=== PATIENT | male | born 1980 | race Caucasian/White ===

== ENCOUNTER 2021-07-20 08:00 | Outpatient (CLI) | payer OTHER, SELFPAY | END 2021-07-20 08:01 | disposition home or self-care (01) | LOC: ANHAUDIO 08:07 | PROVIDERS: Visit Provider Nurse Practitioner Family | DX: H93.12 Tinnitus, left ear (principal); H90.11 Conductive hearing loss, unilateral, right ear, with unrestricted hearing on the contralateral side | CPT/HCPCS: 92557; 92567 ==

== ENCOUNTER 2021-08-13 09:52 | Emergency (ER) | payer OTHER, SELFPAY ==
--- NOTE | ~2021-08-13 | CT_ITS ---
EXAMINATION: CT soft tissue neck w con EXAM DATE: 08/13/2021 12:55 INDICATION: Right mandibular swelling, pain. TECHNIQUE: Spiral CT of the neck was performed following intravenous injection of 75 mL Omnipaque 350 . Axial, coronal and sagittal images were reviewed. The dose-length product (DLP) for this examinat ion was 615.51 mGy-cm. The exposure was tailored according to patient size (auto mA exposure control ), and iterative reconstruction (ASIR) was used as additional dose reduction technique. There is no prior study for comparison. FINDINGS: Contiguous to the right mandibular body there is focal region which appears to the containe d fluid pocket measuring 2.6 x 0.9 cm in greatest axial dimensions (axial image 60) likely odontogeni c abscess. There is apical lucency at the root of tooth #30, the right lower anteriormost molar, and suspect tiny lucency extending toward the fluid collection as seen on bone windows sequence 5 image 6 4. Soft tissue swelling over the right side of the face. The thyroid gland is unremarkable. The submandibular and parotid glands are symmetric. There is n o cervical lymphadenopathy. There are no masses identified. The superior mediastinum is unremarka ble. The airway is unremarkable. Parapharyngeal and pre-glottic fat planes are preserved. The o pacified vasculature is patent. The orbits are unremarkable. Visualized sinuses and mastoid air c ells are well aerated. Lung apices are clear. Bones are unremarkable. IMPRESSION: Right lower molar apical lucency likely infection with development of small abscess anter ior to the mandible. Reviewed, dictated and finalized at location A. IMPRESSION: Right lower molar apical lucency likely infection with development of small abscess anterior to the mandible.
[2021-08-13 10:12] VITALS: BP 130/86; PULSE 72; RESP 16; TEMP 36.8; O2SAT 99
--- NOTE | 2021-08-13 11:16 | ED.EAR ---
HPI - Ear Problem General Chief complaint: Ear Stated complaint: right facial swelling Time Seen by Provider: 08/13/21 10:13 Source: patient Mode of arrival: ambulatory Limitations: no limitations History of Present Illness HPI Narrative: This is a 41-year-old male that presents to the emergency department for right-sided facial swelling noted since last night. Reports history of current ear infections recently. He finished a round of levofloxacin orally about 3 days ago. Reports yesterday he started to note swelling and pain around his right lower jaw. Denies any dental pain or problems. Denies fever, difficulty breathing, or trouble swallowing. Related Data Allergies Allergy/AdvReac Type Severity Reaction Status Date / Time Penicillins Allergy Unknown Unknown Verified 08/13/21 11:15 Review of Systems Review of Systems: CONSTITUTIONAL: Denies fever ENT: Reports otalgia. Denies rhinorrhea, congestion, sore throat RESPIRATORY: Denies dyspnea. All systems reviewed & are unremarkable except as noted in HPI and below PMFSH Past Medical History Medical History (Updated 08/13/21 @ 14:25 by Maria Eugenia Shipman PA-C) No active medical problems Social History Social History (Updated 08/13/21 @ 11:18 by Maria Eugenia Shipman PA-C) Smoking status: Never smoker Exam Narrative: GENERAL: Well-appearing, well-nourished, and in no acute distress. HEAD: Normocephalic, atraumatic. Moderate right-sided facial swelling of the mandible EYES: EOMI. ENT: Nares clear, no rhinorrhea or epistaxis. Mucous membranes moist. Oropharynx without tonsillar hypertrophy exudate or other lesions. Bilateral TMs pearly ortiz non-bulging. Normal-appearing dentition. No trismus. Floor mouth is soft NECK: Supple. Tender right-sided submandibular adenopathy CHEST: Clear to auscultation. No respiratory distress. No wheezes rales or rhonchi HEART: Regular rate and rhythm. No murmur heard. Normal peripheral pulses. EXTREMITIES: Normal range of motion. No edema. SKIN: Warm, dry, no rash. NEURO: No focal deficits. Alert and oriented x3. PSYCH: Normal mood and affect Course Vital Signs Vital signs: Vital Signs Temperature 98.2 F 08/13/21 10:12 Pulse Rate 72 08/13/21 10:12 Respiratory Rate 16 08/13/21 10:12 Blood Pressure 130/86 08/13/21 10:12 Pulse Oximetry 99 08/13/21 10:12 Temperature 98.2 F 08/13/21 10:12 Pulse Rate 72 08/13/21 10:12 Respiratory Rate 16 08/13/21 10:12 Blood Pressure 130/86 08/13/21 10:12 Pulse Oximetry 99 08/13/21 10:12 Medical Decision Making MDM Narrative Medical decision making narrative: Patient presents to the emergency department for facial swelling noted since last night. Patient did have an area of swelling noted to the right mandible. He is afebrile and nontoxic-appearing. No trismus on exam. Floor of mouth is soft. CBC with mild leukocytosis to 10.5. Inflammatory markers are not elevated. CT scan of the soft tissue neck shows a right lower molar apical lucency likely infection with development of small abscess anterior to the mandible. Dr. Mahoney came down to the ED and saw the patient and drained the abscess. Patient will be started on oral antibiotics and Peridex. Was instructed to follow-up with his ENT doctor and dentist. Patient is stable and felt appropriate for further outpatient evaluation. He was given warnings to return to the ER Vital Signs Vital Signs: Vital Signs Temperature 98.2 F 08/13/21 10:12 Pulse Rate 72 08/13/21 10:12 Respiratory Rate 16 08/13/21 10:12 Blood Pressure 130/86 08/13/21 10:12 Pulse Oximetry 99 08/13/21 10:12 Temperature 98.2 F 08/13/21 10:12 Pulse Rate 72 08/13/21 10:12 Respiratory Rate 16 08/13/21 10:12 Blood Pressure 130/86 08/13/21 10:12 Pulse Oximetry 99 08/13/21 10:12 Lab Data Lab results reviewed: Yes I reviewed the patient's lab results. Result diagrams: 08/13/21 11:31 08/13/21
[2021-08-13] MEDS: KETOROLAC 30 MG/ML VIAL (*BKC) IV PUSH (11:35)
[2021-08-13 11:47] LABS: Basophils Percent Auto 0.3 % (0.2-1.2); Eosinophils Absolute Auto 0.1 K/mm3 (0-0.3); Eosinophils Percent Auto 1.2 % (0-4.4); Hematocrit 44.8 % (42.0-52.0); Hemoglobin 14.9 g/dL (14.0-18.0); Immature Granulocyte Absolute 0.04 K/mm3 (0.00-0.031); Immature Granulocyte Percent A 0.4 % (0-0.5); Lymphocytes Absolute Auto 2.16 K/mm3 (0.9-3.2); Lymphocytes Percent Auto 20.7 % (18.3-44.2); Mean Corpuscular HGB Conc 33.3 g/dl (32-36); Mean Corpuscular Hemoglobin 27.7 pg (26-34); Mean Corpuscular Volume 83.3 fl (80-100); Monocytes Absolute Auto 0.9 K/mm3 (0.1-0.6); Monocytes Percent Auto 8.4 % (2.6-8.5); Neutrophils Absolute Auto 7.2 K/mm3 (1.3-6.7); Platelet Count Result 197 k/mm3 (150-375); Red Blood Count 5.38 M/mm3 (4.6-6.20); Red Cell Distribution Width 12.3 % (11.5-14.5); White Blood Count 10.5 K/mm3 (4.5-10.0)
[2021-08-13 12:38] LABS: Anion Gap 9 mmol/L (8-16); Blood Urea Nitrogen 13 mg/dL (9-20); Carbon Dioxide 29 mmol/L (22-30); Chloride 102 mmol/L (98-107); Estimated CRCL calculation 117 ml/min; Estimated Glomerular Filt Rate > 60; Glucose 96 mg/dL (65-110); Potassium 4.5 mmol/L (3.4-5.0); Sodium 140 mmol/L (137-145)
[2021-08-13 12:51] LABS: CRP < 0.5 mg/dL (<1.0)
[2021-08-13 13:31] LABS: Erythrocyte Sedimentation Rate 8 mm/hr (0-20)
--- NOTE | 2021-08-13 14:33 | WPDPROCEDUR ---
Procedures Abscess I/D Site: oral Side (if applicable): right Anesthetic used: lidocaine 1% (With epi) Technique: incised with #11 blade Amount of fluid (mL): 2 Irrigation: No Packing used?: none Complications: pain Comments: procedure described in great detail, consent obtained verbally, right-sided area of fluctuance noted anesthetized with 3 cc 1% lidocaine with 1 100,000 parts epinephrine, a 11 blade used to incise the mucosa curved Domonique utilize to probe the area with turbid fluid noted. No purulence. Patient tolerated the procedure well blood loss minimal.
--- NOTE | 2021-08-13 14:34 | P.CONS_ITS ---
Assessment and Plan Assessment and plan (1) Dental abscess: Code(s): K04.7 - Periapical abscess without sinus Status: Acute Assessment and Plan: patient use Peridex q.i.d. after meals and before bed for 7 days, patient should use clindamycin for 7 days as well. Can follow up with dentist next week as planned. Patient can follow up with me for any and all otolaryngologic issues. Patient discussed the immunosuppressive medication with the prescribing provider. Patient and voiced understanding and agreed. (2) Facial cellulitis: Code(s): L03.211 - Cellulitis of face Status: Acute HPI Data of Consult Date/Time: 08/13/21 14:34 Primary Care Provider: PHYSICIAN NOT ON STAFF Consult Narrative Narrative: Mauri Smith is a 41 year old male With approximately 12 hours of facial swelling. Patient is on immunosuppressant for his psoriatic arthritis. Patient also reports recurrent ear issues. Presents to me for further evaluation treatment. CT demonstrates right-sided buccal odontogenic type cellulitis possible abscess. CT personally reviewed by myself. Patient reports having eustachian tube dysfunction. [facility] Past Medical History Medical History (Updated 08/13/21 @ 14:36 by Navid Mahoney MD) No active medical problems Social History Social History (Updated 08/13/21 @ 11:18 by Maria Eugenia Shipman PA-C) Smoking status: Never smoker Meds Home Medications and Allergies Home Medications Medication Instructions Recorded Confirmed Type chlorhexidine gluconate [Peridex] See Rx Instructions .ROUTE 08/13/21 Rx .COMPLEX #473 ml clindamycin HCl 300 mg PO Q6H 10 Days #40 cap 08/13/21 Rx Allergies Allergy/AdvReac Type Severity Reaction Status Date / Time Penicillins Allergy Unknown Unknown Verified 08/13/21 11:15 Vital Signs Vital Signs - 24 hr 08/13/21 10:12 Temperature 36.8 C Pulse Rate 72 Respiratory Rate 16 Blood Pressure 130/86 Pulse Oximetry 99 Exam HENMT: Other: Ears normally bilateral normal EAC normal TM aerated middle ear right face swollen mild erythema in the buccal space when palpated fluctuance noted near the right mandibular molar and premolar. Results Labs CBC & Chem 7: 08/13/21 11:31 08/13/21 11:31 Labs: Short CBC 08/13/21 Range/Units 11:31 WBC 10.5 H (4.5-10.0) K/mm3 Hgb 14.9 (14.0-18.0) g/dL Hct 44.8 (42.0-52.0) % Plt Count 197 (150-375) k/mm3 [facility] 08/13/21 11:31 Sodium 140 Potassium 4.5 Chloride 102 Carbon Dioxide 29 BUN 13 Creatinine 1.00 Glucose 96 Calcium 9.0
[2021-08-13] MEDS: HYDROcodone/acetaminophen (*CRX) 5-325 MG TABLET 1 TAB PO (14:51)
== END 2021-08-13 14:57 | disposition home or self-care (01) ==
PROVIDERS: Physician Assistant; Emergency Provider Emergency Medicine
DX: K04.7 Periapical abscess without sinus (principal)
CPT/HCPCS: 36415; 70491; 80048; 85025; 85652; 86140; 96365; 96375; 99284; A9270; J0131; J1885; Q9967

== ENCOUNTER → 2022-05-23 16:07 | Outpatient (CLI) | payer BC, SELFPAY ==
--- NOTE | ~2022-05-23 | US_ITS ---
EXAMINATION: US soft tissue head and neck DATE: 05/23/2022 16:32 INDICATION: Palpable mass at the lateral left neck TECHNIQUE: Multiple grayscale and Doppler ultrasound images of the region of concern at the left neck were obtained. COMPARISON: CT dated 08/13/2021 FINDINGS/IMPRESSION: Palpable abnormality of concern appears to correspond to a couple small lymph nodes with typical smal l amount of vascular flow associated with the central echogenic fatty nikolas. These measure 10 x 10 x 4 mm and 10 x 7 x 5 mm which is within normal limits. No other abnormal masses or fluid collections id entified. Reviewed, dictated and finalized at location B.
== END ==
PROVIDERS: Visit Provider Physician Assistant Medical
DX: R22.1 Localized swelling, mass and lump, neck (principal)
CPT/HCPCS: 76536

== ENCOUNTER 2024-01-12 05:24 | Day surgery (SDC) | payer BC, SELFPAY ==
[2024-01-08 14:37] VITALS: BMI 33.2
--- NOTE | 2024-01-08 14:45 | PC.NURSE ---
Report to the Outpatient Waiting Room, entrance under the green pavilion located off [facility], at time 0930 on date 01/12/24. Planned Procedure Time: 1130. Time changes happen often and if your time is changed the preop area will call you the afternoon before. - You and your visitor will be asked to self-screen and do not enter if you have any COVID symptoms. - A mask is optional within the hospital at this time. Patients may have clear liquids (water, carbonated beverages, clear teas, apple juice) until 3 hours prior to surgery with a maximum of 20 ounces. - No food from midnight until time of surgery Take the following medications with a SIP of water the morning of surgery: DULOXETINE DO NOT STOP ANY OF YOUR OTHER PRESCRIPTION MEDICATIONS PRIOR TO SURGERY ?EXCEPT THE FOLLOWING Medications to discontinue per physician: VITAMINS/SUPPLEMENTS Date to take last dose: 01/08/24 Please no make-up, nail mongolian, hairspray, perfume, deodorant, or body powder the day of surgery. No jewelry (including any body piercings) or valuables the day of surgery, leave them at home. Please take a shower or bath the night before, or the morning of, surgery with an antibacterial soap. Wear comfortable, loose fitting clothing. - Jewelry must be removed prior to entering the operating room. Rings and piercings that are not removed may be cut off. - The hospital will not accept responsibility for valuables. - Please leave all valuables, including medications, at home the day of surgery. If you are going home after surgery, a licensed certified driver examiner must drive you home. - NO public transportation without another adult if you receive anesthesia. - We recommend that an adult stay with you for 24 hours following discharge. - We also recommend that you do not drive, make important decision, drink alcoholic beverages, or take any drugs that were not prescribed by your health care provider for at least 24 hours after your discharge time. Follow any additional instructions given to you from your surgeon. If you or anyone in your household have experienced Covid symptoms in the past week, please notify your surgeon or the nurse liaison at the phone number below for possible testing. Telephone instructions given to PT - HUBERT GRIFFIN and asked if any additional questions and then verbalized understanding. Patient advised to call surgeon office or pre surgery nurse liaison [phone] if any additional questions.
--- NOTE | ~2024-01-12 | XR_ITS ---
EXAMINATION: XR surgery orthopedic DATE: 01/12/2024 11:01 INDICATION: Left second metatarsal osteotomy TECHNIQUE: 2 fluoroscopic images of the left forefoot were obtained during procedure performed by her Aragon. Radiologist was not present for the imaging or procedure. The amount of fluoroscopy time u sed during this procedure was 0.1 minutes. COMPARISON: None. FINDINGS: Images demonstrate screw fixation of a likely shortening osteotomy at the head/neck of the second met atarsal. Alignment remains essentially anatomic. No fractures identified. Subtle lucency at the secon d metatarsophalangeal joint space and soft tissues at the base of the second toe likely representing small amount of postoperative gas. Joint spaces are normal. IMPRESSION: 1. Fluoroscopy utilized during likely shortening osteotomy at the head/neck the second metatarsal. Se [place] procedure note for further detail. Reviewed, dictated and finalized at location B. ARIAN HELPER IMPRESSION: 1. Fluoroscopy utilized during likely shortening osteotomy at the head/neck the second metatarsal. See procedure note for further detail.
--- NOTE | 2024-01-12 07:12 | WPDHPUPDATE1 ---
History and Physical Update Update Date/Time: 01/12/24 07:12 History and Physical has been reviewed, including an updated exam of the patient. There are NO changes in the patient's condition. Risks, benefits, and alternatives have been discussed and questions answered. Patient agrees to proceed with procedure.
--- NOTE | 2024-01-12 09:55 | WPDANESEPPF ---
Anes - Initial Pre Proc Eval Procedure: Operation Date: 01/12/24 11:30 Proposed Procedures p Rafaela Shortening Second Metatarsal Osteotomy Left Foot - Anthony Aragon JR, MD Date/Time: 01/12/24 09:55 Surgeon: Anthony Araogn JR, MD Pre Op Diagnosis: metatarsalgia left foot Patient Data Age: 43 Gender: M Height: 1.87 m Weight: 115.7 kg Allergies Allergy/AdvReac Type Severity Reaction Status Date / Time Penicillins Allergy Unknown Unknown Verified 01/08/24 15:06 Home Medications Medication Instructions Recorded Confirmed Type cyanocobalamin (vitamin B-12) 2,000 mcg PO DAILY 10/21/22 01/08/24 History 2,000 mcg tablet ixekizumab 80 mg/mL subcutaneous 80 mg subcut ONCE 10/24/22 01/08/24 History auto-injector (Taltz Autoinjector) ondansetron 4 mg disintegrating 4 mg PO Q6H PRN nausea and 05/18/23 01/08/24 Rx tablet vomiting #12 tabs duloxetine 30 mg capsule,delayed 60 mg PO DAILY 06/27/23 01/08/24 History release (Cymbalta) amitriptyline 10 mg tablet 10 mg PO QHS #90 tabs 09/28/23 01/08/24 Rx sumatriptan succinate 50 mg tablet 50 mg PO ONCE PRN migraine 09/28/23 01/08/24 Rx (Imitrex) headache #10 tabs Patient hx anesthesia problems: none Family hx anesthesia problems: none Results Review: All pre-operative results and documents have been reviewed as part of the pre-operative evaluation. 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 Father Heart disease Renal failure Hypertension Malignant neoplasm of prostate Social History Social History Smoking status: Never smoker Alcohol intake: never Alcohol use details: rarely Substance use: never Substance use type: does not use Lack of Transportation: No Lack of Food: Never True Current Housing: I Have Housing Concerned About Future Housing: No Difficulty Paying Gas/Electric Bills: No Difficulty Paying for Meds: No Currently Unemployed: No Education: Associate Degree Difficulty w/ Childcare or Family Care: No Living arrangements: with family Occupation/Education: occupation Gender identity (if verbalized by the patient): Male Spiritual care concerns: No Anes - Eval Final PreProcedure Day of Procedure 01/12/24 09:55 Patient weight: obese Heart: regular rate and rhythm Lungs: clear to auscultation Airway: Mallampati scale class II Neurological: alert and oriented Last oral intake: >/= 8 hours ASA classification: II Emergent: no Anesthetic plan: proceed Anesthesia type and monitoring: general GIVS and standard monitoring Results Review: All pre-operative results and documents have been reviewed as part of the pre-operative evaluation. Informed Consent: The patient's anesthetic plan and its attendant risks and benefits were discussed with the patient/family/POA. Questions were solicited and answers provided to the satisfaction of the patient/family/POA.
[2024-01-12] MEDS: LACTATED RINGERS 1,000 ML 30 ML IV CONT (10:10)
[2024-01-12 10:15] VITALS: BP 121/78; PULSE 63; RESP 16; TEMP 36.6; O2SAT 96
[2024-01-12] MEDS: ceFAZolin 2 GM/D5W 50 ML 2 GM/50 ML BAG IVPB (10:31)
[2024-01-12] MEDS: LIDOCAINE HCL 2% LOCAL INJ 20 ML VIAL 10 ML INFILTRATE (10:35)
[2024-01-12] MEDS: BUPivacaine HCL 0.5% 10 ML AMP INFILTRATE (10:35)
--- NOTE | 2024-01-12 11:07 | W.PM.PROC2 ---
Procedure Note - Detailed Date of Procedure 01/12/24 Pre-op Diagnosis Metatarsalgia sub second metatarsal head left foot Post-op Diagnosis Same Procedure Performed Rafaela shortening second metatarsal osteotomy left foot Surgeon Anthony Aragon JR, DPBertha Anesthesia MAC and Local Indications Painful left forefoot Description of Procedure Under mild sedation, the patient was brought to the operating room, placed on the operating table in the supine position. A pneumatic ankle tourniquet was placed about the patient's ankle. Following general anesthesia and a local anesthetic block with 20cs of 2% Lidocaine plain an 0.5% Marcaine plain, the foot was then scrubbed, prepped, and draped in the usual aseptic manner. An Esmarch bandage was then used to examine the patient's foot and pneumatic ankle tourniquet was then inflated. Surgery began in the following manner. Attention was directed to the dorsal aspect of the 2nd metatarsal head of the affected foot where a 2 cm incision was made just medial to the extensor tendon to the 2nd digit. The incision was continued deep down through the subcutaneous tissues using sharp and blunt dissection. All bleeders were cauterized as necessary. A full-length periosteal incision was made overlying the 2nd metatarsal distally. Next, a sagittal bone saw was used to make an osteotomy starting along the dorsal aspect of the articular surface to the head of the 2nd metatarsal in a parallel fashion to the shaft of the 2nd metatarsal. After this osteotomy was completed, the head of the 2nd metatarsal was noted to float into a more corrected proximal position. Two 2.0 Arthrex Quickfix screws were used to compress the osteotomy in a cannulated fashion from dorsal to plantar across the osteotomy site with excellent compression noted. The wound site was then flushed with copious amounts of sterile saline. Next, the periosteum and capsular structures overlying the 2nd metatarsophalangeal joints were reapproximated with 4-0 Vicryl. Next, subcutaneous structures were reapproximated and coapted utilizing 4-0 Vicryl. Next, the skin was reapproximated and coapted utilizing 4-0 Monocryl in running subcuticular suture fashion technique. Upon completion of the procedure, the incision was dressed with Steri-Strips, Adaptic, 4 x 4's, Kerlix, and Coban. The pneumatic ankle tourniquet was then deflated and a prompt hyperemic response noted to all digits of the foot. Posterior splint was then applied. The patient did very well with the procedure and the anesthesia. The patient was transferred to the recovery room with vital signs stable and vascular status intact to all toes of the foot. Following a period of postoperative monitoring, the patient will be discharged home on the following written and oral postoperative instructions: 1. Keep the dressing clean, dry, and intact. Use a cast protector bag with showers. 2. The patient to be strictly nonweightbearing with a knee scooter. 3. The patient should ice and elevate the left foot when at rest. 4. The patient to contact Dr. Aragon for all postop care and if any problems arise. 5. Prescriptions were written for Percocet 5/325 dispensed 40 to be taken 1 p.o. q.4 to 6 hours as needed for severe pain. Implants Two Arthrex Quickfix 2.0 Cannulated screws Estimated Blood Loss 1 Drains No Packing No Pathology None sent Complications No immediate complications Condition Stable Disposition Same day
[2024-01-12 11:12] VITALS: BP 106/78; PULSE 56; RESP 16; O2SAT 100
[2024-01-12 11:30] VITALS: BP 120/89; PULSE 53; RESP 16; O2SAT 100
[2024-01-12] MEDS: oxyCODONE HCL (*CRX) 5 MG TAB IR PO (11:58)
[2024-01-12 12:00] VITALS: BP 116/85; PULSE 49; RESP 16
[2024-01-12 12:25] VITALS: BP 117/80; PULSE 50; RESP 16
--- NOTE | 2024-07-17 15:51 | PC.NURSE ---
Report to the Outpatient Waiting Room, entrance under the green pavilion located off [facility], at time __30__ on date __07/26/24__. Planned Procedure Time: .? Time changes happen often and if your time is changed the preop area will call you the afternoon before. - You and your visitor will be asked to self-screen and do not enter if you have any COVID symptoms. Please call surgeon if you need to reschedule. - A mask is optional within the hospital at this time. Patients may have clear liquids (water, carbonated beverages, clear teas, apple juice) until 3 hours prior to surgery with a maximum of 20 ounces. - No food from midnight until time of surgery and no smoking - Infants may have breast milk until 4 hours before surgery, infant formula 6 hours prior to surgery. - Children will be allowed to drink immediately following surgery.? If applicable, please bring a bottle or sippy cup to assist with drinking. Juice, water, soda, and popsicles are readily available.? For infants on formula, please bring formula the day of surgery.? Pacifiers are allowed. Take only the following medications with a SIP of water on the morning of surgery: ____Amitriptyline and Duloxetine____ DO NOT STOP ANY OF YOUR OTHER PRESCRIPTION MEDICATIONS PRIOR TO SURGERY EXCEPT THE FOLLOWING Medications to discontinue per physician Meloxicam Date to take last dose 07/21/24 Please no make-up, nail welsh, hairspray, perfume, deodorant, or body powder the day of surgery.? No jewelry (including any body piercings) or valuables the day of surgery, leave them at home.? Please take a shower or bath the night before, or the morning of, surgery with an antibacterial soap.? Wear comfortable, loose fitting clothing.? Children are encouraged to wear pajamas. - Jewelry must be removed prior to entering the operating room.? Rings and piercings that are not removed may be cut off. - The hospital will not accept responsibility for valuables.? - Please leave all valuables, including medications, at home the day of surgery. If you are going home after surgery, a licensed motor coach bus driver must drive you home.? - NO public transportation without another adult if you receive anesthesia. - We recommend that an adult stay with you for 24 hours following discharge. - We also recommend that you do not drive, make important decision, drink alcoholic beverages, or take any drugs that were not prescribed by your health care provider for at least 24 hours after your discharge time. For Pediatric surgeries, we recommend two adults accompany the child home. Follow any additional instructions given to you from your surgeon. Telephone instructions given to ___Mauri Smith____and asked if any additional questions and then verbalized understanding. Patient advised to call surgeon office or pre surgery nurse liaison [phone] if any additional questions.
--- NOTE | 2024-07-17 15:58 | PC.NURSE ---
PT. takes vitamin B12 when he remembers and hasn't taken it in a while.
== END 2024-01-12 12:30 | disposition home or self-care (01) ==
PROVIDERS: PCP Physician Assistant Medical; Visit Provider Podiatrist Foot & Ankle Surgery
PROC: (CPT 28750; principal; 2024-01-12 11:30)
DX: M77.42 Metatarsalgia, left foot (principal); M79.7 Fibromyalgia; L40.9 Psoriasis, unspecified; E53.8 Deficiency of other specified B group vitamins; E66.9 Obesity, unspecified; Z68.34 Body mass index [BMI] 34.0-34.9, adult; Z79.620 Long term (current) use of immunosuppressive biologic
CPT/HCPCS: 28308; 99199; A9270; J0690; J2250; J2704; J3010; J7120

== ENCOUNTER 2024-05-22 12:52 | Outpatient (CLI) | payer BC, SELFPAY ==
--- NOTE | ~2024-05-22 | MR_ITS ---
EXAMINATION: MR knee LT wo con DATE: 05/22/2024 13:36 INDICATION: Left knee pain post injury a few months prior TECHNIQUE: Magnetic resonance imaging (MRI) of the left knee was performed without intravenous contra st. Sequences included coronal PD-weighted FSE, coronal PD-weighted FS FSE, sagittal T2-weighted FSE , sagittal PD-weighted FS FSE and axial PD weighted fat saturated FSE. COMPARISON: None. FINDINGS: Medial compartment: Medial meniscus is normal. Articular cartilage is normal. Lateral compartment: Lateral meniscus is normal. Articular cartilage is normal. Patellofemoral compartment: Partial-thickness chondral fissuring involving up to 50% of the cartilage thickness at the central as pect of the medial patellar facet and at the central aspect of the patellar apical ridge and adjacent medial side of the lateral facet. Ligaments and tendons: Anterior and posterior cruciate ligaments are normal. The medial collateral ligament and fibular amirah ateral ligament complex are normal. Mild distal quadriceps tendinopathy without discrete tear. The pa tellar tendon is normal. The visualized medial and lateral hamstring tendons as well as the iliotibia l band are normal. Fluid: Physiologic amount of fluid in the joint space. No loose osteochondral bodies identified. There is a small Aquino's cyst. Osseous/other: Normal marrow signal. No fracture or pathologic marrow replacing process. IMPRESSION: 1. Moderate grade patellar chondromalacia. 2. Mild distal quadriceps tendinopathy without tear. Reviewed, dictated and finalized at location A.
== END 2024-05-22 12:53 ==
LOC: MICIMG 12:53
PROVIDERS: PCP Physician Assistant Medical; Visit Provider Physician Assistant Medical
DX: S89.92XA Unspecified injury of left lower leg, initial encounter (principal); X58.XXXA Exposure to other specified factors, initial encounter
CPT/HCPCS: 73721

== ENCOUNTER 2024-07-26 01:10 | Day surgery (SDC) | payer BC, SELFPAY ==
[2024-07-17 10:46] VITALS: BMI 33.4
--- NOTE | 2024-07-25 13:55 | WPDANESEPPF ---
Anes - Initial Pre Proc Eval Procedure: Operation Date: 07/26/24 09:30 Proposed Procedures p Rafaela Shortening Second Metatarsal Osteotomy Right Foot - Anthony Aragon Jr., DPM Date/Time: 07/25/24 13:55 Surgeon: Anthony Aragon Jr., DPM Pre Op Diagnosis: Metatarsalgia Right Foot Patient Data Age: 44 Gender: M Height: 1.88 m Weight: 118.2 kg Allergies Allergy/AdvReac Type Severity Reaction Status Date / Time Penicillins Allergy Unknown Unknown Verified 07/17/24 10:37 Home Medications Medication Instructions Recorded Confirmed Type cyanocobalamin (vitamin B-12) 2,000 mcg PO DAILY 10/21/22 07/05/24 History 2,000 mcg tablet ixekizumab 80 mg/mL subcutaneous 80 mg subcut ONCE 10/24/22 07/05/24 History auto-injector (Taltz Autoinjector) duloxetine 30 mg capsule,delayed 60 mg PO DAILY 06/27/23 07/05/24 History release (Cymbalta) meloxicam 15 mg tablet 15 mg PO DAILY #30 tabs 04/15/24 07/17/24 Rx amitriptyline 10 mg tablet 10 mg PO QHS #90 tabs 05/17/24 07/17/24 Rx sumatriptan succinate 50 mg tablet See Rx Instructions PO .COMPLEX 06/26/24 07/17/24 Rx #20 tabs ondansetron 4 mg disintegrating 4 mg PO Q6H PRN nausea and 06/27/24 07/17/24 Rx tablet vomiting #12 tabs Patient hx anesthesia problems: none Family hx anesthesia problems: none Results Review: All pre-operative results and documents have been reviewed as part of the pre-operative evaluation. 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 Father Heart disease Renal failure Hypertension Malignant neoplasm of prostate Social History Social History Smoking status: Never smoker Alcohol intake: never Alcohol use details: rarely Substance use: never Substance use type: does not use Do You Feel Safe in your Home?: Yes Lack of Transportation: No Lack of Food: Never True Current Housing: I Have Housing Concerned About Future Housing: No Difficulty Paying Gas/Electric Bills: No Difficulty Paying for Meds: No Currently Unemployed: No Education: Associate Degree Difficulty w/ Childcare or Family Care: No Living arrangements: with family Occupation/Education: occupation Gender identity (if verbalized by the patient): Male Spiritual care concerns: No Anes - Eval Final PreProcedure Day of Procedure 07/25/24 13:55 Patient weight: obese Heart: regular rate and rhythm Lungs: clear to auscultation Airway: Mallampati scale class II Neurological: alert and oriented Last oral intake: >/= 8 hours ASA classification: III Emergent: no Anesthetic plan: proceed Anesthesia type and monitoring: general GIVS and standard monitoring Results Review: All pre-operative results and documents have been reviewed as part of the pre-operative evaluation. Informed Consent: The patient's anesthetic plan and its attendant risks and benefits were discussed with the patient/family/POA. Questions were solicited and answers provided to the satisfaction of the patient/family/POA.
--- NOTE | ~2024-07-26 | XR_ITS ---
EXAMINATION: XR surgery orthopedic DATE: 07/26/2024 10:15 INDICATION: Right foot surgery TECHNIQUE: Single dorsal plantar fluoroscopic image of the right forefoot was obtained during procedu re performed by Dr. Aragon. Radiologist was not present for the imaging or procedure. The amount of fluoroscopy time used during this procedure was 0.1 minutes. COMPARISON: None. FINDINGS: Images demonstrate a likely shortening osteotomy with screw fixation at the head neck junction of the right second metatarsal. Small amount of lucent gas at the second metatarsophalangeal joint space. N o fracture. Remaining joint spaces are unremarkable. IMPRESSION: 1. Thoracic utilized during likely shortening osteotomy at the second metatarsal head neck junction. See procedure note for further detail. Reviewed, dictated and finalized at location B. IMPRESSION: 1. Thoracic utilized during likely shortening osteotomy at the second metatarsa l head neck junction. See procedure note for further detail.
--- NOTE | 2024-07-26 07:18 | WPDHPUPDATE1 ---
History and Physical Update Update Date/Time: 07/26/24 07:18 History and Physical has been reviewed, including an updated exam of the patient. There are NO changes in the patient's condition. Risks, benefits, and alternatives have been discussed and questions answered. Patient agrees to proceed with procedure.
[2024-07-26 07:46] VITALS: BMI 34.2
[2024-07-26] MEDS: LACTATED RINGERS 1,000 ML 30 ML IV CONT (08:05)
[2024-07-26 08:10] VITALS: BP 114/69; PULSE 80; RESP 12; TEMP 36.6; O2SAT 97
[2024-07-26] MEDS: ceFAZolin 3 GM/D5W 100 ML 100 ML IVPB (09:42)
[2024-07-26] MEDS: LIDOCAINE HCL 2% LOCAL INJ 20 ML VIAL 10 ML INFILTRATE (10:01)
[2024-07-26 10:28] VITALS: BP 112/81; PULSE 46; RESP 16; O2SAT 99
--- NOTE | 2024-07-26 10:43 | W.PM.PROC2 ---
Procedure Note - Detailed Date of Procedure 07/26/24 Pre-op Diagnosis Metatarsalgia Right Foot Post-op Diagnosis Same Procedure Performed Rafaela shortening second metatarsal osteotomy right foot Surgeon Anthony Aragon Jr., DPM Anesthesia MAC and Local Indications Painful right forefoot Description of Procedure Under mild sedation, the patient was brought to the operating room, placed on the operating table in the supine position. A pneumatic ankle tourniquet was placed about the patient's ankle. Following general anesthesia and a local anesthetic block with 20cs of 2% Lidocaine plain an 0.5% Marcaine plain, the foot was then scrubbed, prepped, and draped in the usual aseptic manner. An Esmarch bandage was then used to examine the patient's foot and pneumatic ankle tourniquet was then inflated. Surgery began in the following manner. Attention was directed to the dorsal aspect of the 2nd metatarsal head of the affected foot where a 2 cm incision was made just medial to the extensor tendon to the 2nd digit. The incision was continued deep down through the subcutaneous tissues using sharp and blunt dissection. All bleeders were cauterized as necessary. A full-length periosteal incision was made overlying the 2nd metatarsal distally. Next, a sagittal bone saw was used to make an osteotomy starting along the dorsal aspect of the articular surface to the head of the 2nd metatarsal in a parallel fashion to the shaft of the 2nd metatarsal. After this osteotomy was completed, the head of the 2nd metatarsal was noted to float into a more corrected proximal position. Two Arthrex screws were used to compress the osteotomy utilizing two 2.4 mm Quickfix partially-threaded cannulated screws were driven from dorsal to plantar across the osteotomy site with excellent compression noted. I resected the dorsal shelf from the distal dorsal second metatarsal with a rongeur. The wound site was then flushed with copious amounts of sterile saline. Next, the periosteum and capsular structures overlying the 2nd metatarsophalangeal joints were reapproximated with 3-0 Vicryl. Next, subcutaneous structures were reapproximated and coapted utilizing 4-0 Vicryl. Next, the skin was reapproximated and coapted utilizing 4-0 Monocryl in running subcuticular suture fashion technique. Upon completion of the procedure, the incision was dressed with Steri-Strips, Adaptic, 4 x 4's, Kerlix, and Coban. The pneumatic ankle tourniquet was then deflated and a prompt hyperemic response noted to all digits of the foot. Posterior splint was then applied. The patient did very well with the procedure and the anesthesia. The patient was transferred to the recovery room with vital signs stable and vascular status intact to all toes of the foot. Following a period of postoperative monitoring, the patient will be discharged home on the following written and oral postoperative instructions: 1. Keep the dressing clean, dry, and intact. Use a cast protector bag with showers. 2. The patient to be strictly nonweightbearing with a knee scooter. 3. The patient should ice and elevate the left foot when at rest. 4. The patient to contact Dr. Aragon for all postop care and if any problems arise. 5. Prescriptions were written for Percocet 5/325 dispensed 40 to be taken 1 p.o. q.4 to 6 hours as needed for severe pain. Implants Two Arthrex 2.4mm Quickfix cannulated screws Estimated Blood Loss 1 Drains No Packing No Pathology None sent Complications No immediate complications Condition Stable Disposition Same day
[2024-07-26] MEDS: oxyCODONE HCL (*CRX) 5 MG TAB IR PO (10:56)
[2024-07-26 11:00] VITALS: BP 109/78; PULSE 52; RESP 16
[2024-07-26 11:27] VITALS: BP 117/88; PULSE 66; RESP 16
[2024-07-26 11:40] VITALS: BP 120/77; PULSE 65; RESP 16
== END 2024-07-26 11:50 | disposition home or self-care (01) ==
PROVIDERS: PCP Physician Assistant Medical; Visit Provider Podiatrist Foot & Ankle Surgery
PROC: (CPT 28750; principal; 2024-07-26 09:30)
DX: M77.42 Metatarsalgia, left foot (principal); E53.8 Deficiency of other specified B group vitamins; L40.9 Psoriasis, unspecified; M79.7 Fibromyalgia; M25.50 Pain in unspecified joint; E66.9 Obesity, unspecified; Z68.34 Body mass index [BMI] 34.0-34.9, adult; Z79.620 Long term (current) use of immunosuppressive biologic
CPT/HCPCS: 28308; 99199; A9270; C1713; J0690; J2250; J2704; J3010; J7120

== ENCOUNTER 2024-09-10 19:04 | Emergency (ER) | payer BC, SELFPAY ==
--- NOTE | 2024-09-10 19:12 | ED.URI ---
HPI - URI/Sore Throat General Chief Complaint: Upper Respiratory Infection Stated Complaint: strep symptoms Time Seen by Provider: 09/10/24 19:30 Source: patient and RN notes reviewed Mode of arrival: ambulatory Limitations: no limitations History of Present Illness HPI Narrative: 44-year-old male presents with concern for strep throat. Reports he was exposed to strep throat at home by his child and his . Reports symptoms started yesterday with nasal congestion, he had headache, stomach ache and sore throat today. MD elicited complaint: sore throat Related Data Home Medications Medication Instructions Recorded Confirmed duloxetine 30 mg capsule,delayed 60 mg PO DAILY 06/27/23 09/10/24 release (Cymbalta) Allergies Allergy/AdvReac Type Severity Reaction Status Date / Time Penicillins Allergy Unknown Unknown Verified 09/10/24 19:35 Review of Systems Review of Systems: CONSTITUTIONAL: Denies malaise, chills, sweats, or fever. EYES: Denies visual changes, redness, or discharge. ENT: Reports rhinorrhea, congestion, and sore throat. CARDIOVASCULAR: Denies chest pain, palpitations, or edema. RESPIRATORY: Denies cough. Denies dyspnea. GASTROINTESTINAL: Denies abdominal pain, nausea, vomiting, diarrhea. Reports upset stomach SKIN: Denies rash or itching. MUSCULOSKELETAL: Reports myalgia. NEUROLOGIC: Reports headache. 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 Father Heart disease Renal failure Hypertension Malignant neoplasm of prostate Social History Social History Smoking status: Never smoker Alcohol intake: never Alcohol use details: rarely Substance use: never Substance use type: does not use Do You Feel Safe in your Home?: Yes Lack of Transportation: No Lack of Food: Never True Current Housing: I Have Housing Concerned About Future Housing: No Difficulty Paying Gas/Electric Bills: No Difficulty Paying for Meds: No Currently Unemployed: No Education: Associate Degree Difficulty w/ Childcare or Family Care: No Living arrangements: with family Occupation/Education: occupation Gender identity (if verbalized by the patient): Male Spiritual care concerns: No Comments At time of signature, agree with nursing past medical, surgical, social and family history. There is no relevant family history pertinent to the presenting complaint Exam Narrative: GENERAL: Well-appearing, well-nourished, and in no acute distress. HEAD: Normocephalic EYES: PERRLA, conjunctivae clear ENT: Nares clear. Mucous membranes moist. TM pearly ortiz with dull light reflex bilaterally; no tragal tenderness. Oropharynx erythematous without lesions. Tonsils not enlarged and without exudate, no drooling, no hoarseness, no trismus, uvula midline. NECK: Supple. No lymphadenopathy CHEST: Clear to auscultation, breath sounds equal. No wheezing, rhonchi, rales, or stridor. No respiratory distress, speaks in full sentences. HEART: Regular rate and rhythm. No murmur heard. SKIN: Warm, dry, no rash. NEURO: Alert and oriented x3. PSYCH: Normal mood and affect Course Course Emergency Course: Patient is aware of diagnosis, understands and agrees to treatment plan. Anticipatory guidance given. Patient agrees to follow-up as directed and is aware of reasons to seek care at the emergency department. Portions of this record may have been created with voice recognition software Level of Care: Express Care Visit Vital Signs Vital signs: Reviewed. MDM - URI/Sore Throat MDM Narrative Medical decision making narrative: Differential diagnosis considered: Griffin virus, strep pharyngitis, allergic rhinitis, upper respiratory tract infection, sinusitis, rhinosinusitis, nasopharyngitis. viral pharyngitis, otitis media, otitis externa, pneumonia, bronchitis, viral cough syndrome, viral syndrome, and influenza. Exam findings show no acute concerns or changes; patient is non-toxic appearing and is in no distress. Patient is appropriate for outpatient treatment and follow-up. Lab Data Attestation: I reviewed the patient's lab results. Critical Care Time Critical Care Time Critical Care Time: No Discharge Plan Discharge Clinical Impression: Acute streptococcal pharyngitis Patient Disposition: Home, Self-Care Condition: Stable Instructions: Antibiotic Form, Strep Throat (ED) Additional Instructions: -Take the medication as prescribed. Throw away the toothbrush after 24hours of antibiotic. -Eat and drink things that are easy to swallow, like tea or soup, or popsicles to suck on. -Oral rinses such as: Salt water gargles and/or may use topical anesthetic (eg. Chloraseptic spray) or lozenges to relieve dryness or throat pain). -Take Tylenol and ibuprofen as needed for pain and fever as directed. -Frequent hand washing or hand admin assistant is one of the best ways to prevent spread of infection. -Follow up with primary care provider in 2-3 days if condition is not improving; or seek ER visit if you have trouble breathing, cannot drink enough fluids, have muffled voice, difficulty opening your mouth, or severe swelling. Prescriptions: New azithromycin [Zithromax Z-Manoj] 250 mg tablet See Rx Instructions .ROUTE .COMPLEX Qty: 6 0RF Rx Instructions: take 500 mg today (day 1), then 250 mg for 4 days (days 2-5) sumatriptan succinate 25 mg tablet See Rx Instructions .ROUTE .COMPLEX Qty: 2 0RF Rx Instructions: take 1 tab at onset of headache; if no relief may repeat 1 tab after at least 2 hrs; max = 4 tabs/24 hr No Action sumatriptan succinate 50 mg tablet See Rx Instructions PO .COMPLEX Qty: 20 0RF Rx Instructions: Take one tablet onset of headache. May repeat x 1 two hours later if headache is not completely resolved. Max of 2 tabs in 24 hours. duloxetine [Cymbalta] 30 mg capsule,delayed release(DR/EC) 60 mg PO DAILY Patient Comments: started April 2023 for fibro amitriptyline 10 mg tablet 10 mg PO QHS Qty: 90 0RF ondansetron 4 mg tablet,disintegrating 4 mg PO Q6H PRN (Reason: nausea and vomiting) Qty: 12 1RF Follow-up/Referrals: UNKNOWN,DOCTOR [Primary Care Provider] - Time of Disposition: 19:36
[2024-09-10 19:18] VITALS: BP 107/77; PULSE 76; RESP 16; TEMP 36.7; O2SAT 97
[2024-09-10 19:24] LABS: EDSTREPNEGPOS1 Positive (Negative)
== END 2024-09-10 19:42 | disposition home or self-care (01) ==
PROVIDERS: Emergency Provider Nurse Practitioner
DX: J02.0 Streptococcal pharyngitis (principal); M79.7 Fibromyalgia; L40.9 Psoriasis, unspecified
CPT/HCPCS: 87880; 99213; G0463

== ENCOUNTER 2024-10-22 14:04 | Outpatient (CLI) | payer BC, SELFPAY ==
--- NOTE | ~2024-10-22 | CT_ITS ---
CT scan of the Neck Technique: 2.5 mm axial scans were obtained through the neck without IV contrast administration. Billie nal and sagittal reconstructions of the neck were obtained. Dose reduction technique was used on this scan by utilizing automated exposure control and iterative reconstruction technique. The dose-length product (DLP) was 617.41 mGy-cm. Clinical History: Enlarged lymph nodes COMPARISON: 08/13/2021 Findings: There is no evidence of any significant cervical lymphadenopathy. Several small, nonenlarged jugulo- digastric and posterior cervical lymph nodes are noted bilaterally. Parapharyngeal spaces appear norm al bilaterally. The parotid and submandibular glands appear normal. The pharyngeal mucosal spaces appear normal. No soft tissue masses are seen in the neck. The thyroid gland appears normal. Images of the lung apices reveal no abnormalities. Impression: No significant abnormalities noted. Reviewed, dictated and finalized at [facility]. T CUTTER Impression: No significant abnormalities noted.
== END 2024-10-22 14:05 | disposition home or self-care (01) ==
LOC: ANHIMG 14:06
PROVIDERS: PCP Physician Assistant Medical; Visit Provider Physician Assistant Medical
DX: R59.1 Generalized enlarged lymph nodes (principal)
CPT/HCPCS: 70490

== ENCOUNTER 2025-01-06 07:45 | Outpatient (CLI) | payer BC, SELFPAY ==
--- OUTSIDE RECORDS SUMMARY | 2025-01-06 07:51 | XMS_ITS | Clinical Summary ---
Author Organization [facility] Address [address] [place] [address] Care Team Providers Care Weatherization Technician Name Role Phone Nik Mullen DO Unavailable Jennifer Gomes PA-C Primary Care Provider [phone] Source Comments [facility],non-owned Affiliates and Associated Physician Practices is amultiple site organization consisting of ambulatory clinics and hospital sitesin [place], [place], [place] and [place]. This disclosure is being madepursuant to the Care Everywhere program and may not contain all information available regarding this patient. Last updated 18.[facility] Allergies Active Allergy Reactions Criticality Noted Date Comments Food Diarrhea,Vomiting 01/22/2024 GLUETIN Penicillins Unknown Low 05/26/2015 Patient does not recall reaction but pt was told that he is allergic to penicillin Medications * Be aware that medications may not be up to date on this document. Alwaysverify current medications with the patient. Medication Sig Dispensed Refills Start Date End Date Status ondansetron, disintegrating, (Zofran ODT) 4 MG tablet DISSOLVE 1 TABLET ON THE TONGUE EVERY 6 HOURS NEEDED FOR NAUSEA OR VOMITING 02/01/2023 Active SUMAtriptan (Imitrex) 50 MG tablet TAKE 1 TABLET BY MOUTH 1 TIME NEEDED FOR MIGRAINE HEADACHE 02/01/2023 Active ixekizumab (Taltz) 80 MG/ML prefilled syringe Inject 1 mL subcutaneously every 28 days Active tirzepatide (Mounjaro) 7.5 MG/0.5ML injection Inject 7.5 (seven and one-half) mg subcutaneously every 7 days Active DULoxetine (Cymbalta) 60 MG capsuleIndicati ons:Fibromyalgi a Syndrome Take 1 (one) capsule by mouth every morning Reasons: Fibromyalgia Syndrome 90 capsule 3 12/16/2024 Active amitriptyline (Elavil) 25 MG tabletIndicatio ns:Depression,F ibromyalgia Syndrome,Sleep Take 1 (one) tablet by mouth at bedtime Reasons: Depression, Fibromyalgia Syndrome, Sleep 90 tablet 3 12/16/2024 Active amitriptyline (Elavil) 25 MG tabletIndicatio ns:Depression,F ibromyalgia Syndrome,Sleep Take 1 (one) tablet by mouth at bedtime Replaces use of 10 mg tablets. Reasons: Depression, Fibromyalgia Syndrome, Sleep 90 tablet 1 08/08/2024 5 Discontinue d(Reorder) DULoxetine (Cymbalta) 30 MG capsuleIndicati ons:Fibromyalgi a Syndrome Take 1 (one) capsule by mouth every morning for 7 days Use to restart for 7 days then resume home supply of 60 mg capsules. Reasons: Fibromyalgia Syndrome 7 capsule 08/08/2024 5 Discontinue d(Reorder) DULoxetine (Cymbalta) 60 MG capsuleIndicati ons:Fibromyalgi a Syndrome Take 1 (one) capsule by mouth every morning Short term refill to allow patient to make overdue follow-up appointment Reasons: Fibromyalgia Syndrome 7 capsule 12/12/2024 5 Discontinue d(Reorder) Active Problems Problem Noted Date Diagnosed Date Moderate episode of recurrent major depressive d isorder 08/08/2024 Overview (08/08/2024): Depressed mood and some ?dark thoughts? but denies any current suicidal/self- harm ideation. believes he always has had a component of mild depression. Fibromyalgia syndrome 05/08/2023 Overview (05/08/2023): Symptoms seem to strongly suggest a underlying fibromyalgia type syndrome with components of prominent fatigue and may or may not be secondary reactive process. Chronic fatigue syndrome with fibromyalgia (ME/C FS) 05/08/2023 Overview (05/08/2023): Myalgic encephalomyelitis/chronic fatigue syndrome (ME/CFS), is a complicated disease characterized by unexplained, persistent, and relapsing fatigue Encounters Date Type Department Care Team Description 12/16/2024 3:20 PM AGRICULTURAL APPRAISER Office Visit [facility] - Rheumatology [address] [place] [address], [address] [place] [address] Nik Mullen DO Fibromyalgia syndrome (Primary Dx); Chronic fatigue syndrome with fibromyalgia (ME/CFS); Moderate episode of recurrent major depressive disorder (HCC) 12/12/2024 Refill [facility] - Rheumatology [address] [place] [address], [address] [place] [address] Nik Mullen DO MEDICATION REFILL from Last 3 Months Social History Tobacco Use Types Packs/Day Years Used Date Smoking Tobacco: Never Smokeless Tobacco: Never Tobacco Cessation:Counseling Given: Not Answered PHQ-2 Answer Date Recorded Patient Health Questionnaire-2 Score 0 12/16/2024 Sex and Gender Information Value Date Recorded Sex Assigned at Not on file Gender Identity Not on file Sexual Orientation Not on file Last Filed Vital Signs Vital Sign Reading Time Taken Comments Blood Pressure 100/70 12/16/2024 3:20 PM AGRICULTURAL APPRAISER Pulse 92 12/16/2024 3:20 PM AGRICULTURAL APPRAISER Temperature 36.1 C (97 F) 12/16/2024 3:20 PM AGRICULTURAL APPRAISER Respiratory Rate 16 12/16/2024 3:20 PM AGRICULTURAL APPRAISER Oxygen Saturation 93% 12/16/2024 3:20 PM AGRICULTURAL APPRAISER Inhaled Oxygen Concentration - - Weight 114.8 kg (253 lb) 12/16/2024 3:20 PM AGRICULTURAL APPRAISER Height 185.4 cm (6' 1 ) 02/19/2024 8:11 AM CDT Body Mass Index 33.38 02/19/2024 8:11 AM CDT Plan of Treatment Upcoming Encounters Date Type Department Care Team (Late st Contact Info) Description 12/15/2025 3:40 PM AGRICULTURAL APPRAISER Office Visit [facility] - Rheumatology [address] [place] [address], [address] [place] [address] Nik Mullen DO [address] [place] [address] [address] [place] [address] Health Maintenance Due Date Last Done Comments LIPID TESTING 1982 HIV SCREENING 1997 HEPATITIS C SCREENING 03/10/2000 DTAP/TDAP/TD VACCINES (1 - Tdap) 2001 HEPATITIS B VACCINE (1 of 3 - 19+ 3-dose series) 2001 SCREENING FOR DIABETES 05/08/2023 05/26/2015 COVID-19 VACCINE (3 - 2023-2 5 season) 2024 02/04/2021, 01/07/2021 INFLUENZA VACCINE (#1) 2024 08/24/2023 ZOSTER VACCINE (1 of 2) 2032 DEPRESSION SCREENING Completed 12/16/2024 HIB VACCINE Aged Out No longer eligi ble based on patient's age to complete this topic HPV VACCINE Aged Out No longer eligi ble based on patient's age to complete this topic MENINGOCOCCAL (Group B) VACCINE Aged Out No longer eligible b ased on patient's age to complete this topic MENINGOCOCCAL VACCINE Aged Out No bette bobby eligible based on patient's age to complete this topic PNEUMOCOCCAL VACCINE Aged Out No long er eligible based on patient's age to complete this topic Procedures Procedure Name Priority Date/Time Associated Diagnosis Comments BASIC METABOLIC PANEL (CALCIUM TOTAL) Routine 05/26/2015 5:22 AM CDT from Last 3 Months or Most Recently Relevant to Health Maintenance Results * (ABNORMAL) BASIC METABOLIC PANEL (CALCIUM TOTAL) (05/26/2015 5:22 AM CDT) BUN 10 7 - 26 mg/dL [facility] Creatinine 1.1 0.6 - 1.2 mg/dL [facility] Sodium 140 136 - 145 mmol/L [facility] Potassium 4.0 3.5 - 4.5 mmol/L [facility] Chloride 109(H) 98 - 107 mmol/L [facility] CO2 25 22 - 29 mmol/L [facility] Glucose 94 70 - 115 mg/dL [facility] Calcium 8.4 8.4 - 10.2 mg/dL [facility] Anion Gap 10 8 - 18 [facility] BUN/Creatinine Ratio 9 7 - 23 [facility] Osmolality Calculated 274 270 - 300 mOsm/kg [facility] eGFR >60 >60 mL/min/1.7 3 m2 [facility] Blood specimen (specimen) BLOOD SPECIMEN / Unknown 05/26/2015 5:22 AM CDT 05/26/2015 5:40 AM CDT Savannah Kim MD LAB - CHEMISTRY [place] Organization Address City/State/ZIP Co de Phone Number [facility] [address] [place], [place] [id number] [place] [address] from Last 3 Months or Most Recently Relevant to Health Maintenance Care Teams Weatherization Technician Relationship Specialty Start Date End Date Jennifer Gomes PA-C [address] [place] [address] PCP - General Physician Hood Fitter 09/26/24 Nik Mullen DO [address] [facility] [address] [place] [id number] House Moving Supervisor Rheumatology 08/23/24
--- OUTSIDE RECORDS SUMMARY | 2025-01-06 07:51 | XMS_ITS | Encounter Summary ---
Author Organization [facility] Address [address] [place] [address] Care Team Providers Care Construction Stonemason Name Role Phone Cory Leavitt MD Primary Care Provider Unavailable None, Provider Primary Care Provider Unavaila ble Encounter Details Date Type Department Care Team (Late st Contact Info) Description 09/16/2017 Abstract [facility] [address] [place], [place] [id number] Cory Leavitt MD Social History Tobacco Use Types Packs/Day Years Used Date Smoking Tobacco: Never Assessed Sex and Gender Information Value Date Recorded Sex Assigned at Not on file Legal Sex Male 12:04 AM CDT Gender Identity Not on file Sexual Orientation Not on file documented as of this encounter Plan of Treatment Upcoming Encounters Date Type Department Care Team (Late st Contact Info) Description 06/16/2025 8:[address] [facility] [address] [place] [address] Mark Gallegos MD [address] [facility]. [place] [address] [place] [address] documented as of this encounter Visit Diagnoses Not on filedocumented in this encounter Additional Health Concerns Infection Onset Date Last Indicated Resolved Time COVID-19 Rule Out 06/27/2024 06/27/2024 06/27/2024 5:40 PM CDT documented as of this encounter Care Teams Construction Stonemason Relationship Specialty Start Date End Date Cory Leavitt MD PCP - General 05/24/15 01/22/18 None, Provider, PCP - General UNKNOWN PHYSICIAN SPECIALTY 09/14/23 documented as of this encounter
--- OUTSIDE RECORDS SUMMARY | 2025-01-06 07:51 | XMS_ITS | Clinical Summary ---
Author Organization [facility] Address [address] [place] [address] Phone Care Team Providers Care Tile Trimmer Name Role Phone Corey River MD Primary Care Provider [phone] Allergies Active Allergy Reactions Criticality Noted Date Comments Other-Food Allergen (Not Fou nd In Search) Diarrhea,Vomiting 01/22/2024 GLUETIN Penicillins Unknown 01/22/2024 Medications DULoxetine (CYMBALTA) [address] Callahan tions:Fibromyal ender Syndrome Take 60 mg by mouth daily. Indications: Fibromyalgia Syndrome Active amitriptyline (ELAVIL) 10 MG TabletIndicatio ns:Migraine Take 10 mg by mouth nightly. Indications: Migraine Headache Active SUMAtriptan (IMITREX) 25 MG Tablet Take 25 mg by mouth once as needed for Migraine. Use as directed. May repeat dose in 2 hours if headache recurs. Active ondansetron (ZOFRAN-ODT) 4 MG TABLET DISPERSIBLE Take 4 mg by mouth every 8 hours as needed for Nausea - 1st line (CAUSED BY MIGRAINES). Active oxyCODONE-aceta minophen (PERCOCET) 5-325 MG Tablet Take 1 Tablet by mouth every 4 hours as needed. Active MULTIPLE VITAMIN PO Take 1 Tablet by mouth daily. Active Cyanocobalamin (VITAMIN B 12 PO) Take 1 Tablet by mouth daily. Active Cholecalciferol (Vitamin D-3 Super Strength) 50 mcg Tablet Take 2,000 Units by mouth once a week. MONDAYS Active Family History Medical History Relation Name Comments Other-comment Father complecations from Agent Adkins No Known Problems Mother Relation Name Status Comments Father Mother Alive Social History Tobacco Use Types Packs/Day Years Used Date Smoking Tobacco: Never Smokeless Tobacco: Never Tobacco Cessation:Counseling Given: Not Answered Alcohol Use Standard Drinks/Week Comments Not Currently 0 (1 standard drink = 0.6 oz pur e alcohol) maybe once a year Sex and Gender Information Value Date Recorded Sex Assigned at Not on file Legal Sex Male 12:44 PM INFORMATION SECURITY ARCHITECT Gender Identity Not on file Sexual Orientation Not on file Last Filed Vital Signs Vital Sign Reading Time Taken Comments Blood Pressure 116/79 01/30/2024 1:25 PM CDT Pulse 80 01/30/2024 1:25 PM CDT Temperature 36.2 C (97.2 F) 01/30/2024 1:25 PM CDT Respiratory Rate 16 01/30/2024 1:25 PM CDT Oxygen Saturation 97% 01/30/2024 1:25 PM CDT Inhaled Oxygen Concentration - - Weight 118.7 kg (261 lb 11.2 oz) 01/30/2024 9:29 AM CDT Height 188 cm (6' 2 ) 01/30/2024 9:29 AM CDT Body Mass Index 33.6 01/30/2024 9:29 AM CDT Plan of Treatment Health Maintenance Due Date Last Done Comments Hepatitis C Virus (HCV) Screening 1982 TdaP Immunization 1982 Hepatitis B Immunization (1 of 3 - 19+ 3-dose series) 2001 Influenza Immunization (#1) 2024 08/24/2023 SARS-COV-2 Immunization ( season) 2024 02/04/2021, 01/07/2021 Respiratory Syncytial Virus (RSV) Immunization (Adult) (1 - 1-dose 75+ series) 2057 Meningococcal Immunization (ACWY) Aged Out No longer eligible b ased on patient's age to complete this topic Pneumococcal Immunization Combined Aged Out No longer eligible b ased on patient's age to complete this topic Rotavirus Immunization Aged Out No lo nger eligible based on patient's age to complete this topic Medical Devices Implanted Type Area Sand Conditioner Machine Device Identifier Shelf Expiration Date Model / Serial / Lot Tube Ventilation Green 1.14mm 3.5mm Marcus Bevel Ear Fluoroplastic Grommet Tympanic Membrane - [id number] Implanted:Qty: 1 on 01/30/2024 by Corey River MD at [facility] IMPLANT Left: Ear [employer] 03/01/2028 [id number] / [id number] / [id number] [address] [place] [place], [place] [id number] [place] [address] Care Teams Tile Trimmer Relationship Specialty Start Date End Date Corey River MD [address] [place] [address] PCP - General Otolaryngology 01/30/24
--- OUTSIDE RECORDS SUMMARY | 2025-01-06 07:51 | XMS_ITS | Referral Summary ---
Author Organization [facility] Address [address] [place] [address] Care Team Providers Care Reel Assembler Name Role Phone Sebas Nik DO Unavailable Jennifer Gomes PA-C Primary Care Provider [phone] Source Comments [facility],non-owned Affiliates and Associated Physician Practices is amultiple site organization consisting of ambulatory clinics and hospital sitesin [place], [place], [place] and [place]. This disclosure is being madepursuant to the Care Everywhere program and may not contain all information available regarding this patient. Last updated 18.[facility] Encounters Date Type Department Care Team Description 12/16/2024 3:20 PM TOWEL SORTER Office Visit [facility] - Rheumatology [address] [place] [address], [facility] [address] [place] [phone] Nik Mullen DO Fibromyalgia syndrome (Primary Dx); Chronic fatigue syndrome with fibromyalgia (ME/CFS); Moderate episode of recurrent major depressive disorder (HCC) 12/12/2024 Refill [facility] - Rheumatology [address] [place] [address], [address] [place] [phone] Nik Mullen DO MEDICATION REFILL from Last 3 Months Allergies Active Allergy Reactions Criticality Noted Date [...] characterized by unexplained, persistent, and relapsing fatigue Social History Tobacco Use Types Packs/Day Years [...] Comments Blood Pressure 100/70 12/16/2024 3:20 PM TOWEL SORTER Pulse 92 12/16/2024 3:20 PM TOWEL SORTER Temperature 36.1 C (97 F) 12/16/2024 3:20 PM TOWEL SORTER Respiratory Rate 16 12/16/2024 3:20 PM TOWEL SORTER Oxygen Saturation 93% 12/16/2024 3:20 PM TOWEL SORTER Inhaled Oxygen Concentration - - Weight 114.8 kg (253 lb) 12/16/2024 3:20 PM TOWEL SORTER Height 185.4 cm (6' 1 ) 02/19/2024 8:11 AM CDT Body Mass Index 33.38 02/19/2024 8:11 AM CDT Plan of Treatment Upcoming Encounters Date Type Department Care Team (Late st Contact Info) Description 12/15/2025 3:40 PM TOWEL SORTER Office Visit [facility] - Rheumatology [address] [facility], [address] [place] [address] Nik Mullen DO [address] [facility] [address] [place] [address] Procedures Procedure Name Priority Date/Time Associated Diagnosis Comments BASIC METABOLIC PANEL (CALCIUM TOTAL) Routine 05/26/2015 5:22 AM CDT from Last 3 Months or Most Recently Relevant to Health Maintenance Results * (ABNORMAL) BASIC METABOLIC PANEL (CALCIUM TOTAL) (05/26/2015 5:22 AM CDT) BUN 10 7 - 26 mg/dL [facility] Creatinine 1.1 0.6 - 1.2 mg/dL [facility] Sodium 140 136 - 145 mmol/L [facility] Potassium 4.0 3.5 - 4.5 mmol/L [facility] Chloride 109(H) 98 - 107 mmol/L [facility] CO2 25 22 - 29 mmol/L [facility] Glucose 94 70 - 115 mg/dL [facility] Calcium 8.4 8.4 - 10.2 mg/dL [facility] Anion Gap 10 8 - 18 [facility] BUN/Creatinine Ratio 9 7 - 23 [facility] Osmolality Calculated 274 270 - 300 mOsm/kg [facility] eGFR >60 >60 mL/min/1.7 3 m2 [facility] Blood specimen (specimen) BLOOD SPECIMEN / Unknown 05/26/2015 5:22 AM CDT 05/26/2015 5:40 AM CDT Savannah Kim MD LAB - CHEMISTRY [facility] Organization Address City/State/ZIP Co de Phone Number [facility] [address] [phone] from Last 3 Months or Most Recently Relevant to Health Maintenance Care Teams Reel Assembler Relationship Specialty Start Date End Date Jennifer Gomes PA-C [address] [place] [address] PCP - General Physician Wash Operator 09/26/24 Nik Mullen DO [address] [address] Hand Miter Operator Rheumatology 08/23/24
--- OUTSIDE RECORDS SUMMARY | 2025-01-06 07:51 | XMS_ITS | Data Portability ---
Author Organization [place] [facility], Main Office Address [address] [place] [address] Care Team Providers Care Usability Specialist Name Role Phone [facility] Primary Care Provider Assessment No assessment recorded. Plan of Treatment Reminders Order Date Submit Date Provider Last Modified By Organization Details Last Modified Time Details Appointments None recorded. Lab None recorded. Referral None recorded. Procedures eustachian tube balloon dilation (PROC) 2023 024 [email or web address] Not available 4 17:20:00 Surgeries myringotomy , with eustachian tube inflation (SURG) 2022 021 [id number] Not available 3 17:13:55 Imaging None recorded. Medication Orders clindamycin HCl 300 mg capsule 2023 [employer] [id number], [address], [place], [id number], 4 10:15:29 Medrol (Manoj) 4 mg tablets in a dose pack 2023 024 [facility][id number], [address], [place], [phone], 4 10:15:31 Patient TargetsNo targets recorded. Patient Instructions Encounter Date Encounter Id Patient Instructions Last Modified By Organization Details Last Modified Time 02/08/2024 [id number] he will return a s needed [email or web address] Not available 02/14/2024 16:56:09 Reason for Referral None Reported. Results Created Date Observation Date Name Description Value Unit Range Abnormal Flag Note LastModifiedBy Organization Detail LastModifiedTime 01/22/20 24 01/26/2024 SRINIVAS MONSON, PLASM A potassium 3.6 mmol/ L 3.4-4. 8 normal Not Available [address], [address], 01/26/2024 11:20:40 01/22/20 24 01/26/2024 CBC (INCL UDES DIFF/ PLT) white blood cell count 6.3 thous and/u L 3.8-10 .8 normal Not Available [address], [address], 01/26/2024 11:20:40 01/22/20 24 01/26/2024 CBC (INCL UDES DIFF/ PLT) red blood cell count 5.64 estrella on/uL 4.20-5 .80 normal Not Available [address], [address], 01/26/2024 11:20:40 01/22/20 24 01/26/2024 CBC (INCL UDES DIFF/ PLT) hemoglobin 15.9 g/dL 13.2-1 7.1 normal Not Available [address], [address], 01/26/2024 11:20:40 01/22/20 24 01/26/2024 CBC (INCL UDES DIFF/ PLT) hematocrit 46.7 % 38.5-5 0.0 normal Not Available [address], [address], 01/26/2024 11:20:40 01/22/20 24 01/26/2024 CBC (INCL UDES DIFF/ PLT) MCV 82.8 fL 80.0-1 00.0 normal Not Available [facility] [address], [address], 01/26/2024 11:20:40 01/22/20 24 01/26/2024 CBC (INCL UDES DIFF/ PLT) MCH 28.2 pg 27.0-3 3.0 normal Not Available [address], [address], 01/26/2024 11:20:40 01/22/20 24 01/26/2024 CBC (INCL UDES DIFF/ PLT) MCHC 34.0 g/dL 32.0-3 6.0 normal Not Available [address], [address], 01/26/2024 11:20:40 01/22/20 24 01/26/2024 CBC (INCL UDES DIFF/ PLT) RDW 12.9 % 11.0-1 5.0 normal Not Available [address], [address], 01/26/2024 11:20:40 01/22/20 24 01/26/2024 CBC (INCL UDES DIFF/ PLT) platelet count 249 thous and/u L 140-40 0 normal Not Available [address], [address], 01/26/2024 11:20:40 01/22/20 24 01/26/2024 CBC (INCL UDES DIFF/ PLT) MPV 10.8 fL 7.5-12 .5 normal Not Available [address], [address], 01/26/2024 11:20:40 01/22/20 24 01/26/2024 CBC (INCL UDES DIFF/ PLT) absolute neutrophils 3515 cells /uL 1500-7 800 normal Not Available [address], [address], 01/26/2024 11:20:40 01/22/20 24 01/26/2024 CBC (INCL UDES DIFF/ PLT) absolute lymphocytes 2123 cells /uL 850-39 00 normal Not Available [address] [place], [address], 01/26/2024 11:20:40 01/22/20 24 01/26/2024 CBC (INCL UDES DIFF/ PLT) absolute monocytes 403 cells /uL 200-95 0 normal Not Available [facility] [address], [address], 01/26/2024 11:20:40 01/22/20 24 01/26/2024 CBC (INCL UDES DIFF/ PLT) absolute eosinophils 221 cells /uL 15-500 normal Not Available [facility] [address], [address], 01/26/2024 11:20:40 01/22/20 24 01/26/2024 CBC (INCL UDES DIFF/ PLT) absolute basophils 38 cells /uL 0-200 normal Not Available [facility] [address], [address], 01/26/2024 11:20:40 01/22/20 24 01/26/2024 CBC (INCL UDES DIFF/ PLT) neutrophils 55.8 % normal Not Available [facility] [address], [address], 01/26/2024 11:20:40 01/22/20 24 01/26/2024 CBC (INCL UDES DIFF/ PLT) lymphocytes 33.7 % normal Not Available [address], [address], 01/26/2024 11:20:40 01/22/20 24 01/26/2024 CBC (INCL UDES DIFF/ PLT) monocytes 6.4 % normal Not Available [address], [address], 01/26/2024 11:20:40 01/22/20 24 01/26/2024 CBC (INCL UDES DIFF/ PLT) eosinophils 3.5 % normal Not Available [facility] [address], [address], 01/26/2024 11:20:40 01/22/20 24 01/26/2024 CBC (INCL UDES DIFF/ PLT) basophils 0.6 % normal Not Available [facility] [address], [place], [address], 01/26/2024 11:20:40 07/20/20 21 07/20/2021 audio gram + tympa nogra m No observ ation record ed. [id number] [facility] (Audiology) [address] [place] [address] [address], [address], 01/11/2023 17:13:56 Result Notes None recorded. Problems Name Problem SNOMED Code Status Onset Date Resolution Date Notes Provider Name and Address Organization Details Recorded Time Finding of bacteria by serology 724363280 Active Not Available [facility] 3 17:13:06 Dysfunctio n of left eustachian tube 8590787820279 106 Active 2023 Corey River MD [address] [place] [address], [place], [address] , [facility] 4 17:14:52 Problem Notes None recorded. Procedures Surgical History Date Name Laterality Status Provider Name and Address Organization Details Recorded Time 08/23/20 21 MYRINGOTOMY, WITH EUSTACHIAN TUBE INFLATION (SURG) completed Not Available [facility] 01/11/2023 17:13:55 inflation of Eustachian tube using balloon completed Fanny Elizabeth RN [facility] 02/07/2024 10:16:03 myringotomy and insertion of tympanic ventilation tube completed Fanny Elizabeth RN [facility] [employer] [facility] 02/07/2024 10:15:59 Imaging Results Imaging Date Name Status LastModified by Organ [facility] Details LastModified Time 07/20/2021 audiogram + tympanogram completed [id number] [facility] (Audiology) [address] [place] [address], [address], 01/11/2023 17:13:56 Procedure Notes None recorded. Medical Equipment None Reported. Allergies Allergen ID Allergen Name Allergen Category Reaction Reaction Severity Criticality Documentation Date Start Date Code Code System Note Provider Name and Address Organization Details Recorded Time 03227 Penicilli n Not available Not available Not available Not available 01/11/2023 88384 RxNorm Not Available [facility] 17:13:54 Medications Name Sig Start Date Stop Date Status Note LastModified by Organization Details LastModified Time doxycycline hyclate 100 mg capsule Take 1 capsule twice a day by oral route for 7 days. active Not Available Not Available No t Available clindamycin HCl 300 mg capsule TAKE 1 CAPSULE BY MOUTH EVERY 6 HOURS FOR 10 DAYS 02/06 completed Not Available Not Available Not Available hydrocodone 5 mg-acetamin ophen 325 mg tablet TAKE 1 TABLET BY MOUTH EVERY 4 HOURS NEEDED FOR PAIN. 10/25 completed Not Available Not Available Not Available prednisone 20 mg tablet TAKE 2 TABLETS FOR 4 DAYS AND THEN TABLET FOR 2 DAYS active Not Available Not Available No t Available sumatriptan 50 mg tablet TAKE 1 TABLET BY MOUTH 1 TIME NEEDED FOR MIGRAINE HEADACHE active Not Available Not Available No t Available tramadol 50 mg tablet TAKE 1 TABLET BY MOUTH EVERY 4 HOURS NEEDED FOR PAIN active Not Available Not Available No t Available oxycodone-a cetaminophe n 5 mg-325 mg tablet TAKE 1 TABLET BY MOUTH EVERY 4 TO 6 HOURS NEEDED FOR PAIN active Not Available Not Available No t Available amitriptyli ne 25 mg tablet Take 1 tablet every day by oral route. 12/14 completed Not Available Not Available Not Available amitriptyli ne 10 mg tablet TAKE 1 TABLET BY MOUTH EVERY DAY AT BEDTIME active Not Available Not Available No t Available doxycycline monohydrate 100 mg capsule 12/14 completed Not Available Not Available Not Available levofloxaci n 500 mg tablet TAKE 1 TABLET BY MOUTH EVERY DAY FOR 7 DAYS 08/03 completed Not Available Not Available Not Available levofloxaci n 750 mg tablet Take 1 tablet every day by oral route for 10 days. active Not Available Not Available No t Available methylpredn isolone 4 mg tablets in a dose pack FOLLOW PACKAGE DIRECTION S 02/06 completed Not Available Not Available Not Available ondansetron 4 mg disintegrat ing tablet DISSOLVE 1 TABLET ON THE TONGUE EVERY 6 HOURS NEEDED FOR NAUSEA OR VOMITING active Not Available Not Available No t Available cefdinir 300 mg capsule TAKE 1 CAPSULE BY MOUTH TWICE DAILY 12/11 completed Not Available Not Available Not Available tobramycin 0.3 %-dexametha sone 0.1 % eye drops,suspe nsion SHAKE LIQUID AND INSTILL 4 DROPS TO AFFECTED EAR TWICE DAILY FOR 10 DAYS 08/03 completed Not Available Not Available Not Available topiramate 50 mg tablet active Not Available Not Available Not Available duloxetine 30 mg capsule,del ayed release TAKE 1 CAPSULE BY MOUTH EVERY MORNING FOR FIBROMYAL BONNIE 12/14 completed Not Available Not Available Not Available duloxetine 60 mg capsule,del ayed release Take 1 capsule every day by oral route. active Not Available Not Available No t Available chlorhexidi ne gluconate 0.12 % mouthwash USE 15 ML BY MOUTH AFTER MEALS AND AT BEDTIME 12/11 completed Not Available Not Available Not Available Xarelto 10 mg tablet TAKE 1 TABLET BY MOUTH ONCE A DAY STARTING 24 HOURS AFTER SURGERY active Not Available Not Available No t Available Taltz Syringe Inj. 1 x q mo. active Not Available Not Available No t Available Xhance 93 mcg/actuati on breath activated aerosol Dum[place] 2 sprays twice a day by intranasa l route. 10/25 completed Not Available Not Available Not Available ID NOW COVID-19 Test Kit TEST DIRECTED. 12/14 completed Not Available Not Available Not Available Vitals Date Recorded Body mass index (BMI) Body height Body temperature Body weight Provider Name and Address Organization Details Last Updated DateTime 08/05/2021 31.1 kg/m2 187.96 cm 97.7 [degF] 185113.3 5 g Not Available [facility] 01/11/2023 17:12:57 Date Recorded Body mass index (BMI) Body height Body temperature Body weight Provider Name and Address Organization Details Last Updated DateTime 08/13/2021 31.1 kg/m2 187.96 cm 97.6 [degF] 767675.3 5 g Not Available [facility] 01/11/2023 17:12:57 Date Recorded Body mass index (BMI) Body height Body temperature Body weight Provider Name and Address Organization Details Last Updated DateTime 10/26/2021 31.1 kg/m2 187.96 cm 97.5 [degF] 262740.3 5 g Not Available [facility] 01/11/2023 17:12:57 Date Recorded Body weight Body mass index (BMI) Body height Body temperature Provider Name and Address Organization Details Last Updated DateTime 12/14/2023 844711.97 g 35.3 kg/m2 186.69 cm 97.8 [degF] Fanny Elizabeth RN [facility] 12/14/2023 17:05:09 Social History Question Answer Notes LastModified by Organizat ion Details LastModified Time Tobacco Smoking Status Never Smoker Not Available [facility] 01/11/2023 17:12:28 What Is Your Level Of Alcohol Consumption? Occasional [id number] Information not available 01/11/2023 In The 14 Days Before Symptom Onset, Have You Had Close Contact With A Laboratory-confirm ed COVID-19 While That Case Was Ill? No [id number] Information not available 01/11/2023 In The 14 Days Before Symptom Onset, Have You Had Close Contact With A Person Who Is Under Investigation For COVID-19 While That Person Was Ill? No [id number] Information not available 01/11/2023 Have You Recently Traveled Abroad? No [id number] Information not available 01/11/2023 Sex: Unknown Functional Status None recorded. Mental Status None recorded. Family History Relationship Description Onset Age of this Age Resolved Age Notes LastModified by Organization Details LastModified Time Father No current problems or disability [id number] Not available 01/11/2023 17:12:29 Mother No current problems or disability [id number] Not available 01/11/2023 17:12:29 Medical History Condition Response MRSA N SLEEP APNEA N ALLERGIES/HAYFEVER N LUNG DISEASE/DISORDER N INSOMNIA N HISTORY OF DRUG ABUSE N RADIATION / CHEMOTHERAPY N COPD N HIGH CHOLESTEROL / HYPERLIPIDEMIA N HYPERTHYROIDISM N BLOOD DISEASES N EAR OR HEARING PROBLEMS N HYPOTHYROIDISM N SHINGLES N DEPRESSION (INCLUDING POST ) N HAVE YOU BEEN HOSPITALIZED OR SEEN IN [facility] ER IN THE PAST YEAR ? N STROKE/TIA N ULCERS N OBESITY N ANEURYSM N HISTORY WITH COMPLICATIONS WITH ANESTHES IA ? N NO SIGNIFICANT PAST MEDICAL HISTORY N USE OF BLOOD THINNERS N DIABETES, TYPE N PARATHYROID DISEASE N ENT N SEASONAL ALLERGIES N HEARTBURN / REFLUX N HEPATITIS / LIVER DISEASE N SLEEP DISORDER N HEADACHES/MIGRAINES N SEIZURES/EPILEPSY N CHF N PACEMAKER N DIZZINESS N HEART DISEASE/HEART PROBLEMS N AIDS/HIV N FRACTURES N HYPERTENSION N CANCER: SPECIFY N TOURETTE'S N BLOOD TRANSFUSION N ANESTHESIA COMPLICATIONS N ANEMIA/BLOOD DISORDER N CHRONIC EAR INFECTIONS N TUBERCULOSIS N Past Encounters Encounter ID Performer Location Encounter Start Date Encounter Closed Date Diagnosis/Indication Diagnosis SNOMED-CT Code Diagnosis ICD10 Code Diagnosis Note [id number] [facility] [address] [place] [address] 07/01/2021 00:00:00 07/01/2021 09:38:52 [id number] [facility] [place] [address] [place] [address] 08/05/2021 00:00:00 08/05/2021 14:48:12 [id number] _ATHENA_M IGRATION_ DEFAULT_1 _1 , 08/13/2021 00:00:00 08/13/2021 10:32:22 [id number] [facility] [place] [address] [place] [address] 10/26/2021 00:00:00 10/26/2021 11:00:57 [id number] Corey River MD [facility] [place] [address] [place] [address] 12/14/2023 16:34:44 12/18/2023 16:01:18 Dysfunction of left eustachian tube 8906218545 941211 H69.92 [id number] Corey River MD [facility] [place] [address] [place] [address] 02/09/2024 11:22:10 02/15/2024 09:37:20 Dysfunction of left eustachian tube 9807986403 669461 H69.92 Health Concerns Section Related Observation LastModified by Organization Detai ls LastModified Time None Recorded Concern Status LastModified by Organization Details LastModified Time None Recorded Advance Directives Directive None Recorded Payers Encounter Date Sequence Insurance Name Policy Number Policy Robins Covered Member ID Robins Member ID Guarantor Name 12/14/2023 1 [place] [id number] 1 Mauri Smith [id number] Mauri Smith 02/08/2024 1 [place] [id number] 1 Mauri Smith [id number] Mauri Smith Notes Date Note Type Note Provider Name and Address Organization Details Recorded Time 12/14/2023 text/html Had right ETBD 2 years ago and had a flight 2 weeks ago. Now the left closed off and he believes there is fluid. Corey River MD [address], [place], [address], [facility] [employer] [facility] [employer] [facility] 12/14/2023 17:16:01 02/08/2024 text/html he is doing very well following Eustachian tube balloon on the left. He reports that his hearing has recovered Corey River MD [address], [place], [address], [employer] [facility] [employer] 02/14/2024 16:56:26
--- OUTSIDE RECORDS SUMMARY | 2025-01-06 07:51 | XMS_ITS | Clinical Summary ---
Author Organization [facility] Address [address] [place] [id number] Care Team Providers Care Pressing Machine Operator Name Role Phone None, Provider MD Primary Care Provider Unavaila ble Allergies Active Allergy Reactions Criticality Noted Date Comments Penicillins Unknown 06/27/2024 Medications amitriptyline (ELAVIL) 25 MG tablet Take 1 tablet (25 mg total) by mouth. 4 Active Cholecalciferol (VITAMIN D-3 SUPER STRENGTH) 50 MCG (2000 UT) Tab Take 2,000 Units by mouth every 7 days. Active DULoxetine (CYMBALTA) 30 MG capsule Take 1 capsule (30 mg total) by mouth. 4 Active Ixekizumab 80 MG/ML Solution Prefilled Syringe Inject 80 mg into the skin every 28 days. Active meloxicam (MOBIC) 15 MG tablet Take 1 tablet (15 mg total) by mouth daily. 4 Active oxyCODONE-aceta minophen (PERCOCET) 5-325 MG tablet TAKE 1 TABLET BY MOUTH EVERY NIGHT AT BEDTIME NEEDED FOR PAIN Active XARELTO 10 MG Tab tablet Take 1 tablet (10 mg total) by mouth daily. Active rizatriptan (MAXALT) 5 MG tablet 4 Active SUMAtriptan (IMITREX) 100 MG tablet TAKE 1 TABLET BY MOUTH AT ONSET OF HEADACHE. MAY REPEAT 1 TIME 2 HOUR LATER IF HEADACHE IS NOT COMPLETELY RESOLVED. MAX OF 2 TABLET IN 24 HOURS 4 Active topiramate (TOPAMAX) 50 MG Tab Active Active Problems Problem Noted Date Diagnosed Date Aortic dilatation 11/01/2024 Moderate episode of recurren t major depressive disorder (CMS/HCC [facility]) 08/08/2024 Overview (10/28/2024): Depressed mood and some ?dark thoughts? but denies any current suicidal/self- harm ideation. believes he always has had a component of mild depression. Dysfunction of left eustachian tube 12/13/2023 Chronic fatigue syndrome with fibromyalgia 05/08 Overview (10/28/2024): Myalgic encephalomyelitis/chronic fatigue syndrome (ME/CFS), is a complicated disease characterized by unexplained, persistent, and relapsing fatigue Fibromyalgia syndrome 05/08/2023 Overview (10/28/2024): Symptoms seem to strongly suggest a underlying fibromyalgia type syndrome with components of prominent fatigue and may or may not be secondary reactive process. Abnormal color of sputum 10/10/2012 Acute bronchitis 10/10/2012 Resolved Problems Problem Noted Date Diagnosed Date Resolved Date Encounter for preventive health examination 10/10/2012 11/04/2024 Encounters Date Type Department Care Team Description 10/30/2024 10:00 AM [facility] Office Visit [facility] [address] [place] [address] Mark Gallegos MD Fatigue 10/28/2024 Orders Only [facility] [address] Annemarie Lzaaro MA 10/08/2024 8:20 AM [facility] - 10/08/2024 12:22 PM [facility] Emergency [facility] [place] [address] Chasidy Laughlin, HARDWARE SALES ASSISTANT Chest Pain (Chest pressure since 2am, felt fluttering and numbness and tingling in legs for 5 minutes, then fluttering stopped, chest pressure remains) Discharge Disposition: Home or Self Care (Routine Discharge) 10/08/2024 Travel from Last 3 Months Immunizations Name Administration Dates Next Due Influenza Adult (Generic) 08/24/2023 PFIZER COVID-19 (ORIGINAL FO RMULATION, PURPLE CAP) mRNA, LNP-S, PF, 30 MCG/0.3 ML DOSE 02/04/2021,01/07/2021 Social History Tobacco Use Types Packs/Day Years Used Date Smoking Tobacco: Never Smokeless Tobacco: Never Tobacco Cessation:Counseling Given: Not Answered Alcohol Use Standard Drinks/Week Comments Yes 0 (1 standard drink = 0.6 oz pur e alcohol) rarely Sex and Gender Information Value Date Recorded Sex Assigned at Not on file Legal Sex Male 12:04 AM CDT Gender Identity Not on file Sexual Orientation Not on file Last Filed Vital Signs Vital Sign Reading Time Taken Comments Blood Pressure 120/80 10/30/2024 10:08 AM [facility] Pulse 64 10/30/2024 10:08 AM [facility] Temperature 36.6 C (97.9 F) 10/08/2024 12:00 PM [facility] Respiratory Rate 13 10/08/2024 12:00 PM [facility] Oxygen Saturation 100% 10/08/2024 12:00 PM [facility] Inhaled Oxygen Concentration - - Weight 118.8 kg (262 lb) 10/30/2024 10:08 AM [facility] Height 185.4 cm (6' 1 ) 10/30/2024 10:08 AM [facility] Body Mass Index 34.57 10/30/2024 10:08 AM [facility] Plan of Treatment Upcoming Encounters Date Type Department Care Team (Late st Contact Info) Description 06/16/2025 8:30 AM CDT Appointment [facility] [address] [place], [place] [id number] Mark Gallegos MD [address] [address] Health Maintenance Due Date Last Done Comments Annual Physical 1985 Hepatitis C 2000 DTaP, Tdap and Td Vaccines ( 1 - Tdap) 2001 Hepatitis B Vaccines (1 of 3 - 19+ 3-dose series) 2001 COVID-19 Vaccine (2023-2 5 season) 2024 02/04/2021, 01/07/2021 Influenza Adult (#1) 2024 08/24/2023 HPV Vaccines Aged Out No longer eligi ble based on patient's age to complete this topic Meningococcal B Vaccine Aged Out No l onger eligible based on patient's age to complete this topic Meningococcal Vaccine Aged Out No bette bobby eligible based on patient's age to complete this topic Pneumococcal Vaccine: Pediatrics (0 to 5 Years) and At-Risk Patients (6 to 64 Years) Aged Out No longer eligible b ased on patient's age to complete this topic RSV Immunizations Under 20 Months Aged Out No longer eligible b ased on patient's age to complete this topic Procedures Procedure Name Priority Date/Time Associated Diagnosis Comments TROPONIN, QUANT STAT 10/08/2024 12:09 PM [facility] ECG 12-LEAD STAT 10/08/2024 12:08 PM [facility] TROPONIN, QUANT STAT 10/08/2024 10:12 AM [facility] ECG 12-LEAD STAT 10/08/2024 10:09 AM [facility] XR CHEST PORTABLE STAT 10/08/2024 8:4 8 AM [facility] MAGNESIUM STAT 10/08/2024 8:15 AM [facility] TSH W/REFLEX STAT 10/08/2024 8:15 AM [facility] TROPONIN, QUANT STAT 10/08/2024 8:15 AM [facility] COMPREHENSIVE METABOLIC PANEL STAT 10/08/2024 8:15 AM [facility] CBC W/DIFF AUTOMATED STAT 10/08/2024 8:15 AM [facility] ECG 12-LEAD STAT 10/08/2024 8:10 AM [facility] from Last 3 Months Results * TROPONIN, QUANT (10/08/2024 12:09 PM [facility]) Only the most recent of3 resultswithin the time period is included. TROPONIN I HIGH SENSITIVITY <3 <79 ng/L 10/08/2024 12:45 PM [facility] Comment: HIGH DOSES OF BIOTIN, TROPONIN-SPECIFIC AUTOANTIBODIES, AND ANTIBODY THERAPY CONTAINING HAMA MAY INTERFERE WITH THIS TEST RESULT. CORRELATION TO CLINICAL HISTORY AND PRESENTATION RECOMMENDED. 10/08/2024 12:0 9 PM [facility] Chasidy Laughlin HARDWARE SALES ASSISTANT LABORATORY Final Resul t [facility] [address] [place] [address], [place] [phone] * ECG 12 lead (10/08/2024 12:08 PM [facility]) Only the most recent of3 resultswithin the time period is included. 10/08/2024 12:0 8 PM [facility] Narrative [facility] - 10/08/2024 11:19 PM [facility] [address] Test Date: 2024-10-08 Pat Name: GRICEL SMITH Department: 41 Room: [facility] Gender: Male Raisin Washer: : 1980 Requested By: RONNI SUN Order Number: [id number] Reading MD: Danica Anderson Measurements Intervals [place] Rate: 54 P: 39 MD: 178 QRS: -22 QRSD: 96 T: 19 QT: 436 QTc: 417 Interpretive Statements SINUS BRADYCARDIA BORDERLINE LEFT AXIS DEVIATION [QRS AXIS < -20] Compared to ECG 10/08/2024 10:09:11 Sinus tachycardia no longer present First degree AV block no longer present Right-axis deviation no longer present ST (T wave) deviation no longer present Myocardial infarct finding no longer present [facility] Procedure Note Danica Anderson MD - 10/08/[address] Test Date: 2024-10-08 Pat Name: GRICEL SMITH Department: 41 Room: [facility] Gender: Male Raisin Washer: : 1980 Requested By: RONNI SUN Order Number: [id number] Reading MD: Danica Anderson Measurements Intervals [place] Rate: 54 P: 39 MD: 178 QRS: -22 QRSD: 96 T: 19 QT: 436 QTc: 417 Interpretive Statements SINUS BRADYCARDIA BORDERLINE LEFT AXIS DEVIATION [QRS AXIS < -20] Compared to ECG 10/08/2024 10:09:11 Sinus tachycardia no longer present First degree AV block no longer present Right-axis deviation no longer present ST (T wave) deviation no longer present Myocardial infarct finding no longer present [facility] us Chasidy Laughlin HARDWARE SALES ASSISTANT ECG ORDERABLES Final Resul t [facility] * XR CHEST PORTABLE (10/08/2024 8:48 AM [facility]) Anatomical Region Laterality Modality Chest Radiographic Emily ging 10/08/2024 8:48 AM [facility] Impressions 10/08/2024 8:49 AM [facility] =====IMPRESSION:===== 1. No radiographic evidence of active disease the chest. Ordered By: CHASIDY LAUGHLIN Interpreted By: Tashi Soria MD, 10/08/2024 8:48 AM Narrative 10/08/2024 8:49 AM [facility] [address] [address] Examination: Chest x-ray 1 view Exam date/time: 10/08/2024 8:29 AM Reason For Exam: chest pain Comparison: 06/27/2024 Technique: Upright AP view of the chest demonstrated. Findings: The cardiac silhouette, mediastinal contours, and pulmonary vessels appear normal. The lungs are clear. No pneumothorax. No consolidations or effusions are seen. Procedure Note Tashi Soria MD - 10/08/2024 [facility] [address] [place], [place] [address] Examination: Chest x-ray 1 view Exam date/time: 10/08/2024 8:29 AM Reason For Exam: chest pain Comparison: 06/27/2024 Technique: Upright AP view of the chest demonstrated. Findings: The cardiac silhouette, mediastinal contours, and pulmonaryvessels appear normal. The lungs are clear. No pneumothorax. Noconsolidations or effusions are seen. =====IMPRESSION:===== 1. No radiographic evidence of active disease the chest. Ordered By: CHASIDY LAUGHLIN Interpreted By: Tashi Soria MD, 10/08/2024 8:48 AM Chasidy Laughlin [facility] Final Resul t * TSH W/REFLEX (10/08/2024 8:15 AM [facility]) TSH 1.400 0.358 - 3.74 uIU/ML 10/08/2024 9:03 AM [facility] Comment: HIGH DOSES OF BIOTIN MAY INTERFERE WITH THIS TEST RESULT. CORRELATION TO CLINICAL HISTORY AND PRESENTATION RECOMMENDED. FREE T4 NOT INDICATED 10/08/2024 8:15 AM [facility] Chasidy Laughlin [facility] Final Resul t [facility] [address] [place] [address], [place] [phone] * (ABNORMAL) COMPREHENSIVE METABOLIC PANEL (10/08/2024 8:15 AM [facility]) [facility] GLUCOSE 99 70 - 99 MG/DL 10/08/2024 9:03 AM [facility] BUN 19(H) 7 - 18 MG/DL 10/08/2024 9:03 AM [facility] CREATININE S/P/B 1.18 0.7 - 1.3 MG/DL 10/08/2024 9:03 AM [facility] SODIUM S/P/B 137 136 - 145 MMOL/L 10/08/2024 9:03 AM [facility] POTASSIUM S/P/B 3.8 3.5 - 5.1 MMOL/L 10/08/2024 9:03 AM [facility] CHLORIDE S/P/B 106 97 - 115 MMOL/L 10/08/2024 9:03 AM [facility] CO2 30.1 21 - 32 MMOL/L 10/08/2024 9:03 AM [facility] CALCIUM S/P/B 8.2(L) 8.5 - 10.1 MG/DL 10/08/2024 9:03 AM [facility] BILIRUBIN TOTAL S/P/B 0.5 0.2 - 1.2 MG/DL 10/08/2024 9:03 AM [facility] Comment: THIS ASSAY IS NOT RECOMMENDED FOR PATIENTS UNDERGOING TREATMENT WITH ELTROMBOPAG DUE TO THE POTENTIAL FOR FALSELY ELEVATED RESULTS. TOTAL PROTEIN S/P/B 7.3 6.4 - 8.2 G/DL 10/08/2024 9:03 AM [facility] ALBUMIN S/P/B 3.7 3.4 - 5.0 G/DL 10/08/2024 9:03 AM [facility] AST 20 15 - 37 U/L 10/08/2024 9:03 AM [facility] ALT 23 16 - 60 U/L 10/08/2024 9:03 AM [facility] ALKALINE PHOSPHATASE S/P/B 65 50 - 136 U/L 10/08/2024 9:03 AM [facility] ANION GAP 0.9(L) 2 - 10 MMOL/L 10/08/2024 9:03 AM [facility] BUN CREATININE RATIO 16.1 6 - 10/08/2024 9:03 AM [facility] A/G RATIO 1.0 1.0 - 2.0 RATIO 10/08/2024 9:03 AM [facility] GFR ESTIMATE 79(L) >90 ML/MIN/1.7 3 M2 10/08/2024 9:03 AM [facility] Comment: NOTE: eGFR is not calculated for patients <18 years of age or gender unknown. This is an estimated GFR calculation using the new CKD EPI creatinine equation without race and so does not require a correction factor for race. This estimated GFR should not be used for calculating drug doses. 10/08/2024 8:15 AM [facility] Chasidy Laughlin HARDWARE SALES ASSISTANT LABORATORY Final Resul t [facility] [address] [place] [address], [place] [phone] * CBC W/DIFF AUTOMATED (10/08/2024 8:15 AM [facility]) WBC 5.69 4.5 - 11.0 x10'3/uL 10/08/2024 8:31 AM [facility] RBC 5.45 4.70 - 6.10 x10'6/uL 10/08/2024 8:31 AM [facility] HGB 15.2 14.0 - 18.0 G/DL 10/08/2024 8:31 AM [facility] HCT 45.2 43.0 - 54.0 % 10/08/2024 8:31 AM [facility] MCV 82.9 80.0 - 94.0 FL 10/08/2024 8:31 AM [facility] MCH 27.9 27.0 - 31.0 PG 10/08/2024 8:31 AM [facility] MCHC 33.6 32.0 - 36.0 G/DL 10/08/2024 8:31 AM [facility] RDW 12.9 11.5 - 14.5 % 10/08/2024 8:31 AM [facility] PLT 233 130 - 400 x10'3/uL 10/08/2024 8:31 AM [facility] MPV 9.4 9.3 - 12.2 FL 10/08/2024 8:31 AM [facility] DIFFERENTIAL TYPE AUTOMATED DIFFERENTIAL 10/08/2024 8:31 AM [facility] NEUTROPHILS % 51.1 % 10/08/2024 8:31 AM [facility] LYMPHOCYTES % 34.3 % 10/08/2024 8:31 AM [facility] MONOCYTES % 8.6 % 10/08/2024 8:31 AM [facility] EOSINOPHILS 4.9 % 10/08/2024 8:31 AM [facility] BASOPHILS 0.7 % 10/08/2024 8:31 AM [facility] IMMATURE GRANS % 0.4 % 10/08/20 8:31 AM [facility] ABS. NEUTROPHILS 2.91 1.80 - 7.70 x10'3/uL 10/08/2024 8:31 AM [facility] ABS. LYMPHOCYTES 1.95 1.00 - 4.80 x10'3/uL 10/08/2024 8:31 AM [facility] ABS. MONOCYTES 0.49 0.30 - 0.82 x10'3/uL 10/08/2024 8:31 AM [facility] ABS. EOSINOPHILS 0.28 0.04 - 0.54 x10'3/uL 10/08/2024 8:31 AM [facility] ABS. BASOPHILS 0.04 0.01 - 0.08 x10'3/uL 10/08/2024 8:31 AM [facility] ABS. IMMATURE GRANULOCYTES 0.02 0.00 - 0.49 x10'3/uL 10/08/2024 8:31 AM [facility] 10/08/2024 8:15 AM [facility] Chasidy Laughlin [facility] Final Resul t [facility] [address] [place] [address], [place] [phone] * MAGNESIUM (10/08/2024 8:15 AM [facility]) MAGNESIUM 2.3 1.8 - 2.4 MG/DL 10/08/2024 9:03 AM [facility] 10/08/2024 8:15 AM [facility] Chasidy Laughlin HARDWARE SALES ASSISTANT LABORATORY Final Resul t [facility] [address] [place] [id number], from Last 3 Months Insurance [facility] Care Teams Pressing Machine Operator Relationship Specialty Start Date End Date None, Provider, PCP - General UNKNOWN PHYSICIAN SPECIALTY 09/14/23
--- OUTSIDE RECORDS SUMMARY | 2025-01-06 07:51 | XMS_ITS | Patient Health Summary ---
Author Organization [facility] Address [address] 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 This disclosure is being madepursuant to the Care Everywhere program and may not contain all information available regarding this patient. Last updated 18.[facility] Allergies * Food(Diarrhea,Vomiting) * Penicillins(Unknown) -Low Criticality Medications * Be aware that medications may not be up to date on this document. Alwaysverify current medications with the patient. * ondansetron, disintegrating, (Zofran ODT) 4 MG tablet(Started 02/01/2023) DISSOLVE 1 TABLET ON THE TONGUE EVERY 6 HOURS NEEDED FOR NAUSEA OR VOMITING * SUMAtriptan (Imitrex) 50 MG tablet(Started 02/01/2023) TAKE 1 TABLET BY MOUTH 1 TIME NEEDED FOR MIGRAINE HEADACHE * ixekizumab (Taltz) 80 MG/ML prefilled syringe Inject 1 mL subcutaneously every 28 days * tirzepatide (Mounjaro) 7.5 MG/0.5ML injection Inject 7.5 (seven and one-half) mg subcutaneously every 7 days * DULoxetine (Cymbalta) 60 MG capsule(Started 12/16/2024) Take 1 (one) capsule by mouth every morning Reasons: Fibromyalgia Syndrome 3 refills by 12/16/2025 * amitriptyline (Elavil) 25 MG tablet(Started 12/16/2024) Take 1 (one) tablet by mouth at bedtime Reasons: Depression, Fibromyalgia Syndrome, Sleep 3 refills by 12/16/2025 Ended Medications* amitriptyline (Elavil) 25 MG tablet(Started 08/08/2024) (Discontinued) Take 1 (one) tablet by mouth at bedtime Replaces use of 10 mg tablets. Reasons: Depression, Fibromyalgia Syndrome, Sleep 1 refill by 08/08/2025 * DULoxetine (Cymbalta) 30 MG capsule(Started 08/08/2024)(Discontinued) Take 1 (one) capsule by mouth every morning for 7 days Use to restart for 7 days then resume home supply of 60 mg capsules. Reasons: Fibromyalgia Syndrome * DULoxetine (Cymbalta) 60 MG capsule(Started 12/12/2024)(Discontinued) Take 1 (one) capsule by mouth every morning Short term refill to allow patient to make overdue follow-up appointment Reasons: Fibromyalgia Syndrome Active Problems Problem Noted Date Diagnosed Date Moderate episode of recurrent major depressive d isorder 08/08/2024 Fibromyalgia syndrome 05/08/2023 Chronic fatigue syndrome with fibromyalgia (ME/C FS) 05/08/2023 Social History Tobacco Use Types Packs/Day Years [...] Comments Blood Pressure 100/70 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 Pulse 92 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 Temperature 36.1 C (97 F) 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 Respiratory Rate 16 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 Oxygen Saturation 93% 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 Inhaled Oxygen Concentration - - Weight 114.8 kg (253 lb) 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 Height 185.4 cm (6' 1 ) 02/19/2024 8:11 AM CDT Body Mass Index 33.38 02/19/2024 8:11 AM CDT Procedures * ERYTHROCYTE SEDIMENTATION RATE(Performed 05/26/2015) * TROPONIN I(Performed 05/26/2015) * CK + CKMB PANEL(Performed 05/26/2015) * MRI BRAIN WWO CONTRAST(Performed 05/26/2015) * PHOSPHORUS BLOOD(Performed 05/26/2015) * MAGNESIUM BLOOD(Performed 05/26/2015) * HEPATIC FUNCTION PANEL(Performed 05/26/2015) * BASIC METABOLIC PANEL (CALCIUM TOTAL)(Performed 05/26/2015) * C-REACTIVE PROTEIN(Performed 05/26/2015) * PTT [facility](Performed 05/26/2015) * PT-INR [facility](Performed 05/26/2015) * CBC W AUTO DIFFERENTIAL(Performed 05/26/2015) * CBC W AUTO DIFFERENTIAL(Performed 05/26/2015) * DRUG ABUSE PANEL 10-20+ETHANOL URINE NO CONFIRM(Performed 05/26/2015) * URINALYSIS W/MICROSCOPIC NO CULTURE(Performed 05/26/2015) * EKG 12-LEAD(Performed 05/26/2015) * GROSS + MICRO EXAM(Performed 03/29/2002) Results * TROPONIN I (05/26/2015 8:33 AM CDT) Troponin I <0.032 <0.032 ng/mL [facility] Blood specimen (specimen) BLOOD SPECIMEN / Unknown 05/26/2015 8:33 AM CDT 05/26/2015 8:33 AM CDT Savannah Kim MD LAB - CHEMISTRY ORDE RABISHMAEL [address] [phone] * ERYTHROCYTE SEDIMENTATION RATE (05/26/2015 8:33 AM CDT) Erythrocyte Sedimentation Rate Westergren 2 0 - 10 MM/HR [facility] Blood specimen (specimen) BLOOD SPECIMEN / Unknown 05/26/2015 8:33 AM CDT 05/26/2015 8:33 AM CDT Savannah Kim MD LAB - HEMATOLOGY ORD ERABLES [address] [place] [address], [facility] [phone] * CK + CKMB PANEL (05/26/2015 8:33 AM CDT) CK Total 73 30 - 200 Units/L [facility] CK-MB 0.5 0.0 - 6.6 ng/mL [facility] Blood specimen (specimen) BLOOD SPECIMEN / Unknown 05/26/2015 8:33 AM CDT 05/26/2015 8:33 AM CDT Savannah Kim MD LAB - CHEMISTRY [place] [address], [facility] [phone] * MRI BRAIN WWO CONTRAST (05/26/2015 7:50 AM CDT) Anatomical Region Laterality Modality Head Other Impressions 05/26/2015 11:45 AM CDT IMPRESSION: 1. No evidence of acute cerebral infarction. No findings to explain patient's symptoms. This report was approved by Rupal Mancilla M.D. on 05/26/2015 9:41 AM . I, Dr. WAYNE JOHNSON M.D. have personally reviewed and interpreted this examination/study. This report was electronically signed by WAYNE JOHNSON M.D. on 05/26/2015 11:45 AM . Narrative 05/26/2015 11:45 AM CDT EXAMINATION: Magnetic resonance imaging (MRI) of the brain without and with contrast HISTORY: 35-year-old male with word finding difficulty. TECHNIQUE: MRI of the brain was performed prior to and following the uneventful administration of 10 mL Gadavist intravenous gadolinium contrast according to a tumor protocol. FINDINGS: No prior study is available for comparison. No evidence of acute or chronic hemorrhage is identified. No evidence of acute cerebral infarction is seen. The ventricles are of normal size, shape, and morphology. No mass effect or midline shift is seen. Apparent asymmetric FLAIR hyperintensity in the left temporal lobe without a correlate on other sequences is likely artifactual. No enhancing lesions are identified. The corpus callosum is normal. The sella is partially empty. The posterior fossa, brainstem, and craniocervical junction appear normal. Other than mild right maxillary sinus mucosal thickening, the visualized portions of the orbits, paranasal sinuses, and mastoids appear normal. Normal flow voids are demonstrated in the carotid arteries and basilar artery. The calvarium and visualized cervical spine appear normal. Procedure Note Wayne Johnson MD - 02/10/2018 EXAMINATION: Magnetic resonance imaging (MRI) of the brain without andwith contrast HISTORY: 35-year-old male with word finding difficulty. TECHNIQUE: MRI of the brain was performed prior to and following theuneventful administration of 10 mL Gadavist intravenous gadoliniumcontrast according to a tumor protocol. FINDINGS: No prior study is available for comparison. No evidence of acute or chronic hemorrhage is identified. No evidence ofacute cerebral infarction is seen. The ventricles are of normal size,shape, and morphology. No mass effect or midline shift is seen. Apparentasymmetric FLAIR hyperintensity in the left temporal lobe without a correlate on other sequences is likelyartifactual. No enhancing lesions are identified. The corpus callosum isnormal. The sella is partially empty. The posterior fossa, brainstem, andcraniocervical junction appear normal. Other than mild right maxillary sinus mucosal thickening, the visualizedportions of the orbits, paranasal sinuses, and mastoids appear normal.Normal flow voids are demonstrated in the carotid arteries and basilarartery. The calvarium and visualized cervical spine appear normal. IMPRESSION IMPRESSION: 1. No evidence of acute cerebral infarction. No findings to explainpatient's symptoms. This report was approved by Rupal Mancilla M.D. on 05/26/2015 9:41 AM. IDr. WAYNE M.D. have personally reviewed and interpreted thisexamination/study. This report was electronically signed by WAYNE JOHNSON M.D. on 05/26/201511:45 AM . Savannah Kim MD MR ORDERABLES * PTT [facility] (05/26/2015 5:22 AM CDT) APTT 28.4 23.0 - 38.4 Seconds [facility] Comment:Suggested therapeuti c range for full dose I.V. heparin therapy for venous thromboembolism is 66.0-91.0 seconds. Blood specimen (specimen) BLOOD SPECIMEN / Unknown 05/26/2015 5:22 AM CDT 05/26/2015 5:40 AM CDT Narrative [facility] - 05/26/2015 5:59 AM CDT Is patient on Heparin, Argatroban or Dabigatran?->N Savannah Kim MD LAB - COAGULATION OR DERABLES Performing Organization Address [facility] Co de Phone Number [address] [phone] * PT-INR [facility] (05/26/2015 5:22 AM CDT) PT 13.7 12.1 - 14.8 Seconds [facility] INR 1.0 See Comment [facility] Comment: Suggested therapeutic range for low-intensity coumadin therapy for venous thromboembolism prophylaxis is an INR of 2.0-3.0. For high risk patients (Mitral Valve Prosthesis, Atrial Fibrillation, history of TIA/stroke), suggested prophylactic therapeutic range is an INR of 2.5-3.5. Blood specimen (specimen) BLOOD SPECIMEN / Unknown 05/26/2015 5:22 AM CDT 05/26/2015 5:40 AM CDT Narrative [facility] - 05/26/2015 5:58 AM CDT Is patient on Heparin, Argatroban or Dabigatran?->N Savannah Kim MD LAB - COAGULATION OR DERABLES Performing Organization Address [facility] Co de Phone Number [address] [phone] * C-REACTIVE PROTEIN (05/26/2015 5:22 AM CDT) C-Reactive Protein <0.5 <=0.5 mg/dL [facility] Blood specimen (specimen) BLOOD SPECIMEN / Unknown 05/26/2015 5:22 AM CDT 05/26/2015 5:40 AM CDT Savannah Kim MD LAB - CHEMISTRY ORDE ABBEY [facility] [address] [phone] * CBC W AUTO DIFFERENTIAL (05/26/2015 5:22 AM CDT) Only the most recent of2 resultswithin the time period is included. Blood specimen (specimen) BLOOD SPECIMEN / Unknown 05/26/2015 5:22 AM CDT Narrative [facility] - 05/26/2015 5:52 AM CDT The following orders were created for panel order CBC w Differential. Procedure Abnormality Status --------- ------ CBC WITH DIFFERENTIAL[[id number]] Abnormal Final result Please view results for these tests on the individual orders. Savannah Kim MD LAB - HEMATOLOGY JOSE DOYLE Performing Organization Address [facility] Co de Phone Number [facility] [address] * (ABNORMAL) BASIC METABOLIC PANEL (CALCIUM TOTAL) (05/26/2015 5:22 AM CDT) BUN 10 7 - 26 mg/dL [facility] Creatinine 1.1 0.6 - 1.2 mg/dL [facility] Sodium 140 136 - 145 mmol/L [facility] Potassium 4.0 3.5 - 4.5 mmol/L [facility] Chloride 109(H) 98 - 107 mmol/L [facility] CO2 25 22 - 29 mmol/L [facility] Glucose 94 70 - 115 mg/dL [facility] Calcium 8.4 8.4 - 10.2 mg/dL [facility] Anion Gap 10 8 - 18 [facility] BUN/Creatinine Ratio 9 7 - 23 [facility] Osmolality Calculated 274 270 - 300 mOsm/kg [facility] eGFR >60 >60 mL/min/1.7 3 m2 [facility] Blood specimen (specimen) BLOOD SPECIMEN / Unknown 05/26/2015 5:22 AM CDT 05/26/2015 5:40 AM CDT Savannah Kim MD LAB - CHEMISTRY [place] [address] [phone] * PHOSPHORUS BLOOD (05/26/2015 5:22 AM CDT) Pathologist [facility] Phosphorus 3.8 2.3 - 4.7 mg/dL [facility] Blood specimen (specimen) BLOOD SPECIMEN / Unknown 05/26/2015 5:22 AM CDT 05/26/2015 5:40 AM CDT Savannah Kim MD LAB - CHEMISTRY [place] Performing Organization Address [facility]/ZIP Co de Phone Number [address] [phone] * (ABNORMAL) HEPATIC FUNCTION PANEL (05/26/2015 5:22 AM CDT) Protein Total 5.9(L) 6.0 - 8.3 g/dL [facility] Albumin 3.2(L) 3.4 - 5.0 g/dL [facility] Bilirubin Total 0.5 0.2 - 1.2 mg/dL [facility] Bilirubin Conjugated 0.2 0.0 - 0.5 mg/dL [facility] Bilirubin Unconjugated 0.3 Unconjugated Bilirubin is a calculated value: Reference ranges have not been established. mg/dL [facility] Alkaline Phosphatase 54 40 - 150 Units/L [facility] ALT 16 0 - 55 Units/L [facility] AST 15 5 - 34 Units/L [facility] Albumin/Globulin Ratio 1.2 1.1 - 2.3 [facility] Blood specimen (specimen) BLOOD SPECIMEN / Unknown 05/26/2015 5:22 AM CDT 05/26/2015 5:40 AM CDT Savannah Kim MD LAB - CHEMISTRY [place] Performing Organization Address City/[facility]/ZIP Co de Phone Number [address] [phone] * MAGNESIUM BLOOD (05/26/2015 5:22 AM CDT) Magnesium 1.8 1.6 - 2.6 mg/dL [facility] Blood specimen (specimen) BLOOD SPECIMEN / Unknown 05/26/2015 5:22 AM CDT 05/26/2015 5:40 AM CDT Savannah Kim MD LAB - CHEMISTRY [place] [facility] Organization Address City/State/ZIP Co de Phone Number [facility] [address] [place] [address] * DRUG ABUSE PANEL 10-20+ETHANOL URINE NO CONFIRM (05/26/2015 4:41 AM CDT) Amphetamines Screen Urine Negative Negative: < 1000 ng/mL [facility] Barbiturates Screen Urine Negative Negative: < 200 ng/mL [facility] Benzodiazepine Screen Urine Negative Negative: < 200 ng/mL [facility] Opiates Urine Negative Negative: < 300 ng/mL [facility] Cocaine Metabolites Urine Negative Negative: < 300 ng/mL [facility] Phencyclidine Screen Urine Negative Negative: < 25 ng/ml [facility] Cannabinoids Screen Urine Negative Negative: <50 ng/mL [facility] Methadone Screen Urine Negative Negative: < 300 ng/mL [facility] Urine specimen (specimen) URINE / Unknown 05/26/2015 4:41 AM CDT 05/26/2015 4:41 AM CDT Narrative [facility] - 05/26/2015 5:06 AM CDT FIO2->21 The Urine Toxicology Screening Panel does not screen for Propoxyphene, Meprobamate, Carisoprodol, Trazodone, [id number]-hfc-spgaxkd medications and/or volatiles (Acetone, Isopropanol, Methanol or Ethylene Glycol). Ethanol, Salicylate, Acetaminophen, Tricyclic Antidepressants and several therapeutic drugs may be individually assayed in serum or plasma specimen. Toxicology testing by the [facility] is an aid to medical diagnosis and treatment of patients. No documented chain of custody was maintained. Results are intended to be used for clinical purposes only. Savannah Kim MD LAB - URINE CHEMISTR Y ORDERABLES Performing Organization Address [facility] Co de Phone Number [address] [phone] * URINALYSIS W/MICROSCOPIC NO CULTURE (05/26/2015 4:30 AM CDT) Color UA Yellow Straw, Yellow, Colorless, Light Yellow [facility] Clarity UA Clear Clear [facility] Specific [place] UA 1.012 1.001 - 1.030 [facility] pH UA 7.0 5.0 - 8.0 [facility] Protein UA Negative <=20 mg/dL [facility] Glucose UA Negative Negative mg/dL [facility] Ketone UA Negative Negative mg/dL [facility] Bilirubin UA Negative Negative mg/dL [facility] Blood UA Negative Negative [facility] Nitrite UA Negative Negative [facility] Leukocyte Esterase Negative Negative [facility] Urobilinogen UA <2.0 <2.0 mg/dL [facility] RBC UA 1 0 - 8 /HPF [facility] WBC UA <1 0 - 2 /HPF [facility] Urine specimen (specimen) 05/26/2015 4:30 AM CDT 05/26/2015 4:30 AM CDT Savannah Kim MD LAB - URINALYSIS ORD ERABLES Performing Organization Address [facility] Co de Phone Number [address] [phone] * EKG 12-LEAD (05/26/2015 12:00 AM CDT) EKG [facility] Comment: Exam Date/Time: May 26 2015 03:37:10 Test Reason : acute ischemic stroke Blood Pressure : / mmHG Vent. Rate : 050 BPM Atrial Rate : 050 BPM P-R Int : 168 ms QRS Dur : 092 ms QT Int : 466 ms P-R-T Axes : 049 -11 038 degrees QTc Int : 424 ms Sinus bradycardia with sinus arrhythmia Normal ECG No previous ECGs available Confirmed by MD Hope, Anahy ([id number]), television news video editor MILTON BANKS ([id number]) on 06/02/2015 2:16:57 PM Referred By: REFERRING NO Confirmed By:Anahy Arnett MD 05/26/2015 Savannah Kim MD ECG ORDERABLES [facility] * GROSS + MICRO EXAM (03/29/2002 12:24 PM CDT) Result CASE NUMBER [id number] Comment: ORDERING PHYSICIAN Rene BRICEÑO JR SPECIMEN TYPE Granuloma-umbilical Preop Dx Umbilical granuloma Postop Dx Same Clinical Findings None given GROSS DESCRIPTION In Histochoice labeled umbilical granuloma is an umbilicus with underlying soft tissue up to 6 cm greatest dimension and two separate fragments of somewhat spongy mckenna-brown tissue measuring 3 and 1 cm respectively. Cut surface of the umbilical tissue shows unremarkable skin and underlying soft tissue. (mep)lmq BLOCK A-C - Umbilical granuloma samples (smaller fragments in A ) Grossed by Breezy Campos M.D. MICROSCOPIC EXAMINATION Sections show abscess with foreign body reaction deep to umbilicated skin accompanied by fragments of unremarkable fibrofatty connective tissue and skin. (jal) lmq DIAGNOSIS Skin and soft tissue, umbilicus, excision - Abscess and foreign body reaction Read by Nick Whitney M.D. 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
--- NOTE | 2025-01-06 12:50 | ECHO_ITS ---
Patient Info Name: Mauri Smith Age: 44 years : 1980 Gender: Male Ht: 74 in Wt: 245 lbs BSA: 2.44 m2 HR: 76 bpm BP: 117 / 87 mmHg Heart Rhythm: Sinus Rhythm Technical Quality: Fair Exam Date: 01/06/2025 1:11 PM Exam Location: Echo Lab Patient Status: Outpatient Admit Date: 01/06/2025 Staff Ordering Physician: Simón Sales DO Security Business Analyst: Cheryl Giron RDCS Attending Provider: Simón Sales DO Referring Physician: Henrry EAST; Exam Type: CA echo doppler color flow Study Info Indications R42 - Dizziness and giddiness Complete two-dimensional, color flow and Doppler transthoracic echocardiogram is performed. Summary 1. Complete two-dimensional, color flow and Doppler transthoracic echocardiogram is performed. 2. Left ventricular chamber dimension is normal. 3. Left ventricular systolic function is normal, estimated at 60-65%. 4. The left ventricular diastolic function is normal. 5. E/e' 9 is minimally elevated. 6. No pulmonary hypertension, estimated pulmonary arterial systolic pressure is 21 mmHg. Left Ventricle E/e' 9 is minimally elevated. Left ventricular chamber dimension is normal. Left ventricular systolic function is normal, estimated at 60-65%. The left ventricular diastolic function is normal. Right Ventricle Right ventricular systolic function is normal and with normal TAPSE 2.3 cm. Right ventricular chamber dimension is normal. Left Atria Left atrial chamber dimension is normal. Right Atria Right atrial chamber dimension is normal. Aortic Valve The aortic valve is trileaflet. There is no aortic valve stenosis. There is no aortic valve regurgitation. Pulmonic Valve There is no pulmonic regurgitation. Mitral Valve There is no mitral valve stenosis. There is no mitral valve regurgitation. Tricuspid Valve There is no tricuspid valve regurgitation. No pulmonary hypertension, estimated pulmonary arterial systolic pressure is 21 mmHg. Pericardium/Pleural There is no pericardial effusion. Inferior Vena Cava Normal inferior vena cava with >50% collapse upon inspiration consistent with normal right atrial pressure, 5 mmHg. Aorta The aortic root size at the sinus of Valsalva is normal. Left Ventricular Outflow Tract Name Value Normal LVOT 2D LVOT Diameter 2.0 cm LVOT Doppler LVOT Peak Gradient 4 mmHg LVOT Mean Gradient 2 mmHg LVOT VTI 19 cm LVOT VTI/AV VTI Ratio 0.8 LVOT Stroke Volume 60 ml LVOT CO 3.5 l/min LVOT CI 1.5 l/min/m2 Pulmonic Valve Name Value Normal RVOT Doppler RVOT Peak Gradient 2 mmHg PV Doppler PV Peak Gradient 4 mmHg Mitral Valve Name Value Normal MV Doppler MV Decel [place] 763 cm/s2 MV PHT 38 ms MV Area (PHT) 5.8 cm2 4.0-5.0 MV Diastolic Function MV E Peak Velocity 100 cm/s MV A Peak Velocity 63 cm/s MV E/A 1.6 MV Decel Time 131 ms MV Annular TDI MV E/e' (Septal) 10.9 <=8.0 MV E/e' (Lateral) 8.2 <=8.0 MV E/e' (Average) 9.5 Tricuspid Valve Name Value Normal TV Regurgitation Doppler TR Peak Velocity 202 cm/s TR Peak Gradient 16 mmHg Estimated PAP/RSVP RA Pressure 5 mmHg <=5 PA Systolic Pressure 21 mmHg <36 RV Systolic Pressure 21 mmHg <36 Aorta Name Value Normal Ascending Aorta Ao Root Diameter (MM) 3.7 cm Ao Root Diam Index (MM) 1.5 cm/m2 Aortic Valve Name Value Normal AV Doppler AV Peak Velocity 121 cm/s AV Peak Gradient 6 mmHg AV Mean Gradient 3 mmHg AV VTI 25 cm AV Area (Cont Eq VTI) 2.4 cm2 >=3.0 AV Area (Cont Eq Agustín) 2.4 cm2 AV Regurgitation 2D LVOT Area 3.1 cm2 Ventricles Name Value Normal LV Dimensions 2D/MM IVS Diastolic Thickness (2D) 1.1 cm 0.6-1.0 LVID Diastole (2D) 5.3 cm 4.2-5.8 LVIW Diastolic Thickness (2D) 0.8 cm 0.6-1.0 LVID Systole (2D) 3.5 cm 2.5-4.0 LVOT Diameter 2.0 cm LV Mass (2D Cubed) 184.27 g 88.00-224.00 LV Mass Index (2D Cubed) 76 g/m2 49-115 Relative Wall Thickness (2D) 0.29 LV Fractional Shortening/Ejection Fraction 2D/MM LV Fractional Shortening (2D) 34 % 25-43 LV EF (2D Teicholz) 62 % 52-72 LV Diastolic Volume (4C MOD) 69 ml LV EF (4C MOD) 65 % LV Diastolic Volume (2C MOD) 101 ml LV EF (2C MOD) 67 % LV Diastolic Volume (BP MOD) 84 ml 62-150 LV Diastolic Volume Index (BP MOD) 34 ml/m2 34-74 LV Systolic Volume (BP MOD) 29 ml 21-61 LV Systolic Volume Index (BP MOD) 12 ml/m2 11-31 LV EF (BP MOD) 66 % 52-72 LV Diastolic Length (4C) 8.7 cm LV Systolic Length (4C) 7.7 cm LV Stroke Volume (4C MOD) 45 ml Atria Name Value Normal LA Dimensions LA Dimension (MM) 4.7 cm 3.0-4.1 LA Volume (4C A-L) 41 ml LA Volume (BP A-L) 46 ml RA Dimensions RA Area (4C) 14.8 cm2 <=18.0 Report Signatures
== END 2025-01-06 07:46 | disposition home or self-care (01) ==
PROVIDERS: PCP Physician Assistant Medical; Visit Provider Internal Medicine Cardiovascular Disease
DX: R42 Dizziness and giddiness (principal)
CPT/HCPCS: 93306

== ENCOUNTER 2025-01-21 07:45 | Outpatient (CLI) | payer BC, SELFPAY ==
--- OUTSIDE RECORDS SUMMARY | 2025-01-21 07:49 | XMS_ITS | Referral Summary ---
Author Organization [facility] Address [address] [place] [address] Care Team Providers Care Basketball Assembler Name Role Phone Sebas Nik DO Unavailable Jennifer Gomes PA-C Primary Care Provider [phone] Source Comments [facility],non-owned Affiliates and Associated Physician Practices is amultiple site organization consisting of ambulatory clinics and hospital sitesin [place], [place], [place] and [place]. This disclosure is being madepursuant to the Care Everywhere program and may not contain all information available regarding this patient. Last updated 18.[facility] Encounters Date Type Department Care Team Description 12/16/2024 3:20 PM ADJUNCT PSYCHOLOGY FACULTY MEMBER Office Visit [facility] - Rheumatology [address] [place] [address], [facility] [address] [place] [phone] Nik Mullen DO Fibromyalgia syndrome (Primary Dx); Chronic fatigue syndrome with fibromyalgia (ME/CFS); Moderate episode of recurrent major depressive disorder (HCC) 12/12/2024 Refill [facility] - Rheumatology [address] [place] [address], [address] [place] [address] Nik Mullen DO MEDICATION REFILL from Last [...] 7 days Active DULoxetine (Cymbalta) 60 MG capsuleIndication s:Fibromyalgia Syndrome Take 1 (one) capsule by mouth every morning Reasons: Fibromyalgia Syndrome 90 capsule 3 12/16/2024 Active amitriptyline (Elavil) 25 MG tabletIndications :Depression,Fibro myalgia Syndrome,Sleep Take 1 (one) tablet by mouth at bedtime Reasons: Depression, Fibromyalgia Syndrome, Sleep 90 tablet 3 12/16/2024 Active Active Problems Problem Noted Date Diagnosed [...] Comments Blood Pressure 100/70 12/16/2024 3:20 PM ADJUNCT PSYCHOLOGY FACULTY MEMBER Pulse 92 12/16/2024 3:20 PM ADJUNCT PSYCHOLOGY FACULTY MEMBER Temperature 36.1 C (97 F) 12/16/2024 3:20 PM ADJUNCT PSYCHOLOGY FACULTY MEMBER Respiratory Rate 16 12/16/2024 3:20 PM ADJUNCT PSYCHOLOGY FACULTY MEMBER Oxygen Saturation 93% 12/16/2024 3:20 PM ADJUNCT PSYCHOLOGY FACULTY MEMBER Inhaled Oxygen Concentration - - Weight 114.8 kg (253 lb) 12/16/2024 3:20 PM ADJUNCT PSYCHOLOGY FACULTY MEMBER Height 185.4 cm (6' 1 ) 02/19/2024 8:11 AM CDT Body Mass Index 33.38 02/19/2024 8:11 AM CDT Plan of Treatment Upcoming Encounters Date Type Department Care Team (Late st Contact Info) Description 12/15/2025 3:40 PM ADJUNCT PSYCHOLOGY FACULTY MEMBER Office Visit [facility] - Rheumatology [address], [address] [place] [address] Nik Mullen DO [address] [place] [address] Procedures Procedure Name Priority Date/Time Associated Diagnosis Comments BASIC METABOLIC PANEL (CALCIUM TOTAL) Routine 05/26/2015 5:22 AM CDT from Last 3 Months or Most Recently Relevant to Health Maintenance Results * (ABNORMAL) BASIC METABOLIC PANEL (CALCIUM TOTAL) (05/26/2015 5:22 AM CDT) BUN 10 7 - 26 mg/dL [facility] Creatinine 1.1 0.6 - 1.2 mg/dL [facility] Sodium 140 136 - 145 mmol/L [facility] Potassium 4.0 3.5 - 4.5 mmol/L [facility] Chloride 109(H) 98 - 107 mmol/L [facility] CO2 25 22 - 29 mmol/L [facility] Glucose 94 70 - 115 mg/dL [facility] Calcium 8.4 8.4 - 10.2 mg/dL [facility] Anion Gap 10 8 - 18 [facility] BUN/Creatinine Ratio 9 7 - 23 [facility] Osmolality Calculated 274 270 - 300 mOsm/kg [facility] eGFR >60 >60 mL/min/1.7 3 m2 [facility] Blood specimen (specimen) BLOOD SPECIMEN / Unknown 05/26/2015 5:22 AM CDT 05/26/2015 5:40 AM CDT Savannah Kim MD LAB - CHEMISTRY [place] [facility] Organization Address City/State/ZIP Co de Phone Number [facility] [address] [place], [place] [address] [phone] from Last 3 Months or Most Recently Relevant to Health Maintenance Care Teams Basketball Assembler Relationship Specialty Start Date End Date Jennifer Gomes PA-C [address] [address] PCP - General Physician Well Servicing Rig Operator 09/26/24 Nik Mullen DO [address] [place] [address] Educational Interpreter Rheumatology 08/23/24
--- OUTSIDE RECORDS SUMMARY | 2025-01-21 07:49 | XMS_ITS | Data Portability ---
Author Organization [place] - [facility], Main Office Address [address] [place] [address] Care Team Providers Care Application Spec Name Role Phone [facility] Primary Care Provider Assessment No assessment recorded. Plan of Treatment Reminders Order Date Submit Date Provider Last Modified By Organization Details Last Modified Time Details Appointments None recorded. Lab None recorded. Referral None recorded. Procedures eustachian tube balloon dilation (PROC) 2023 024 [email or web address] Not available 4 17:20:00 Surgeries myringotomy , with eustachian tube inflation (SURG) 2022 021 [email or web address] [id number] Not available 3 17:13:55 Imaging None recorded. Medication Orders clindamycin HCl 300 mg capsule 2023 [email or web address] [id number], [address] [place], [place], [id number], 4 10:15:29 Medrol (Manoj) 4 mg tablets in a dose pack 2023 024 [id number], [address] [place], [place], [phone], 4 10:15:31 Patient TargetsNo targets recorded. Patient Instructions Encounter Date Encounter Id Patient Instructions Last Modified By Organization Details Last Modified Time 02/08/2024 [id number] he will return a s needed [email or web address] Not available 02/14/2024 16:56:09 Reason for Referral None Reported. Results Created Date Observation Date Name Description Value Unit Range Abnormal Flag Note LastModifiedBy Organization Detail LastModifiedTime 01/22/20 24 01/26/2024 SRINIVAS MONSON, PLASM A potassium 3.6 mmol/ L 3.4-4. 8 normal Not Available [address], [address], 01/26/2024 11:20:40 01/22/20 24 01/26/2024 CBC (INCL UDES DIFF/ PLT) white blood cell count 6.3 thous and/u L 3.8-10 .8 normal Not Available [address], [address], 01/26/2024 11:20:40 01/22/20 24 01/26/2024 CBC (INCL UDES DIFF/ PLT) red blood cell count 5.64 estrella on/uL 4.20-5 .80 normal Not Available [address], [address], 01/26/2024 11:20:40 01/22/20 24 01/26/2024 CBC (INCL UDES DIFF/ PLT) hemoglobin 15.9 g/dL 13.2-1 7.1 normal Not Available [address], [address], 01/26/2024 11:20:40 01/22/20 24 01/26/2024 CBC (INCL UDES DIFF/ PLT) hematocrit 46.7 % 38.5-5 0.0 normal Not Available [address], [address], 01/26/2024 11:20:40 01/22/20 24 01/26/2024 CBC (INCL UDES DIFF/ PLT) MCV 82.8 fL 80.0-1 00.0 normal Not Available [employer] [address], [address], 01/26/2024 11:20:40 01/22/20 24 01/26/2024 CBC (INCL UDES DIFF/ PLT) MCH 28.2 pg 27.0-3 3.0 normal Not Available [address], [address], 01/26/2024 11:20:40 01/22/20 24 01/26/2024 CBC (INCL UDES DIFF/ PLT) MCHC 34.0 g/dL 32.0-3 6.0 normal Not Available [address], [address], 01/26/2024 11:20:40 01/22/20 24 01/26/2024 CBC (INCL UDES DIFF/ PLT) RDW 12.9 % 11.0-1 5.0 normal Not Available [address], [address], 01/26/2024 11:20:40 01/22/20 24 01/26/2024 CBC (INCL UDES DIFF/ PLT) platelet count 249 thous and/u L 140-40 0 normal Not Available [address], [address], 01/26/2024 11:20:40 01/22/20 24 01/26/2024 CBC (INCL UDES DIFF/ PLT) MPV 10.8 fL 7.5-12 .5 normal Not Available [address], [address], 01/26/2024 11:20:40 01/22/20 24 01/26/2024 CBC (INCL UDES DIFF/ PLT) absolute neutrophils 3515 cells /uL 1500-7 800 normal Not Available [address], [address], 01/26/2024 11:20:40 01/22/20 24 01/26/2024 CBC (INCL UDES DIFF/ PLT) absolute lymphocytes 2123 cells /uL 850-39 00 normal Not Available [address] [place], [address], 01/26/2024 11:20:40 01/22/20 24 01/26/2024 CBC (INCL UDES DIFF/ PLT) absolute monocytes 403 cells /uL 200-95 0 normal Not Available [facility] [address], [address], 01/26/2024 11:20:40 01/22/20 24 01/26/2024 CBC (INCL UDES DIFF/ PLT) absolute eosinophils 221 cells /uL 15-500 normal Not Available [facility] [address], [address], 01/26/2024 11:20:40 01/22/20 24 01/26/2024 CBC (INCL UDES DIFF/ PLT) absolute basophils 38 cells /uL 0-200 normal Not Available [facility] [address], [address], 01/26/2024 11:20:40 01/22/20 24 01/26/2024 CBC (INCL UDES DIFF/ PLT) neutrophils 55.8 % normal Not Available [facility] [address], [address], 01/26/2024 11:20:40 01/22/20 24 01/26/2024 CBC (INCL UDES DIFF/ PLT) lymphocytes 33.7 % normal Not Available [address], [address], 01/26/2024 11:20:40 01/22/20 24 01/26/2024 CBC (INCL UDES DIFF/ PLT) monocytes 6.4 % normal Not Available [address], [address], 01/26/2024 11:20:40 01/22/20 24 01/26/2024 CBC (INCL UDES DIFF/ PLT) eosinophils 3.5 % normal Not Available [facility] [address], [address], 01/26/2024 11:20:40 01/22/20 24 01/26/2024 CBC (INCL UDES DIFF/ PLT) basophils 0.6 % normal Not Available [facility] [address], [place], [address], 01/26/2024 11:20:40 07/20/20 21 07/20/2021 audio gram + tympa nogra m No observ ation record ed. [id number] [facility] (Audiology) [address] [place] [address] [address], [place], [address], 01/11/2023 17:13:56 Result Notes None recorded. Problems Name Problem SNOMED Code Status Onset Date Resolution Date Notes Provider Name and Address Organization Details Recorded Time Finding of bacteria by serology 485610660 Active Not Available [facility] 3 17:13:06 Dysfunctio n of left eustachian tube 8540632868692 106 Active 2023 Corey River MD [address] [place] [address], [place], [address] , [facility] 4 17:14:52 Problem Notes None recorded. Procedures Surgical History Date Name Laterality Status Provider Name and Address Organization Details Recorded Time 08/23/20 21 MYRINGOTOMY, WITH EUSTACHIAN TUBE INFLATION (SURG) completed Not Available [facility] 01/11/2023 17:13:55 inflation of Eustachian tube using balloon completed Fanny Elizabeth RN [facility] 02/07/2024 10:16:03 myringotomy and insertion of tympanic ventilation tube completed Fanny Elizabeth RN [facility] [employer] [facility] 02/07/2024 10:15:59 Imaging Results Imaging Date Name Status LastModified by Organ [facility] Details LastModified Time 07/20/2021 audiogram + tympanogram completed [id number] [facility] (Audiology) [address] [place] [address], [address], 01/11/2023 17:13:56 Procedure Notes None recorded. Medical Equipment None Reported. Allergies Allergen ID Allergen Name Allergen Category Reaction Reaction Severity Criticality Documentation Date Start Date Code Code System Note Provider Name and Address Organization Details Recorded Time 04999 Penicilli n Not available Not available Not available Not available 01/11/2023 01370 RxNorm Not Available [facility] 17:13:54 Medications Name Sig Start Date Stop [...] Xhance 93 mcg/actuati on breath activated aerosol [place] 2 sprays twice a day by intranasa l route. 10/25 completed Not Available Not Available Not Available ID NOW COVID-19 Test Kit TEST DIRECTED. 12/14 completed Not Available Not Available Not Available Vitals Date Recorded Body mass index (BMI) Body height Body temperature Body weight Provider Name and Address Organization Details Last Updated DateTime 08/05/2021 31.1 kg/m2 187.96 cm 97.7 [degF] 054030.3 5 g Not Available [facility] 01/11/2023 17:12:57 Date Recorded Body mass index (BMI) Body height Body temperature Body weight Provider Name and Address Organization Details Last Updated DateTime 08/13/2021 31.1 kg/m2 187.96 cm 97.6 [degF] 564912.3 5 g Not Available [facility] 01/11/2023 17:12:57 Date Recorded Body mass index (BMI) Body height Body temperature Body weight Provider Name and Address Organization Details Last Updated DateTime 10/26/2021 31.1 kg/m2 187.96 cm 97.5 [degF] 454512.3 5 g Not Available [facility] 01/11/2023 17:12:57 Date Recorded Body weight Body mass index (BMI) Body height Body temperature Provider Name and Address Organization Details Last Updated DateTime 12/14/2023 673294.97 g 35.3 kg/m2 186.69 cm 97.8 [degF] Fanny Elizabeth RN [place] [facility] 12/14/2023 17:05:09 Social History Question Answer Notes LastModified by Organizat ion Details LastModified Time Tobacco Smoking Status Never Smoker Not Available [facility] 01/11/2023 17:12:28 What Is Your Level Of Alcohol Consumption? Occasional [id number] Information not available 01/11/2023 In The 14 Days Before Symptom Onset, Have You Had Close Contact With A Laboratory-confirm ed COVID-19 While That Case Was Ill? No [id number] Information not available 01/11/2023 In The 14 Days Before Symptom Onset, Have You Had Close Contact With A Person Who Is Under Investigation For COVID-19 While That Person Was Ill? No [id number] Information not available 01/11/2023 Have You Recently Traveled Abroad? No [id number] Information not available 01/11/2023 Sex: Unknown Functional Status None recorded. Mental Status None recorded. Family History Relationship Description Onset Age of this Age Resolved Age Notes LastModified by Organization Details LastModified Time Father No current problems or disability [id number] Not available 01/11/2023 17:12:29 Mother No current problems or disability [id number] Not available 01/11/2023 17:12:29 Medical History Condition Response SLEEP APNEA N MRSA N ALLERGIES/HAYFEVER N LUNG DISEASE/DISORDER N HISTORY OF DRUG ABUSE N INSOMNIA N COPD N RADIATION / CHEMOTHERAPY N HIGH CHOLESTEROL / HYPERLIPIDEMIA N HYPERTHYROIDISM N BLOOD DISEASES N EAR OR HEARING PROBLEMS N HYPOTHYROIDISM N SHINGLES N DEPRESSION (INCLUDING POST ) N HAVE YOU BEEN HOSPITALIZED OR SEEN IN [facility] ER IN THE PAST YEAR ? N STROKE/TIA N ULCERS N OBESITY N ANEURYSM N HISTORY WITH COMPLICATIONS WITH ANESTHES IA ? N USE OF BLOOD THINNERS N NO SIGNIFICANT PAST MEDICAL HISTORY N DIABETES, TYPE N PARATHYROID DISEASE N ENT N SEASONAL ALLERGIES N HEARTBURN / REFLUX N HEPATITIS / LIVER DISEASE N SLEEP DISORDER N SEIZURES/EPILEPSY N HEADACHES/MIGRAINES N CHF N PACEMAKER N DIZZINESS N HEART DISEASE/HEART PROBLEMS N AIDS/HIV N FRACTURES N HYPERTENSION N CANCER: SPECIFY N TOURETTE'S N BLOOD TRANSFUSION N ANESTHESIA COMPLICATIONS N ANEMIA/BLOOD DISORDER N CHRONIC EAR INFECTIONS N TUBERCULOSIS N Past Encounters Encounter ID Performer Location Encounter Start Date Encounter Closed Date Diagnosis/Indication Diagnosis SNOMED-CT Code Diagnosis ICD10 Code Diagnosis Note [id number] [facility] [address] [place] [address] 07/01/2021 00:00:00 07/01/2021 09:38:52 [id number] [facility] [place] [address] [place] [address] 08/05/2021 00:00:00 08/05/2021 14:48:12 [id number] _ATHENA_M IGRATION_ DEFAULT_1 _1 , 08/13/2021 00:00:00 08/13/2021 10:32:22 [id number] [facility] [address] [place] [address] 10/26/2021 00:00:00 10/26/2021 11:00:57 [id number] oCrey River MD [facility] [address] [place] [address] 12/14/2023 16:34:44 12/18/2023 16:01:18 Dysfunction of left eustachian tube 3897267408 468494 H69.92 [id number] Corey River MD [facility] [place] [address] [place] [address] 02/09/2024 11:22:10 02/15/2024 09:37:20 Dysfunction of left eustachian tube 1661017721 391417 H69.92 Health Concerns Section Related Observation LastModified by Organization Detai ls LastModified Time None Recorded Concern Status LastModified by Organization Details LastModified Time None Recorded Advance Directives Directive None Recorded Payers Encounter Date Sequence Insurance Name Policy Number Policy Robins Covered Member ID Robins Member ID Guarantor Name 12/14/2023 1 [place] [id number] 1 Mauri Smith [id number] Mauri Smith 02/08/2024 1 [facility]: (PPO) [id number] 1 Mauri Smith [id number] Mauri Smith Notes Date Note Type Note Provider Name and Address Organization Details Recorded Time 12/14/2023 text/html Had right ETBD 2 years ago and had a flight 2 weeks ago. Now the left closed off and he believes there is fluid. Corey River MD [address], [place], [address], [facility] [employer] [facility] 12/14/2023 17:16:01 02/08/2024 text/html he is doing very well following Eustachian tube balloon on the left. He reports that his hearing has recovered Corey River MD [address], [place], [address], [facility] [employer] [facility] 02/14/2024 16:56:26
--- OUTSIDE RECORDS SUMMARY | 2025-01-21 07:49 | XMS_ITS | Clinical Summary ---
Author Organization [facility] Address [address] [place] [address] Care Team Providers Care Associate Research Scientist Name Role Phone None, Provider MD Primary [...] Date Aortic dilatation 11/01/2024 Moderate episode of recurrent major depressive d isorder 08/08/2024 Overview (10/28/2024): Depressed mood and some [...] Department Care Team Description 10/30/2024 10:00 AM MERCHANDISE MARKER [facility] [address] [place] [address] Mark Gallegos MD Fatigue 10/28/2024 Orders Only [facility], [address] [address] Annemarie Lazaro MA from Last 3 Months Immunizations Name Administration [...] Comments Blood Pressure 120/80 10/30/2024 10:08 AM MERCHANDISE MARKER Pulse 64 10/30/2024 10:08 AM MERCHANDISE MARKER Temperature 36.6 C (97.9 F) 10/08/2024 12:00 PM MERCHANDISE MARKER Respiratory Rate 13 10/08/2024 12:00 PM MERCHANDISE MARKER Oxygen Saturation 100% 10/08/2024 12:00 PM MERCHANDISE MARKER Inhaled Oxygen Concentration - - Weight 118.8 kg (262 lb) 10/30/2024 10:08 AM MERCHANDISE MARKER Height 185.4 cm (6' 1 ) 10/30/2024 10:08 AM MERCHANDISE MARKER Body Mass Index 34.57 10/30/2024 10:08 AM MERCHANDISE MARKER Plan of Treatment Upcoming Encounters Date Type Department Care Team (Late st Contact Info) Description 06/16/2025 8:30 [place] [address] [place] [address] Mark Gallegos MD [address] [address] Health Maintenance Due Date Last Done Comments Annual Physical 1985 Hepatitis C 2000 DTaP, Tdap and Td Vaccines ( 1 - Tdap) 2001 Hepatitis B Vaccines (1 of 3 - 19+ 3-dose series) 2001 COVID-19 Vaccine ( - 2023-2 5 season) 2024 02/04/2021, 01/07/2021 Influenza Adult [...] on patient's age to complete this topic [place] [address] [place] [address] Care Teams Associate Research Scientist Relationship Specialty Start Date End Date None, Provider, PCP - General UNKNOWN PHYSICIAN SPECIALTY 09/14/23
--- OUTSIDE RECORDS SUMMARY | 2025-01-21 07:50 | XMS_ITS | Clinical Summary ---
Author Organization [facility] Address [address] [facility] [place] [address] Care Team Providers Care Supervisor Of Guidance And Testing Name Role Phone Nik Mullen DO Unavailable Jennifer Gomes PA-C Primary Care Provider [phone] Source Comments [facility],non-owned Affiliates and Associated Physician Practices is amultiple site organization consisting of ambulatory clinics and hospital sitesin [place], [place], [place]. This disclosure is being madepursuant to the Care Everywhere program and may not contain all information available regarding this patient. Last updated 18.[facility] Allergies Active Allergy Reactions Criticality Noted Date [...] Department Care Team Description 12/16/2024 3:20 PM CAR FERRY MASTER Office Visit [facility] - Rheumatology [address] [place] [address], [facility] [address] [place] [address] Nik Mullen DO Fibromyalgia syndrome (Primary Dx); Chronic fatigue syndrome with fibromyalgia (ME/CFS); Moderate episode of recurrent major depressive disorder (HCC) 12/12/2024 Refill [facility] - Rheumatology [address] [place] [address], [address] [place] [address] Nik Mullen DO MEDICATION REFILL from Last [...] Comments Blood Pressure 100/70 12/16/2024 3:20 PM CAR FERRY MASTER Pulse 92 12/16/2024 3:20 PM CAR FERRY MASTER Temperature 36.1 C (97 F) 12/16/2024 3:20 PM CAR FERRY MASTER Respiratory Rate 16 12/16/2024 3:20 PM CAR FERRY MASTER Oxygen Saturation 93% 12/16/2024 3:20 PM CAR FERRY MASTER Inhaled Oxygen Concentration - - Weight 114.8 kg (253 lb) 12/16/2024 3:20 PM CAR FERRY MASTER Height 185.4 cm (6' 1 ) 02/19/2024 8:11 AM CDT Body Mass Index 33.38 02/19/2024 8:11 AM CDT Plan of Treatment Upcoming Encounters Date Type Department Care Team (Late st Contact Info) Description 12/15/2025 3:40 PM CAR FERRY MASTER Office Visit [facility] - Rheumatology [address], [address] [place] [address] Nik Mullen DO [address] [place] [address] Health Maintenance Due Date Last [...] CDT) BUN 10 7 - 26 mg/dL [facility] Creatinine 1.1 0.6 - 1.2 mg/dL [facility] Sodium 140 136 - 145 mmol/L [facility] Potassium 4.0 3.5 - 4.5 mmol/L [facility] Chloride 109(H) 98 - 107 mmol/L [facility] CO2 25 22 - 29 mmol/L [facility] Glucose 94 70 - 115 mg/dL [facility] Calcium 8.4 8.4 - 10.2 mg/dL [facility] Anion Gap 10 8 - 18 [facility] BUN/Creatinine Ratio 9 7 - 23 [facility] Osmolality Calculated 274 270 - 300 mOsm/kg [facility] eGFR >60 >60 mL/min/1.7 3 m2 [facility] Blood specimen (specimen) BLOOD SPECIMEN / Unknown 05/26/2015 5:22 AM CDT 05/26/2015 5:40 AM CDT Savannah Kim MD LAB - CHEMISTRY [place] [facility] Organization Address City/State/ZIP Co de Phone Number [facility] [address] [phone] from Last 3 Months or Most Recently Relevant to Health Maintenance Care Teams Supervisor Of Guidance And Testing Relationship Specialty Start Date End Date Jennifer Gomes PA-C [address] [place] [address] PCP - General Physician Rolled Oats Mill Operator 09/26/24 Nik Mullen DO [address] [address] Refrigerator Repairman Rheumatology 08/23/24
--- OUTSIDE RECORDS SUMMARY | 2025-01-21 07:50 | XMS_ITS | Encounter Summary ---
Author Organization [facility] Address [address] [place] [address] Care Team Providers Care Solution Designer Name Role Phone Cory Leavitt MD Primary Care Provider Unavailable None, Provider Primary Care Provider Unavaila ble Encounter Details Date Type Department Care Team (Late st Contact Info) Description 09/16/2017 Abstract [facility] [place], [place] [id number] Cory Leavitt MD Social History Tobacco Use [...] Info) Description 06/16/2025 8:30 AM CDT Appointment [facility] [address] [place] [address] Mark Gallegos MD [address] [facility]. [address] [place] [address] documented as of this encounter Visit Diagnoses Not on filedocumented in this encounter Additional Health Concerns Infection Onset Date Last Indicated Resolved Time COVID-19 Rule Out 06/27/2024 06/27/2024 06/27/2024 5:40 PM CDT documented as of this encounter Care Teams Solution Designer Relationship Specialty Start Date End Date Cory Leavitt MD PCP - General 05/24/15 01/22/18 None, Provider, PCP - General UNKNOWN PHYSICIAN SPECIALTY 09/14/23 documented as of this encounter
--- OUTSIDE RECORDS SUMMARY | 2025-01-21 07:50 | XMS_ITS | Clinical Summary ---
Author Organization [facility] Address [address] [place] [address] Phone Care Team Providers Care Talent Acquisition Manager Name Role Phone Corey River MD Primary Care Provider [phone] Allergies Active Allergy Reactions Criticality Noted Date [...] Name Comments Other-comment Father complecations from Agent [place] No Known Problems Mother Relation Name Status [...] on file Legal Sex Male 12:44 PM TRAINING REPRESENTATIVE Gender Identity Not on file Sexual Orientation [...] this topic Medical Devices Implanted Type Area Assembler Show Motor Device Identifier Shelf Expiration Date Model / Serial / Lot Tube Ventilation Green 1.14mm 3.5mm Marcus Bevel Ear Fluoroplastic Grommet Tympanic Membrane - [id number] Implanted:Qty: 1 on 01/30/2024 by Corey River MD at [facility] IMPLANT Left: Ear [employer] 03/01/2028 [id number] / [id number] / [id number] [address] [place] [place] [id number] [place] [address] Care Teams Talent Acquisition Manager Relationship Specialty Start Date End Date Corey River MD [address] [place] [address] PCP - General Otolaryngology 01/30/24
--- OUTSIDE RECORDS SUMMARY | 2025-01-21 07:50 | XMS_ITS | Patient Health Summary ---
Author Organization [facility] Address [address] [place] [address] Care Team Providers Care Solar Sales Consultant Name Role Phone Nik Mullen DO Unavailable Jennifer Gomes PA-C Primary Care Provider [phone] Note from [facility],non-owned Affiliates and Associated Physician Practices is amultiple site organization consisting of ambulatory clinics and hospital sitesin [place], [place], [place] and [place]. This disclosure is being madepursuant to the Care Everywhere program and may not contain all information available regarding this patient. Last updated 18.[facility] Allergies * Food(Diarrhea,Vomiting) * Penicillins(Unknown) -Low Criticality [...] Fibromyalgia Syndrome, Sleep 3 refills by 12/16/2025 Active Problems Problem Noted Date Diagnosed Date [...] Comments Blood Pressure 100/70 12/16/2024 3:20 PM [employer] Pulse 92 12/16/2024 3:20 PM [employer] Temperature 36.1 C (97 F) 12/16/2024 3:20 PM [employer] Respiratory Rate 16 12/16/2024 3:20 PM [employer] Oxygen Saturation 93% 12/16/2024 3:20 PM [employer] Inhaled Oxygen Concentration - - Weight 114.8 kg (253 lb) 12/16/2024 3:20 PM [employer] Height 185.4 cm (6' 1 ) 02/19/2024 [...] * TROPONIN I (05/26/2015 8:33 AM CDT) Pathologist [facility] [place] Troponin I <0.032 <0.032 ng/mL [facility] Blood specimen (specimen) BLOOD SPECIMEN / Unknown 05/26/2015 8:33 AM CDT 05/26/2015 8:33 AM CDT Savannah Kim MD LAB - CHEMISTRY [place] Performing Organization Address [facility]/ZIP Co de Phone Number [address] [phone] * ERYTHROCYTE SEDIMENTATION RATE (05/26/2015 8:33 AM CDT) Pathologist [facility] [place] Erythrocyte Sedimentation Rate Westergren 2 0 - 10 MM/HR [facility] Blood specimen (specimen) BLOOD SPECIMEN / Unknown 05/26/2015 8:33 AM CDT 05/26/2015 8:33 AM CDT Savannah Kim MD LAB - HEMATOLOGY ORD YANIRA Performing Organization Address [facility]/ZIP Co de Phone Number [address] [phone] * CK + CKMB PANEL (05/26/2015 8:33 AM CDT) Pathologist [facility] [place] CK Total 73 30 - 200 Units/L [facility] CK-MB 0.5 0.0 - 6.6 ng/mL [facility] Blood specimen (specimen) BLOOD SPECIMEN / Unknown 05/26/2015 8:33 AM CDT 05/26/2015 8:33 AM CDT Savannah Kim MD LAB - CHEMISTRY [place] Performing Organization Address City/[facility]/ZIP Co de Phone Number [address] [phone] * MRI BRAIN WWO CONTRAST (05/26/2015 7:50 [...] Rupal Mancilla M.D. on 05/26/2015 9:41 AM. I, Dr. WAYNE JOHNSON M.D. have personally reviewed and interpreted thisexamination/study. This report was electronically signed by WAYNE JOHNSON M.D. on 05/26/201511:45 AM . Savannah Kim MD MR ORDERABLES * PTT U (05/26/2015 5:22 AM CDT) APTT 28.4 23.0 - 38.4 Seconds [facility] Comment:Suggested therapeuti c range for full dose I.V. heparin therapy for venous thromboembolism is 66.0-91.0 seconds. Blood specimen (specimen) BLOOD SPECIMEN / Unknown 05/26/2015 5:22 AM CDT 05/26/2015 5:40 AM CDT Narrative [facility] - 05/26/2015 5:59 AM CDT Is patient on Heparin, Argatroban or Dabigatran?->N Savannah Kim MD LAB - COAGULATION OR DERABLES [address] [phone] * PT-INR U (05/26/2015 5:22 AM CDT) PT 13.7 12.1 - 14.8 Seconds [facility] INR 1.0 See Comment [facility] Comment: Suggested therapeutic range for low-intensity coumadin therapy for venous thromboembolism prophylaxis is an INR of 2.0-3.0. For high risk patients (Mitral Valve Prosthesis, Atrial Fibrillation, history of TIA/stroke), suggested prophylactic therapeutic range is an INR of 2.5-3.5. Blood specimen (specimen) BLOOD SPECIMEN / Unknown 05/26/2015 5:22 AM CDT 05/26/2015 5:40 AM CDT Narrative [facility] - 05/26/2015 5:58 AM CDT Is patient on Heparin, Argatroban or Dabigatran?->N Savannah Kim MD LAB - COAGULATION OR DERABLES [address] [phone] * C-REACTIVE PROTEIN (05/26/2015 5:22 AM CDT) C-Reactive Protein <0.5 <=0.5 mg/dL [facility] Blood specimen (specimen) BLOOD SPECIMEN / Unknown 05/26/2015 5:22 AM CDT 05/26/2015 5:40 AM CDT Savannah Kim MD LAB - CHEMISTRY ORDE RABLES Performing Organization Address City/[facility]/ZIP Co de Phone Number [address] [phone] * CBC W AUTO DIFFERENTIAL (05/26/2015 5:22 AM CDT) Only the most recent of2 resultswithin the time period is included. Blood specimen (specimen) BLOOD SPECIMEN / Unknown 05/26/2015 5:[address] [facility] - 05/26/2015 5:52 AM CDT The following orders were created for panel order CBC w Differential. Procedure Abnormality Status --------- ------ CBC WITH DIFFERENTIAL[[id number]] Abnormal Final result Please view results for these tests on the individual orders. Savannah Kim MD LAB - HEMATOLOGY [facility]SE [facility] [address] * (ABNORMAL) BASIC METABOLIC PANEL (CALCIUM TOTAL) (05/26/2015 5:22 AM CDT) BUN 10 7 - 26 mg/dL [facility] Creatinine 1.1 0.6 - 1.2 mg/dL [facility] Sodium 140 136 - 145 mmol/L [facility] Potassium 4.0 3.5 - 4.5 mmol/L [facility] Chloride 109(H) 98 - 107 mmol/L [facility] CO2 25 22 - 29 mmol/L [facility] Glucose 94 70 - 115 mg/dL [facility] Calcium 8.4 8.4 - 10.2 mg/dL [facility] Anion Gap 10 8 - 18 [facility] BUN/Creatinine Ratio 9 7 - 23 [facility] Osmolality Calculated 274 270 - 300 mOsm/kg [facility] eGFR >60 >60 mL/min/1.7 3 m2 [facility] Blood specimen (specimen) BLOOD SPECIMEN / Unknown 05/26/2015 5:22 AM CDT 05/26/2015 5:40 AM CDT Savannah Kim MD LAB - CHEMISTRY [place] Performing Organization Address [facility]/ZIP Co de Phone Number [address] [phone] * PHOSPHORUS BLOOD (05/26/2015 5:22 AM CDT) Phosphorus 3.8 2.3 - 4.7 mg/dL [facility] Blood specimen (specimen) BLOOD SPECIMEN / Unknown 05/26/2015 5:22 AM CDT 05/26/2015 5:40 AM CDT Savannah Kim MD LAB - CHEMISTRY [place] [address] [phone] * (ABNORMAL) HEPATIC FUNCTION PANEL (05/26/2015 5:22 AM CDT) [facility] Protein Total 5.9(L) 6.0 - 8.3 g/dL [facility] Albumin 3.2(L) 3.4 - 5.0 g/dL [facility] Bilirubin Total 0.5 0.2 - 1.2 mg/dL [facility] Bilirubin Conjugated 0.2 0.0 - 0.5 mg/dL [facility] Bilirubin Unconjugated 0.3 Unconjugated Bilirubin is a calculated value: Reference ranges have not been established. mg/dL [facility] Alkaline Phosphatase 54 40 - 150 Units/L [facility] ALT 16 0 - 55 Units/L [facility] AST 15 5 - 34 Units/L [facility] Albumin/Globulin Ratio 1.2 1.1 - 2.3 [facility] Blood specimen (specimen) BLOOD SPECIMEN / Unknown 05/26/2015 5:22 AM CDT 05/26/2015 5:40 AM CDT Savannah Kim MD LAB - CHEMISTRY [place] Performing Organization Address City/[facility]/ZIP Co de Phone Number [address] [phone] * MAGNESIUM BLOOD (05/26/2015 5:22 AM CDT) [facility] Magnesium 1.8 1.6 - 2.6 mg/dL [facility] Blood specimen (specimen) BLOOD SPECIMEN / Unknown 05/26/2015 5:22 AM CDT 05/26/2015 5:40 AM CDT Savannah Kim MD LAB - CHEMISTRY [place] Performing Organization Address City/[facility]/ZIP Co de Phone Number [address] [phone] * DRUG ABUSE PANEL 10-20+ETHANOL URINE NO CONFIRM (05/26/2015 4:41 AM CDT) Amphetamines Screen Urine Negative Negative: < 1000 ng/mL [facility] Barbiturates Screen Urine Negative Negative: < 200 ng/mL [facility] Benzodiazepine Screen Urine Negative Negative: < 200 ng/mL [facility] Opiates Urine Negative Negative: < 300 ng/mL [facility] Cocaine Metabolites Urine Negative Negative: < 300 ng/mL [facility] Phencyclidine Screen Urine Negative Negative: < 25 ng/ml [facility] Cannabinoids Screen Urine Negative Negative: <50 ng/mL [facility] Methadone Screen Urine Negative Negative: < 300 ng/mL [facility] Urine specimen (specimen) URINE / Unknown 05/26/2015 4:41 AM CDT 05/26/2015 4:41 AM CDT Narrative [facility] - 05/26/2015 5:06 AM CDT FIO2->21 The Urine Toxicology Screening Panel does not screen for Propoxyphene, Meprobamate, Carisoprodol, Trazodone, [id number]-aitvgww medications and/or volatiles (Acetone, Isopropanol, Methanol or Ethylene Glycol). Ethanol, Salicylate, Acetaminophen, Tricyclic Antidepressants and several therapeutic drugs may be individually assayed in serum or plasma specimen. Toxicology testing by the [facility] is an aid to medical diagnosis and treatment of patients. No documented chain of custody was maintained. Results are intended to be used for clinical purposes only. Savannah Kim MD LAB - URINE CHEMISTR Y ORDERABLES [facility] [address] [place] [address] * URINALYSIS W/MICROSCOPIC NO CULTURE (05/26/2015 4:30 AM CDT) Color UA Yellow Straw, Yellow, Colorless, Light Yellow [facility] Clarity UA Clear Clear [facility] Specific Scotts UA 1.012 1.001 - 1.030 [facility] pH UA 7.0 5.0 - 8.0 [facility] Protein UA Negative <=20 mg/dL [facility] Glucose UA Negative Negative mg/dL [facility] Ketone UA Negative Negative mg/dL [facility] Bilirubin UA Negative Negative mg/dL [facility] Blood UA Negative Negative [facility] Nitrite UA Negative Negative [facility] Leukocyte Esterase Negative Negative [facility] Urobilinogen UA <2.0 <2.0 mg/dL [facility] RBC UA 1 0 - 8 /HPF [facility] WBC UA <1 0 - 2 /HPF [facility] Urine specimen (specimen) 05/26/2015 4:30 AM CDT 05/26/2015 4:30 AM CDT Savannah Kim MD LAB - URINALYSIS ORD ERABLES [address] [phone] * EKG 12-LEAD (05/26/2015 12:00 AM CDT) EKG [facility] Comment: Exam Date/Time: May 26 2015 [...] available Confirmed by MD Hope, Anahy ([id number]), industrial editor [place] ([id number]) on 06/02/2015 2:16:57 PM Referred By: REFERRING NO Confirmed By:Anahy Arnett MD 05/26/2015 Savannah Kim MD ECG ORDERABLES [facility] * GROSS + MICRO EXAM (03/29/2002 12:24 PM CDT) Result CASE NUMBER [id number] Comment: ORDERING PHYSICIAN Rene BRICEÑO JR SPECIMEN [...] CDT 03/29/2002 12:25 PM CDT Historical Provider MD LAB - PATHOLOGY/C YTOLOGY ORDERABLES Care Teams Solar Sales Consultant Relationship Specialty Start Date End Date Jennifer Gomes PA-C [address] [place] [id number] PCP - General Physician Machine Featheredger And Reducer 09/26/24 Nik Mullen DO [address] [place] [phone] Drive In Theater Attendant Rheumatology 08/23/24
== END 2025-01-22 12:12 | disposition home or self-care (01) ==
LOC: ANHCSM 07:46
PROVIDERS: PCP Physician Assistant Medical; Visit Provider Internal Medicine Cardiovascular Disease
DX: G47.10 Hypersomnia, unspecified (principal)
CPT/HCPCS: 95800

== ENCOUNTER 2025-03-02 10:28 | Emergency (ER) | payer BC, SELFPAY ==
[2025-03-02] VITALS (8 sets, daily range): BP systolic 111–118; BP diastolic 78–82; PULSE 74–82; RESP 14–20; TEMP 36.6; O2SAT 98–100
--- NOTE | ~2025-03-02 | CT_ITS ---
EXAMINATION: CT BRAIN W/O DATE: 03/02/2025 10:49 INDICATION: Left-sided weakness. TECHNIQUE: Computed tomography (CT) of the head was performed without intravenous contrast. The dose- length product was 681.00 mGy-cm. Automated exposure control and iterative reconstruction technique w ere employed. COMPARISON: No prior studies for comparison. FINDINGS: Normal brain parenchymal volume for age. Normal ortiz-white differentiation. No acute intrac ranial hemorrhage, infarction, mass or mass effect. No ventriculomegaly or midline shift. Midline sagittal images demonstrate a normal corpus callosum, c raniovertebral junction and sella turcica. Basilar cisterns are patent. Paranasal sinuses and mastoids are pneumatized. No depressed skull fractures. IMPRESSION: 1. No acute intracranial abnormality. Reviewed, dictated and finalized at location A.
--- NOTE | ~2025-03-02 | CT_ITS ---
EXAMINATION: CTA brain carotid DATE: 03/02/2025 10:58 CDT INDICATION: Left-sided weakness TECHNIQUE: Computed tomographic angiography (CTA) of the head was performed without and with 100 mL O mnipaque-350 intravenous contrast. CTA of the neck was performed with intravenous contrast. The dose- length product was 1177.69 mGy-cm. Maximum intensity projection and volume rendered 3D-reconstruction s were created by the technologist on a separate workstation. Automated exposure control and iterativ e reconstruction technique were employed. COMPARISON: CT brain dated 03/02/2025. FINDINGS: HEAD CTA: There is normal contrast opacification of the intracranial arteries without significant rolando nosis, occlusion or aneurysm. There is a dominant right vertebral artery. NECK CTA: Dominant right vertebral artery. The common carotid, internal carotid and vertebral arterie s are within normal limits. No significant stenosis. Lung apices are unremarkable. Ptosis. Thyroid gl and is unremarkable. No lymphadenopathy. There is 0% stenosis of the proximal right internal carotid artery relative to normal distal artery l umen diameter (NASCET criteria). There is 0% stenosis of the proximal left internal carotid artery re lative to normal distal artery lumen diameter. IMPRESSION: 1: No significant vascular abnormality of the head or neck. Reviewed, dictated and finalized at location A.
--- NOTE | ~2025-03-02 | XR_ITS ---
XR chest 1V portable 03/02/2025 10:55 Indication: CVA Procedure: AP portable chest Comparison: No prior studies for comparison. Findings: Shallow inspiration with crowding of the pulmonary vessels. No focal air space disease, pul monary edema, pleural effusion or suspected pneumothorax. Impression: 1: No acute cardiopulmonary disease. Reviewed, dictated and finalized at location A. Impression: 1: No acute cardiopulmonary disease.
--- NOTE | 2025-03-02 10:32 | ED.GENADULT ---
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 states she was with the patient when he had onset of left-sided weakness at 10:00 a.m.. States the patient fell onto the couch and was resting. She states the patient does often have issues with dizziness but when she went to check on the patient again he was still having persistent symptoms so she brought him to the emergency department. Patient arrived to the ED at approximately 10:30 a.m. and was still having left-sided weakness the upper lower extremities. Related Data Home Medications ?Medication ?Instructions ?Recorded ?Confirmed ?Last Taken ?Type duloxetine 30 mg capsule,delayed 60 mg PO DAILY 06/27/23 02/04/25 07/17/24 History release (Cymbalta) tirzepatide 5 mg/0.5 mL 5 mg subcut WEEKLY 12/11/24 02/04/25 Unknown History subcutaneous pen injector (Mounjaro) Allergies Allergy/AdvReac Type Severity Reaction Status Date / Time Penicillins Allergy Unknown Unknown Verified 03/02/25 11:00 Review of Systems Review of Systems: All systems reviewed & are unremarkable except as noted in HPI and below PMFSH Past Medical History Medical History Eustachian tube dysfunction S/p Eustachian tube dilatation by Dr. 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 Father Heart disease Renal failure Hypertension Malignant neoplasm of prostate Social History Social History Smoking status: Never smoker Alcohol intake: never Alcohol use details: rarely Substance use: never Substance use type: does not use Do You Feel Safe in your Home?: Yes Lack of Transportation: No Lack of Food: Never True Current Housing: I Have Housing Concerned About Future Housing: No Difficulty Paying Gas/Electric Bills: No Difficulty Paying for Meds: No Currently Unemployed: No Education: Associate Degree Difficulty w/ Childcare or Family Care: No Living arrangements: with family Occupation/Education: occupation Gender identity (if verbalized by the patient): Male Spiritual care concerns: No Exam Narrative: APPEARANCE: Well appearing, no pain, no distress, well-nourished. HEAD: normocephalic, atraumatic. EYES: PERRLA/EOMI, conjunctivae clear. NOSE: Normal no drainage EARS:TMS clear with good light reflex. THROAT: Pharynx clear, no exudate. NECK: Supple. No adenopathy, no masses. RESPIRATORY: Airway patent, respirations nonlabored. Clear to auscultation bilaterally, no rales, rhonchi, wheezing. CARDIOVASCULAR: Regular rate and rhythm without murmurs rubs or gallops. ABDOMINAL: Soft, nontender, nondistended, normal bowel sounds MUSCULOSKELETAL: Moves all extremities. Strength/ROM intact, No edema, No calf tenderness. NEURO: NIH score of 10, some left-sided facial droop, no visual field changes, left arm and left leg weakness SKIN: Warm, dry. Normal Color Course Vital Signs Vital signs: Vital Signs Temperature 97.9 F 03/02/25 10:49 Pulse Rate 82 03/02/25 10:49 Respiratory Rate 17 03/02/25 10:49 Blood Pressure 115/78 03/02/25 10:49 Pulse Oximetry 99 03/02/25 10:49 Oxygen Delivery Room Air 03/02/25 10:49 Temperature 97.9 F 03/02/25 10:49 Pulse Rate 74 03/02/25 11:31 Respiratory Rate 14 03/02/25 11:31 Blood Pressure 112/82 03/02/25 11:31 Pulse Oximetry 98 03/02/25 11:31 Oxygen Delivery Room Air 03/02/25 11:09 Medical Decision Making [facility] Narrative Medical decision making narrative: 44-year-old male present to the emergency department for evaluation for acute onset of left-sided weakness that started at 10:00 a.m.. Upon arrival patient had weakness of the left upper and left lower extremity with a NIH stroke scale of 10. Head CT without contrast was negative. Case was discussed with Dr. Tanika wong at [facility] and patient was accepted for transfer and they were comfortable the plan for starting the patient on TNK. Benefit in TNK were discussed with the and patient. Does have a history of aortic aneurysm of 3.5 cm but patient has had no pain associated with this. Patient was also discussed with the ED physician and patient was accepted for transfer. Attempted to fly the patient but due to the weather patient could not be flown so we are transferring him by ground with lights and sirens. Patient and family prefer to go by ground transport regardless of weather. CTA showed no acute abnormalities of head or neck. Differential Diagnosis Differential Diagnosis: TA, CVA, ischemic versus hemorrhagic stroke Vital Signs Vital Signs: Vital Signs Temperature 97.9 F 03/02/25 10:49 Pulse Rate 82 03/02/25 10:49 Respiratory Rate 17 03/02/25 10:49 Blood Pressure 115/78 03/02/25 10:49 Pulse Oximetry 99 03/02/25 10:49 Oxygen Delivery Room Air 03/02/25 10:49 Temperature 97.9 F 03/02/25 10:49 Pulse Rate 74 03/02/25 11:31 Respiratory Rate 14 03/02/25 11:31 Blood Pressure 112/82 03/02/25 11:31 Pulse Oximetry 98 03/02/25 11:31 Oxygen Delivery Room Air 03/02/25 11:09 Lab Data Lab results reviewed: Yes I reviewed the patient's lab results. 03/02/25 10:37 03/02/25 10:44 Labs: Lab Results 03/02/25 03/02/25 03/02/25 Range/Units 10:31 10:37 10:44 WBC 8.2 (4.5-10.0) K/mm3 RBC 5.23 (4.6-6.20) M/mm3 Hgb 14.7 (14.0-18.0) g/dL Hct 44.5 (42.0-52.0) % MCV 85.1 (80-100) fl MCH 28.1 (26-34) pg MCHC 33.0 (32-36) g/dl RDW 13.0 (11.5-14.5) % Plt Count 208 (150-375) k/mm3 MPV 9.5 (7.4-10.4) fl Immature Gran % (Auto) 0.4 (0-0.5) % Neut % (Auto) 48.2 (45.5-73.1) % Lymph % (Auto) 37.1 (18.3-44.2) % Hardeman % (Auto) 7.8 (2.6-8.5) % Eos % (Auto) 6.0 H (0-4.4) % Baso % (Auto) 0.5 (0.2-1.2) % Lymph # (Auto) 3.03 (0.9-3.2) K/mm3 Hardeman # (Auto) 0.6 (0.1-0.6) K/mm3 Eos # (Auto) 0.5 H (0-0.3) K/mm3 Baso # (Auto) 0.0 (0.0-0.1) K/mm3 Abs Immat Gran (auto) 0.03 (0.00-0.031) K/mm3 Absolute Neuts (auto) 3.9 (1.3-6.7) K/mm3 Absolute Nucleated RBC 0.000 (0.0-0.012) K/mm3 Nucleated RBC % 0.0 (0.0-0.2) % PT 12.5 (11.1-14.7) Seconds INR 0.9 APTT 25.7 (22.3-36.8) Seconds Sodium 139 (137-145) mmol/L Potassium 4.2 (3.4-5.0) mmol/L Chloride 103 (98-107) mmol/L Carbon Dioxide 27 (22-30) mmol/L Anion Gap 9 (4-12) mmol/L BUN 17 (9-20) mg/dL Creatinine 1.06 1.20 (0.7-1.3) mg/dL Estim Creat Clear Calc Not Reportable Not Reportable Estimated GFR > 60 > 60 (59 - ) Glucose 101 (65-110) mg/dL POC Capillary Glucose 95 (65-105) mg/dl Calcium 8.6 (8.4-10.2) mg/dL Total Bilirubin 0.3 (0.2-1.3) mg/dL AST 25 (17-59) U/L ALT 21 (6-50) U/L Alkaline Phosphatase 65 (38-126) U/L Troponin I < 0.012 (0.000-0.034) ng/mL Total Protein 7.0 (6.3-8.2) g/dL Albumin 4.1 (3.5-5.1) g/dL Imaging Data Radiologist's impression: Impressions Head CT 03/02/25 10:54 IMPRESSION: 1. No acute intracranial abnormality. Head/Neck CTA 03/02/25 10:57 IMPRESSION: 1: No significant vascular abnormality of the head or neck. Chest X-Ray 03/02/25 11:00 Impression: 1: No acute cardiopulmonary disease. Critical Care Time Critical Care Time Critical Care Time: Yes Total Critical Care Time: 50 Discharge Plan Discharge Clinical Impression: Acute left-sided weakness, Acute CVA (cerebrovascular accident) Patient Disposition: Home Condition: Critical Instructions: Antibiotic Form Patient Language: Senegalese Prescriptions: No Action Mounjaro 5 mg/0.5 mL pen injector 5 mg subcut WEEKLY metoprolol succinate 25 mg tablet extended release 24 hr 12.5 mg PO DAILY Qty: 45 2RF Taltz Autoinjector 80 mg/mL auto-injector 80 mg subcut ONCE Qty: 1 0RF sumatriptan succinate 100 mg tablet See Rx Instructions PO .COMPLEX Qty: 9 5RF Rx Instructions: Take one tablet onset of headache. May repeat x 1 two hours later if headache is not completely resolved. Max of 2 tabs in 24 hours. amitriptyline 25 mg tablet 25 mg PO QHS Qty: 1 0RF Rx Instructions: prescribed by rheum duloxetine [Cymbalta] 30 mg capsule,delayed release(DR/EC) 60 mg PO DAILY Patient Comments: started April 2023 for fibro ondansetron 4 mg tablet,disintegrating 4 mg PO Q6H PRN (Reason: nausea and vomiting) Qty: 12 1RF mecobalamin (vitamin B12) 1,000 mcg tablet,chewable 1,000 mcg PO DAILY Qty: 90 0RF Rx Instructions: OTC Follow-up/Referrals: Jennifer Gomes PA-C [Primary Care Provider] - Quality Stroke Scale Stroke Scale 1: Stroke scale time:: 10:36 1a Level of consciousness: alert-0 1b Level of consciousness questions: answers both correctly-0 1c Level of consciousness commands: obeys both correctly-0 2 Best gaze: partial gaze palsy-1 3 Visual: no visual loss-0 4 Facial palsy: minor paralysis-1 5a Motor: left arm: drift-1 5b Motor: right arm: some effort/gravity-2 6a Motor: left leg: no effort/gravity-3 6b Motor: right leg: no drift-0 7 Limb ataxia: present in two limbs-2 8 Sensory: normal-0 9 Best language: no aphasia-0 10 Dysarthria: normal-0 11 Extinction and inattention: no abnormality-0 Level:: 10
--- OUTSIDE RECORDS SUMMARY | 2025-03-02 10:32 | XMS_ITS | Clinical Summary ---
Author Organization [facility] Address [address] [place] [address] Care Team Providers Care Computed Tomography Scanner Operator Name Role Phone Nik Mullen DO Unavailable Jennifer Gomes PA-C Primary Care Provider [phone] Source Comments [facility],non-owned Affiliates and Associated Physician Practices is amultiple site organization consisting of ambulatory clinics and hospital sitesin [place], [place], [place] and [place]. This disclosure is being madepursuant to the Care Everywhere program and may not contain all information available regarding this patient. Last updated 18.[facility] Allergies Active Allergy Reactions Criticality Noted Date Comments Food Diarrhea,Vomiting 01/22/2024 GLUETIN Penicillins Unknown Low 05/26/2015 Patient does not recall reaction but pt was told that he is allergic to penicillin Medications * Be aware that medications may not be up to date on this document. Alwaysverify current medications with the patient. ondansetron, disintegrating , (Zofran ODT) 4 MG tablet DISSOLVE 1 TABLET ON THE TONGUE EVERY 6 HOURS NEEDED FOR NAUSEA OR VOMITING 3 Active SUMAtriptan (Imitrex) 50 MG tablet TAKE 1 TABLET BY MOUTH 1 TIME NEEDED FOR MIGRAINE HEADACHE 3 Active ixekizumab (Taltz) 80 MG/ML prefilled syringe Inject 1 mL subcutaneously every 28 days Active tirzepatide (Mounjaro) 7.5 MG/0.5ML injection Inject 7.5 (seven and one-half) mg subcutaneously every 7 days Active DULoxetine (Cymbalta) 60 MG capsuleIndicat ions:Fibromyal ender Syndrome Take 1 (one) capsule by mouth every morning Reasons: Fibromyalgia Syndrome 90 capsule 3 5 Active amitriptyline (Elavil) 25 MG tabletIndicati ons:Depression ,Fibromyalgia Syndrome,Sleep Take 1 (one) tablet by mouth at bedtime Reasons: Depression, Fibromyalgia Syndrome, Sleep 90 tablet 3 5 Active metoprolol succinate XL 24hr (Toprol XL) 25 MG tablet Take 0.5 (one-half) tablet by mouth once daily 5 Active Active Problems Problem Noted Date Diagnosed [...] Encounters Date Type Department Care Team Description 02/17/2025 9:00 AM CDT Office Visit [facility] - Rheumatology [address] [place] [address], [address] [place] [phone] Nik Mullen DO Fibromyalgia syndrome (Primary Dx); Intermittent palpitations; Chronic fatigue syndrome with fibromyalgia (ME/CFS); Moderate episode of recurrent major depressive disorder (HCC) 12/16/2024 3:20 PM SENIOR DIRECTOR OF GLOBAL COMMERCIAL TECHNOLOGY SOLUTIONS Office Visit [facility] Rheumatology [address] [place] [address], [address] [place] [phone] Nik Mullen DO Fibromyalgia syndrome (Primary Dx); Chronic fatigue syndrome with fibromyalgia (ME/CFS); Moderate episode of recurrent major depressive disorder 12/12/2024 Refill [facility] - Rheumatology [address] [place] [address], [address] [place] [address] Nik Mullen DO MEDICATION REFILL from Last 3 Months Social History Tobacco Use Types Packs/Day Years Used Date Smoking Tobacco: Never Smokeless Tobacco: Never Tobacco Cessation:Counseling Given: Not Answered PHQ-2 Answer Date Recorded Patient Health Questionnaire-2 Score 0 02/17/2025 Sex and Gender Information Value Date Recorded Sex Assigned at Not on file Legal Sex Male 9:04 AM CDT Gender Identity Not on file Sexual Orientation Not on file Last Filed Vital Signs Vital Sign Reading Time Taken Comments Blood Pressure 104/78 02/17/2025 8:50 AM CDT Pulse 68 02/17/2025 8:50 AM CDT Temperature 36.1 C (97 F) 02/17/2025 8:50 AM CDT Respiratory Rate 16 02/17/2025 8:50 AM CDT Oxygen Saturation 100% 02/17/2025 8:50 AM CDT Inhaled Oxygen Concentration - - Weight 112.9 kg (249 lb) 02/17/2025 8:50 AM CDT Height 185.4 cm (6' 1 ) 02/19/2024 8:11 AM CDT Body Mass Index 32.85 02/19/2024 8:11 AM CDT Plan of Treatment Upcoming Encounters Date Type Department Care Team (Late st Contact Info) Description 12/15/2025 3:40 PM SENIOR DIRECTOR OF GLOBAL COMMERCIAL TECHNOLOGY SOLUTIONS Office Visit [facility] - Rheumatology [address] [place] [address], [address] [place] [phone] Nik Mullen DO [address] [place] [address] [address] [place] [phone] Health Maintenance Due Date Last Done Comments LIPID TESTING 1982 HIV SCREENING 1997 HEPATITIS C SCREENING 03/10/2000 DTAP/TDAP/TD VACCINES (1 - Tdap) 2001 HEPATITIS B VACCINE (1 of 3 - 19+ 3-dose series) 2001 SCREENING FOR DIABETES 05/08/2023 05/26/2015 COVID-19 VACCINE ( - 2023-2 5 season) 2024 02/04/2021, 01/07/2021 INFLUENZA VACCINE (Season Ended) 2025 08/24/2023 ZOSTER VACCINE (1 of 2) 2032 DEPRESSION SCREENING Completed 12/16/2024 HIB VACCINE Aged Out No longer eligi ble based on patient's age to complete this topic HPV VACCINE Aged Out No longer eligi ble based on patient's age to complete this topic MENINGOCOCCAL (Group B) VACCINE SHARED DECISION-MAKING Aged Out No longer eligible based on patient's age to complete this topic MENINGOCOCCAL GROUPS A/C/Y/W VACCINE Aged Out No longer eligible b [...] HOSPITAL Anion Gap 10 8 - 18 [facility] BUN/Creatinine Ratio 9 7 - 23 [facility] Osmolality Calculated 274 270 - 300 mOsm/kg [facility] eGFR >60 >60 mL/min/1.7 3 m2 [facility] Blood specimen (specimen) BLOOD SPECIMEN / Unknown 05/26/2015 5:22 AM CDT 05/26/2015 5:40 AM CDT Savannah Kim MD LAB - CHEMISTRY ORDERABLES Final Result [facility] [address] [place] [address], [facility] [phone] from Last 3 Months or Most Recently Relevant to Health Maintenance Insurance [employer] Care Teams Computed Tomography Scanner Operator Relationship Specialty Start Date End Date Jennifer Gomes PA-C [address] [place] [id number] PCP - General Physician Cargo Vessel Stewardess 09/26/24 Nik Mullen DO [address] [place] [phone] Teacher Of The Emotionally Disturbed Rheumatology 08/23/24
--- OUTSIDE RECORDS SUMMARY | 2025-03-02 10:32 | XMS_ITS | Continuity of Care Document ---
Author Organization [facility] Address [address] [place] [address] Phone Care Team Providers Care Yardage Control Clerk Name Role Phone Tato Tran PT Unavailable Unavailable Procedures Procedure Date Therapeutic Activities Neuromuscular Re-Ed Therapeutic Activities Neuromuscular Re-Ed Therapeutic Activities Neuromuscular Re-Ed Therapeutic Activities Neuromuscular Re-Ed Progress Note Therapeutic Activities Neuromuscular Re-Ed Therapeutic Activities Neuromuscular Re-Ed Therapeutic Exercise Therapeutic Activities Neuromuscular Re-Ed Therapeutic Exercise PT Evaluation Moderate Complexity Therapeutic Activities Neuromuscular Re-Ed Free Assessment Advance Directives Directive Yes / No Effective Date File Name No Information Encounters Encounter Description Practice Location Reason(s) For Visit Diagnoses Date Provider Providers Copied on Encounter [facility], [address], [place], [place], [id number], [place] tel:[phone] Jose Cruz [place] No Information Marc Mancilla . Referring Provider: [facility]. [facility], [place], [place], [id number], tel:[phone] Jose Cruz [place] No Information Marc Mancilla . Referring Provider: [facility]. [address], [id number], tel:[phone] Jose Cruz [place] No Information Marc Mancilla . Referring Provider: [facility]. [address], [id number], tel:[phone] Jose Cruz [place] No Information Marc Mancilla . Referring Provider: [facility]. [address], [id number], tel:[phone] Jose Cruz [place] No Information Marc Mancilla . Referring Provider: [facility]. [address], [id number], tel:[phone] Jose Cruz [place] No Information Marc Mancilla . Referring Provider: [facility] [employer]. [address], [id number], tel:[phone] Jose Cruz [place] No Information Marc Mancilla . Referring Provider: [facility] [employer]. [address], [id number], tel:[phone] Jose Cruz [place] No Information Marc Mancilla . Referring Provider: [facility] [employer]. [address], [id number], tel:[phone] Jose Cruz [place] No Information Marc Mancilla . Referring Provider: Physician Screen. Family History Family Member Type Diagnosis Age At Onset No Information Payers Payer name Insurance type Covered alliance party ID Authorlatiaa shireen(s) [facility] [id number] Social History Type Description Quantity Date Captured Comments Sex Male Smoking Status No Information Chief Complaint And Reason For Visit No Information Reason For Referral Reason For Referral No Information History Of Present Illness Encounter Date Complaint History Of Prese nt Illness No Information Functional Status Date Functional Assessmen t No Information Instructions Date Instruction Additional Infor mation No Information Assessments Type Assessment Date No Information Patient Care Teams Name Effective Dates (start - stop) Status Members No Information
--- OUTSIDE RECORDS SUMMARY | 2025-03-02 10:32 | XMS_ITS | Data Portability ---
Author Organization [place] - [facility] ONE Change, Main Office Address [address] [place] [address] Care Team Providers Care Planning Division Superintendent Name Role Phone [facility] Primary Care Provider Assessment No assessment recorded. Plan of Treatment Reminders Order Date Submit Date Provider Last Modified By Organization Details Last Modified Time Details Appointments None recorded. Lab None recorded. Referral None recorded. Procedures eustachian tube balloon dilation (PROC) 2023 024 [email or web address] Not available 4 17:20:00 Surgeries myringotomy , with eustachian tube inflation (SURG) 2022 021 [email or web address] [id number] Not available 3 17:13:55 Imaging None recorded. Medication Orders clindamycin HCl 300 mg capsule 2023 Zectero[facility]84227, [address], [place], [id number], 4 10:15:29 Medrol (Manoj) 4 mg tablets in a dose pack 2023 024 [facility] #70205, [address], [place], [id number], 4 10:15:31 Patient TargetsNo targets recorded. Patient Instructions Encounter Date Encounter Id Patient Instructions Last Modified By Organization Details Last Modified Time 02/08/2024 [id number] he will return a s needed [email or web address] Not available 02/14/2024 16:56:09 Reason for Referral None Reported. Results Created Date Observation Date Name Description Value Unit Range Abnormal Flag Note LastModifiedBy Organization Detail LastModifiedTime 01/22/20 24 01/26/2024 SRINIVAS MONSON, PLASM A potassium 3.6 mmol/ L 3.4-4. 8 normal Not Available [address], [address], 01/26/2024 11:20:40 01/22/20 24 01/26/2024 CBC (INCL UDES DIFF/ PLT) white blood cell count 6.3 thous and/u L 3.8-10 .8 normal Not Available [address], [address], 01/26/2024 11:20:40 01/22/20 24 01/26/2024 CBC (INCL UDES DIFF/ PLT) red blood cell count 5.64 estrella on/uL 4.20-5 .80 normal Not Available [address], [address], 01/26/2024 11:20:40 01/22/20 24 01/26/2024 CBC (INCL UDES DIFF/ PLT) hemoglobin 15.9 g/dL 13.2-1 7.1 normal Not Available [address], [address], 01/26/2024 11:20:40 01/22/20 24 01/26/2024 CBC (INCL UDES DIFF/ PLT) hematocrit 46.7 % 38.5-5 0.0 normal Not Available [address], [address], 01/26/2024 11:20:40 01/22/20 24 01/26/2024 CBC (INCL UDES DIFF/ PLT) MCV 82.8 fL 80.0-1 00.0 normal Not Available [facility] [address], [address], 01/26/2024 11:20:40 01/22/20 24 01/26/2024 CBC (INCL UDES DIFF/ PLT) MCH 28.2 pg 27.0-3 3.0 normal Not Available [address], [address], 01/26/2024 11:20:40 01/22/20 24 01/26/2024 CBC (INCL UDES DIFF/ PLT) MCHC 34.0 g/dL 32.0-3 6.0 normal Not Available [address], [address], 01/26/2024 11:20:40 01/22/20 24 01/26/2024 CBC (INCL UDES DIFF/ PLT) RDW 12.9 % 11.0-1 5.0 normal Not Available [address], [address], 01/26/2024 11:20:40 01/22/20 24 01/26/2024 CBC (INCL UDES DIFF/ PLT) platelet count 249 thous and/u L 140-40 0 normal Not Available [address], [address], 01/26/2024 11:20:40 01/22/20 24 01/26/2024 CBC (INCL UDES DIFF/ PLT) MPV 10.8 fL 7.5-12 .5 normal Not Available [address], [address], 01/26/2024 11:20:40 01/22/20 24 01/26/2024 CBC (INCL UDES DIFF/ PLT) absolute neutrophils 3515 cells /uL 1500-7 800 normal Not Available [address], [address], 01/26/2024 11:20:40 01/22/20 24 01/26/2024 CBC (INCL UDES DIFF/ PLT) absolute lymphocytes 2123 cells /uL 850-39 00 normal Not Available [address] [place], [address], 01/26/2024 11:20:40 01/22/20 24 01/26/2024 CBC (INCL UDES DIFF/ PLT) absolute monocytes 403 cells /uL 200-95 0 normal Not Available [facility] [address], [address], 01/26/2024 11:20:40 01/22/20 24 01/26/2024 CBC (INCL UDES DIFF/ PLT) absolute eosinophils 221 cells /uL 15-500 normal Not Available [facility] [address], [address], 01/26/2024 11:20:40 01/22/20 24 01/26/2024 CBC (INCL UDES DIFF/ PLT) absolute basophils 38 cells /uL 0-200 normal Not Available [facility] [address], [address], 01/26/2024 11:20:40 01/22/20 24 01/26/2024 CBC (INCL UDES DIFF/ PLT) neutrophils 55.8 % normal Not Available [facility] [address], [address], 01/26/2024 11:20:40 01/22/20 24 01/26/2024 CBC (INCL UDES DIFF/ PLT) lymphocytes 33.7 % normal Not Available [address], [address], 01/26/2024 11:20:40 01/22/20 24 01/26/2024 CBC (INCL UDES DIFF/ PLT) monocytes 6.4 % normal Not Available [address], [address], 01/26/2024 11:20:40 01/22/20 24 01/26/2024 CBC (INCL UDES DIFF/ PLT) eosinophils 3.5 % normal Not Available [facility] [address], [address], 01/26/2024 11:20:40 01/22/20 24 01/26/2024 CBC (INCL UDES DIFF/ PLT) basophils 0.6 % normal Not Available [facility] [address] [address], [place], [address], 01/26/2024 11:20:40 07/20/20 21 07/20/2021 audio gram + tympa nogra m No observ ation record ed. [id number] [facility] (Audiology) [address] [place] [address] [address], [address], 01/11/2023 17:13:56 Result Notes None recorded. Problems Name Problem SNOMED Code Status Onset Date Resolution Date Notes Provider Name and Address Organization Details Recorded Time Finding of bacteria by serology 545460921 Active Not Available [facility] 3 17:13:06 Dysfunctio n of left eustachian tube 3405418494693 106 Active 2023 Corey River MD [address] [place] [address], [place], [address] , [facility] ONE Change 4 17:14:52 Problem Notes None recorded. Procedures Surgical History Date Name Laterality Status Provider Name and Address Organization Details Recorded Time 08/23/20 21 MYRINGOTOMY, WITH EUSTACHIAN TUBE INFLATION (SURG) completed Not Available [facility] 01/11/2023 17:13:55 inflation of Eustachian tube using balloon completed Fanny Elizabeth RN [facility] ONE Change 02/07/2024 10:16:03 myringotomy and insertion of tympanic ventilation tube completed Fanny Elizabeth RN [facility] 02/07/2024 10:15:59 Imaging Results Imaging Date Name Status LastModified by [facility] Details LastModified Time 07/20/2021 audiogram + tympanogram completed [id number] [facility] (Audiology) [address] [place] [address], [address], 01/11/2023 17:13:56 Procedure Notes None recorded. Medical Equipment None Reported. Allergies Allergen ID Allergen Name Allergen Category Reaction Reaction Severity Criticality Documentation Date Start Date Code Code System Note Provider Name and Address Organization Details Recorded Time 05825 Penicilli n Not available Not available Not available Not available 01/11/2023 87202 RxNorm Not Available [facility] 17:13:54 Medications Name Sig Start Date Stop [...] Xhance 93 mcg/actuati on breath activated aerosol [place] 2 sprays twice a day by intranasa l route. 10/25 completed Not Available Not Available Not Available ID NOW COVID-19 Test Kit TEST DIRECTED. 12/14 completed Not Available Not Available Not Available Vitals Date Recorded Body mass index (BMI) Body height Body temperature Body weight Provider Name and Address Organization Details Last Updated DateTime 08/05/2021 31.1 kg/m2 187.96 cm 97.7 [degF] 320649.3 5 g Not Available [facility] 01/11/2023 17:12:57 Date Recorded Body mass index (BMI) Body height Body temperature Body weight Provider Name and Address Organization Details Last Updated DateTime 08/13/2021 31.1 kg/m2 187.96 cm 97.6 [degF] 672623.3 5 g Not Available [facility] 01/11/2023 17:12:57 Date Recorded Body mass index (BMI) Body height Body temperature Body weight Provider Name and Address Organization Details Last Updated DateTime 10/26/2021 31.1 kg/m2 187.96 cm 97.5 [degF] 452625.3 5 g Not Available [facility] 01/11/2023 17:12:57 Date Recorded Body weight Body mass index (BMI) Body height Body temperature Provider Name and Address Organization Details Last Updated DateTime 12/14/2023 905267.97 g 35.3 kg/m2 186.69 cm 97.8 [degF] Fanny Elizabeth RN [place] [facility] [place] [email or web address] 12/14/2023 17:05:09 Social History Question Answer Notes LastModified by Organizat ion Details LastModified Time Tobacco Smoking Status Never Smoker Not Available [facility] 01/11/2023 17:12:28 What Is Your Level Of Alcohol Consumption? Occasional [id number] Information not available 01/11/2023 In The 14 Days Before Symptom Onset, Have You Had Close Contact With A Laboratory-confirm ed COVID-19 While That Case Was Ill? No [id number].[id number] Information not available 01/11/2023 In The 14 Days Before Symptom Onset, Have You Had Close Contact With A Person Who Is Under Investigation For COVID-19 While That Person Was Ill? No [id number] Information not available 01/11/2023 Have You Recently Traveled Abroad? No [id number] Information not available 01/11/2023 Sex: Unknown Functional Status None recorded. Mental Status None recorded. Family History Relationship Description Onset Age of this Age Resolved Age Notes LastModified by Organization Details LastModified Time Father No current problems or disability [id number] Not available 01/11/2023 17:12:29 Mother No current problems or disability [id number] Not available 01/11/2023 17:12:29 Medical History Condition Response MRSA N SLEEP APNEA N ALLERGIES/HAYFEVER N LUNG DISEASE/DISORDER N HISTORY OF DRUG ABUSE N INSOMNIA N COPD N RADIATION / CHEMOTHERAPY N HIGH CHOLESTEROL / HYPERLIPIDEMIA N HYPERTHYROIDISM N BLOOD DISEASES N EAR OR HEARING PROBLEMS N HYPOTHYROIDISM N SHINGLES N DEPRESSION (INCLUDING POST ) N HAVE YOU BEEN HOSPITALIZED OR SEEN IN [facility] ER IN THE PAST YEAR ? [...] SPECIFY N TOURETTE'S N BLOOD TRANSFUSION N ANEMIA/BLOOD DISORDER N ANESTHESIA COMPLICATIONS N CHRONIC EAR INFECTIONS N TUBERCULOSIS N Past Encounters Encounter ID Performer Location Encounter Start Date Encounter Closed Date Diagnosis/Indication Diagnosis SNOMED-CT Code Diagnosis ICD10 Code Diagnosis Note [id number] [facility] [address] [place] [address] 07/01/2021 00:00:00 07/01/2021 09:38:52 [id number] [facility] [address] [place] [address] 08/05/2021 00:00:00 08/05/2021 14:48:12 [id number] _ATHENA_M IGRATION_ DEFAULT_1 _1 , 08/13/2021 00:00:00 08/13/2021 10:32:22 [id number] [facility] [address] [place] [address] 10/26/2021 00:00:00 10/26/2021 11:00:57 [id number] Corey River MD [facility] [address] [place] [address] 12/14/2023 16:34:44 12/18/2023 16:01:18 Dysfunction of left eustachian tube 6655602317 692140 H69.92 [id number] Corey River MD [facility] [address] [place] [address] 02/09/2024 11:22:10 02/15/2024 09:37:20 Dysfunction of left eustachian tube 1923933633 576971 H69.92 Health Concerns Section Related Observation LastModified by Organization Detai ls LastModified Time None Recorded Concern Status LastModified by Organization Details LastModified Time None Recorded Advance Directives Directive None Recorded Payers Encounter Date Sequence Insurance Name Policy Number Policy Robins Covered Member ID Robins Member ID Guarantor Name 12/14/2023 1 [place] [id number] 1 Mauri Smith [id number] Mauri Smith 02/08/2024 1 [facility]: (PPO) [id number] 1 Mauri Smith [id number] Mauri Smith Notes Date Note Type Note Provider Name and Address Organization Details Recorded Time 12/14/2023 text/html Had right ETBD 2 years ago and had a flight 2 weeks ago. Now the left closed off and he believes there is fluid. Corey River MD [address], [place], [address], [facility] [employer] [facility] 12/14/2023 17:16:01 02/08/2024 text/html he is doing very well following Eustachian tube balloon on the left. He reports that his hearing has recovered Corey River MD [address], [place], [address], [facility] [employer] [facility] 02/14/2024 16:56:26
--- OUTSIDE RECORDS SUMMARY | 2025-03-02 10:32 | XMS_ITS | Encounter Summary ---
Author Organization [facility] Address [address] [place] [address] Care Team Providers Care Algebra Tutor Name Role Phone Cory Leavitt MD Primary Care Provider Unavailable None, Provider Primary Care Provider Unavaila ble Encounter Details Date Type Department Care Team (Late st Contact Info) Description 09/16/2017 Abstract [facility] [address] [place], [place] [id number] Cory Leavitt MD Social History Tobacco Use [...] Info) Description 06/16/2025 8:30 AM CDT Appointment [facility] [address] [place] [address] Mark Gallegos MD Three [facility]. [address] [place] [address] documented as of this encounter Visit Diagnoses Not on filedocumented in this encounter Additional Health Concerns Infection Onset Date Last Indicated Resolved Time COVID-19 Rule Out 06/27/2024 06/27/2024 06/27/2024 5:40 PM CDT documented as of this encounter Care Teams Algebra Tutor Relationship Specialty Start Date End Date Cory Leavitt MD PCP - General 05/24/15 01/22/18 None, Provider, PCP - General UNKNOWN PHYSICIAN SPECIALTY 09/14/23 documented as of this encounter
--- OUTSIDE RECORDS SUMMARY | 2025-03-02 10:32 | XMS_ITS | Clinical Summary ---
Author Organization [facility] Address [address] [place] [address] Phone Care Team Providers Care Home Improvement Advisor Name Role Phone Corey River MD Primary Care Provider [phone] Allergies Active Allergy Reactions Criticality Noted Date [...] Name Comments Other-comment Father complecations from Agent Jessamine No Known Problems Mother Relation Name Status [...] on file Legal Sex Male 12:44 PM [employer] Gender Identity Not on file Sexual Orientation [...] this topic Medical Devices Implanted Type Area Brim Setter Device Identifier Shelf Expiration Date Model / Serial / Lot Tube Ventilation Green 1.14mm 3.5mm Marcus Bevel Ear Fluoroplastic Grommet Tympanic Membrane - [id number] Implanted:Qty: 1 on 01/30/2024 by Corey River MD at [facility] IMPLANT Left: Ear [employer] 03/01/2028 [id number] / [id number] / [id number] [address] [place] [id number] [place] [address] Care Teams Home Improvement Advisor Relationship Specialty Start Date End Date Corey River MD [address] [place] [address] PCP - General Otolaryngology 01/30/24
--- OUTSIDE RECORDS SUMMARY | 2025-03-02 10:32 | XMS_ITS | Clinical Summary ---
Author Organization [facility] Address [address] [place] [address] Care Team Providers Care Fishing Boat Mate Name Role Phone None, Provider MD Primary [...] Encounter for preventive health examination 10/10/2012 11/04/2024 Immunizations Immunization Administration Dates Next Due Influenza Adult (Generic) [...] Comments Blood Pressure 120/80 10/30/2024 10:08 AM [employer] Pulse 64 10/30/2024 10:08 AM [employer] Temperature 36.6 C (97.9 F) 10/08/2024 12:00 PM [employer] Respiratory Rate 13 10/08/2024 12:00 PM [employer] Oxygen Saturation 100% 10/08/2024 12:00 PM [employer] Inhaled Oxygen Concentration - - Weight 118.8 kg (262 lb) 10/30/2024 10:08 AM [employer] Height 185.4 cm (6' 1 ) 10/30/2024 10:08 AM [employer] Body Mass Index 34.57 10/30/2024 10:08 AM [employer] Plan of Treatment Upcoming Encounters Date Type Department Care Team (Late st Contact Info) Description 06/16/2025 8:[address] [place] [address] [place] [address] Mark Gallegos MD Three [facility]. [address] [place] [address] Health Maintenance Due Date Last Done Comments Annual Physical 1985 Hepatitis C 2000 DTaP, Tdap and Td Vaccines ( 1 - Tdap) 2001 Hepatitis B Vaccines (1 of 3 - 19+ 3-dose series) 2001 COVID-19 Vaccine (2023-2 5 season) 2024 02/04/2021, 01/07/2021 HPV Vaccines Aged Out No longer eligi ble based on patient's age to complete this topic Meningococcal B Vaccine Aged Out No l onger eligible based on patient's age to complete this topic Meningococcal Vaccine Aged Out No bette bobby eligible based on patient's age to complete this topic Pneumococcal Vaccine: Pediatrics (0 to 5 Years) and At-Risk Patients (6 to 49 Years) Aged Out No longer eligible b ased on patient's age to complete this topic RSV Immunizations Under 20 Months Aged Out No longer eligible b ased on patient's age to complete this topic Insurance [employer] Care Teams Fishing Boat Mate Relationship Specialty Start Date End Date None, Provider, PCP - General UNKNOWN PHYSICIAN SPECIALTY 09/14/23
[2025-03-02 10:34] LABS: Glucose Point of Care 95 mg/dl (65-105)
--- NOTE | 2025-03-02 10:34 | ECG_ITS ---
Test Date: 2025-03-02 11:12:03 Measurements Intervals [place] Rate: 77 P: 22 MN: 169 QRS: -30 QRSD: 105 T: 20 QT: 375 QTc: 427 Interpretive Statements SINUS RHYTHM INCOMPLETE RIGHT BUNDLE BRANCH BLOCK MINIMAL Q WAVES- HIGH LATERAL LEADS BORDERLINE ECG No previous ECG available for comparison Electronically Signed On 03-02-2025 11:52:52 CDT by Simón Sales D.O.
[2025-03-02 10:43] LABS: Basophils Percent Auto 0.5 % (0.2-1.2); Eosinophils Absolute Auto 0.5 K/mm3 (0-0.3); Hematocrit 44.5 % (42.0-52.0); Hemoglobin 14.7 g/dL (14.0-18.0); Immature Granulocyte Absolute 0.03 K/mm3 (0.00-0.031); Immature Granulocyte Percent A 0.4 % (0-0.5); Lymphocytes Absolute Auto 3.03 K/mm3 (0.9-3.2); Lymphocytes Percent Auto 37.1 % (18.3-44.2); Mean Corpuscular Hemoglobin 28.1 pg (26-34); Mean Corpuscular Volume 85.1 fl (80-100); Mean Platelet Volume 9.5 fl (7.4-10.4); Monocytes Absolute Auto 0.6 K/mm3 (0.1-0.6); Monocytes Percent Auto 7.8 % (2.6-8.5); Neutrophils Absolute Auto 3.9 K/mm3 (1.3-6.7); Neutrophils Percent Auto 48.2 % (45.5-73.1); Platelet Count Result 208 k/mm3 (150-375); Red Blood Count 5.23 M/mm3 (4.6-6.20); White Blood Count 8.2 K/mm3 (4.5-10.0)
--- OUTSIDE RECORDS SUMMARY | 2025-03-02 10:45 | XMS_ITS | Continuity of Care Document ---
Author Organization [facility] Address [address] [place] [address] Phone Care Team Providers Care Research Electrician Name Role Phone Tato Tran PT Unavailable [...] Diagnoses Date Provider Providers Copied on Encounter [facility], [address], [place], [place], [id number], [place] tel:[phone] Jose Cruz [place] No Information Marc Mancilla . Referring Provider: [facility]. [facility], [place], [place], [id number], tel:[phone] Jose Cruz [place] No Information Marc Mancilla . Referring Provider: [facility]. [address], [id number], tel:[phone] Jose Cruz [place] No Information Marc Mancilla . Referring Provider: [facility]. [address], [id number], tel:[phone] Jose Cruz [place] No Information Marc Mancilla . Referring Provider: [facility]. [address], [id number], tel:[phone] Jose Cruz [place] No Information Marc Mancilla . Referring Provider: [facility]. [address], [id number], tel:[phone] Jose Cruz [place] No Information Marc Mancilla . Referring Provider: [facility]. [address], [id number], tel:[phone] Jose Cruz [place] No Information Marc Mancilla . Referring Provider: [facility]. [address], [id number], tel:[phone] Jose Cruz [place] No Information Marc Mancilla . Referring Provider: [facility]. [address], [id number], tel:[phone] Jose Cruz [place] No Information Marc Mancilla . Referring Provider: Physician Screen. Family History Family Member Type Diagnosis Age At Onset No Information Payers Payer name Insurance type Covered constitution party ID Authorlatiaa shireen(s) [facility] [id number] Social History Type Description Quantity Date Captured [...]
[2025-03-02 10:52] LABS: Estimated Glomerular Filt Rate > 60
[2025-03-02 10:53] LABS: Alanine Aminotransferase 21 U/L (6-50); Albumin Level 4.1 g/dL (3.5-5.1); Alkaline Phosphatase 65 U/L (38-126); Anion Gap 9 mmol/L (4-12); Aspartate Amino Transferase 25 U/L (17-59); Bilirubin,Total 0.3 mg/dL (0.2-1.3); Blood Urea Nitrogen 17 mg/dL (9-20); Calcium 8.6 mg/dL (8.4-10.2); Carbon Dioxide 27 mmol/L (22-30); Chloride 103 mmol/L (98-107); Estimated Glomerular Filt Rate > 60; Glucose 101 mg/dL (65-110); Potassium 4.2 mmol/L (3.4-5.0); Sodium 139 mmol/L (137-145)
[2025-03-02 10:56] LABS: INR 0.9; Partial Thromboplastin Time 25.7 Seconds (22.3-36.8); Prothrombin Time 12.5 Seconds (11.1-14.7)
[2025-03-02 11:05] LABS: Troponin I < 0.012 ng/mL (0.000-0.034)
[2025-03-02] MEDS: TENECTEPLASE 50 MG/10 ML VIAL 25 MG IV PUSH (11:06)
== END 2025-03-02 11:43 | disposition short-term general hospital (02) ==
PROVIDERS: Emergency Provider Emergency Medicine; PCP Physician Assistant Medical
DX: I63.9 Cerebral infarction, unspecified (principal); G81.94 Hemiplegia, unspecified affecting left nondominant side; R29.710 NIHSS score 10; M79.7 Fibromyalgia; E53.8 Deficiency of other specified B group vitamins; E55.9 Vitamin D deficiency, unspecified; L40.9 Psoriasis, unspecified; Z79.85 Long-term (current) use of injectable non-insulin antidiabetic drugs; Z79.899 Other long term (current) drug therapy
CPT/HCPCS: 36415; 37195; 70450; 70496; 70498; 71045; 80053; 82948; 84484; 85025; 85610; 85730; 93005; 99285; J3101; Q9967

== ENCOUNTER 2025-04-03 09:35 | Outpatient (CLI) | payer BC, SELFPAY ==
--- OUTSIDE RECORDS SUMMARY | 2025-04-03 09:40 | XMS_ITS | Clinical Summary ---
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 Gender Identity Not on file Sexual Orientation [...] this topic Medical Devices Implanted Type Area Technician Support Engineer Device Identifier Shelf Expiration Date Model / Serial / Lot Tube Ventilation Green 1.14mm 3.5mm Marcus Bevel Ear Fluoroplastic Grommet Tympanic Membrane - [id number] Implanted:Qty: 1 on 01/30/2024 by Corey River MD at [facility] IMPLANT Left: Ear [employer] 03/01/2028 [id number] / [id number] / [id number] Insurance [address] [place], [place] [id number] [place] [address] Care Teams Pole Frame Construction Worker Relationship Specialty Start Date End Date Corey River MD [address] [place] [address] PCP - General Otolaryngology 01/30/24
--- OUTSIDE RECORDS SUMMARY | 2025-04-03 09:40 | XMS_ITS | Data Portability ---
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 Plan of Treatment Reminders Order Date Submit Date Provider Last Modified By Organization Details Last Modified Time Details Appointments None recorded. Lab None recorded. Referral None recorded. Procedures eustachian tube balloon dilation (PROC) 2023 024 [email or web address] Not available 4 17:20:00 Surgeries myringotomy , with eustachian tube inflation (SURG) 2022 021 [id number] Not available 3 17:13:55 Imaging None recorded. Medication Orders clindamycin HCl 300 mg capsule 2023 [employer] [id number], [address], [place], [phone], 4 10:15:29 Medrol (Manoj) 4 mg tablets in a dose pack 2023 024 [id number], [address], [place], [phone], 4 10:15:31 Patient TargetsNo targets recorded. Patient Instructions Encounter Date Encounter Id Patient Instructions Last Modified By Organization Details Last Modified Time 02/08/2024 [id number] he will return a s needed [email or web address] Not available 02/14/2024 16:56:09 Reason for Referral None Reported. Results Created Date Observation Date Name Description Value Unit Range Abnormal Flag Note LastModifiedBy Organization Detail LastModifiedTime 01/22/20 24 01/26/2024 SRINIVAS MONSON, PLASM A potassium 3.6 mmol/ L 3.4-4. 8 normal Not Available [address], [address], 01/26/2024 11:20:40 01/22/20 24 01/26/2024 CBC (INCL UDES DIFF/ PLT) white blood cell count 6.3 thous and/u L 3.8-10 .8 normal Not Available [address], [address], 01/26/2024 11:20:40 01/22/20 24 01/26/2024 CBC (INCL UDES DIFF/ PLT) red blood cell count 5.64 estrella on/uL 4.20-5 .80 normal Not Available [address], [address], 01/26/2024 11:20:40 01/22/20 24 01/26/2024 CBC (INCL UDES DIFF/ PLT) hemoglobin 15.9 g/dL 13.2-1 7.1 normal Not Available [address], [address], 01/26/2024 11:20:40 01/22/20 24 01/26/2024 CBC (INCL UDES DIFF/ PLT) hematocrit 46.7 % 38.5-5 0.0 normal Not Available [address], [address], 01/26/2024 11:20:40 01/22/20 24 01/26/2024 CBC (INCL UDES DIFF/ PLT) MCV 82.8 fL 80.0-1 00.0 normal Not Available [facility] [address], [address], 01/26/2024 11:20:40 01/22/20 24 01/26/2024 CBC (INCL UDES DIFF/ PLT) MCH 28.2 pg 27.0-3 3.0 normal Not Available [address], [address], 01/26/2024 11:20:40 01/22/20 24 01/26/2024 CBC (INCL UDES DIFF/ PLT) MCHC 34.0 g/dL 32.0-3 6.0 normal Not Available [address], [address], 01/26/2024 11:20:40 01/22/20 24 01/26/2024 CBC (INCL UDES DIFF/ PLT) RDW 12.9 % 11.0-1 5.0 normal Not Available [address], [address], 01/26/2024 11:20:40 01/22/20 24 01/26/2024 CBC (INCL UDES DIFF/ PLT) platelet count 249 thous and/u L 140-40 0 normal Not Available [address], [address], 01/26/2024 11:20:40 01/22/20 24 01/26/2024 CBC (INCL UDES DIFF/ PLT) MPV 10.8 fL 7.5-12 .5 normal Not Available [address], [address], 01/26/2024 11:20:40 01/22/20 24 01/26/2024 CBC (INCL UDES DIFF/ PLT) absolute neutrophils 3515 cells /uL 1500-7 800 normal Not Available [address], [address], 01/26/2024 11:20:40 01/22/20 24 01/26/2024 CBC (INCL UDES DIFF/ PLT) absolute lymphocytes 2123 cells /uL 850-39 00 normal Not Available [address] [place], [address], 01/26/2024 11:20:40 01/22/20 24 01/26/2024 CBC (INCL UDES DIFF/ PLT) absolute monocytes 403 cells /uL 200-95 0 normal Not Available [facility] [address], [address], 01/26/2024 11:20:40 01/22/20 24 01/26/2024 CBC (INCL UDES DIFF/ PLT) absolute eosinophils 221 cells /uL 15-500 normal Not Available [facility] [address], [address], 01/26/2024 11:20:40 01/22/20 24 01/26/2024 CBC (INCL UDES DIFF/ PLT) absolute basophils 38 cells /uL 0-200 normal Not Available [facility] [address], [address], 01/26/2024 11:20:40 01/22/20 24 01/26/2024 CBC (INCL UDES DIFF/ PLT) neutrophils 55.8 % normal Not Available [facility] [address], [address], 01/26/2024 11:20:40 01/22/20 24 01/26/2024 CBC (INCL UDES DIFF/ PLT) lymphocytes 33.7 % normal Not Available [address], [address], 01/26/2024 11:20:40 01/22/20 24 01/26/2024 CBC (INCL UDES DIFF/ PLT) monocytes 6.4 % normal Not Available [address], [address], 01/26/2024 11:20:40 01/22/20 24 01/26/2024 CBC (INCL UDES DIFF/ PLT) eosinophils 3.5 % normal Not Available [facility] [address], [address], 01/26/2024 11:20:40 01/22/20 24 01/26/2024 CBC (INCL UDES DIFF/ PLT) basophils 0.6 % normal Not Available [facility] [address], [place], [address], 01/26/2024 11:20:40 07/20/20 21 07/20/2021 audio gram + tympa nogra m No observ ation record ed. [id number] [facility] (Audiology) [address] [place] [address] [address], [address], 01/11/2023 17:13:56 Result Notes None recorded. Problems Name Problem SNOMED Code Status Onset Date Resolution Date Notes Provider Name and Address Organization Details Recorded Time Finding of bacteria by serology 363272941 Active Not Available [facility] 3 17:13:06 Dysfunctio n of left eustachian tube 5204332243522 106 Active 2023 Corey River MD [address] [place] [address], [place], [address] , [facility] 4 17:14:52 Problem Notes None recorded. Procedures Surgical History Date Name Laterality Status Provider Name and Address Organization Details Recorded Time 08/23/20 21 MYRINGOTOMY, WITH EUSTACHIAN TUBE INFLATION (SURG) completed Not Available [facility] 01/11/2023 17:13:55 inflation of Eustachian tube using balloon completed Fanny Elizabeth RN [facility] 02/07/2024 10:16:03 myringotomy and insertion of tympanic ventilation tube completed Fanny Elizabeth RN [facility] [employer] [facility] 02/07/2024 10:15:59 Imaging Results Imaging Date Name Status [facility]Modified by [facility] Details LastModified Time 07/20/2021 audiogram + tympanogram completed [id number] [facility] (Audiology) [address] [place] [address], [address], 01/11/2023 17:13:56 Procedure Notes None recorded. Medical Equipment None Reported. Allergies Allergen ID Allergen Name Allergen Category Reaction Reaction Severity Criticality Documentation Date Start Date Code Code System Note Provider Name and Address Organization Details Recorded Time 85592 Penicilli n Not available Not available Not available Not available 01/11/2023 22621 RxNorm Not Available Count includes the [facility] 17:13:54 Medications Name Sig Start Date Stop [...] Xhance 93 mcg/actuati on breath activated aerosol Garita 2 sprays twice a day by intranasa l route. 10/25 completed Not Available Not Available Not Available ID NOW COVID-19 Test Kit TEST DIRECTED. 12/14 completed Not Available Not Available Not Available Vitals Date Recorded Body mass index (BMI) Body height Body temperature Body weight Provider Name and Address Organization Details Last Updated DateTime 08/05/2021 31.1 kg/m2 187.96 cm 97.7 [degF] 682281.3 5 g Not Available Count includes the [facility] 01/11/2023 17:12:57 Date Recorded Body mass index (BMI) Body height Body temperature Body weight Provider Name and Address Organization Details Last Updated DateTime 08/13/2021 31.1 kg/m2 187.96 cm 97.6 [degF] 722394.3 5 g Not Available Count includes the [facility] 01/11/2023 17:12:57 Date Recorded Body mass index (BMI) Body height Body temperature Body weight Provider Name and Address Organization Details Last Updated DateTime 10/26/2021 31.1 kg/m2 187.96 cm 97.5 [degF] 547279.3 5 g Not Available Count includes the [facility] 01/11/2023 17:12:57 Date Recorded Body weight Body mass index (BMI) Body height Body temperature Provider Name and Address Organization Details Last Updated DateTime 12/14/2023 984170.97 g 35.3 kg/m2 186.69 cm 97.8 [degF] Fanny Elizabeth RN [place] [facility] 12/14/2023 17:05:09 Social History Question Answer Notes LastModified by Lecere Details LastModified Time Tobacco Smoking Status Never Smoker Not Available Count includes the [facility] 01/11/2023 17:12:28 In The 14 Days Before Symptom Onset, Have You Had Close Contact With A Laboratory-confirm ed COVID-19 While That Case Was Ill? No [id number] Information not available 01/11/2023 In The 14 Days Before Symptom Onset, Have You Had Close Contact With A Person Who Is Under Investigation For COVID-19 While That Person Was Ill? No [id number] Information not available 01/11/2023 Have You Recently Traveled Abroad? No [id number] Information not available 01/11/2023 Sex: Unknown Functional Status Question Answer Note LastModified by [employer] Details LastModified Time What is your level of alcohol consumption? Occasional [id number] Information not available 01/11/2023 Mental Status None recorded. Family History Relationship Description Onset Age of this Age Resolved Age Notes LastModified by Organization Details LastModified Time Father No current problems or disability [id number] Not available 01/11/2023 17:12:29 Mother No current problems or disability [id number] Not available 01/11/2023 17:12:29 Medical History Condition Response SLEEP APNEA N MRSA N ALLERGIES/HAYFEVER N LUNG DISEASE/DISORDER N INSOMNIA N HISTORY OF DRUG ABUSE N RADIATION / CHEMOTHERAPY N COPD N HIGH CHOLESTEROL / HYPERLIPIDEMIA N HYPERTHYROIDISM N BLOOD DISEASES N EAR OR HEARING PROBLEMS N HYPOTHYROIDISM N SHINGLES N DEPRESSION (INCLUDING POST ) N HAVE YOU BEEN HOSPITALIZED OR SEEN IN [facility] ER IN THE PAST YEAR ? N STROKE/TIA N ULCERS N OBESITY N HISTORY WITH COMPLICATIONS WITH ANESTHES IA ? N ANEURYSM N USE OF BLOOD THINNERS N NO [...] SNOMED-CT Code Diagnosis ICD10 Code Diagnosis Note [id number] [facility] [place] [address] [place] [address] 07/01/2021 00:00:00 07/01/2021 09:38:52 [id number] Corey River MD S[facility] [place] [address] [place] [address] 08/05/2021 00:00:00 08/05/2021 14:48:12 [id number] [facility] _ATHENA_M IGRATION_ DEFAULT_1 _1 , 08/13/2021 00:00:00 08/13/2021 10:32:22 [id number] Corey River MD [facility] [place] [address] [place] [address] 10/26/2021 00:00:00 10/26/2021 11:00:57 [id number] Corey River MD [facility] [place] [address] [place] [address] 12/14/2023 16:34:44 12/18/2023 16:01:18 Dysfunction of left eustachian tube 9032967080 163497 H69.92 [id number] Corey River MD [facility] [place] [address] [place] [address] 02/09/2024 11:22:10 02/15/2024 09:37:20 Dysfunction of left eustachian tube 5080574743 254373 H69.92 Health Concerns Section Related Observation LastModified by Organization Detai ls LastModified Time None Recorded Concern Status LastModified by Organization Details LastModified Time None Recorded Advance Directives Directive None Recorded Payers Encounter Date Sequence Insurance Name Policy Number Policy Robins Covered Member ID Robins Member ID Guarantor Name 12/14/2023 1 [place] [id number] 1 Mauri Smith [id number] Mauri Smith 02/08/2024 1 [place] [id number] 1 Mauri Smith [id number] Mauri Smith Notes Date Note Type Note Provider Name and Address Organization Details Recorded Time 12/14/2023 text/html Had right ETBD 2 years ago and had a flight 2 weeks ago. Now the left closed off and he believes there is fluid. Corey River MD [address], [place], [address], [facility] [employer] [facility] 12/14/2023 17:16:01 02/08/2024 text/html he is doing very well following Eustachian tube balloon on the left. He reports that his hearing has recovered Corey River MD [address], [place], [address], [email or web address] 02/14/2024 16:56:26
--- OUTSIDE RECORDS SUMMARY | 2025-04-03 09:41 | XMS_ITS | Clinical Summary ---
Author Organization [facility] Address [address] [place] [address] Care Team Providers Care Food Service Ambassador Name Role Phone Nik Mullen DO Unavailable Jennifer Gomes PA-C Primary Care Provider [phone] Source Comments [facility],non-owned Affiliates and Associated Physician Practices is amultiple site organization consisting of ambulatory clinics and hospital sitesin [place] and [place]. This disclosure is being madepursuant to the Care Everywhere program and may not contain all information available regarding this patient. Last updated 18.[facility] Allergies Active Allergy Reactions Criticality Noted Date Comments Food Diarrhea,Vomiting 01/22/2024 GLUETIN Penicillins Unknown Low 05/26/2015 Patient does not recall reaction but pt was told that he is allergic to penicillin Medications * Be aware that medications may not be up to date on this document. Alwaysverify current medications with the patient. ondansetron, disintegrating , (Zofran ODT) 4 MG tablet 3 Active ixekizumab (Taltz) 80 MG/ML prefilled [...] tablet by mouth once daily 5 Active Cholecalcifero l 50 MCG (2000 UT) Take 1 (one) tablet by mouth every 7 days (once a week) Active SUMAtriptan (Imitrex) 100 MG tablet Take 1 (one) tablet by mouth once as needed for Migraine Active Active Problems Problem Noted Date Diagnosed Date Paresthesia 03/02/2025 Weakness 03/02/2025 History of migraine 03/02/2025 Paroxysmal tachycardia 03/02/2025 Psoriasis 03/02/2025 Aortic dilatation 11/01/2024 Moderate episode of recurrent major depressive d isorder 08/08/2024 Overview (08/08/2024): Depressed mood and some ?dark thoughts? but denies any current suicidal/self- harm ideation. believes he always has had a component of mild depression. Dysfunction of left eustachian tube 12/13/2023 Fibromyalgia syndrome 05/08/2023 Overview (05/08/2023): Symptoms seem to strongly suggest a underlying fibromyalgia type syndrome with components of prominent fatigue and may or may not be secondary reactive process. Chronic fatigue syndrome with fibromyalgia (ME/C FS) 05/08/2023 Overview (05/08/2023): Myalgic encephalomyelitis/chronic fatigue syndrome (ME/CFS), is a complicated disease characterized by unexplained, persistent, and relapsing fatigue Aphagia 05/26/2015 Abnormal color of sputum 10/10/2012 Acute bronchitis 10/10/2012 Encounters Date Type Department Care Team Description 03/13/2025 Travel 03/02/2025 12:18 PM CDT - 03/03/2025 2:40 PM CDT Hospital Encounter [facility] [address] ICU [address] [place] [address] Sameer Neal MD Neurology Discharge Disposition: Home or Self Care 03/02/2025 Travel 02/17/2025 9:00 AM CDT Office Visit [facility] - Rheumatology [address], [address] [place] [address] Nik Mullen, DO Fibromyalgia syndrome (Primary Dx); Intermittent palpitations; Chronic fatigue syndrome with fibromyalgia (ME/CFS); Moderate episode of recurrent major depressive disorder (HCC) from Last 3 Months Social History Tobacco Use Types Packs/Day Years Used Date Smoking Tobacco: Never Smokeless Tobacco: Never Tobacco Cessation:Counseling Given: Not Answered AUDIT-C Answer Date Recorded Q1: How often do you have a drink containing alc ohol? Monthly or less 03/02/2025 Q2: How many drinks containi ng alcohol do you have on a typical day when you are drinking? 1 or 2 03/02/2025 Q3: How often do you have si x or more drinks on one occasion? Less than monthly 03/02/2025 Overall Financial Resource Strain (CARDIA) Answe r Date Recorded How hard is it for you to pa y for the very basics like food, housing, medical care, and heating? Not hard at all 03/02/2025 PHQ-2 Answer Date Recorded Patient Health Questionnaire-2 Score 0 02/17/2025 [facility] Occupat ional Health - Occupational Stress Questionnaire Answer Date Recorded Do you feel stress - tense, restless, nervous, or anxious, or unable to sleep at night because your mind is troubled all the time - these days? Not at all 03/02/2025 Hunger Vital Sign Answer Date Recorded Within the past 12 months, y ou worried that your food would run out before you got the money to buy more. Never true 03/02/20 Within the past 12 months, t he food you bought just didn't last and you didn't have money to get more. Never true 03/02/2025 PRAPARE - Transportation Answer Date Re corded In the past 12 months, has l ack of transportation kept you from medical appointments or from getting medications? No 02/12 In the past 12 months, has l ack of transportation kept you from meetings, work, or from getting things needed for daily living? No 03/02/2025 Housing Stability Vital Sign Answer Guy e Recorded In the last 12 months, was t here a time when you were not able to pay the mortgage or rent on time? No 03/02/2025 In the past 12 months, how m any times have you moved where you were living? 1 03/02/2025 At any time in the past 12 m [facility], were you homeless or living in a chcf (including now)? No 03/02/2025 Sex and Gender Information Value Date Recorded Sex Assigned at Not on file Legal Sex Male 9:04 AM CDT Gender Identity Not on file Sexual Orientation Not on file Last Filed Vital Signs Vital Sign Reading Time Taken Comments Blood Pressure 123/89 03/03/2025 2:02 PM CDT Pulse 90 03/03/2025 2:02 PM CDT Temperature 36.8 C (98.2 F) 03/03/2025 12:00 PM CDT Respiratory Rate 30 03/03/2025 2:02 PM CDT Oxygen Saturation 92% 03/03/2025 1:00 PM CDT Inhaled Oxygen Concentration - - Weight 112 kg (247 lb) 03/03/2025 9:00 AM CDT Height 185.4 cm (6' 1 ) 03/03/2025 9:00 AM CDT Body Mass Index 32.59 03/03/2025 9:00 AM CDT Plan of Treatment Upcoming Encounters Date Type Department Care Team (Late st Contact Info) Description 05/14/2025 8:30 AM CDT Appointment [address] [id number] Jennifer Gomes I, PA-C [facility] [address] [address] 12/15/2025 3:40 PM 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 Office Visit [facility] - Rheumatology [address], [address] [place] [address] Nik Mullen DO [address] [place] [address] Health Maintenance Due Date Last Done Comments HIV SCREENING 1997 HEPATITIS C SCREENING 03/10/2000 DTAP/TDAP/TD VACCINES (1 - Tdap) 2001 HEPATITIS B VACCINE (1 of 3 - 19+ 3-dose series) 2001 COVID-19 VACCINE (3 - season) 2024 02/04/2021, 01/07/2021 SCREENING FOR DIABETES 03/03/2028 , 03/03/2025, 03/03/2025, Additional history exists LIPID TESTING 03/03/2030 03/03/2025 ZOSTER VACCINE (1 of 2) 2032 DEPRESSION SCREENING Completed 12/16/2024 INFLUENZA VACCINE Completed 01/02/2025, 08/24/2023 HIB VACCINE Aged Out No longer eligi ble based on patient's age to complete this topic HPV VACCINE Aged Out No longer eligi ble based on patient's age to complete this topic MENINGOCOCCAL (Group B) VACCINE SHARED DECISION-MAKING Aged Out No longer eligible based on patient's age to complete this topic MENINGOCOCCAL GROUPS A/C/Y/W VACCINE Aged Out No longer eligible based on patient's age to complete this topic PNEUMOCOCCAL VACCINE Aged Out No long er eligible based on patient's age to complete this topic Procedures Procedure Name Priority Date/Time Associated Diagnosis Comments CARDIAC EKG ORDER 03/03/2025 12: 04 PM CDT ECHO COMPLETE W CONTRAST W BUBBLE STUDY Routine 03/03/2025 10:42 AM CDT Paresthesia GLUCOSE - POINT OF CARE Routine 03/03/2025 7:38 AM CDT LIPID PROFILE Routine 03/03/2025 3:27 AM CDT CBC W/O DIFFERENTIAL Routine 03/03/2025 3:27 AM CDT BASIC METABOLIC PANEL (CALCIUM TOTAL) Routine 03/03/2025 3:27 AM CDT MAGNESIUM BLOOD STAT 03/03/2025 3:27 AM CDT HEMOGLOBIN A1C Add on 03/03/2025 3:27 AM CDT PHOSPHORUS BLOOD STAT 03/03/2025 12:1 9 AM CDT MRI BRAIN WO CONTRAST STAT 03/03/2025 12:01 AM CDT Paresthesia PT EVAL AND TREAT Routine 03/02/2025 1:2 5 PM CDT EKG 12-LEAD STAT 03/02/2025 1:13 PM CDT Weakness TYPE + SCREEN PANEL STAT 03/02/2025 1 2:43 PM CDT PT-INR [facility] STAT 03/02/2025 12:43 PM CDT COMPREHENSIVE METABOLIC PANEL STAT 03/02/2025 12:43 PM CDT CBC W AUTO DIFFERENTIAL STAT 03/02/2025 12:43 PM CDT from Last 3 Months Results * CARDIAC EKG ORDER (03/03/2025 12:04 PM CDT) Narrative 03/03/2025 12:04 PM CDT Ordered by an unspecified provider. us Scanned Document CARDIAC SERVICES ORDERABLES Fin al Result * ECHO COMPLETE W CONTRAST W BUBBLE STUDY (03/03/2025 10:42 AM CDT) AV area index 1.591 cm /m SSM CV FUJI PACS LA vol index 0.017 l/m SSM CV FUJI PACS Dimensionless Index 0.872 unitless SSM CV FUJI PACS Myocardial strain charge 2 unitless SSM CV FUJI PACS IVSd 2D 0.847 cm SSM CV FUJ I PACS LVIDd 4.945 cm SSM CV FUJ I PACS LVIDs 3.425 cm SSM CV FUJ I PACS LVOT diam 2.379 cm SSM CV FUJ I PACS LVPWd 0.807 cm SSM CV FUJ I PACS LV biplane EF 50.473 % SSM CV FUJI PACS LV A2C EF 47.045 % SSM CV FUJ I PACS LV A4C EF 54.123 % SSM CV FUJ I PACS LV EDV A2C 94.959 ml SSM CV FU JI PACS LV EDV A4C 130.433 ml SSM CV FU JI PACS LV ESV A2C 50.285 ml SSM CV FU JI PACS LV ESV A4C 59.839 ml SSM CV FU JI PACS LVOT pk grad 3.305 mmHg SSM CV FUJI PACS LVOT pk agustín 90.899 cm/s SSM CV F UJI PACS LVOT VTI 18.109 cm SSM CV FUJ I PACS RVIDd 3.044 cm SSM CV FUJ I PACS RVOT pk agustín 60.526 cm/s SSM CV F UJI PACS RVOT VTI 12.539 cm SSM CV FUJ I PACS LA size 3.725 cm SSM CV FUJ I PACS LA vol BP 42.583 ml SSM CV [facility] I PACS RA area 16.849 cm SSM CV FUJI PACS AV area pk agustín 3.659 cm SSM CV FUJI PACS AV area cont VTI 3.873 cm SSM CV FUJI PACS AV pk grad 4.871 mmHg SSM CV FU JI PACS AV mn grad 2.503 mmHg SSM CV FU JI PACS AV pk agustín 110.348 cm/s SSM CV FUJ I PACS AV VTI 20.772 cm SSM CV FUJ I PACS MV A pk agustín 47.782 cm/s SSM CV F UJI PACS MV E pk agustín 73.48 cm/s SSM CV F UJI PACS MV E' lateral agustín 9.588 cm/s SS M CV FUJI PACS MV mn grad 1.3 mmHg SSM CV FU JI PACS MV VTI 24.614 cm SSM CV [facility] I PACS PV pk agustín 98.496 cm/s SSM CV FUJ I PACS PV VTI 20.473 cm SSM CV FUJ I PACS TAPSE 2.09 cm SSM CV FUJ I PACS Ascending aorta 2.95 cm SSM CV FUJI PACS Anatomical Region Laterality Modality Ultrasound 03/03/2025 9:17 AM CDT Narrative 03/03/2025 12:30 PM CDT Summary * The left ventricle is normal in size, with normal systolic function and an estimated ejection fraction of 54 % by biplane method of disks. Left ventricular wall motion is grossly normal, however endocardial definition is limited. * The left ventricular diastolic function is consistent with grade I diastolic dysfunction. * Right ventricle is normal in size with normal systolic function. * Agitated saline contrast study at rest and with Valsalva is negative for a shunt. * No hemodynamically significant valve disease. Patient Info Name: Mauri Smith Age: 44 years : 1980 Gender: Male Ht: 73 in Wt: 247 lb BSA: 2.43 m2 HR: 67 bpm BP: 105 / 73 mmHg Exam Date: 03/03/2025 9:17 AM Patient Status: I/P Study Site: [facility] Primary Location: [facility] Info Technical Quality: Adequate Exam Type: ECHO COMPLETE W CONTRAST W BUBBLE STUDY Indications R20.2 - Paresthesia Procedure(s) * A complete 2D, color Doppler, spectral Doppler, and M-Mode transthoracic echocardiogram was performed. * An Ultrasound Enhancing Agent (UEA) was utilized to enhance endocardial definition, opacify the left ventricle and further assess left ventricular function and wall motion. Contrast/Agitated Saline Contrast / Saline: Agitated Saline Amount: 20.00 ml Administered By: Arnel Ball Reaction to Contrast: no Contrast / Saline: Definity Amount: 0.50 ml Administered By: Arnel Ball Reaction to Contrast: no Staff Referring Physician: Sameer Neal Ordering Provider: Sameer Neal Attending Physician: Sameer Neal Cardiac Catheterization Technologist: Arnel Ball Left Ventricle The left ventricle is normal in size. Left ventricular systolic function is normal with an estimated ejection fraction of 54 % by biplane method of disks. The left ventricular mass is normal. Left ventricular segmental wall motion is grossly normal, however endocardial definition is limited. The left ventricular diastolic function is consistent with grade I diastolic dysfunction. Right Ventricle The right ventricle is normal in size. Right ventricular systolic function is normal. Left Atrium The left atrium is normal in size with a left atrial volume index of 17 ml/m2 by BP MOD. Right Atrium The right atrium is normal in size. Atrial Septum Intact interatrial septum visualized by 2D and color Doppler imaging. Agitated saline contrast study at rest and with Valsalva is negative for a shunt. Aortic Valve The aortic valve is trileaflet. There is no aortic valve stenosis. There is no aortic valve regurgitation. Pulmonic Valve The pulmonic valve is grossly normal. There is no pulmonic valve stenosis. There is no significant pulmonic regurgitation. Mitral Valve The mitral valve is grossly normal. There is no mitral valve stenosis. There is no significant mitral valve regurgitation. Tricuspid Valve The tricuspid valve is grossly normal. There is no significant tricuspid valve regurgitation. Unable to assess pulmonary pressures due to a lack of tricuspid and pulmonic regurgitation. Inferior Vena Cava The inferior vena cava is not well visualized and therefore the right atrial pressure is assumed to be 8 mmHg. Pericardium/Pleural There is no pericardial effusion. Aorta The aortic root at the sinus of Valsalva is normal in size. The ascending aorta is normal in size. Measurements Left Ventricular Outflow Tract Name Value Normal LVOT 2D LVOT Diameter 2.4 cm LVOT Area 4.4 cm2 LVOT Doppler LVOT Peak Velocity 0.9 m/s LVOT Peak Gradient 3 mmHg LVOT Mean Velocity 59.29 cm/s LVOT Mean Gradient 2 mmHg LVOT VTI 18.1 cm LVOT VTI/AV VTI Ratio 0.9 LVOT Stroke Volume 80 ml LVOT Stroke Volume Index 33 ml/m2 35-58 LVOT CO 5.4 l/min LVOT CI 2.2 l/min/m2 Pulmonic Valve Name Value Normal RVOT Doppler RVOT Peak Velocity 0.6 m/s RVOT Peak Gradient 1 mmHg RVOT Mean Gradient 1 mmHg PV Doppler PV Peak Velocity 1.0 m/s PV Peak Gradient 4 mmHg PV Mean Gradient 2 mmHg Mitral Valve Name Value Normal MV Doppler MV Peak Gradient 3 mmHg MV Mean Gradient 1 mmHg MV DI (VTI) 1.36 MV PHT 80 ms MV Area (PHT) 2.74 cm2 4.00-5.00 MV Area (Cont Eq VTI) 3.27 cm2 MV Diastolic Function MV E Peak Velocity 0.7 m/sec MV A Peak Velocity 0.5 m/sec MV E/A 1.5 MV Decel Time (PW) 207 ms MV Annular TDI MV Septal e' Velocity 7 cm/s >=8 MV E/e' (Septal) 10 <=8 MV Lateral e' Velocity 10 cm/s >=10 MV E/e' (Lateral) 8 <=8 MV e' Average 8 cm/s MV E/e' (Average) 9 Tricuspid Valve Name Value Normal Estimated PAP/RSVP RA Pressure 8 mmHg <=5 TV Annular TDI TV Lateral Pricila s' Velocity 9 cm/s 10-19 Aorta Name Value Normal Ascending Aorta Asc Ao Diameter 3.0 cm 2.2-3.8 Asc Ao Diameter Index 1.2 cm/m2 1.1-1.9 Aortic Valve Name Value Normal AV 2D/MM AV Cusp Sep (MM) 2.3 cm AV Doppler AV Peak Velocity 1.10 m/s AV Peak Gradient 5 mmHg AV Mean Gradient 3 mmHg AV VTI 21 cm AV Area (Cont Eq VTI) 3.87 cm2 >=2.00 AV Area (Cont Eq Agustín) 3.66 cm2 AV DI (VTI) 0.87 AV DI (Agustín) 0.82 AV Regurgitation 2D LVOT Area 4.44 cm2 Ventricles Name Value Normal LV Dimensions 2D/MM IVS Diastolic Thickness (2D) 0.8 cm 0.6-1.0 LVID Diastole (2D) 4.9 cm 4.2-5.8 LVPW Diastolic Thickness (2D) 0.8 cm 0.6-1.0 IVS Systolic Thickness (2D) 1.0 cm LVID Systole (2D) 3.4 cm 2.5-4.0 LVPW Systolic Thickness (2D) 1.0 cm LV Mass (2D Cubed) 110 g 88-224 LV Mass Index (2D Cubed) 45 g/m2 49-115 Relative Wall Thickness (2D) 0.33 <=0.42 LV Fractional Shortening/Ejection Fraction 2D/MM LV Fractional Shortening (2D) 31 % 25-43 LV EF (2D Teicholz) 58 % 52-72 LV Diastolic Volume (4C MOD) 130 ml LV EF (4C MOD) 54 % LV Diastolic Volume (2C MOD) 95 ml LV EF (2C MOD) 47 % LV Diastolic Volume (BP MOD) 112 ml 62-150 LV Diastolic Volume Index (BP MOD) 46 ml/m2 34-74 LV Systolic Volume (BP MOD) 55 ml 21-61 LV Systolic Volume Index (BP MOD) 23 ml/m2 11-31 LV EF (BP MOD) 50 % 52-72 LV Diastolic Length (4C) 9.0 cm LV Systolic Length (4C) 7.8 cm LV Stroke Volume (4C MOD) 71 ml RV Dimensions 2D/MM RVID Diastole (2D) 3.0 cm 2.5-3.5 RVID Systole (2D) 2.6 cm TAPSE 2.1 cm >=1.7 Atria Name Value Normal LA Dimensions LA Dimension (2D) 3.7 cm 3.0-4.1 LA Dimen Index (2D) 1.5 cm/m2 LA Volume (BP MOD) 43 ml LA Volume Index (BP MOD) 17 ml/m2 16-34 RA Dimensions RA Area (4C) 17 cm2 <=18 RA Area (4C) Index 7 cm2/m2 Report Signatures Finalized by Jaison Alvarenga on 03/03/2025 12:30 PM Procedure Note Jaison Alvarenga MD - 03/03/2025 Summary * The left ventricle is normal in size, with normal systolic functionand an estimated ejection fraction of 54 % by biplane method of disks. Left ventricular wall motion is grossly normal, however endocardial definitionis limited. * The left ventricular diastolic function is consistent with grade I diastolic dysfunction. * Right ventricle is normal in size with normal systolic function. * Agitated saline contrast study at rest and with Valsalva is negativefor a shunt. * No hemodynamically significant valve disease. Patient Info Name: Mauri Smith Age: 44 years : 1980 Gender: Male Ht: 73 in Wt: 247 lb BSA: 2.43 m2 HR: 67 bpm BP: 105 / 73 mmHg Exam Date: 03/03/2025 9:17 AM Patient Status: I/P Study Site: [facility] Primary Location: [facility] EStudy Info Technical Quality: Adequate Exam Type: ECHO COMPLETE W CONTRAST W BUBBLE STUDY Indications R20.2 - Paresthesia Procedure(s) * A complete 2D, color Doppler, spectral Doppler, and M-Modetransthoracic echocardiogram was performed. * An Ultrasound Enhancing Agent (UEA) was utilized to enhanceendocardial definition, opacify the left ventricle and further assess leftventricular function and wall motion. Contrast/Agitated Saline Contrast / Saline: Agitated Saline Amount: 20.00 ml Administered By: Arnel Ball Reaction to Contrast: no Contrast / Saline: Definity Amount: 0.50 ml Administered By: Arnel Ball Reaction to Contrast: no Staff Referring Physician: Sameer Neal Ordering Provider: Sameer Neal Attending Physician: Sameer Neal Cardiac Catheterization Technologist: Arnel Ball Left Ventricle The left ventricle is normal in size. Left ventricular systolic functionis normal with an estimated ejection fraction of 54 % by biplane method ofdisks. The left ventricular mass is normal. Left ventricular segmental wallmotion is grossly normal, however endocardial definition is limited. The left ventricular diastolic function is consistent with grade I diastolic dysfunction. Right Ventricle The right ventricle is normal in size. Right ventricular systolicfunction is normal. Left Atrium The left atrium is normal in size with a left atrial volume index of17 ml/m2 by BP MOD. Right Atrium The right atrium is normal in size. Atrial Septum Intact interatrial septum visualized by 2D and color Doppler imaging. Agitated saline contrast study at rest and with Valsalva is negative fora shunt. Aortic Valve The aortic valve is trileaflet. There is no aortic valve stenosis. Thereis no aortic valve regurgitation. Pulmonic Valve The pulmonic valve is grossly normal. There is no pulmonic valvestenosis. There is no significant pulmonic regurgitation. Mitral Valve The mitral valve is grossly normal. There is no mitral valve stenosis.There is no significant mitral valve regurgitation. Tricuspid Valve The tricuspid valve is grossly normal. There is no significanttricuspid valve regurgitation. Unable to assess pulmonary pressures due to a lackof tricuspid and pulmonic regurgitation. Inferior Vena Cava The inferior vena cava is not well visualized and therefore the rightatrial pressure is assumed to be 8 mmHg. Pericardium/Pleural There is no pericardial effusion. Aorta The aortic root at the sinus of Valsalva is normal in size. Theascending aorta is normal in size. Measurements Left Ventricular Outflow Tract Name Value Normal LVOT 2D LVOT Diameter 2.4 cm LVOT Area 4.4 cm2 LVOT Doppler LVOT Peak Velocity 0.9 m/s LVOT Peak Gradient 3 mmHg LVOT Mean Velocity 59.29 cm/s LVOT Mean Gradient 2 mmHg LVOT VTI 18.1 cm LVOT VTI/AV VTI Ratio 0.9 LVOT Stroke Volume 80 ml LVOT Stroke Volume Index 33 ml/m2 35-58 LVOT CO 5.4 l/min LVOT CI 2.2 l/min/m2 Pulmonic Valve Name Value Normal RVOT Doppler RVOT Peak Velocity 0.6 m/s RVOT Peak Gradient 1 mmHg RVOT Mean Gradient 1 mmHg PV Doppler PV Peak Velocity 1.0 m/s PV Peak Gradient 4 mmHg PV Mean Gradient 2 mmHg Mitral Valve Name Value Normal MV Doppler MV Peak Gradient 3 mmHg MV Mean Gradient 1 mmHg MV DI (VTI) 1.36 MV PHT 80 ms MV Area (PHT) 2.74 cm2 4.00-5.00 MV Area (Cont Eq VTI) 3.27 cm2 MV Diastolic Function MV E Peak Velocity 0.7 m/sec MV A Peak Velocity 0.5 m/sec MV E/A 1.5 MV Decel Time (PW) 207 ms MV Annular TDI MV Septal e' Velocity 7 cm/s >=8 MV E/e' (Septal) 10 <=8 MV Lateral e' Velocity 10 cm/s >=10 MV E/e' (Lateral) 8 <=8 MV e' Average 8 cm/s MV E/e' (Average) 9 Tricuspid Valve Name Value Normal Estimated PAP/RSVP RA Pressure 8 mmHg <=5 TV Annular TDI TV Lateral Pricila s' Velocity 9 cm/s 10-19 Aorta Name Value Normal Ascending Aorta Asc Ao Diameter 3.0 cm 2.2-3.8 Asc Ao Diameter Index 1.2 cm/m2 1.1-1.9 Aortic Valve Name Value Normal AV 2D/MM AV Cusp Sep (MM) 2.3 cm AV Doppler AV Peak Velocity 1.10 m/s AV Peak Gradient 5 mmHg AV Mean Gradient 3 mmHg AV VTI 21 cm AV Area (Cont Eq VTI) 3.87 cm2 >=2.00 AV Area (Cont Eq Agustín) 3.66 cm2 AV DI (VTI) 0.87 AV DI (Agustín) 0.82 AV Regurgitation 2D LVOT Area 4.44 cm2 Ventricles Name Value Normal LV Dimensions 2D/MM IVS Diastolic Thickness (2D) 0.8 cm 0.6-1.0 LVID Diastole (2D) 4.9 cm 4.2-5.8 LVPW Diastolic Thickness (2D) 0.8 cm 0.6-1.0 IVS Systolic Thickness (2D) 1.0 cm LVID Systole (2D) 3.4 cm 2.5-4.0 LVPW Systolic Thickness (2D) 1.0 cm LV Mass (2D Cubed) 110 g 88-224 LV Mass Index (2D Cubed) 45 g/m2 49-115 Relative Wall Thickness (2D) 0.33 <=0.42 LV Fractional Shortening/Ejection Fraction 2D/MM LV Fractional Shortening (2D) 31 % 25-43 LV EF (2D Teicholz) 58 % 52-72 LV Diastolic Volume (4C MOD) 130 ml LV EF (4C MOD) 54 % LV Diastolic Volume (2C MOD) 95 ml LV EF (2C MOD) 47 % LV Diastolic Volume (BP MOD) 112 ml 62-150 LV Diastolic Volume Index (BP MOD) 46 ml/m2 34-74 LV Systolic Volume (BP MOD) 55 ml 21-61 LV Systolic Volume Index (BP MOD) 23 ml/m2 11-31 LV EF (BP MOD) 50 % 52-72 LV Diastolic Length (4C) 9.0 cm LV Systolic Length (4C) 7.8 cm LV Stroke Volume (4C MOD) 71 ml RV Dimensions 2D/MM RVID Diastole (2D) 3.0 cm 2.5-3.5 RVID Systole (2D) 2.6 cm TAPSE 2.1 cm >=1.7 Atria Name Value Normal LA Dimensions LA Dimension (2D) 3.7 cm 3.0-4.1 LA Dimen Index (2D) 1.5 cm/m2 LA Volume (BP MOD) 43 ml LA Volume Index (BP MOD) 17 ml/m2 16-34 RA Dimensions RA Area (4C) 17 cm2 <=18 RA Area (4C) Index 7 cm2/m2 Report Signatures Finalized by Jaison Alvarenga on 03/03/2025 12:30 PM Sameer Neal MD ECHO CUPID Final Resul t * GLUCOSE - POINT OF CARE (03/03/2025 7:38 AM CDT) Glucose WB/POC 83 70 - 99 mg/dL 03/06/2025 10:[address] [facility] Specimen Type Cap Fingerstick 2024 10:[address] [facility] Blood BLOOD SPECIMEN / Unknown 03/03/2025 7:38 AM CDT 03/06/2025 10:19 PM CDT Sameer Neal MD LAB - POINT OF CARE ORDERAB LES Final Result [facility] [address] [place] [address], [facility] [phone] * HEMOGLOBIN A1C (03/03/2025 3:27 AM CDT) Hemoglobin A1c 5.0 <=5.6 % 03/03/2025 1:07 PM CDT [facility] Estimated Average Glucose 97 mg/dL 03/03/2025 1:07 PM [facility] Comment: HbA1c Interpretation: Normal : < 5.7% Pre-diabetes: 5.7-6.4% Diabetes: Equal to or greater than 6.5% Test results diagnostic of diabetes should be repeated for confirmation. Treatment target values recommended by ADA and other clinical organizations should be used to evaluate metabolic control in patients. Reference: [place] [employer], Standards of Care in Diabetes -2020 In patients 70 years and older consider HbA1c target range of 7.0-7.5% (Reference: Frederic Mosley et al. JAMDA. 2012) The Sebia assay for the measurement of HbA1c is a National Glycohemoglobin Standardization Program (NGSP) certified method. Blood BLOOD SPECIMEN / Unknown Venipuncture / Unknown 03/03/2025 3:27 AM CDT 03/03/2025 3:55 AM CDT Sameer Neal MD LAB - CHEMISTRY ORDERABLES Final Result [facility] [address] [place] [address], [facility] [phone] * CBC W/O DIFFERENTIAL (03/03/2025 3:27 AM CDT) WBC 7.1 4.0 - 10.7 x10E9/L 03/03/2025 3:40 AM [facility] RBC Count 5.09 4.30 - 5.80 x10E12/L 03/03/2025 3:40 AM [facility] Hemoglobin 14.4 13.3 - 17.5 g/dL 03/03/2025 3:40 AM [facility] Hematocrit 42.5 38.7 - 51.1 % 03/03/2025 3:40 AM [facility] MCV 83.5 80.0 - 98.0 fL 03/03/2025 3:40 AM [facility] MCH 28.3 26.7 - 33.6 pg 03/03/2025 3:40 AM [facility] MCHC 33.9 31.7 - 36.3 g/dL 03/03/2025 3:40 AM [facility] RDW-CV 13.1 11.3 - 14.8 % 03/03/2025 3:40 AM [facility] Platelet Count 196 150 - 420 x10E9/L 03/03/2025 3:40 AM [facility] MPV 9.8 7.8 - 11.4 fL 03/03/2025 3:40 AM [facility] Blood BLOOD SPECIMEN / Unknown Venipuncture / Unknown 03/03/2025 3:27 AM CDT 03/03/2025 3:33 AM T us Sameer Neal MD LAB - HEMATOLOGY ORDERABLES Final Result [facility] [address] [place] [address], [facility] [phone] * (ABNORMAL) BASIC METABOLIC PANEL (CALCIUM TOTAL) (03/03/2025 3:27 AM CDT) BUN 17 7 - 26 mg/dL 03/03/2025 4:03 AM [facility] Creatinine 0.94 0.71 - 1.16 mg/dL 03/03/2025 4:03 AM [facility] Sodium 142 136 - 145 mmol/L 03/03/2025 4:03 AM [facility] Potassium 4.0 3.5 - 4.5 mmol/L 03/03/2025 4:03 AM [facility] Chloride 109(H) 98 - 107 mmol/L 03/03/2025 4:03 AM [facility] CO2 22 22 - 29 mmol/L 03/03/2025 4:03 AM [facility] Glucose 92 70 - 99 mg/dL 03/03/2025 4:03 AM [facility] Calcium 8.0(L) 8.4 - 10.2 mg/dL 03/03/2025 4:03 AM [facility] Anion Gap 11 6 - 16 03/03/2025 4:03 AM [facility] BUN/Creatinine Ratio 18 7 - 23 03/03/2025 4:[address] [facility] Osmolality Calculated 295 275 - 295 mOsm/kg 03/03/2025 4:[address] [facility] eGFR by CKD-EPI >90 >=90 mL/min/1.7 3 m2 03/03/2025 4:03 AM [facility] Blood BLOOD SPECIMEN / Unknown Venipuncture / Unknown 03/03/2025 3:27 AM CDT 03/03/2025 3:34 AM CDT Sameer Neal MD LAB - CHEMISTRY ORDERABLES Final Result [address] [address], [facility] [phone] * MAGNESIUM BLOOD (03/03/2025 3:27 AM CDT) Magnesium 1.9 1.6 - 2.6 mg/dL 03/03/2025 4:[address] [facility] Blood BLOOD SPECIMEN / Unknown Venipuncture / Unknown 03/03/2025 3:27 AM CDT 03/03/2025 3:34 AM CDT Sameer Neal MD LAB - CHEMISTRY ORDERABLES Final Result [address] [address], [place] [phone] * LIPID PROFILE (03/03/2025 3:27 AM CDT) Cholesterol Total 136 <200 mg/dL 03/03/2025 4:03 AM [facility] HDL 41 >40 mg/dL 03/03/2025 4:03 AM [facility] Comment: ATP III Classification of HDL Cholesterol: <40 mg/dL: Considered a major risk factor. >60 mg/dL: Considered a negative risk factor. LDL Calculated 73 <100 mg/dL 03/03/2025 4:[address] [facility] Comment: ATP III Classification of LDL Cholesterol: <100 mg/dL: Optimal 100 - 129 mg/dL: Near Optimal/Above Optimal 130 - 159 mg/dL: Borderline High 160 - 189 mg/dL: High >190 mg/dL: Very High Triglycerides 111 <150 mg/dL 03/03/2025 4:[address] [facility] Comment: ATP III Classification of Triglycerides: <150 mg/dL: Normal 150 - 199 mg/dL: Borderline High 200 - 400 mg/dL: High >500 mg/dL: Very High Blood BLOOD SPECIMEN / Unknown Venipuncture / Unknown 03/03/2025 3:27 AM CDT 03/03/2025 3:34 AM CDT us Sameer Neal MD LAB - CHEMISTRY ORDERABLES Final Result [address] [address], [place] [phone] * PHOSPHORUS BLOOD (03/03/2025 12:19 AM CDT) Phosphorus 4.0 2.8 - 5.1 mg/dL 03/03/2025 1:[address] [facility] Blood BLOOD SPECIMEN / Unknown Venipuncture / Unknown 03/03/2025 12:19 AM CDT 03/03/2025 12:42 AM CDT us Sameer Neal MD LAB - CHEMISTRY ORDERABLES Final Result [address] [address], [place] [phone] * MRI BRAIN NON CONTRAST (03/03/2025 12:01 AM CDT) Anatomical Region Laterality Modality Head Magnetic Resonan ce 03/03/2025 9:3 2 AM CDT Impressions 03/03/2025 9:49 AM CDT IMPRESSION: Unremarkable brain MRI performed without contrast. > Interpreting Provider: Loree Cordoba MD on 03/03/2025 9:49 AM Narrative 03/03/2025 9:49 AM CDT PROCEDURE: MRI BRAIN WO CONTRAST, DATE/TIME OF EXAM: 03/03/2025 12:01 AM, LOCATION [facility] INDICATION: R20.2: Paresthesia ADDITIONAL CLINICAL INFORMATION: Ordering Provider Reason For Exam: stroke, sx L arm numbness and heaviness, no face or leg involvement Technologist Note: Additional: COMPARISON: CT brain 03/02/2025, outside study TECHNIQUE: MRI of the brain was performed without contrast, according to standard protocol FINDINGS: No evidence of acute or chronic hemorrhage is identified. No evidence of acute cerebral infarction is seen. The ventricles are of normal size, shape, and morphology. No mass effect or midline shift is seen. No significant FLAIR signal abnormalities noted The corpus callosum and sella appear normal. The posterior fossa, brainstem, and craniocervical junction appear normal. Other than mild paranasal sinus disease, the visualized portions of the orbits, paranasal sinuses, and mastoids appear normal. Normal flow voids are demonstrated in the carotid arteries and basilar artery. The calvarium appears normal. No significant degenerative changes in the partially visualized cervical spine. Procedure Note Loree Cordoba MD - 03/03/2025 PROCEDURE: MRI BRAIN WO CONTRAST, DATE/TIME OF EXAM: 03/03/2025 12:01AM, LOCATION [facility] INDICATION: R20.2: Paresthesia ADDITIONAL CLINICAL INFORMATION: Ordering Provider Reason For Exam: stroke, sx L arm numbness and heaviness, no face or leg involvement Technologist Note: Additional: COMPARISON: CT brain 03/02/2025, outside study TECHNIQUE: MRI of the brain was performed without contrast, according to standard protocol FINDINGS: No evidence of acute or chronic hemorrhage is identified. No evidence of acute cerebral infarction is seen. The ventricles are of normal size, shape, and morphology. No mass effect or midline shift is seen. No significant FLAIR signal abnormalities noted The corpus callosum andsella appear normal. The posterior fossa, brainstem, and craniocervicaljunction appear normal. Other than mild paranasal sinus disease, the visualized portions of the orbits, paranasal sinuses, and mastoids appear normal. Normal flow voids are demonstrated in the carotid arteries and basilar artery. Thecalvarium appears normal. No significant degenerative changes in the partially visualized cervical spine. IMPRESSION: Unremarkable brain MRI performed without contrast. > Interpreting Provider: Loree Cordoba MD on 03/03/2025 9:49 AM us Sameer Neal MD MR ORDERABLES Final Resul t * EKG 12-LEAD (03/02/2025 1:13 PM CDT) Ventricular Rate 71 BPM [facility] MUSE Atrial Rate 71 BPM [facility] MUSE P-R Interval 170 ms [facility] MUSE QRS Duration ms 88 ms [facility] Q-T Interval ms 380 ms [facility] MUSE QTC Calculation (Bezet) 412 ms [facility] MUSE Calculated P [place] 22 degrees [facility] MUSE Calculated R [place] -32 degrees [facility] MUSE Calculated T [place] 12 degrees [facility] MUSE Interpretation EKG NORMAL SINUS RHYTHM LEFT AXIS DEVIATION CANNOT RULE OUT ANTERIOR INFARCT (CITED ON OR BEFORE 02-MAR-2025) ABNORMAL ECG WHEN COMPARED WITH ECG OF 26-MAY-2015 03:37, NO SIGNIFICANT CHANGE WAS FOUND Confirmed by MAICOL STRICKLAND, ZULEMA ([id number]) on 03/07/2025 2:58:45 PM [facility] MUSE 03/02/2025 1:13 PM CDT 03/07/2025 2:58 PM CDT us Afshin Gold MD ECG ORDERABLES Edited Result - Final [facility] MUSE * PT-INR [facility] (03/02/2025 12:43 PM CDT) Pathologist [facility] PT 12.7 12.1 - 14.8 Seconds 03/02/2025 1:18 PM CDT [facility] INR 1.0 See Comment 03/02/2025 1:18 PM CDT [facility] Comment:The suggested therap eutic range for standard coumadin (warfarin) therapy is an INR of 2.0-3.0. For high-risk patients (Mechanical Mitral Valve Prosthesis, etc.), the suggested prophylactic therapeutic range is an INR of 2.5-3.5. Blood BLOOD SPECIMEN / Unknown Venipuncture / Unknown 03/02/2025 12:43 PM CDT 03/02/2025 12:56 PM CDT us Afshin Gold MD LAB - COAGULATION ORDERABLES Final Result [facility] [address] [place] [address], [facility] [phone] * TYPE + SCREEN PANEL (03/02/2025 12:43 PM CDT) Pathologist [facility] Antibody Screen NEG 2:00 PM CDT [facility] ABO Rh A POS 03/02/2025 2:00 PM CDT [facility] Blood Bank BLOOD SPECIMEN / Unknown Venipuncture / Unknown 03/02/2025 12:43 PM CDT 03/02/2025 12:53 PM CDT Afshin Gold MD LAB - BLOOD BANK ORDERABLES F inal Result [facility] [address] [place] [address], [facility] [phone] * (ABNORMAL) CBC W AUTO DIFFERENTIAL (03/02/2025 12:43 PM CDT) [facility] WBC 8.7 4.0 - 10.7 x10E9/L 03/02/2025 1:01 PM [facility] RBC Count 5.05 4.30 - 5.80 x10E12/L 03/02/2025 1:01 PM [facility] Hemoglobin 14.4 13.3 - 17.5 g/dL 03/02/2025 1:01 PM [facility] Hematocrit 42.0 38.7 - 51.1 % 03/02/2025 1:01 PM [facility] MCV 83.2 80.0 - 98.0 fL 03/02/2025 1:01 PM [facility] MCH 28.5 26.7 - 33.6 pg 03/02/2025 1:01 PM [facility] MCHC 34.3 31.7 - 36.3 g/dL 03/02/2025 1:01 PM [facility] RDW-CV 12.9 11.3 - 14.8 % 03/02/2025 1:01 PM [facility] Platelet Count 192 150 - 420 x10E9/L 03/02/2025 1:01 PM [facility] MPV 9.6 7.8 - 11.4 fL 03/02/2025 1:01 PM [facility] Neutrophil % 75.0(H) 41.0 - 74.0 % 03/02/2025 1:01 PM [facility] Lymphocyte % 16.5(L) 17.0 - 47.0 % 03/02/2025 1:01 PM [facility] Monocyte % 5.4 3.0 - 11.0 % 03/02/2025 1:01 PM [facility] Eosinophil % 2.2 0.0 - 7.0 % 03/02/2025 1:01 PM [facility] Basophil % 0.6 0.0 - 1.6 % 03/02/2025 1:01 PM [facility] Immature Granulocytes % 0.3 0.0 - 1.0 % 03/02/2025 1:01 PM [facility] Neutrophil Absolute 6.50 1.60 - 7.50 x10E9/L 03/02/2025 1:01 PM [facility] Lymphocyte Absolute 1.43 1.00 - 4.40 x10E9/L 03/02/2025 1:01 PM [facility] Monocyte Absolute 0.47 0.15 - 1.00 x10E9/L 03/02/2025 1:01 PM [facility] Eosinophil Absolute 0.19 0.00 - 0.60 x10E9/L 03/02/2025 1:01 PM [facility] Basophil Absolute 0.05 0.00 - 0.13 x10E9/L 03/02/2025 1:01 PM [facility] Blood BLOOD SPECIMEN / Unknown Venipuncture / Unknown 03/02/2025 12:43 PM CDT 03/02/2025 12:56 PM CDT us Afshin Gold MD LAB - HEMATOLOGY ORDERABLES F inal Result [facility] [address] [place] [address], [facility] [phone] * COMPREHENSIVE METABOLIC PANEL (03/02/2025 12:43 PM [facility]) BUN 15 7 - 26 mg/dL 03/02/2025 1:24 PM [facility] Creatinine 1.02 0.71 - 1.16 mg/dL 03/02/2025 1:24 PM [facility] Sodium 138 136 - 145 mmol/L 03/02/2025 1:24 PM [facility] Potassium 4.2 3.5 - 4.5 mmol/L 03/02/2025 1:24 PM [facility] Chloride 105 98 - 107 mmol/L 03/02/2025 1:24 PM [facility] CO2 22 22 - 29 mmol/L 03/02/2025 1:24 PM [facility] Glucose 89 70 - 99 mg/dL 03/02/2025 1:24 PM [facility] Calcium 8.4 8.4 - 10.2 mg/dL 03/02/2025 1:24 PM [facility] Protein Total 6.5 6.0 - 8.3 g/dL 03/02/2025 1:24 PM [facility] Albumin 3.6 3.4 - 5.0 g/dL 03/02/2025 1:24 PM [facility] Bilirubin Total 0.3 0.2 - 1.2 mg/dL 03/02/2025 1:24 PM [facility] Alkaline Phosphatase 61 40 - 150 U/L 03/02/2025 1:24 PM [facility] ALT 13 5 - 55 U/L 03/02/2025 1:24 PM [facility] AST 17 5 - 34 U/L 03/02/2025 1:24 PM [facility] Anion Gap 11 6 - 16 03/02/2025 1:24 PM [facility] BUN/Creatinine Ratio 15 7 - 23 03/02/2025 1:24 PM [facility] Osmolality Calculated 286 275 - 295 mOsm/kg 03/02/2025 1:[address] [facility] Albumin/Globulin Ratio 1.2 1.1 - 2.3 03/02/2025 1:[address] [facility] eGFR by CKD-EPI >90 >=90 mL/min/1.7 3 m2 03/02/2025 1:[address] [facility] Blood BLOOD SPECIMEN / Unknown Venipuncture / Unknown 03/02/2025 12:43 PM CDT 03/02/2025 12:56 PM CDT us Afshin Gold MD LAB - CHEMISTRY ORDERABLES Fi nal Result 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
--- NOTE | 2025-04-03 09:44 | EST_ITS ---
Patient Info Name: Mauri Smith Age: 45 years : 1980 Gender: Male Ht: 73 in Wt: 250 lbs BSA: 2.45 m2 Exam Date: 04/03/2025 9:44 AM Patient Status: O Admit Date: 04/03/2025 Exam Type: CA stress test treadmill A treadmill exercise stress test was performed. Staff Attending Provider: Simón Sales DO Exercise Technologist: Rachel Ballard Exercise Physician: Simón Sales DO Summary 1. 1. Negative Farhan exercise stress test for ischemic ST changes by ECG criteria. 2. 2. Good functional capacity, achieving 12 METs of workload. 3. 3. Hypertensive response to exercise. 4. 4. Appropriate HR response to exercise. 5. 5. Appropriate HR recovery at 1 minute post exercise. 6. 5. No imaging with stress testing. 7. 6. Patient informed of the above results. Protocol: Farhan Stress ECG Details Stage: REST Duration (min): 1 min : 43 sec Speed (mph): 0.0 Grade (%): 0 HR (bpm): 73 SBP (mmHg): 106 DBP (mmHg): 80 METS: --- Stage: REST Duration (min): 12 min : 31 sec Speed (mph): 0.0 Grade (%): 0 HR (bpm): 75 SBP (mmHg): 106 DBP (mmHg): 80 METS: --- Stage: STAGE 1 Duration (min): 1 min : 0 sec Speed (mph): 1.7 Grade (%): 10 HR (bpm): 101 SBP (mmHg): 106 DBP (mmHg): 80 METS: --- Stage: STAGE 1 Duration (min): 2 min : 0 sec Speed (mph): 1.7 Grade (%): 10 HR (bpm): 113 SBP (mmHg): 106 DBP (mmHg): 80 METS: --- Stage: STAGE 1 Duration (min): 3 min : 0 sec Speed (mph): 1.7 Grade (%): 10 HR (bpm): 108 SBP (mmHg): 104 DBP (mmHg): 59 METS: --- Stage: STAGE 2 Duration (min): 1 min : 0 sec Speed (mph): 2.5 Grade (%): 12 HR (bpm): 116 SBP (mmHg): 104 DBP (mmHg): 59 METS: --- Stage: STAGE 2 Duration (min): 2 min : 0 sec Speed (mph): 2.5 Grade (%): 12 HR (bpm): 118 SBP (mmHg): 104 DBP (mmHg): 59 METS: --- Stage: STAGE 2 Duration (min): 3 min : 0 sec Speed (mph): 2.5 Grade (%): 12 HR (bpm): 125 SBP (mmHg): 205 DBP (mmHg): 57 METS: --- Stage: STAGE 3 Duration (min): 1 min : 0 sec Speed (mph): 3.4 Grade (%): 14 HR (bpm): 134 SBP (mmHg): 211 DBP (mmHg): 64 METS: --- Stage: STAGE 3 Duration (min): 2 min : 0 sec Speed (mph): 3.4 Grade (%): 14 HR (bpm): 139 SBP (mmHg): 211 DBP (mmHg): 64 METS: --- Stage: STAGE 3 Duration (min): 3 min : 0 sec Speed (mph): 3.4 Grade (%): 14 HR (bpm): 143 SBP (mmHg): 211 DBP (mmHg): 64 METS: --- Stage: STAGE 4 Duration (min): 1 min : 0 sec Speed (mph): 4.2 Grade (%): 16 HR (bpm): 159 SBP (mmHg): 211 DBP (mmHg): 64 METS: --- Stage: STAGE 4 Duration (min): 1 min : 0 sec Speed (mph): 4.2 Grade (%): 16 HR (bpm): 159 SBP (mmHg): 211 DBP (mmHg): 64 METS: --- Stage: RECOVERY Duration (min): 0 min : 59 sec Speed (mph): 0.0 Grade (%): 0 HR (bpm): 136 SBP (mmHg): 122 DBP (mmHg): 79 METS: --- Stage: RECOVERY Duration (min): 1 min : 59 sec Speed (mph): 0.0 Grade (%): 0 HR (bpm): 114 SBP (mmHg): 157 DBP (mmHg): 78 METS: --- Stage: RECOVERY Duration (min): 2 min : 59 sec Speed (mph): 0.0 Grade (%): 0 HR (bpm): 107 SBP (mmHg): 140 DBP (mmHg): 78 METS: --- Stage: RECOVERY Duration (min): 3 min : 59 sec Speed (mph): 0.0 Grade (%): 0 HR (bpm): 99 SBP (mmHg): 140 DBP (mmHg): 78 METS: --- Stage: RECOVERY Duration (min): 4 min : 59 sec Speed (mph): 0.0 Grade (%): 0 HR (bpm): 101 SBP (mmHg): 130 DBP (mmHg): 79 METS: --- Stage: RECOVERY Duration (min): 5 min : 59 sec Speed (mph): 0.0 Grade (%): 0 HR (bpm): 91 SBP (mmHg): 130 DBP (mmHg): 79 METS: --- Stage: RECOVERY Duration (min): 6 min : 45 sec Speed (mph): 0.0 Grade (%): 0 HR (bpm): 97 SBP (mmHg): 122 DBP (mmHg): 81 METS: --- Rest HR: 75 bpm Peak HR: 160 bpm Rest Sys BP: 106 mmHg Peak Sys BP: 211 mmHg Max Pred HR: 177 bpm % Max Pred HR: 90 % Target HR: 150 bpm Max RPP: 33,760 bpm*mmHg Raza Score: 5 BP Response: Patient exhibited a hypertensive response with stress Termination Reason: Reached target heart rate or workload Cardiac Symptoms: Chest pain up to 4/[address] Seg Deviation: 1.10 mm Total Time: 10 min : 0 sec Rest Zamora BP: 80 mmHg Peak Zamora BP: 64 mmHg Angina Score: None Total METS: 12.1 Resting ECG Sinus rhythm. Stress ECG No ST changes. Arrhythmias None. Report Signatures
== END 2025-04-03 09:36 | disposition home or self-care (01) ==
PROVIDERS: PCP Physician Assistant Medical; Visit Provider Internal Medicine Cardiovascular Disease
DX: R07.9 Chest pain, unspecified (principal)
CPT/HCPCS: 93017

== ENCOUNTER 2025-04-14 07:38 | Outpatient (CLI) | payer BC, SELFPAY ==
--- NOTE | ~2025-04-14 | MR_ITS ---
MRI of the brain Clinical History: TIA Technique: Axial and sagittal T1-weighted images were acquired. These were followed by axial T2-weigh gary, diffusion weighted, gradient, and FLAIR images. Coronal and axial thin cut T1-weighted and T2-we ighted images were acquired through the internal auditory canals. Following intravenous administratio n of 20 cc ProHance gadolinium, T1-weighted fat-sat imaging was performed through the brain in the ax ial and coronal planes. Thin cut T1-weighted postcontrast imaging was also performed through the inte rnal auditory canals and the axial and coronal planes. Findings: No abnormal signal seen in the brain parenchyma. No acute infarct, intracranial hemorrhage, or mass lesion. Ventricles and subarachnoid spaces are unremarkable. Orbits are unremarkable. There is minimal ethmoi d sinus mucosal thickening. There are minimal bilateral mastoid effusions. Remaining paranasal sinuse s are clear. Major intracranial flow voids are intact. Sagittal midline structures are intact. No abnormal mass lesion identified in cerebellopontine angle regions or internal auditory canals. No abnormal postcontrast enhancement identified. IMPRESSION: Minimal bilateral mastoid effusions, otherwise unremarkable exam. Reviewed, dictated and finalized at location .
--- OUTSIDE RECORDS SUMMARY | 2025-04-14 07:41 | XMS_ITS | Data Portability ---
Author Organization [place] - [facility], Main Office Address [address] [place] [address] Care Team Providers Care Weed Thinner Name Role Phone [facility] Primary Care Provider Assessment No assessment recorded. Plan of Treatment Reminders Order Date Submit Date Provider Last Modified By Organization Details Last Modified Time Details Appointments None recorded. Lab None recorded. Referral None recorded. Procedures eustachian tube balloon dilation (PROC) 2023 024 [email or web address] Not available 4 17:20:00 Surgeries myringotomy , with eustachian tube inflation (SURG) 2022 021 [id number] Not available 3 17:13:55 Imaging None recorded. Medication Orders clindamycin HCl 300 mg capsule 2023 Site[facility], [address], [place], [id number], 4 10:15:29 Medrol (Manoj) 4 mg tablets in a dose pack 2023 024 [facility][id number], [address], [place], [id number], 4 10:15:31 Patient TargetsNo targets recorded. Patient Instructions Encounter Date Encounter Id Patient Instructions Last Modified By Organization Details Last Modified Time 02/08/2024 [id number] he will return a s needed [email or web address] Not available 02/14/2024 16:56:09 Reason for Referral None Reported. Results Created Date Observation Date Name Description Value Unit Range Abnormal Flag Note LastModifiedBy Organization Detail LastModifiedTime 01/22/20 24 01/26/2024 SRINIVAS MONSON, PLASM A potassium 3.6 mmol/ L 3.4-4. 8 normal Not Available [address], [address], 01/26/2024 11:20:40 01/22/20 24 01/26/2024 CBC (INCL UDES DIFF/ PLT) white blood cell count 6.3 thous and/u L 3.8-10 .8 normal Not Available [address], [address], 01/26/2024 11:20:40 01/22/20 24 01/26/2024 CBC (INCL UDES DIFF/ PLT) red blood cell count 5.64 estrella on/uL 4.20-5 .80 normal Not Available [address], [address], 01/26/2024 11:20:40 01/22/20 24 01/26/2024 CBC (INCL UDES DIFF/ PLT) hemoglobin 15.9 g/dL 13.2-1 7.1 normal Not Available [address], [address], 01/26/2024 11:20:40 01/22/20 24 01/26/2024 CBC (INCL UDES DIFF/ PLT) hematocrit 46.7 % 38.5-5 0.0 normal Not Available [address], [address], 01/26/2024 11:20:40 01/22/20 24 01/26/2024 CBC (INCL UDES DIFF/ PLT) MCV 82.8 fL 80.0-1 00.0 normal Not Available [facility] [address], [address], 01/26/2024 11:20:40 01/22/20 24 01/26/2024 CBC (INCL UDES DIFF/ PLT) MCH 28.2 pg 27.0-3 3.0 normal Not Available [address], [address], 01/26/2024 11:20:40 01/22/20 24 01/26/2024 CBC (INCL UDES DIFF/ PLT) MCHC 34.0 g/dL 32.0-3 6.0 normal Not Available [address], [address], 01/26/2024 11:20:40 01/22/20 24 01/26/2024 CBC (INCL UDES DIFF/ PLT) RDW 12.9 % 11.0-1 5.0 normal Not Available [address], [address], 01/26/2024 11:20:40 01/22/20 24 01/26/2024 CBC (INCL UDES DIFF/ PLT) platelet count 249 thous and/u L 140-40 0 normal Not Available [address], [address], 01/26/2024 11:20:40 01/22/20 24 01/26/2024 CBC (INCL UDES DIFF/ PLT) MPV 10.8 fL 7.5-12 .5 normal Not Available [address], [address], 01/26/2024 11:20:40 01/22/20 24 01/26/2024 CBC (INCL UDES DIFF/ PLT) absolute neutrophils 3515 cells /uL 1500-7 800 normal Not Available [address], [address], 01/26/2024 11:20:40 01/22/20 24 01/26/2024 CBC (INCL UDES DIFF/ PLT) absolute lymphocytes 2123 cells /uL 850-39 00 normal Not Available [address] [place], [address], 01/26/2024 11:20:40 01/22/20 24 01/26/2024 CBC (INCL UDES DIFF/ PLT) absolute monocytes 403 cells /uL 200-95 0 normal Not Available [facility] [address], [address], 01/26/2024 11:20:40 01/22/20 24 01/26/2024 CBC (INCL UDES DIFF/ PLT) absolute eosinophils 221 cells /uL 15-500 normal Not Available [facility] [address], [address], 01/26/2024 11:20:40 01/22/20 24 01/26/2024 CBC (INCL UDES DIFF/ PLT) absolute basophils 38 cells /uL 0-200 normal Not Available [facility] [address], [address], 01/26/2024 11:20:40 01/22/20 24 01/26/2024 CBC (INCL UDES DIFF/ PLT) neutrophils 55.8 % normal Not Available [facility] [address], [address], 01/26/2024 11:20:40 01/22/20 24 01/26/2024 CBC (INCL UDES DIFF/ PLT) lymphocytes 33.7 % normal Not Available [address], [address], 01/26/2024 11:20:40 01/22/20 24 01/26/2024 CBC (INCL UDES DIFF/ PLT) monocytes 6.4 % normal Not Available [address], [address], 01/26/2024 11:20:40 01/22/20 24 01/26/2024 CBC (INCL UDES DIFF/ PLT) eosinophils 3.5 % normal Not Available [facility] [address], [address], 01/26/2024 11:20:40 01/22/20 24 01/26/2024 CBC (INCL UDES DIFF/ PLT) basophils 0.6 % normal Not Available [facility] [address], [place], [address], 01/26/2024 11:20:40 07/20/20 21 07/20/2021 audio gram + tympa nogra m No observ ation record ed. [id number] [facility] (Audiology) [address], [place], [address], 01/11/2023 17:13:56 Result Notes None recorded. Problems Name Problem SNOMED Code Status Onset Date Resolution Date Notes Provider Name and Address Organization Details Recorded Time Finding of bacteria by serology 105306356 Active Not Available [facility] 3 17:13:06 Dysfunctio n of left eustachian tube 8392060467400 106 Active 2023 Corey River MD [address] [place] [address] [address], [place], [address] , [facility] 4 17:14:52 Problem Notes None recorded. Procedures Surgical History Date Name Laterality Status Provider Name and Address Organization Details Recorded Time 08/23/20 21 MYRINGOTOMY, WITH EUSTACHIAN TUBE INFLATION (SURG) completed Not Available [facility] 01/11/2023 17:13:55 inflation of Eustachian tube using balloon completed Fanny Elizabeth RN [facility] [employer] [facility] 02/07/2024 10:16:03 myringotomy and insertion of tympanic ventilation tube completed Fanny Elizabeth RN [facility] [employer] [facility] 02/07/2024 10:15:59 Imaging Results None recorded. Procedure Notes None recorded. Medical Equipment None Reported. Allergies Allergen ID Allergen Name Allergen Category Reaction Reaction Severity Criticality Documentation Date Start Date Code Code System Note Provider Name and Address Organization Details Recorded Time 61251 Penicilli n Not available Not available Not available Not available 01/11/2023 48574 RxNorm Not Available [facility] 3 17:13:54 Medications Name Sig Start Date Stop [...] Xhance 93 mcg/actuati on breath activated aerosol [place] 2 sprays twice a day by intranasa l route. 10/25 completed Not Available Not Available Not Available ID NOW COVID-19 Test Kit TEST DIRECTED. 12/14 completed Not Available Not Available Not Available Vitals Date Recorded Body weight Body mass index (BMI) Body height Body temperature Provider Name and Address Organization Details Last Updated DateTime 12/14/2023 385677.97 g 35.3 kg/m2 186.69 cm 97.8 [degF] Fanny Elizabeth RN [place] [employer] [facility] 12/14/2023 17:05:09 Date Recorded Body mass index (BMI) Body height Body temperature Body weight Provider Name and Address Organization Details Last Updated DateTime 08/05/2021 31.1 kg/m2 187.96 cm 97.7 [degF] 471750.3 5 g Not Available [facility] 01/11/2023 17:12:57 Date Recorded Body mass index (BMI) Body height Body temperature Body weight Provider Name and Address Organization Details Last Updated DateTime 08/13/2021 31.1 kg/m2 187.96 cm 97.6 [degF] 945658.3 5 g Not Available [facility] 01/11/2023 17:12:57 Date Recorded Body mass index (BMI) Body height Body temperature Body weight Provider Name and Address Organization Details Last Updated DateTime 10/26/2021 31.1 kg/m2 187.96 cm 97.5 [degF] 440367.3 5 g Not Available [facility] 01/11/2023 17:12:57 Social History Question Answer Notes LastModified by [employer] Details LastModified Time Tobacco Smoking Status Never Smoker Not Available [facility] 01/11/2023 17:12:28 In The 14 Days Before Symptom Onset, Have You Had Close Contact With A Laboratory-confirm ed COVID-19 While That Case Was Ill? No [id number] Information not available 01/11/2023 In The 14 Days Before Symptom Onset, Have You Had Close Contact With A Person Who Is Under Investigation For COVID-19 While That Person Was Ill? No [id number] Information not available 01/11/2023 Have You Recently Traveled Abroad? No [id number] Information not available 01/11/2023 Sex: Unknown Functional Status Question Answer Note LastModified by [employer] Details LastModified Time What is your level of alcohol consumption? Occasional MIGRATION.[id number] Information not available 01/11/2023 Mental Status None recorded. Family History Relationship Description Onset Age of this Age Resolved Age Notes LastModified by Organization Details LastModified Time Father No current problems or disability [id number] Not available 01/11/2023 17:12:29 Mother No current problems or disability [id number] Not available 01/11/2023 17:12:29 Medical History Condition Response MRSA N SLEEP APNEA N ALLERGIES/HAYFEVER N LUNG DISEASE/DISORDER N INSOMNIA N HISTORY OF DRUG ABUSE N RADIATION / CHEMOTHERAPY N COPD N HIGH CHOLESTEROL / HYPERLIPIDEMIA N HYPERTHYROIDISM N BLOOD DISEASES N EAR OR HEARING PROBLEMS N HYPOTHYROIDISM N SHINGLES N DEPRESSION (INCLUDING POST ) N HAVE YOU BEEN HOSPITALIZED OR SEEN IN [facility] ER IN THE PAST YEAR ? [...] SNOMED-CT Code Diagnosis ICD10 Code Diagnosis Note [id number] [facility] [place] [address] [place] [address] 07/01/2021 00:00:00 07/01/2021 09:38:52 [id number] MD FRANNY [facility] [place] [address] [place] [address] 08/05/2021 00:00:00 08/05/2021 14:48:12 [id number] [facility] _ATHENA_M IGRATION_ DEFAULT_1 _1 , 08/13/2021 00:00:00 08/13/2021 10:32:22 [id number] MD FRANNY [facility] [place] [address] [place] [address] 10/26/2021 00:00:00 10/26/2021 11:00:57 [id number] MD FRANNY [facility] [place] [address] [place] [address] 12/14/2023 16:34:44 12/18/2023 16:01:18 Dysfunction of left eustachian tube 2622948228 601135 H69.92 [id number] Corey River MD [facility] [address] [place] [address] 02/09/2024 11:22:10 02/15/2024 09:37:20 Dysfunction of left eustachian tube 9249998881 480228 H69.92 Health Concerns Section Related Observation LastModified by Organization Detai ls LastModified Time None Recorded Concern Status LastModified by Organization Details LastModified Time None Recorded Advance Directives Directive None Recorded Payers Encounter Date Sequence Insurance Name Policy Number Policy Robins Covered Member ID Robins Member ID Guarantor Name 12/14/2023 1 [place] [id number] 1 Mauri Smith [id number] Mauri Smith 02/08/2024 1 [place] [id number] 1 Mauri Smith [id number] Mauri Lujan Luis Notes Date Note Type Note Provider Name and Address Organization Details Recorded Time 12/14/2023 text/html Had right ETBD 2 years ago and had a flight 2 weeks ago. Now the left closed off and he believes there is fluid. Corey River MD [address], [place], [address], [employer] [facility] 12/14/2023 17:16:01 02/08/2024 text/html he is doing very well following Eustachian tube balloon on the left. He reports that his hearing has recovered Corey River MD [address], [place], [address], [employer] 02/14/2024 16:56:26
--- OUTSIDE RECORDS SUMMARY | 2025-04-14 07:41 | XMS_ITS | Encounter Summary ---
Author Organization [facility] Address [address] [address] Care Team Providers Care Rug Drying Machine Operator Name Role Phone Nik Mullen DO Unavailable Jennifer Gomes PA-C Primary Care Provider [phone] Encounter Details Date Type Department Care Team (Late st Contact Info) Description 04/04/2025 Telephone [facility] - Neurology [address] [facility], [place] [id number] Macario Espinosa MD [address] [place] [address] Social History Tobacco Use Types Packs/Day Years Used Date Smoking Tobacco: Never Smokeless Tobacco: Never AUDIT-C Answer Date Recorded Q1: How often [...] Patient Health Questionnaire-2 Score 0 02/17/2025 [facility] Occupat ional [facility] - Occupational Stress [...] money to buy more. Never true 03/02/20 25 Within the past 12 months, t he [...] any time in the past 12 m [facility], were you homeless or living in a senior living (including now)? No 03/02/2025 Sex and Gender Information Value Date Recorded Sex Assigned at Not on file Legal Sex Male 9:04 AM CDT Gender Identity Not on file Sexual Orientation Not on file documented as of this encounter Functional Status * Is person deaf or have serious hearing difficulty? Answer Date of Assessment Author No 03/02/2025 9:57 PM KATHYT Joana Howard RN * Is person blind or have serious difficulty seeing? Answer Date of Assessment Author No 03/02/2025 9:57 PM KATHYT Joana Howard RN * Does person have serious difficulty walking/climbing stairs? Answer Date of Assessment Author No 03/02/2025 9:57 PM Joana Hansen, RN * Does person have difficulty dressing/bathing? Answer Date of Assessment Author No 03/02/2025 9:57 PM KATHYT Joana Howard, RN * Does person have difficulty doing errands alone? Answer Date of Assessment Author No 03/02/2025 9:57 PM CDT Howard, Joana K, RN documented as of this encounter Mental Status * Does person have difficulty concentrating/remembering/making decisions? Answer Entry Date Author No 03/02/2025 9:57 PM CDT Joana Howard RN documented in this encounter Miscellaneous Notes * Telephone Encounter - Eder Jessica - 04/04/2025 9:09 AM CDT Current Provider: Francisca Reason for Call: Pt calling to reschedule apt from 05/19/25 with Francisca, can you please call him back. Patient Call Back Number: [phone] documented in this encounter Plan of Treatment Upcoming Encounters Date Type Department Care Team (Late st Contact Info) Description 05/14/2025 8:30 AM CDT Appointment [facility] [address] [place] [address] Jennifer Gomes PA-C [facility]2 DO STOP [address] [place] [address] 05/26/2025 3:00 PM CDT Office Visit [facility] - Neurology [address] [facility], [place] [address] Macario Espinosa MD [address] [place] [address] 12/15/2025 3:40 PM TITLE 1 TUTOR Office Visit [facility] - Rheumatology [address], [address] [place] [address] Nik Mullen DO [address] [place] [address] documented as of this encounter Visit Diagnoses Not on filedocumented in this encounter Care Teams Rug Drying Machine Operator Relationship Specialty Start Date End Date Jennifer Gomes PA-C [facility] [address] [address] PCP - General Physician Plate Sensitizer 09/26/24 Nik Mullen DO [address] [id number] [employer] Faculty Member Rheumatology 08/23/24 documented as of this encounter
--- OUTSIDE RECORDS SUMMARY | 2025-04-14 07:41 | XMS_ITS | Clinical Summary ---
Author Organization [facility] Address [address] [place] [address] Phone Care Team Providers Care Savings Counselor Name Role Phone Corey River MD Primary Care Provider [phone] Allergies Active Allergy Reactions Criticality Noted Date [...] Name Comments Other-comment Father complecations from Agent [place] No Known Problems Mother Relation Name Status [...] on file Legal Sex Male 12:44 PM [employer] Gender Identity Not on file Sexual Orientation [...] 9:29 AM CDT Height 188 cm (6' 2) 01/30/2024 9:29 AM CDT Body Mass Index [...] this topic Medical Devices Implanted Type Area Engine Installer Device Identifier Shelf Expiration Date Model / Serial / Lot Tube Ventilation Green 1.14mm 3.5mm Marcus Bevel Ear Fluoroplastic Grommet Tympanic Membrane - [id number] Implanted:Qty: 1 on 01/30/2024 by Corey River MD at [facility] IMPLANT Left: Ear [employer] 03/01/2028 [id number] / [id number] / [id number] [address] [place], [place] [address] [place] [address] Care Teams Savings Counselor Relationship Specialty Start Date End Date Corey River MD [address] [place] [address] PCP - General Otolaryngology 01/30/24
--- OUTSIDE RECORDS SUMMARY | 2025-04-14 07:42 | XMS_ITS | Clinical Summary ---
Author Organization [facility] [employer] Address [address] [place] [address] Care Team Providers Care [employer] Name Role Phone Nik Mullen DO Unavailable Jennifer Gomes PA-C Primary Care Provider [phone] Source Comments [facility],non-owned Affiliates and Associated Physician Practices is amultiple site organization consisting of ambulatory clinics and hospital sitesin [place], [place], [place] and [place]. This disclosure is being madepursuant to the Care Everywhere program and may not contain all information available regarding this patient. Last updated 18.[facility] [employer] Allergies Active Allergy Reactions Criticality Noted Date [...] Encounters Date Type Department Care Team Description 04/04/2025 Telephone [facility] - Neurology [address], [facility] [place] [address] Macario Espinosa MD 03/13/2025 Travel 03/02/2025 12:18 PM CDT - 03/03/2025 2:40 PM CDT Hospital Encounter [facility] 3N ICU [address] [place] [phone] Sameer Neal MD Neurology Discharge Disposition: Home or Self Care 03/02/2025 Travel 02/17/2025 9:00 AM CDT Office Visit [facility] - Rheumatology [address], [address] [place] [phone] Nik Mullen, Fibromyalgia syndrome (Primary Dx); Intermittent palpitations; Chronic [...] Recorded Patient Health Questionnaire-2 Score 0 02/17/2025 [facility] of Occupat ional Health - Occupational Stress [...] any time in the past 12 m [facility], were you homeless or living in a fpc (including now)? No 03/02/2025 Sex and Gender [...] 9:00 AM CDT Height 185.4 cm (6' 1) 03/03/2025 9:00 AM CDT Body Mass Index 32.59 03/03/2025 9:00 AM CDT Plan of Treatment Upcoming Encounters Date Type Department Care Team (Late st Contact Info) Description 05/14/2025 8:30 AM CDT Appointment [facility] MRI [address] [place] [phone] Jennifer Gomes PA-C [address] [address] 05/26/2025 3:00 PM CDT Office Visit [facility] - Neurology [address] [place] [address] Macario Espinosa MD [address] [place] [address] 12/15/2025 3:40 PM VP RESPIRATORY Office Visit [facility] - Rheumatology [address], [address] [place] [address] Nik Mullen, [address] [place] [address] Health Maintenance Due Date Last [...] PACS Dimensionless Index 0.872 unitless [facility]ACS Myocardial strain charge 2 unitless [facility] IVSd 2D 0.847 cm [facility] P[facility] LVIDd 4.945 cm [facility] PACS LVIDs 3.425 cm [facility] PACS LVOT diam 2.379 cm [facility] PACS LVPWd 0.807 cm [facility] PACS LV biplane EF 50.473 % [facility] LV A2C EF 47.045 % [facility] I PACS LV A4C EF 54.123 % [facility] PACS LV EDV A2C 94.959 ml [facility] CV FU JI PACS LV EDV A4C 130.433 ml [facility] CV [facility] PACS LV ESV A2C 50.285 ml [facility] CV [facility]I PACS LV ESV A4C 59.839 ml [facility] CV [facility]I PACS LVOT pk grad 3.305 mmHg [facility] LVOT pk agustín 90.899 cm/s [facility] CV F U PACS LVOT VTI 18.109 cm [facility] PACS RVIDd 3.044 cm [facility] I PACS RVOT pk agustín 60.526 cm/s [facility] CV F U PACS RVOT VTI 12.539 cm [facility] I PACS LA size 3.725 cm [facility] I PACS LA vol BP 42.583 ml [facility] I PACS RA area 16.849 cm [facility] AV area pk agustín 3.659 cm [facility] area cont VTI 3.873 cm [facility] AV pk grad 4.871 mmHg [facility] CV FU JI PACS AV mn grad 2.503 mmHg [facility] CV [facility]U JI PACS AV pk agustín 110.348 cm/s [facility] PACS AV VTI 20.772 cm [facility] I PACS MV A pk agustín 47.782 cm/s S[facility] CV F U PACS MV E pk agustín 73.48 cm/s SSM CV F U PACS MV E' lateral agustín 9.588 cm/s SS M CV FUJI PACS MV mn grad 1.3 mmHg SSM CV FU JI PACS MV VTI 24.614 cm SSM CV FUJ I PACS PV pk agustín 98.496 cm/s [...] 9:17 AM Patient Status: I/P Study Site: [facility] Primary Location: [facility] EStudy Info Technical Quality: Adequate Exam [...] Provider: Sameer Neal Attending Physician: Sameer Neal Dispensary Attendant: Arnel Ball Left Ventricle The left ventricle [...] 9:17 AM Patient Status: I/P Study Site: [facility] Primary Location: [facility] EStudy Info Technical Quality: Adequate Exam [...] Provider: Sameer Neal Attending Physician: Sameer Neal Dispensary Attendant: Arnel Ball Left Ventricle The left ventricle [...] by Jaison Alvarenga on 03/03/2025 12:30 PM us Sameer Neal MD ECHO CUPID Final Resul t * GLUCOSE - POINT OF CARE (03/03/2025 7:38 AM CDT) Glucose WB/POC 83 70 - 99 mg/dL 03/06/2025 10:19 PM CDT [facility] Specimen Type Cap Fingerstick 2024 10:19 PM CDT [facility] Blood BLOOD SPECIMEN / Unknown 03/03/2025 7:38 AM CDT 03/06/2025 10:19 PM CDT Sameer Neal MD LAB - POINT OF CARE ORDERAB LES Final Result Performing Organization Address [facility] Co de Phone Number [address] [address], [facility] [phone] * HEMOGLOBIN A1C (03/03/2025 3:27 AM CDT) Hemoglobin A1c 5.0 <=5.6 % 03/03/2025 1:07 PM CDT [facility] Estimated Average Glucose 97 mg/dL 03/03/2025 1:07 PM T [facility] Comment: HbA1c Interpretation: Normal : < 5.7% Pre-diabetes: 5.7-6.4% Diabetes: Equal to or greater than 6.5% Test results diagnostic of diabetes should be repeated for confirmation. Treatment target values recommended by ADA and other clinical organizations should be used to evaluate metabolic control in patients. Reference: [place] [employer], Standards of Care in Diabetes [...] MD LAB - CHEMISTRY ORDERABLES Final Result Performing Organization Address City/[facility]/ZIP Co de Phone Number [address] [address], [facility] [phone] * CBC W/O DIFFERENTIAL (03/03/2025 3:27 AM CDT) WBC 7.1 4.0 - 10.7 x10E9/L 03/03/2025 3:40 AM CDT [facility] RBC Count 5.09 4.30 - 5.80 x10E12/L 03/03/2025 3:40 [facility] Hemoglobin 14.4 13.3 - 17.5 g/dL 03/03/2025 3:40 AM [facility] Hematocrit 42.5 38.7 - 51.1 % 03/03/2025 3:40 AM [facility] MCV 83.5 80.0 - 98.0 fL 03/03/2025 3:40 AM [facility] MCH 28.3 26.7 - 33.6 pg 03/03/2025 3:40 AM [facility] MCHC 33.9 31.7 - 36.3 g/dL 03/03/2025 3:40 AM [facility] RDW-CV 13.1 11.3 - 14.8 % 03/03/2025 3:40 AM [facility] Platelet Count 196 150 - 420 x10E9/L 03/03/2025 3:40 AM [facility] MPV 9.8 7.8 - 11.4 fL 03/03/2025 3:40 AM [facility] Blood BLOOD SPECIMEN / Unknown Venipuncture / Unknown 03/03/2025 3:27 AM CDT 03/03/2025 3:33 AM CDT Sameer Neal MD LAB - HEMATOLOGY ORDERABLES Final Result [facility] [address] [place] [address], [facility] [phone] * (ABNORMAL) BASIC METABOLIC PANEL (CALCIUM TOTAL) (03/03/2025 3:27 AM CDT) BUN 17 7 - 26 mg/dL 03/03/2025 4:03 AM [facility] Creatinine 0.94 0.71 - 1.16 mg/dL 03/03/2025 4:03 AM [facility] Sodium 142 136 - 145 mmol/L 03/03/2025 4:03 AM [facility] Potassium 4.0 3.5 - 4.5 mmol/L 03/03/2025 4:03 AM [facility] Chloride 109(H) 98 - 107 mmol/L 03/03/2025 4:03 AM [facility] CO2 22 22 - 29 mmol/L 03/03/2025 4:03 AM [facility] Glucose 92 70 - 99 mg/dL 03/03/2025 4:03 AM [facility] Calcium 8.0(L) 8.4 - 10.2 mg/dL 03/03/2025 4:03 AM [facility] Anion Gap 11 6 - 16 03/03/2025 4:03 AM [facility] BUN/Creatinine Ratio 18 7 - 23 03/03/2025 4:03 AM [facility] Osmolality Calculated 295 275 - 295 mOsm/kg 03/03/2025 4:03 AM [facility] eGFR by CKD-EPI >90 >=90 mL/min/1.7 3 m2 03/03/2025 4:03 AM [facility] Blood BLOOD SPECIMEN / Unknown Venipuncture / Unknown 03/03/2025 3:27 AM CDT 03/03/2025 3:34 AM CDT Sameer Neal MD LAB - CHEMISTRY ORDERABLES Final Result [address] [address], [facility] [phone] * MAGNESIUM BLOOD (03/03/2025 3:27 AM CDT) Magnesium 1.9 1.6 - 2.6 mg/dL 03/03/2025 4:03 AM [facility] Blood BLOOD SPECIMEN / Unknown Venipuncture / Unknown 03/03/2025 3:27 AM CDT 03/03/2025 3:34 AM CDT us Sameer Neal MD LAB - CHEMISTRY ORDERABLES Final Result [address] [address], [place] [phone] * LIPID PROFILE (03/03/2025 3:27 AM CDT) Cholesterol Total 136 <200 mg/dL 03/03/2025 4:03 AM [facility] HDL 41 >40 mg/dL 03/03/2025 4:03 AM [facility] Comment: ATP III Classification of HDL Cholesterol: <40 mg/dL: Considered a major risk factor. >60 mg/dL: Considered a negative risk factor. LDL Calculated 73 <100 mg/dL 03/03/2025 4:03 AM [facility] Comment: ATP III Classification of LDL Cholesterol: <100 mg/dL: Optimal 100 - 129 mg/dL: Near Optimal/Above Optimal 130 - 159 mg/dL: Borderline High 160 - 189 mg/dL: High >190 mg/dL: Very High Triglycerides 111 <150 mg/dL 03/03/2025 4:03 AM [facility] Comment: ATP III Classification of Triglycerides: <150 mg/dL: Normal 150 - 199 mg/dL: Borderline High 200 - 400 mg/dL: High >500 mg/dL: Very High Blood BLOOD SPECIMEN / Unknown Venipuncture / Unknown 03/03/2025 3:27 AM CDT 03/03/2025 3:34 AM CDT us Sameer Neal MD LAB - CHEMISTRY ORDERABLES Final Result [address] [address], [place] [phone] * PHOSPHORUS BLOOD (03/03/2025 12:19 AM CDT) Phosphorus 4.0 2.8 - 5.1 mg/dL 03/03/2025 1:00 AM [facility] Blood BLOOD SPECIMEN / Unknown Venipuncture / Unknown 03/03/2025 12:19 AM CDT 03/03/2025 12:42 AM CDT us Sameer Neal MD LAB - CHEMISTRY ORDERABLES Final Result [address] [address], [place] [phone] * MRI BRAIN NON CONTRAST (03/03/2025 12:01 AM CDT) Anatomical Region Laterality Modality Head Magnetic Resonan ce 03/03/2025 9:32 AM CDT Impressions 03/03/2025 9:49 AM CDT IMPRESSION: Unremarkable brain MRI performed without contrast. > Interpreting Provider: Loree Cordoba MD on 03/03/2025 9:49 AM Narrative 03/03/2025 9:49 AM CDT PROCEDURE: MRI BRAIN WO CONTRAST, DATE/TIME OF EXAM: 03/03/2025 12:01 AM, LOCATION [facility] INDICATION: R20.2: Paresthesia ADDITIONAL CLINICAL INFORMATION: Ordering [...] CONTRAST, DATE/TIME OF EXAM: 03/03/2025 12:01AM, LOCATION [facility] INDICATION: R20.2: Paresthesia ADDITIONAL CLINICAL INFORMATION: Ordering [...] 1:13 PM CDT) Ventricular Rate 71 BPM [facility] MUSE Atrial Rate 71 BPM [facility] MUSE P-R Interval 170 ms [facility] MUSE QRS Duration ms 88 ms [facility] MUSE Q-T Interval ms 380 ms [facility] MUSE QTC Calculation (Bezet) 412 ms [facility] MUSE Calculated P Wheeling 22 degrees SL MUSE Calculated R Wheeling -32 degrees SL MUSE Calculated T Wheeling 12 degrees [facility] MUSE Interpretation EKG NORMAL SINUS RHYTHM LEFT AXIS DEVIATION CANNOT RULE OUT ANTERIOR INFARCT (CITED ON OR BEFORE 02-MAR-2025) ABNORMAL ECG WHEN COMPARED WITH ECG OF 26-MAY-2015 03:37, NO SIGNIFICANT CHANGE WAS FOUND Confirmed by MAICOL STRICKLAND, ZULEMA ([id number]) on 03/07/2025 2:58:45 PM [facility] MUSE 03/02/2025 1:13 PM CDT 03/07/2025 2:58 PM CDT us Afshin Gold MD ECG ORDERABLES Edited Result - Final [facility] MUSE * PT-INR [facility] (03/02/2025 12:43 PM CDT) PT 12.7 12.1 - 14.8 Seconds 03/02/2025 1:18 PM CDT [facility] HOSPITAL INR 1.0 See Comment 03/02/2025 1:18 PM CDT [facility] Comment:The suggested therap eutic range for standard coumadin (warfarin) therapy is an INR of 2.0-3.0. For high-risk patients (Mechanical Mitral Valve Prosthesis, etc.), the suggested prophylactic therapeutic range is an INR of 2.5-3.5. Blood BLOOD SPECIMEN / Unknown Venipuncture / Unknown 03/02/2025 12:43 PM CDT 03/02/2025 12:56 PM CDT Afshin Gold MD LAB - COAGULATION ORDERABLES Final Result [facility] [address] [place] [address], [place] [phone] * TYPE + SCREEN PANEL (03/02/2025 12:43 PM CDT) Antibody Screen NEG 2:00 PM CDT [facility] BLOOD BANK LAB ABO Rh A POS 03/02/2025 2:00 PM CDT [facility] BLOOD BANK LAB Blood Bank BLOOD SPECIMEN / Unknown Venipuncture / Unknown 03/02/2025 12:43 PM CDT 03/02/2025 12:53 PM CDT Afshin Gold MD LAB - BLOOD BANK ORDERABLES F inal Result [facility] BLOOD BANK LAB [address] [place] [address], [place] [phone] * (ABNORMAL) CBC W AUTO DIFFERENTIAL (03/02/2025 12:43 PM CDT) WBC 8.7 4.0 - 10.7 x10E9/L 03/02/2025 1:01 PM CDT [facility] RBC Count 5.05 4.30 - 5.80 x10E12/L 03/02/2025 1:01 PM CDT [facility] Hemoglobin 14.4 13.3 - 17.5 g/dL 03/02/2025 1:01 PM [facility] Hematocrit 42.0 38.7 - 51.1 % 03/02/2025 1:01 PM [facility] MCV 83.2 80.0 - 98.0 fL 03/02/2025 1:01 PM [facility] MCH 28.5 26.7 - 33.6 pg 03/02/2025 1:01 PM [facility] MCHC 34.3 31.7 - 36.3 g/dL 03/02/2025 1:01 PM [facility] RDW-CV 12.9 11.3 - 14.8 % 03/02/2025 1:01 PM [facility] Platelet Count 192 150 - 420 x10E9/L 03/02/2025 1:01 PM [facility] MPV 9.6 7.8 - 11.4 fL 03/02/2025 1:01 PM [facility] Neutrophil % 75.0(H) 41.0 - 74.0 % 03/02/2025 1:01 PM [facility] Lymphocyte % 16.5(L) 17.0 - 47.0 % 03/02/2025 1:01 PM [facility] Monocyte % 5.4 3.0 - 11.0 % 03/02/2025 1:01 PM [facility] Eosinophil % 2.2 0.0 - 7.0 % 03/02/2025 1:01 PM [facility] Basophil % 0.6 0.0 - 1.6 % 03/02/2025 1:01 PM [facility] Immature Granulocytes % 0.3 0.0 - 1.0 % 03/02/2025 1:01 PM [facility] Neutrophil Absolute 6.50 1.60 - 7.50 x10E9/L 03/02/2025 1:01 PM [facility] Lymphocyte Absolute 1.43 1.00 - 4.40 x10E9/L 03/02/2025 1:01 PM [facility] Monocyte Absolute 0.47 0.15 - 1.00 x10E9/L 03/02/2025 1:01 PM [facility] Eosinophil Absolute 0.19 0.00 - 0.60 x10E9/L 03/02/2025 1:01 PM [facility] Basophil Absolute 0.05 0.00 - 0.13 x10E9/L 03/02/2025 1:01 PM [facility] Blood BLOOD SPECIMEN / Unknown Venipuncture / Unknown 03/02/2025 12:43 PM CDT 03/02/2025 12:56 PM CDT us Afshin Gold MD LAB - HEMATOLOGY ORDERABLES F inal Result [facility] [address] [place] [address], [facility] [phone] * COMPREHENSIVE METABOLIC PANEL (03/02/2025 12:43 PM CDT) BUN 15 7 - 26 mg/dL 03/02/2025 1:24 PM [facility] Creatinine 1.02 0.71 - 1.16 mg/dL 03/02/2025 1:24 PM [facility] Sodium 138 136 - 145 mmol/L 03/02/2025 1:24 PM [facility] Potassium 4.2 3.5 - 4.5 mmol/L 03/02/2025 1:24 PM [facility] Chloride 105 98 - 107 mmol/L 03/02/2025 1:24 PM [facility] CO2 22 22 - 29 mmol/L 03/02/2025 1:24 PM [facility] Glucose 89 70 - 99 mg/dL 03/02/2025 1:24 PM [facility] Calcium 8.4 8.4 - 10.2 mg/dL 03/02/2025 1:24 PM [facility] Protein Total 6.5 6.0 - 8.3 g/dL 03/02/2025 1:24 PM [facility] Albumin 3.6 3.4 - 5.0 g/dL 03/02/2025 1:24 PM [facility] Bilirubin Total 0.3 0.2 - 1.2 mg/dL 03/02/2025 1:24 PM [facility] Alkaline Phosphatase 61 40 - 150 U/L 03/02/2025 1:24 PM [facility] ALT 13 5 - 55 U/L 03/02/2025 1:24 PM [facility] AST 17 5 - 34 U/L 03/02/2025 1:24 PM [facility] Anion Gap 11 6 - 16 03/02/2025 1:24 PM [facility] BUN/Creatinine Ratio 15 7 - 23 03/02/2025 1:24 PM [facility] Osmolality Calculated 286 275 - 295 mOsm/kg 03/02/2025 1:24 PM [facility] Albumin/Globulin Ratio 1.2 1.1 - 2.3 03/02/2025 1:24 PM [facility] eGFR by CKD-EPI >90 >=90 mL/min/1.7 3 m2 03/02/2025 1:24 PM [facility] Blood BLOOD SPECIMEN / Unknown Venipuncture / Unknown 03/02/2025 12:43 PM CDT 03/02/2025 12:56 PM T us Afshin Gold MD LAB - CHEMISTRY ORDERABLES nal Result [facility] [address] [place] [address], [facility] [phone] from Last 3 Months Insurance ANTHROSIE ANTHROSIE Advance Directives * Full Code (Latest Code Status on File) Date Activated Date Inactivated Comments 03/02/2025 1:25 PM 03/03/2025 3:55 PM Care Teams [employer] Relationship Specialty Start Date End Date Jennifer Gomes PA-C [address] [place] [address] PCP - General Physician Tractor Sweeper Operator 09/26/24 Nik Mullen DO [address] [place] [id number] [facility] 08/23/24
== END 2025-04-14 07:39 | disposition home or self-care (01) ==
PROVIDERS: PCP Physician Assistant Medical; Visit Provider Physician Assistant Medical
DX: G45.9 Transient cerebral ischemic attack, unspecified (principal)
CPT/HCPCS: 70553; A9577

== ENCOUNTER 2025-04-26 07:29 | Outpatient (CLI) | payer BC, SELFPAY ==
--- NOTE | ~2025-04-26 | MR_ITS ---
MRI of the lumbar spine Clinical History: Radiculopathy Technique: Axial T2-weighted images, and sagittal T1-weighted, T2-weighted, and T2 fat-sat images wer e acquired. Findings: There is no fracture or subluxation of the lumbar spine. Vertebral bodies maintain normal h eight and alignment. No bone marrow signal abnormality seen. At L1-L2, L2-L3, L3-L4, L4-L5, there is no significant disc bulge or herniation. No spinal canal sten osis or neural foraminal narrowing at these levels. There are mild facet joint degenerative changes a t these levels. At L5-S1, there is mild to moderate degenerative disc narrowing. There is minimal disc bulge and mild facet arthropathy. No central canal stenosis. There is moderate to advanced right neural foraminal n arrowing. Left neural foramen preserved. Paravertebral soft tissues are unremarkable. Impression: Moderate to advanced right neural foraminal narrowing at L5-S1. Please see details above. Reviewed, dictated and finalized at [facility]. Impression: Moderate to advanced right neural foraminal narrowing at L5-S1. Please see barbi tavares above.
== END 2025-04-26 07:30 | disposition home or self-care (01) ==
LOC: MICIMG 07:48
PROVIDERS: PCP Physician Assistant Medical; Visit Provider Nurse Practitioner Family
DX: M47.817 Spondylosis without myelopathy or radiculopathy, lumbosacral region (principal)
CPT/HCPCS: 72148

== ENCOUNTER 2025-05-11 20:21 | Emergency (ER) | payer BC, SELFPAY ==
[2025-05-11] VITALS (17 sets, daily range): BP systolic 116–130; BP diastolic 83–89; PULSE 79–86; RESP 16–18; TEMP 36.5; O2SAT 95–99
--- NOTE | ~2025-05-11 | CT_ITS ---
EXAMINATION: CT lumbar spine wo con DATE: 05/11/2025 21:56 INDICATION: acute on chronic Low back pain . TECHNIQUE: Computed tomography (CT) of the lumbar spine was performed without intravenous contrast. A utomated exposure control and iterative reconstruction technique were employed. The dose-length produ ct was 1374.57 mGy-cm. COMPARISON: X-ray L-spine 03/25/2025; MR lumbar spine 04/26/2025. FINDINGS: 5 nonrib-bearing lumbar-type vertebral bodies. Pedicles intact. Normal vertebral body align ment. Vertebral body heights preserved. Moderate disc space narrowing and mild diffuse disc bulge at L5-S1. Mild disc disc bulge at L4-5. Multilevel mild facet arthropathy. No severe central canal narro wing. Moderate right neural foraminal narrowing at L5-S1 secondary to degenerative changes. Incidenta l note of mild degenerative change at T11-12 and T12-L1. IMPRESSION: No acute fracture or traumatic malalignment in the lumbar spine. Reviewed, dictated and finalized at location K.
--- NOTE | 2025-05-11 21:06 | ED_ITS ---
HPI - Back Pain/Injury General Chief Complaint: Back Pain/Injury Stated Complaint: BACK PAIN X3D Time Seen by Provider: 05/11/25 20:26 Source: patient and family Mode of arrival: ambulatory Limitations: no limitations History of Present Illness HPI Narrative: Patient presents with acute on chronic low back pain. He recently had an MRI for his chronic back pain but states that this feels worse and has become to r adiate towards his buttocks and upwards throughout his back. He describes it as alternating between a burning sensation in his back as well as a stabbing sensation. It otherwise does not radiate into his legs. Denies any incontinence of bowel or bladder. Denies any paresthesias including no saddle anesthesia. No IV drug use, fevers, chills, hematuria, dysuria, urgency, frequency. He is not having any abdominal pain. No syncope. He denies any history of cancer. Not on chronic steroids. Has a primary care provider (Mireya) but would not be able to get in to see them for 2 weeks after they already tried to call. No trauma. Not on anticoagulation. He is established with pain management and is due to receive epidural injections for his chronic issues at the end of May. At home he took Aleve. He also had some leftover Flexeril tablets and has taken those but ran out. He also had a few leftover hydrocodone tablets but took his last 1 at 3:00 a.m.. In addition he had a left over tramadol and took that at 5 yesterday. No trauma. Patient is currently having an event/Holter monitor for other issues. Related Data Home Medications ?Medication ?Instructions ?Recorded ?Confirmed ?Last Taken ?Type duloxetine 30 mg capsule,delayed 60 mg PO DAILY 06/27/23 05/01/25 07/17/24 History release (Cymbalta) sumatriptan succinate 100 mg tablet 100 mg PO DAILY PRN migraine 04/25/25 05/01/25 Unknown History headache Allergies Allergy/AdvReac Type Severity Reaction Status Date / Time Penicillins Allergy Unknown Unknown Verified 05/11/25 20:29 [facility] Past Medical History Medical History Left hemiplegia (~02/2025) Left-sided weakness TIA (transient ischemic attack) Eustachian tube dysfunction S/p Eustachian tube dilatation by Dr. 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 Father Heart disease Renal failure Hypertension Malignant neoplasm of prostate Social History Social History Smoking status: Never smoker Alcohol intake: never Alcohol use details: rarely Substance use: never Substance use type: does not use Other substance usage details: Denies IVDU Do You Feel Safe in your Home?: Yes Lack of Transportation: No Lack of Food: Never True Current Housing: I Have Housing Concerned About Future Housing: No Difficulty Paying Gas/Electric Bills: No Difficulty Paying for Meds: No Currently Unemployed: No Education: Associate Degree Difficulty w/ Childcare or Family Care: No Living arrangements: with family Occupation/Education: occupation Gender identity (if verbalized by the patient): Male Spiritual care concerns: No Exam Narrative: GENERAL: Well-appearing, well-nourished, in mild to moderate acute distress. HEAD: Normocephalic, atraumatic. EYES: Non injected, non icteric ENT: Nares clear, no rhinorrhea or epistaxis. Gross auditory acuity intact. NECK: Supple. No meningismus. CHEST: Speaking in full sentences. No respiratory distress. HEART: Regular rate and rhythm. . ABDOMEN: Soft, nondistended. EXTREMITIES: Normal range of motion. No lower extremity edema. BACK: No tenderness to palpation of thoracic or lumbar spine; no bony step-offs or obvious deformities. Able to demonstrate some flexion and extension. No paraspinal tenderness to palpation. Patient does have some muscle spasm appreciated at the right flank. SKIN: Warm, dry, no rash overlying back/buttocks including no erythema, vesicles, etc. NEURO: No focal deficits. Alert and oriented. Answering questions. Following commands. Normal speech without aphasia or dysarthria. 5/5 strength with bilateral ankle dorsiflexion/plantar flexion, bilateral knee flexion/extension, bilateral hip flexion, abduction, adduction. Symmetric appropriate patellar reflexes bilaterally. Sensation intact to touch in bilateral lower extremities throughout. PSYCH: Congruent mood and affect. Course Vital Signs Vital signs: Vital Signs Temperature 97.7 F 05/11/25 20:24 Pulse Rate 86 05/11/25 20:24 Respiratory Rate 16 05/11/25 20:24 Blood Pressure 125/88 05/11/25 20:24 Pulse Oximetry 98 05/11/25 20:24 Oxygen Delivery Room Air 05/11/25 20:24 Temperature 97.7 F 05/11/25 20:24 Pulse Rate 79 05/11/25 22:49 Respiratory Rate 18 05/11/25 22:49 Blood Pressure 116/83 05/11/25 22:49 Pulse Oximetry 97 05/11/25 22:49 Oxygen Delivery Room Air 05/11/25 20:24 MDM - Back Pain/Injury MDM Narrative Medical decision making narrative: Patient presents with acute on chronic low back pain. He recently had an MRI and sees pain management. However, he states that this pain over the past 3 days has been acutely worse with radiation superiorly and inferiorly. In the emergency department they are afebrile with vital signs within normal limits. Back has no deformities, external skin changes, or signs of trauma. Curvature is within normal limits. No tenderness is noted on palpation of the spinous processes which are midline. Patient demonstrates flexion, extension. Sensation to the lower extremities is normal bilaterally. Dorsi/plantar flexion is normal bilaterally. Appropriate patellar reflexes. They do not have any other red flags for fracture, malignancy, infection (e.g. spinal epidural abscess): Age, no trauma, not on chronic steroids, no history of cancer, no fever, IV drug use, abdominal pain, syncope, or urinary symptoms. However, has a history of this with acute worsening. Given this, will obtain CT of L spine. Rubyaudid ordered. Patient reassessed at 9:52 p.m. and states he is feeling better after analgesia. Short course of Valium p.o. prescribed in addition to lidocaine patches and pyis-sud-qgkstzs analgesics medications. Prescription monitoring database of controlled substances is reviewed which shows that patient had Oxy filled on 08/29/2024, tramadol filled on 09/03/2024 and cyclobenzaprine 20 days filled on 03/30/2025 but otherwise with no interval fill of controlled substances. Advised follow-up with primary care physician and Pain Clinic. Patient discharged in stable condition with return precautions. Differential Diagnosis Differential diagnosis: Likely lumbar radiculopathy, sciatica, strain of lumbar region, AAA (hx aneurysm but no abdominal complaints/syncope/VS abnormalities), discitis and other (considered zoster) Medical Records Attestation: I reviewed the patient's medical records. Medical records narrative: MRI 04/26/25 Impression: Moderate to advanced right neural foraminal narrowing at L5-S1. Please see details above. Imaging Data Radiologist's impression: Impressions Lumbar Spine CT 05/11/25 22:07 IMPRESSION: No acute fracture or traumatic malalignment in the lumbar spine. Discharge Plan Discharge Clinical Impression: Acute on chronic low back pain Patient Disposition: Home Condition: Stable Instructions: Antibiotic Form, Acute Low Back Pain (ED), Chronic Back Pain (DC), Lower Back Exercises (ED) Additional Instructions: The goal of aggressive multimodal pain management is to balance some rest with improving the pain to a degree to allow for stretching/strengthening exercises and staying active. Acetaminophen/Tylenol (maximum 4000 mg per day) is safe to take with NSAIDs (ibuprofen/Motrin) for pain relief. Lidocaine patches are topical approach. Valium works as a strong muscle relaxer which may help especially when taken at night. Keep your upcoming follow-up appointments with your primary care physician as well as pain management. Return to the ER if you have increased pain in your back, you develop lower extremity weakness/numbness/paralysis, you have numbness or tingling in your private parts, or you are unable to control your ability to urinate/stool. Patient Language: Kinyarwanda Prescriptions: New lidocaine 4 % adhesive patch,medicated 1 patch topical DAILY PRN (Reason: pain) Qty: 10 0RF ibuprofen 600 mg tablet 600 mg PO TID PRN (Reason: pain) Qty: 30 0RF acetaminophen 500 mg capsule 1,000 mg PO Q6H PRN (Reason: pain) Qty: 30 0RF diazepam [Valium] 5 mg tablet 5 mg PO HS PRN (Reason: muscle spasm) Qty: 7 0RF No Action sumatriptan succinate 100 mg tablet 100 mg PO DAILY PRN (Reason: migraine headache) Taltz Autoinjector 80 mg/mL auto-injector 80 mg subcut ONCE Qty: 1 0RF Patient Comments: Monthly amitriptyline 25 mg tablet 25 mg PO QHS Qty: 1 0RF Rx Instructions: prescribed by rheum Ubrelvy 50 mg tablet 50 mg PO ONCE Qty: 14 0RF Rx Instructions: as a single dose; may repeat once in >=2 hours after first dose if needed duloxetine [Cymbalta] 30 mg capsule,delayed release(DR/EC) 60 mg PO DAILY Patient Comments: started April 2023 for fibro ondansetron 4 mg tablet,disintegrating 4 mg PO Q6H PRN (Reason: nausea and vomiting) Qty: 12 1RF mecobalamin (vitamin B12) 1,000 mcg tablet,chewable 1,000 mcg PO DAILY Qty: 90 0RF Rx Instructions: OTC Follow-up/Referrals: Jennifer Gomes PA-C [Primary Care Provider] - Stand Alone Forms: Work/School Release IP Time of Disposition: 22:27
[2025-05-11] MEDS: HYDROmorphone HCL INJ (*CRX) 2 MG/ML VIAL 1 MG IM (21:26)
[2025-05-11] MEDS: diazePAM (*CRX) 5 MG TABLET 2.5 MG PO (22:37)
== END 2025-05-11 22:51 | disposition home or self-care (01) ==
PROVIDERS: Emergency Provider Student in an Organized Health Care Education/Training Program; PCP Physician Assistant Medical
DX: M54.50 Low back pain, unspecified (principal); G89.29 Other chronic pain; G81.94 Hemiplegia, unspecified affecting left nondominant side; M79.7 Fibromyalgia
CPT/HCPCS: 72131; 96372; 99283; A9270; J1171

== ENCOUNTER 2025-06-04 15:54 | Outpatient (CLI) | payer BC, SELFPAY ==
--- NOTE | ~2025-06-04 | XR_ITS ---
EXAM/ PROCEDURE: [id number] - 06/04/2025 15:59 CDT HISTORY: 45 years old Male with CERVICAL RADICULOPATHY COMPARISON: None available TECHNIQUE: Three view(s) FINDINGS/ IMPRESSION: There are no fractures or dislocations.Intervertebral disc spaces are within normal limits. Visualize d portion of lungs are clear. Reviewed, dictated and finalized at location A.
== END 2025-06-04 15:55 | disposition home or self-care (01) ==
LOC: MICIMG 15:55
PROVIDERS: PCP Nurse Practitioner Family; Visit Provider Nurse Practitioner Family
DX: M54.12 Radiculopathy, cervical region (principal)
CPT/HCPCS: 72040

== ENCOUNTER 2025-06-30 01:41 | Day surgery (SDC) | payer BC, SELFPAY ==
[2025-05-01 09:22] VITALS: BMI 33.0
--- NOTE | 2025-05-01 09:24 | PC.NURSE ---
Report to the Outpatient Waiting Room, entrance under the green pavilion located off [facility], at time _1145_ on date _[phone]_. Planned Procedure Time: _145pm_.? Time changes happen often and if your time is changed the preop area will call you the afternoon before. - You and your visitor will be asked to self-screen and do not enter if you have any COVID symptoms. Please call surgeon if you need to reschedule. - A mask is optional within the hospital at this time. Patients may have clear liquids (water, carbonated beverages, clear teas, apple juice) until 3 hours prior to surgery with a maximum of 20 ounces. - No food from midnight until time of surgery and no smoking, or chewing tobacco (or any form of nicotine). No chewing gum, candy or mints. Take only the following medications with a SIP of water on the morning of surgery: ___Duloxetine. DO NOT STOP ANY OF YOUR OTHER PRESCRIPTION MEDICATIONS PRIOR TO SURGERY EXCEPT THE FOLLOWING Hold all vitamins and supplements for 3 days per anesthesiologist. Medications to discontinue per physician Date to take last dose Please no make-up, nail south korean, hairspray, perfume, deodorant, or body powder the day of surgery.? No jewelry (including any body piercings) or valuables the day of surgery, leave them at home.? Please take a shower or bath the night before, or the morning of, surgery with an antibacterial soap.? Wear comfortable, loose fitting clothing.? - Jewelry must be removed prior to entering the operating room.? Rings and piercings that are not removed may be cut off. - The hospital will not accept responsibility for valuables.? - Please leave all valuables, including medications, at home the day of surgery. If you are going home after surgery, a licensed otr owner operator truck driver must drive you home.? - NO public transportation without another adult if you receive anesthesia. - We recommend that an adult stay with you for 24 hours following discharge. - We also recommend that you do not drive, make important decision, drink alcoholic beverages, or take any drugs that were not prescribed by your health care provider for at least 24 hours after your discharge time. Follow any additional instructions given to you from your surgeon. Telephone instructions given to __Tony___and asked if any additional questions and then verbalized understanding. Patient advised to call surgeon office or pre surgery nurse liaison [phone] if any additional questions.
--- NOTE | 2025-06-25 09:20 | PC.NURSE ---
Report to the Outpatient Waiting Room, entrance under the green pavilion located off [facility], at time _1130_ on date _[id number]_. Planned Procedure Time: _130pm_.? Time changes happen often and if your time is changed the preop area will call you the afternoon before. - You and your visitor will be asked to self-screen and do not enter if you have any COVID symptoms. Please call surgeon if you need to reschedule. - A mask is optional within the hospital at this time. Patients may have clear liquids (water, carbonated beverages, clear teas, apple juice) until 3 hours prior to surgery with a maximum of 20 ounces. - No food from midnight until time of surgery and no smoking, or chewing tobacco (or any form of nicotine). No chewing gum, candy or mints. Take only the following medications with a SIP of water on the morning of surgery: __Celebrex DO NOT STOP ANY OF YOUR OTHER PRESCRIPTION MEDICATIONS PRIOR TO SURGERY EXCEPT THE FOLLOWING Hold all vitamins and supplements for 3 days per anesthesiologist. Medications to discontinue per physician Date to take last dose Please no make-up, nail azerbaijani, hairspray, perfume, deodorant, or body powder the day of surgery.? No jewelry (including any body piercings) or valuables the day of surgery, leave them at home.? Please take a shower or bath the night before, or the morning of, surgery with an antibacterial soap.? Wear comfortable, loose fitting clothing.? - Jewelry must be removed prior to entering the operating room.? Rings and piercings that are not removed may be cut off. - The hospital will not accept responsibility for valuables.? - Please leave all valuables, including medications, at home the day of surgery. If you are going home after surgery, a licensed corrugated fastener driver must drive you home.? - NO public transportation without another adult if you receive anesthesia. - We recommend that an adult stay with you for 24 hours following discharge. - We also recommend that you do not drive, make important decision, drink alcoholic beverages, or take any drugs that were not prescribed by your health care provider for at least 24 hours after your discharge time. Follow any additional instructions given to you from your surgeon. Telephone instructions given to __Kingstony__and asked if any additional questions and then verbalized understanding. Patient advised to call surgeon office or pre surgery nurse liaison [phone] if any additional questions.
[2025-06-25 09:26] VITALS: BMI 33.0
--- NOTE | 2025-06-25 15:51 | PC.NURSE ---
Report to the Outpatient Waiting Room, entrance under the green pavilion located off [facility], at time _1130_ on date _[phone]_. Planned Procedure Time: _130pm_.? Time changes happen often and if your time is changed the preop area will call you the afternoon before. - You and your visitor will be asked to self-screen and do not enter if you have any COVID symptoms. Please call surgeon if you need to reschedule. - A mask is optional within the hospital at this time. Patients may have clear liquids (water, carbonated beverages, clear teas, apple juice) until 3 hours prior to surgery with a maximum of 20 ounces. - No food from midnight until time of surgery and no smoking, or chewing tobacco (or any form of nicotine). No chewing gum, candy or mints. Take only the following medications with a SIP of water on the morning of surgery: ___Duloxetine____ DO NOT STOP ANY OF YOUR OTHER PRESCRIPTION MEDICATIONS PRIOR TO SURGERY EXCEPT THE FOLLOWING Hold all vitamins and supplements for 3 days per anesthesiologist. Medications to discontinue per physician Date to take last pyqi__[id number] Please no make-up, nail tamazight, hairspray, perfume, deodorant, or body powder the day of surgery.? No jewelry (including any body piercings) or valuables the day of surgery, leave them at home.? Please take a shower or bath the night before, or the morning of, surgery with an antibacterial soap.? Wear comfortable, loose fitting clothing.? - Jewelry must be removed prior to entering the operating room.? Rings and piercings that are not removed may be cut off. - The hospital will not accept responsibility for valuables.? - Please leave all valuables, including medications, at home the day of surgery. If you are going home after surgery, a licensed pile driver operator must drive you home.? - NO public transportation without another adult if you receive anesthesia. - We recommend that an adult stay with you for 24 hours following discharge. - We also recommend that you do not drive, make important decision, drink alcoholic beverages, or take any drugs that were not prescribed by your health care provider for at least 24 hours after your discharge time. Follow any additional instructions given to you from your surgeon. Telephone instructions given to __Tony__and asked if any additional questions and then verbalized understanding. Patient advised to call surgeon office or pre surgery nurse liaison [phone] if any additional questions.
--- NOTE | 2025-06-29 12:54 | P.HP_ITS ---
H&P: HPI History of Present Illness Date/Time: 06/29/25 12:54 Chief Complaint: Bilateral eustachian tube dysfunction Narrative: Planned surgical procedure Review of Systems Review of Systems: All systems reviewed & are unremarkable except as noted in HPI and below [facility] Past Medical History Medical History Left hemiplegia (~02/2025) Left-sided weakness TIA (transient ischemic attack) Eustachian tube dysfunction S/p Eustachian tube dilatation by Dr. 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 Father Heart disease Renal failure Hypertension Malignant neoplasm of prostate Social History Social History Smoking status: Never smoker Alcohol intake: never Alcohol use details: rarely Substance use: never Substance use type: does not use Other substance usage details: Denies IVDU Do You Feel Safe in your Home?: Yes Lack of Transportation: No Lack of Food: Never True Current Housing: I Have Housing Concerned About Future Housing: No Difficulty Paying Gas/Electric Bills: No Difficulty Paying for Meds: No Currently Unemployed: No Education: Associate Degree Difficulty w/ Childcare or Family Care: No Living arrangements: with family Occupation/Education: occupation Gender identity (if verbalized by the patient): Male Spiritual care concerns: No Meds Home Medications and Allergies Home Medications ?Medication ?Instructions ?Recorded ?Confirmed ?Type ondansetron 4 mg disintegrating 4 mg PO Q6H PRN nausea and 06/27/24 06/06/25 Rx tablet vomiting #12 tabs amitriptyline 25 mg tablet 25 mg PO QHS #1 tablet 09/24/24 06/06/25 Rx ixekizumab 80 mg/mL subcutaneous 80 mg subcut ONCE #1 mL 09/24/24 06/06/25 Rx auto-injector (Taltz Autoinjector) mecobalamin (vitamin B12) 1,000 1,000 mcg PO DAILY #90 tabs 01/27/25 06/06/25 Rx mcg chewable tablet acetaminophen 500 mg capsule 1,000 mg (2 x 500 mg) PO Q6H PRN 05/11/25 06/25/25 Rx pain #30 caps ibuprofen 600 mg tablet 600 mg PO TID PRN pain #30 tabs 05/11/25 06/25/25 Rx lidocaine 4 % topical patch 1 patch topical DAILY PRN pain #10 05/11/25 06/25/25 Rx ea duloxetine 60 mg capsule,delayed 60 mg PO DAILY 05/13/25 06/25/25 History release ubrogepant 100 mg tablet 100 mg PO ONCE #14 tabs 06/04/25 06/25/25 Rx Allergies Allergy/AdvReac Type Severity Reaction Status Date / Time Penicillins Allergy Unknown Unknown Verified 06/25/25 09:24 Exam Narrative: See previous documentation for physical exam Assessment and Plan Assessment and plan (1) Eustachian tube dysfunction: Code(s): H69.90 - Unspecified Eustachian tube disorder, unspecified ear Status: Acute Assessment and Plan: Plan OR bilateral nasal endoscopy with bilateral eustachian tube balloon dilation. Risks were discussed bleeding infection stroke damage to any structures failure to resolve symptoms damage to any structure in the nose damage to structure above the clavicles by myself damage to any structure induction remains of anesthesia including vocal cord paralysis. Patient voiced understanding of the risks and agreed.
[2025-06-30] VITALS (7 sets, daily range): BP systolic 104–126; BP diastolic 68–86; PULSE 58–79; RESP 15–18; TEMP 36.4–36.8; O2SAT 94–99; BMI 33.6
--- OUTSIDE RECORDS SUMMARY | 2025-06-30 01:45 | XMS_ITS | Clinical Summary ---
Author Organization [facility] Address [address] [place] [address] Care Team Providers Care Superintendent Sales Name Role Phone Jennifer Gomes Primary Care Provider [phone] Allergies No known active allergies Medications DULoxetine DR (CYMBALTA) 60 mg capsule Take 1 capsule (60 mg total) by mouth daily Active amitriptyline (ELAVIL) 25 mg tablet Take 1 tablet (25 mg total) by mouth nightly Active ixekizumab (Taltz Autoinjector, 2 Pack,) auto-injector Inject 1 mL (80 mg total) under the skin every 28 (twenty-eight ) days Active SUMAtriptan (IMITREX) 100 mg tabletIndicatio ns:Migraine Take 1 tablet (100 mg total) by mouth once as needed for migraine Active ondansetron (ZOFRAN) 2 mg/mL solution 2 mL (4 mg total) as needed Active Encounters Date Type Department Care Team Description 05/21/2025 Results Follow-Up [facility] Cardiology [address] [place] [address] 3 [address] [place] [address] Mark Whyte MD ECG 12 lead 05/08/2025 10:15 AM CDT Ancillary Procedure [facility] [address] [place] [address] 3 [address] [place] [id number] Syncope and collapse 05/08/2025 9:45 AM CDT Office Visit [facility] Cardiology [address] Medical Office Building [address] [place] [id number] Mark Whyte MD Syncope and collapse (Primary Dx) from Last 3 Months Social History Tobacco Use Types Packs/Day Years Used Date Smoking Tobacco: Never Smokeless Tobacco: Never Tobacco Cessation:Counseling Given: Not Answered Sex and Gender Information Value Date Recorded Sex Assigned at Not on file Legal Sex Male 5:54 PM 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 Gender Identity Not on file Sexual Orientation Not on file Obstetrics History Last Filed Vital Signs Vital Sign Reading Time Taken Comments Blood Pressure 110/70 05/08/2025 9:11 AM CDT Pulse 75 05/08/2025 9:11 AM CDT Temperature - - Respiratory Rate - - Oxygen Saturation 97% 05/08/2025 9:11 AM CDT Inhaled Oxygen Concentration - - Weight - - Height - - Body Mass Index - - Plan of Treatment Health Maintenance Due Date Last Done Comments Depression Screening 1980 Hepatitis C Screening 1982 Varicella Vaccines (1 of 2 - 13+ 2-dose series) 1995 Hepatitis B Screening 2000 Regular Well Visit/Exam 18-64 2000 HPV Vaccines (1 - 3-dose SCDM series) 2009 Covid-19 Vaccine ( season) 2024 02/04/2021, 01/07/2021 Influenza Vaccine (#1) 2025 01/02/2025, 2022 DTaP/Tdap/Td Vaccine (6 - Td or Tdap) 09/24/2034 09/24/2024, 07/30/1987, 1982, Additional history exists Pneumococcal vaccine <65 Aged Out No longer eligible based on patient's age to complete this topic Procedures Procedure Name Priority Date/Time Associated Diagnosis Comments MCT - MOBILE CARDIAC TELEMETRY EVENT MONITOR Routine 05/08/2025 10:23 AM CDT Syncope and collapse ECG 12-LEAD Routine 05/08/2025 9:18 AM CDT Syncope and collapse from Last 3 Months Results * MCT Mobile Cardiac Telemetry Event Monitor (05/08/2025 10:23 AM CDT) Anatomical Region Laterality Modality Electrocardiogra phy 06/06/2025 11:5 9 PM CDT Narrative 06/09/2025 5:08 PM CDT [facility] Cardiac Diagnostic Lab [address] , [address] [place] [address] CARDIAC EVENT MONITOR REPORT Patient Name: GRICEL GRIFFIN W : 1980 (45y 2m) Gender: M Study Date: 06/06/2025 11:59:00 PM Ht(Inch): Wt(Lb): BSA: Tech: Location: [facility] Order Provider: MARK WHYTE BMI: Ref Provider: MARK WHYTE PROCEDURES: Event Report: [facility] MOBILE CARDIAC TELEMETRY EVENT MONITOR [[id number]]. Enrollment Period: 2025-05-08 00:00:00 through 2025-06-06 00:00:00. Location: [facility]. INDICATIONS: R55 Syncope and collapse. FINDINGS: Event Data: Min Rate: 49 BPM Min Rate Timestamp: 2025-05-10 12:03:00 Max Rate: 158 BPM Max Rate Timestamp: 2025-05-31 15:23:00 Mean Rate: 77 BPM SIGNIFICANT PAUSES: 0 >3 sec SUMMARY: The patient's monitoring period was 05/08/2025 - 06/06/2025. Baseline sample showed Sinus Rhythm with a heart rate of 76.5 bpm. There were 0 critical, 0 serious, and 12 stable events that occurred. CONCLUSIONS: 1. The PDF can be found in the [facility] Patient chart. Please go to the Cardiology tab, click on the holter or event exam. Scroll to bottom where the ORDER-LEVEL Documents reside and click the blue link to the pdf. 2. The predominant rhythm was Sinus Rhythm. *The Maximum Heart Rate recorded was 158 BPM, 03:23 PM 05/31, the Minimum Heart Rate recorded was 49 BPM, 12:03 PM 05/10 and the Average Heart Rate was 77 BPM. *There were 292 VE beats with a burden of <1 %. *There were 1,134 SVE beats with a burden of <1 %. *There were 11 manually detected events. Manually Detected Events: 1 Stable: Sinus Rhythm None Reported 1 Stable: Sinus Tachycardia None Reported 1 Stable: Sinus Rhythm w/Inverted T Wave/Artifact Chest Pain or Pressure 1 Stable: Sinus Rhythm w/Artifact Light-Headedness; Dizziness 1 Stable: Sinus Rhythm Light-Headedness; Dizziness 1 Stable: Sinus Rhythm Rapid or Fast Heartbeat; Tired or Fatigued; Dizziness; Shortness of Breath; Li 1 Stable: Sinus Tachycardia, Sinus Rhythm w/Artifact None Reported 1 Stable: Sinus Rhythm w/Artifact Shortness of Breath; Light-Headedness; Dizziness; Tired or Fatigued 1 Stable: Sinus Tachycardia, Sinus Rhythm w/Artifact Light-Headedness; Rapid or Fast Heartbeat; Dizziness 1 Stable: Sinus Tachycardia, Sinus Rhythm None Reported 1 Stable: Sinus Rhythm, Sinus Tachycardia None Reported. Electronically Signed By: Rosalee Pearson M.D. 06/09/2025 4:46:18 PM CDT Electronically Signed By: Rosalee Pearson M.D. 06/09/2025 4:46:18 PM CDT Procedure Note Rosalee Pearson MD - 06/09/2025 [facility] Cardiac Diagnostic Lab [address] , [address] [place] [id number] CARDIAC EVENT MONITOR REPORT Patient Name: GRICEL GRIFFIN W : 1980 (45y 2m) Gender: M Study Date: 06/06/2025 11:59:00 PM Ht(Inch): Wt(Lb): BSA: Tech: Location: [facility] Order Provider: MARK WHYTE BMI: Ref Provider: MARK WHYTE PROCEDURES: Event Report: [facility] MOBILE CARDIAC TELEMETRY EVENT MONITOR [[id number]]. Enrollment Period: 2025-05-08 00:00:00 through 2025-06-06 00:00:00. Location: [facility]. INDICATIONS: R55 Syncope and collapse. FINDINGS: Event Data: Min Rate: 49 BPM Min Rate Timestamp: 2025-05-10 12:03:00 Max Rate: 158 BPM Max Rate Timestamp: 2025-05-31 15:23:00 Mean Rate: 77 BPM SIGNIFICANT PAUSES: 0 >3 sec SUMMARY: The patient's monitoring period was 05/08/2025 - 06/06/2025.Baseline sample showed Sinus Rhythm with a heart rate of 76.5 bpm. There were 0 critical,0 serious, and 12 stable events that occurred. CONCLUSIONS: 1. The PDF can be found in the [facility] Patient chart. Please go to theCardiology tab, click on the holter or event exam. Scroll to bottom where the ORDER-LEVELDocuments reside and click the blue link to the pdf. 2. The predominant rhythm was Sinus Rhythm. *The Maximum Heart Rate recorded was 158 BPM, 03:23 PM 05/31, the MinimumHeart Rate recorded was 49 BPM, 12:03 PM 05/10 and the Average Heart Rate was 77BPM. *There were 292 VE beats with a burden of <1 %. *There were 1,134 SVE beats with a burden of <1 %. *There were 11 manually detected events. Manually Detected Events: 1 Stable: Sinus Rhythm None Reported 1 Stable: Sinus Tachycardia None Reported 1 Stable: Sinus Rhythm w/Inverted T Wave/Artifact Chest Pain or Pressure 1 Stable: Sinus Rhythm w/Artifact Light-Headedness; Dizziness 1 Stable: Sinus Rhythm Light-Headedness; Dizziness 1 Stable: Sinus Rhythm Rapid or Fast Heartbeat; Tired or Fatigued; Dizziness; Shortness of Breath; Li 1 Stable: Sinus Tachycardia, Sinus Rhythm w/Artifact None Reported 1 Stable: Sinus Rhythm w/Artifact Shortness of Breath; Light-Headedness; Dizziness; Tired or Fatigued 1 Stable: Sinus Tachycardia, Sinus Rhythm w/Artifact Light-Headedness; Rapid or Fast Heartbeat; Dizziness 1 Stable: Sinus Tachycardia, Sinus Rhythm None Reported 1 Stable: Sinus Rhythm, Sinus Tachycardia None Reported. Electronically Signed By: Rosalee Pearson M.D. 06/09/2025 4:46:18 PM CDT Electronically Signed By: Rosalee Pearson M.D. 06/09/2025 4:46:18 PM CDT Mark Whyte MD CV CARDIAC SERVICES PRO CEDURES Final Result * ECG 12 lead (05/08/2025 9:18 AM CDT) Mark Whyte MD ECG ORDERABLES Final R esult from Last 3 Months Insurance [employer] ACCESS [employer] ACCESS Care Teams Superintendent Sales Relationship Specialty Start Date End Date Jennifer Gomes PA [address] [place] [id number] PCP - General Physician Digital Engineer 03/26/25
--- OUTSIDE RECORDS SUMMARY | 2025-06-30 01:45 | XMS_ITS | Encounter Summary ---
Author Organization [facility] Address [address] [place] [address] Care Team Providers Care Head Of Digital Advertising & Integration Name Role Phone Cory Leavitt MD Primary Care Provider Unavailable None, Provider Primary Care Provider Unavaila ble Encounter Details Date Type Department Care Team (Late st Contact Info) Description 09/16/2017 [place] [address] Cory Leavitt MD Social History Tobacco Use Types Packs/Day Years Used Date Smoking Tobacco: Never Assessed Sex and Gender Information Value Date Recorded Sex Assigned at Not on file Legal Sex Male 12:04 AM CDT Gender Identity Not on file Sexual Orientation Not on file documented as of this encounter Plan of Treatment Not on file documented as of this encounter Visit Diagnoses Not on filedocumented in this encounter Additional Health Concerns Infection Onset Date Last Indicated Resolved Time COVID-19 Rule Out 06/27/2024 06/27/2024 06/27/2024 5:40 PM CDT documented as of this encounter Care Teams Head Of Digital Advertising & Integration Relationship Specialty Start Date End Date Cory Leavitt MD PCP - General 05/24/15 01/22/18 None, ProviderMD PCP - General UNKNOWN PHYSICIAN SPECIALTY 09/14/23 documented as of this encounter
--- OUTSIDE RECORDS SUMMARY | 2025-06-30 01:45 | XMS_ITS | Encounter Summary ---
Author Organization [facility] Address [address] [facility] [place] [address] Care Team Providers Care Welder Helper Name Role Phone Nik Mullen DO Unavailable Jennifer Gomes PA-C Primary Care Provider [phone] Encounter Details Date Type Department Care Team (Late st Contact Info) Description 04/04/2025 Telephone [facility] - Neurology [address] [facility], [place] [id number] Macario Espinosa MD [address] [place] [address] Social History Tobacco Use Types Packs/Day Years [...] Recorded Patient Health Questionnaire-2 Score 0 02/17/2025 [facility] of Occupat ional Health - Occupational Stress [...] any time in the past 12 m [facility], were you homeless or living in a usp (including now)? No 03/02/2025 Sex and Gender [...] encounter Miscellaneous Notes * Telephone Encounter - DianaMaria TeresaDavid Jessica - 04/04/2025 9:09 AM CDT Current Provider: Francisca Reason for Call: Pt calling to reschedule apt from 05/19/25 with Francisca, can you please call him back. Patient Call Back Number: [phone] documented in this encounter Plan of Treatment Upcoming Encounters Date Type Department Care Team (Late st Contact Info) Description 12/15/2025 3:40 PM COOK HELPER PASTRY Office Visit [facility] - Rheumatology [address], [address] [place] [address] Nik Mullen DO [address] [place] [address] documented as of this encounter Visit Diagnoses Not on filedocumented in this encounter Care Teams Welder Helper Relationship Specialty Start Date End Date Jennifer Gomes PA-C [address] [place] [address] PCP - General Physician Cylinder Handler 09/26/24 Nik Mullen DO [address] [place] [address] Case Liner Rheumatology 08/23/24 documented as of this encounter
--- OUTSIDE RECORDS SUMMARY | 2025-06-30 01:45 | XMS_ITS | Continuity of Care Document ---
Author Organization [facility] Address [address] [facility] [address] [place] [address] Phone Care Team Providers Care Enterprise Integration Architect Name Role Phone Carolina Pool OT Unavailable Unavailable Procedures Procedure Date Therapeutic Activities Neuromuscular Re-Ed Therapeutic Exercise Manual Therapy Hot or Cold Pack Therapeutic Activities Neuromuscular Re-Ed Therapeutic Exercise Manual Therapy Hot or Cold Pack Therapeutic Activities Neuromuscular Re-Ed Therapeutic Exercise Hot or Cold Pack Manual Therapy Therapeutic Activities Neuromuscular Re-Ed Therapeutic Exercise Manual Therapy Hot or Cold Pack Waive Cancel or No Show - No Charge Therapeutic Activities Neuromuscular Re-Ed Therapeutic Exercise Manual Therapy Hot or Cold Pack Therapeutic Activities Neuromuscular Re-Ed Manual Therapy Hot or Cold Pack Therapeutic Activities Neuromuscular Re-Ed Manual Therapy Hot or Cold Pack Therapeutic Activities Neuromuscular Re-Ed Therapeutic Exercise Manual Therapy Hot or Cold Pack Therapeutic Activities Neuromuscular Re-Ed Therapeutic Exercise Manual Therapy Hot or Cold Pack Therapeutic Activities Neuromuscular Re-Ed Therapeutic Exercise Manual Therapy Hot or Cold Pack Therapeutic Activities Neuromuscular Re-Ed Therapeutic Exercise Manual Therapy Hot or Cold Pack Progress Note Therapeutic Activities Neuromuscular Re-Ed Therapeutic Exercise Hot or Cold Pack Therapeutic Activities Neuromuscular Re-Ed Therapeutic Activities Neuromuscular Re-Ed Therapeutic Activities Neuromuscular Re-Ed Therapeutic Activities Neuromuscular Re-Ed Therapeutic Activities Neuromuscular Re-Ed PT Evaluation Moderate Complexity Therapeutic Activities Neuromuscular Re-Ed Therapeutic Activities Neuromuscular [...] Diagnoses Date Provider Providers Copied on Encounter [facility] [address], [place], [place], [id number], tel:[phone] [place] No Information Pool Carolina. . Referring Provider: Jennifer Gomes [address] [place] [address] [address], [place], [address]. tel:[phone] [facility] [address], [place], [place], [id number], [place] tel:[phone] [place] No Information 5 Pool Carolina. . Referring Provider: Jennifer Gomes [address] [place] [address] [address], [place], [address]. tel:[phone] [facility] [address], [place], [place], [address], [place] tel:[phone] [place] No Information 5 Pool Carolina. . Referring Provider: Jennifer Gomes [address] [place] [address] [address], [place], [address]. tel:[phone] [facility] [address], [place], [place], [id number], tel:[phone] [place] No Information 5 Pool Carolina. . Referring Provider: Jennifer Gomes [address] [place] [address] [address], [place], [address]. tel:[phone] [facility], [place], [place], [address], [place] tel:[phone] [place] No Information 5 Pool Carolina. . Referring Provider: Physician Partida. [facility], [place], [place], [address], [place] tel:[phone] [place] No Information 0-202 5 Pool Carolina. . Referring Provider: Jennifer Gomes [address], [place], [address]. tel:[phone] [facility], [facility] [address], [place], [place], [address], [place] tel:[phone] [place] No Information May-0 8-202 5 Marlo Argueta. . Referring Provider: Jennifer Gomes [address], [place], [address]. tel:[phone], [place], [place], [address], [place] tel:[phone] [place] No Information May-0 3-202 5 Marlo Argueta. . Referring Provider: Jennifer Gomes [address] [place] [address] [address], [place], [address]. tel:[phone], [place], [place], [address], [place] tel:[phone] [place] No Information Eric-2 6-202 5 Pool Carolina. . Referring Provider: Jennifer Gomes [address] [place] [address] [address], [place], [address]. tel:[phone], [place], [place], [address], [place] tel:[phone] [place] No Information Eric-2 4-202 5 Pool Carolina. . Referring Provider: Jennifer Gomes [address], [place], [address]. tel:[phone], [place], [place], [address], [place] tel:[phone] [place] No Information Eric-2 0-202 5 Velazco Caryn. . Referring Provider: Jennifer Gomes [address] [place] [address] [address], [place], [address]. tel:[phone] [place] [address], [place], [place], [address], [place] tel:[phone] [place] No Information 5 Pool Carolina. . Referring Provider: Jennifer Gomes [address] [place] [address] [address], [place], [address]. tel:[phone] [facility] [address], [place], [place], [address], [place] tel:[phone] [place] No Information 0 5 Pool Carolina. . Referring Provider: Jennifer Gomes [address] [place] [address] [address], [place], [address]. tel:[phone] [facility] [address], [place], [place], [address], [place] tel:[phone] [facility] No Information 5 Marc Tato. . Referring Provider: Jennifer Gomes [address] [place] [address] [address], [place], [address]. tel:[phone] [facility] [address], [place], [place], [address], [place] tel:[phone] Jose Cruz [place] No Information 5 Marc Tato. . Referring Provider: Jennifer Gomes [address] [place] [address] [address], [place], [address]. tel:[phone] [facility] [address], [place], [place], [address], [place] tel:[phone] Jose Cruz [place] No Information 5 Marc Tato. . Referring Provider: Jennifer Gomes [address] [place] [address] [address], [place], [address]. tel:[phone] [facility] [address], [place], [place], [address], [place] tel:[phone] Jose Cruz [place] No Information 5 Marc Tato. . Referring Provider: Andrzej Calder[address], [place], [address]. tel:[phone] [facility] [address], [place], [place], [address], [place] tel:[phone] Jose Cruz [place] No Information 0 8- 5 Marc Tato. . Referring Provider: Jennifer Gomes, [address], [place], [address]. tel:[phone] [facility], [place], [place], [address], [place] tel:[phone] Jose Cruz [place] No Information 0 1- 5 Marc Tato. . Referring Provider: Jennifer Gomes, [address], [place], [address]. tel:[phone] [facility] [address], [place], [place], [address], [place] tel:[phone] Jose Cruz [place] No Information 0 3- 4 Marc Tato. . Referring Provider: [facility]. [facility], [place], [place], [address], [place] tel:[phone] Jose Cruz [place] No Information 0 - 4 Marc Tato. . Referring Provider: [facility], [place], [place], [id number], [place] tel:[phone] Jose Cruz [place] No Information 2 - 4 Marc Tato. . Referring Provider: [facility], [place], [place], [address], [place] tel:[phone] Jose Cruz [place] No Information 2 4- 4 Marc Tato. . Referring Provider: [facility], [place], [place], [address], [place] tel:[phone] Jose Cruz [place] No Information 2 0- 4 Marc Tato. . Referring Provider: [facility], [address], [place], [place], [address], [place] tel:[phone] Jose Cruz [place] No Information 4 Marc Mancilla . Referring Provider: [facility], [address] [facility], [place], [place], [address], [place] tel:[phone] Jose Cruz [place] No Information 4 Marc Mancilla . Referring Provider: [facility], [address], [place], [place], [address], [place] tel:[phone] Jose Cruz [place] No Information 4 Marc Mancilla . Referring Provider: [facility], [address] [facility], [place], [place], [address], [place] tel:[phone] Jose Cruz [place] No Information 4 Marc Mancilla . Referring Provider: Physician Screen. Family History Family Member Type Diagnosis Age At Onset No Information Payers Payer name Insurance type Covered green party ID Authorjennifer iyer(s) [facility] [id number] Social History Type Description Quantity Date Captured Comments Sex Male Smoking Status No Information Chief Complaint And Reason For Visit No Information Reason For Referral Reason For Referral No Information Plan Of Treatment Date Type Action Status Appointment Bud Smith - Coming From MD Appointment BOOKED Appointment Bud Smith BOOKED Appointment Bud Smith BOOKED Appointment Bud Smith - Last Visit ? B OOKED History Of Present Illness Encounter Date Complaint History Of Prese nt Illness No Information Functional Status Date Functional Assessmen t No Information Instructions Date Instruction Additional Infor mation No Information Assessments Type Assessment Date No Information Patient Care Teams Name Effective Dates (start - stop) Status Members No Information
--- OUTSIDE RECORDS SUMMARY | 2025-06-30 01:45 | XMS_ITS | Clinical Summary ---
Author Organization [facility] Address [address] [place] [address] Care Team Providers Care Generation Engineer Name Role Phone None, Provider MD Primary [...] Comments Blood Pressure 120/80 10/30/2024 10:08 AM ECOLOGY TEACHER Pulse 64 10/30/2024 10:08 AM ECOLOGY TEACHER Temperature 36.6 C (97.9 F) 10/08/2024 12:00 PM ECOLOGY TEACHER Respiratory Rate 13 10/08/2024 12:00 PM ECOLOGY TEACHER Oxygen Saturation 100% 10/08/2024 12:00 PM ECOLOGY TEACHER Inhaled Oxygen Concentration - - Weight 118.8 kg (262 lb) 10/30/2024 10:08 AM ECOLOGY TEACHER Height 185.4 cm (6' 1) 10/30/2024 10:08 AM ECOLOGY TEACHER Body Mass Index 34.57 10/30/2024 10:08 AM ECOLOGY TEACHER Plan of Treatment Health Maintenance Due Date Last Done Comments Annual Physical 1985 Hepatitis C 2000 DTaP, Tdap and Td Vaccines ( 1 - Tdap) 2001 Hepatitis B Vaccines (1 of 3 - 19+ 3-dose series) 2001 HPV Vaccines (1 - 3-dose SCD M series) 2009 COVID-19 Vaccine (3 - 2023-2 5 season) 2024 02/04/2021, 01/07/2021 Meningococcal B Vaccine Aged Out No l [...] patient's age to complete this topic Insurance dr [address] Care Teams Generation Engineer Relationship Specialty Start Date End Date None, Provider, PCP - General UNKNOWN PHYSICIAN SPECIALTY 09/14/23
--- OUTSIDE RECORDS SUMMARY | 2025-06-30 01:45 | XMS_ITS | Clinical Summary ---
Author Organization [facility] [employer] Address [address] [address] Care Team Providers Care Netsuite Developer Name Role Phone Nik Muleln DO Unavailable Jennifer oGmes PA-C Primary Care Provider [phone] Source Comments [facility],non-owned Affiliates and Associated Physician Practices is amultiple site organization consisting of ambulatory clinics and hospital sitesin [place], [place], [place] and [place]. This disclosure is being madepursuant to the Care Everywhere program and may not contain all information available regarding this patient. Last updated 18.[facility] [employer] Allergies Active Allergy Reactions Criticality Noted Date [...] Depression, Fibromyalgia Syndrome, Sleep 90 tablet 3 Active Cholecalcifero l 50 MCG (1999 UT) Take 1 (one) tablet by mouth every 7 days (once a week) Active ubrogepant (Ubrelvy) 100 MG tablet Take 1 (one) tablet by mouth daily as needed - may repeat one time for Migraine No more than 2 doses in 24 hours. Active Active Problems Problem Noted Date Diagnosed [...] Encounters Date Type Department Care Team Description 05/26/2025 3:00 PM CDT Office Visit [facility] - Neurology [address] [place] [phone] Macario Espinosa MD Functional neurological symptom disorder with weakness or paralysis (Primary Dx) 05/26/2025 Travel 04/04/2025 Telephone [facility] - Neurology [address] [place] [phone] Macario Espinosa MD from Last 3 Months Social History Tobacco [...] Recorded Patient Health Questionnaire-2 Score 0 02/17/2025 [facility] - Occupational Stress [...] were you homeless or living in a nursing home (including now)? No 03/02/2025 Sex and Gender Information Value Date Recorded Sex Assigned at Not on file Legal Sex Male 9:04 AM CDT Gender Identity Not on file Sexual Orientation Not on file Last Filed Vital Signs Vital Sign Reading Time Taken Comments Blood Pressure 110/78 05/26/2025 3:03 PM CDT Pulse 77 05/26/2025 3:03 PM CDT Temperature 36.8 C (98.2 F) 03/03/2025 12:00 PM CDT Respiratory Rate 16 05/26/2025 3:03 PM CDT Oxygen Saturation 92% 03/03/2025 1:00 PM CDT Inhaled Oxygen Concentration - - Weight 117.9 kg (260 lb) 05/26/2025 3:03 PM CDT Height 185.4 cm (6' 1) 05/26/2025 3:03 PM CDT Body Mass Index 34.3 05/26/2025 3:03 PM CDT Plan of Treatment Upcoming Encounters Date Type Department Care Team (Late st Contact Info) Description 12/15/2025 3:40 PM MANAGEMENT RECRUITER Office Visit [facility] - Rheumatology [address], [address] [place] [address] Nik Mullen DO [address] [place] [address] Health Maintenance Due Date Last Done Comments HIV SCREENING 1997 HEPATITIS C SCREENING 03/10/2000 DTAP/TDAP/TD VACCINES (1 - Tdap) 2001 HEPATITIS B VACCINE (1 of 3 - 19+ 3-dose series) 2001 HPV VACCINE (1 - 3-dose SCDM series) 2009 COVID-19 VACCINE (3 - season) 2024 02/04/2021, 01/07/2021 INFLUENZA VACCINE (#1) 2025 01/02/2025, 2022 SCREENING FOR DIABETES 03/03/2028 , 03/03/2025, 03/03/2025, [...] Comments BASIC METABOLIC PANEL (CALCIUM TOTAL) Routine 03/03/2025 3:27 AM CDT LIPID PROFILE Routine 03/03/2025 3:27 AM CDT from Last 3 Months or Most Recently Relevant to Health Maintenance Results * (ABNORMAL) BASIC METABOLIC PANEL (CALCIUM TOTAL) (03/03/2025 3:27 AM CDT) BUN 17 7 - 26 mg/dL 03/03/2025 4:03 AM [facility] Creatinine 0.94 0.71 - 1.16 mg/dL 03/03/2025 4:03 AM [facility] Sodium 142 136 - 145 mmol/L 03/03/2025 4:03 AM [facility] Potassium 4.0 3.5 - 4.5 mmol/L 03/03/2025 4:03 AM [facility] Chloride 109(H) 98 - 107 mmol/L 03/03/2025 4:03 AM [facility] CO2 22 22 - 29 mmol/L 03/03/2025 4:03 AM [facility] Glucose 92 70 - 99 mg/dL 03/03/2025 4:03 AM [facility] Calcium 8.0(L) 8.4 - 10.2 mg/dL 03/03/2025 4:03 AM [facility] Anion Gap 11 6 - 16 03/03/2025 4:03 AM [facility] BUN/Creatinine Ratio 18 7 - 23 03/03/2025 4:03 AM CDT [facility] Osmolality Calculated 295 275 - 295 mOsm/kg 03/03/2025 4:03 AM [facility] eGFR by CKD-EPI >90 >=90 mL/min/1.7 3 m2 03/03/2025 4:03 AM [facility] Blood BLOOD SPECIMEN / Unknown Venipuncture / Unknown 03/03/2025 3:27 AM CDT 03/03/2025 3:34 AM CDT Sameer Neal MD LAB - CHEMISTRY ORDERABLES Final Result [facility] [address] [place] [address], [facility] [phone] * LIPID PROFILE (03/03/2025 3:27 AM CDT) [facility] Cholesterol Total 136 <200 mg/dL 03/03/2025 4:03 AM [facility] HDL 41 >40 mg/dL 03/03/2025 4:03 AM [facility] Comment: ATP III Classification of HDL Cholesterol: <40 mg/dL: Considered a major risk factor. >60 mg/dL: Considered a negative risk factor. LDL Calculated 73 <100 mg/dL 03/03/2025 4:03 AM [facility] Comment: ATP III Classification of LDL Cholesterol: <100 mg/dL: Optimal 100 - 129 mg/dL: Near Optimal/Above Optimal 130 - 159 mg/dL: Borderline High 160 - 189 mg/dL: High >190 mg/dL: Very High Triglycerides 111 <150 mg/dL 03/03/2025 4:03 AM [facility] Comment: ATP III Classification of Triglycerides: <150 mg/dL: Normal 150 - 199 mg/dL: Borderline High 200 - 400 mg/dL: High >500 mg/dL: Very High Blood BLOOD SPECIMEN / Unknown Venipuncture / Unknown 03/03/2025 3:27 AM CDT 03/03/2025 3:34 AM CDT us Sameer Neal MD LAB - CHEMISTRY ORDERABLES Final Result [facility] [address] [place] [address], [facility] [phone] from Last 3 Months or Most Recently Relevant to Health Maintenance Insurance ANTHEM ANTHEM Advance Directives * Full Code (Latest Code Status on File) Date Activated Date Inactivated Comments 03/02/2025 1:25 PM 03/03/2025 3:55 PM Care Teams Netsuite Developer Relationship Specialty Start Date End Date Jennifer Gomes PA-C [address] [place] [id number] PCP - General Physician Gun Stock Maker 09/26/24 Nik Mullen DO [address] [place] [address] Telescope Operator Rheumatology 08/23/24
--- OUTSIDE RECORDS SUMMARY | 2025-06-30 01:45 | XMS_ITS | Clinical Summary ---
Author Organization [facility] Address [address] [place] [address] Phone Care Team Providers Care Chief Deputy Name Role Phone Corey River MD Primary Care Provider [phone] Allergies Active Allergy Reactions Criticality Noted Date [...] Name Comments Other-comment Father complecations from Agent Posey No Known Problems Mother Relation Name Status [...] on file Legal Sex Male 12:44 PM MARINATOR Gender Identity Not on file Sexual Orientation [...] of 3 - 19+ 3-dose series) 2001 Human Papillomavirus (HPV) Immunization (1 - 3-dose SCDM series) 2009 SARS-COV-2 Immunization ( season) 2024 02/04/2021, 01/07/2021 Influenza Immunization (#1) 2025 08/24/2023 Respiratory Syncytial Virus (RSV) Immunization (Adult) (1 [...] this topic Medical Devices Implanted Type Area Restaurant Team Member Device Identifier Shelf Expiration Date Model / Serial / Lot Tube Ventilation Green 1.14mm 3.5mm Marcus Bevel Ear Fluoroplastic Grommet Tympanic Membrane - [id number] Implanted:Qty: 1 on 01/30/2024 by Corey River MD at [facility] IMPLANT Left: Ear [employer] 03/01/2028 [id number] / [id number] / [id number] [place] [address] [facility] Care Teams Chief Deputy Relationship Specialty Start Date End Date Corey River MD [address] [place] [address] PCP - General Otolaryngology 01/30/24
--- OUTSIDE RECORDS SUMMARY | 2025-06-30 01:45 | XMS_ITS | Encounter Summary ---
Author Organization [facility] Address [address] [place] [address] Phone Care Team Providers Care Cement And Concrete Plant Worker Name Role Phone Jennifer Gomes Primary Care Provider [phone] Encounter Details Date Type Department Care Team (Late st Contact Info) Description 05/21/2025 Results Follow-[facility] Cardiology [address] [facility] [address] [place] [phone] Mark Aguilar MD [address] [place], [place] [id number] ECG 12 lead Social History Tobacco Use Types Packs/Day Years Used Date Smoking Tobacco: Never Smokeless Tobacco: Never Sex and Gender Information Value Date Recorded Sex Assigned at Not on file Legal Sex Male 5:54 PM [employer] 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
--- NOTE | 2025-06-30 07:20 | WPDHPUPDATE1 ---
History and Physical Update Update Date/Time: 06/30/25 07:20 History and Physical has been reviewed, including an updated exam of the patient. There are NO changes in the patient's condition. Risks, benefits, and alternatives have been discussed and questions answered. Patient agrees to proceed with procedure.
[2025-06-30] MEDS: LACTATED RINGERS 1,000 ML 30 ML IV CONT (12:00)
--- NOTE | 2025-06-30 13:17 | P.PNAN_ITS ---
Anes - Initial Pre Proc Eval Procedure: Operation Date: 06/30/25 13:30 Proposed Procedures p Eustachian Tube Balloon Dilation Bilateral with Nasal Endoscope - Navid Mahoney MD Date/Time: 06/30/25 13:17 Surgeon: Navid Mahoney MD Pre Op Diagnosis: Otitis Media Eustachian Disorder Patient Data Age: 45 Gender: M Height: 1.85 m Weight: 115.7 kg Last Vital Signs Temp 36.8 C 06/30/25 11:30 Pulse 79 06/30/25 11:30 Resp 16 06/30/25 11:30 BP 104/80 06/30/25 11:30 Pulse Ox 99 06/30/25 11:30 Allergies Allergy/AdvReac Type Severity Reaction Status Date / Time Penicillins Allergy Unknown Unknown Verified 06/30/25 12:03 Home Medications ?Medication ?Instructions ?Recorded ?Confirmed ?Type ondansetron 4 mg disintegrating 4 mg PO Q6H PRN nausea and 06/27/24 06/06/25 Rx tablet vomiting #12 tabs amitriptyline 25 mg tablet 25 mg PO QHS #1 tablet 09/24/24 06/06/25 Rx ixekizumab 80 mg/mL subcutaneous 80 mg subcut ONCE #1 mL 09/24/24 06/06/25 Rx auto-injector (Taltz Autoinjector) mecobalamin (vitamin B12) 1,000 1,000 mcg PO DAILY #90 tabs 01/27/25 06/06/25 Rx mcg chewable tablet acetaminophen 500 mg capsule 1,000 mg (2 x 500 mg) PO Q6H PRN 05/11/25 06/25/25 Rx pain #30 caps ibuprofen 600 mg tablet 600 mg PO TID PRN pain #30 tabs 05/11/25 06/25/25 Rx lidocaine 4 % topical patch 1 patch topical DAILY PRN pain #10 05/11/25 06/25/25 Rx ea duloxetine 60 mg capsule,delayed 60 mg PO DAILY 05/13/25 06/25/25 History release ubrogepant 100 mg tablet 100 mg PO ONCE #14 tabs 06/04/25 06/25/25 Rx Patient hx anesthesia problems: none Family hx anesthesia problems: none Results Review: All pre-operative results and documents have been reviewed as part of the pre- operative evaluation. PMFSH Past Medical History Medical History Left hemiplegia (~02/2025) Left-sided weakness TIA (transient ischemic attack) Eustachian tube dysfunction S/p Eustachian tube dilatation by Dr. 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 Kodi Barcenas Migraine Surgical History Surgical History History of ear surgery History of hernia surgery History of ankle surgery Family History Family History Mother No problems noted. Father Heart disease Renal failure Hypertension Malignant neoplasm of prostate Social History Social History Smoking status: Never smoker Alcohol intake: never Alcohol use details: rarely Substance use: never Substance use type: does not use Other substance usage details: Denies IVDU Do You Feel Safe in your Home?: Yes Lack of Transportation: No Lack of Food: Never True Current Housing: I Have Housing Concerned About Future Housing: No Difficulty Paying Gas/Electric Bills: No Difficulty Paying for Meds: No Currently Unemployed: No Education: Associate Degree Difficulty w/ Childcare or Family Care: No Living arrangements: with family Occupation/Education: occupation Gender identity (if verbalized by the patient): Male Spiritual care concerns: No Anes - Eval Final PreProcedure Day of Procedure 06/30/25 13:17 Patient weight: obese Heart: regular rate and rhythm Lungs: clear to auscultation Airway: Mallampati scale class II Neurological: alert and oriented Last oral intake: >/= 8 hours ASA classification: III Emergent: no Anesthetic plan: proceed Anesthesia type and monitoring: general LMA and standard monitoring Results Review: All pre-operative results and documents have been reviewed as part of the pre- operative evaluation. Informed Consent: The patient's anesthetic plan and its attendant risks and benefits were discussed with the patient/family/POA. Questions were solicited and answers provided to the satisfaction of the patient/family/POA.
--- NOTE | 2025-06-30 13:34 | P.HPUP_ITS ---
History and Physical Update Update Date/Time: 06/30/25 13:34 History and Physical has been reviewed, including an updated exam of the patient. There are NO changes in the patient's condition. Risks, benefits, and alternatives have been discussed and questions answered. Patient agrees to proceed with procedure. Other than the procedure will be nasal endoscopy, bilateral eustachian tube balloon dilation, and right-sided myringotomy with tube insertion as the right- sided perforation has healed which was unfortunate because he needs tubes. Hopefully eustachian tube balloon dilation care the issue.
[2025-06-30] MEDS: CIPROFLOXACIN HCL 0.3% OP SOLN 2.5 ML BTL 4 DROP RIGHT EAR (14:02)
[2025-06-30] MEDS: fentaNYL CITRATE INJ (*CRX) 100 MCG/2 ML VIAL 25 MCG IV PUSH (14:38)
[2025-06-30] MEDS: oxyCODONE HCL (*CRX) 5 MG TAB IR PO (15:10)
--- NOTE | 2025-06-30 17:04 | W.PM.PROC2 ---
Procedure Note - Detailed Date of Procedure 06/30/25 Pre-op Diagnosis bilateral eustachian tube dysfunction Post-op Diagnosis Same Procedure Performed 1. Right-sided myringotomy with tube insertion 2. Nasal endoscopy 3. Bilateral eustachian tube balloon dilation Surgeon Navid Mahoney MD Anesthesia General Indications see above Findings the right perforation healed unfortunately for this patient in the eardrum was retracted. Left-sided ear had a T-tube in place look good. A good cannulation of the bilateral william. Good dilation. Description of Procedure Patient identified consent verified in the preoperative holding area. Patient brought to the operating room. Time-out performed. General anesthesia was induced LMA secured. Patient prepped draped position 2nd time-out performed. Right-sided viewed with the otoscope. Retracted eardrum myringotomy made extending the previous perforation which had a monomeric membrane 1 mm. Collar button tube placed. Drops placed. Patient tolerated the procedure very well. Attention then turned the nasal passages Afrin-soaked pledgets placed for 5 minutes then removed. Septal deviation present but I was able to cannulate both william. The balloon was inflated for 2 minutes and then removed. No complication. This was bilateral eustachian tube balloon dilation. Patient tolerated the procedure very well there were no complications. Patient taken to PACU after care the patient given Anesthesiology. I performed all dictated portions of the procedure. Estimated Blood Loss 0 Drains No Packing No Pathology None sent Complications No immediate complications Condition Stable Disposition PACU [facility] Billing Surgery - Charge Forward: Surgery Billing
== END 2025-06-30 15:41 | disposition home or self-care (01) ==
PROVIDERS: PCP Physician Assistant Medical; Visit Provider Otolaryngology
PROC: (CPT 69436; principal; 2025-06-30 13:30)
DX: H69.93 Unspecified Eustachian tube disorder, bilateral (principal); E55.9 Vitamin D deficiency, unspecified; E53.8 Deficiency of other specified B group vitamins; M79.7 Fibromyalgia; G81.94 Hemiplegia, unspecified affecting left nondominant side; L40.9 Psoriasis, unspecified; E66.9 Obesity, unspecified; Z68.33 Body mass index [BMI] 33.0-33.9, adult; Z79.1 Long term (current) use of non-steroidal anti-inflammatories (NSAID); Z98.890 Other specified postprocedural states; Z86.79 Personal history of other diseases of the circulatory system; Z86.73 Personal history of transient ischemic attack (TIA), and cerebral infarction without residual deficits; Z80.42 Family history of malignant neoplasm of prostate; Z82.49 Family history of ischemic heart disease and other diseases of the circulatory system
CPT/HCPCS: 69436; 69706; A9270; C1726; J1100; J2003; J2004; J2250; J2405; J2704; J3010; J7120

== ENCOUNTER 2025-07-15 15:29 | Outpatient (CLI) | payer BC, SELFPAY ==
--- NOTE | ~2025-07-15 | MR_ITS ---
EXAMINATION: MR cervical spine wo con DATE: 07/15/2025 16:00 INDICATION: Cervical radiculopathy TECHNIQUE: Magnetic resonance imaging (MRI) of the cervical spine was performed without intravenous contrast. Sequences included sagittal T2-weighted FSE, sagittal T2-weighted FS FSE, sagittal T1-weighted FSE, axial MERGE and axial T2- weighted FSE. COMPARISON: None FINDINGS: Bone alignment is normal. Vertebral body heights are normal. Bone marrow signal intensity is normal. Intervertebral disc heights are normal. Cord signal intensity is normal. Visual cervical soft tissues are unremarkable. The following disc levels are specifically discussed: C2-C3: The disc does not extend beyond the endplate margin. There is no uncovertebral joint osteoarthritis. There is mild bilateral facet joint osteoarthritis. There is no neural foraminal stenosis. There is no central canal stenosis. C3-C4: Disc is minimally bulging. There is mild right and mild to moderate left uncovertebral joint osteoarthritis. There is mild bilateral facet joint osteoarthritis. There is mild left neural foraminal stenosis. There is no central canal stenosis. C4-C5: Disc is minimally bulging. There is mild right and moderate left uncovertebral joint osteoarthritis. There is mild bilateral facet joint osteoarthritis. There is mild left neural foraminal stenosis. There is no central canal stenosis. C5-C6: The disc does not extend beyond the endplate margin. There is mild left uncovertebral joint osteoarthritis. There is mild bilateral facet joint osteoarthritis. There is no neural foraminal stenosis. There is no central canal stenosis. C6-C7: The disc does not extend beyond the endplate margin. There is mild left uncovertebral joint osteoarthritis. There is mild bilateral facet joint osteoarthritis. There is no neural foraminal stenosis. There is no central canal stenosis. C7-T1: The disc does not extend beyond the endplate margin. There is mild left uncovertebral joint osteoarthritis. There is mild right and moderate left facet joint osteoarthritis. There is no neural foraminal stenosis. There is no central canal stenosis. IMPRESSION: 1. Minimal to mild cervical spondylosis. Reviewed, dictated and finalized at location A.
== END 2025-07-15 15:30 | disposition home or self-care (01) ==
LOC: MICIMG 15:30
PROVIDERS: PCP Physician Assistant Medical; Visit Provider Nurse Practitioner Family
DX: M47.812 Spondylosis without myelopathy or radiculopathy, cervical region (principal)
CPT/HCPCS: 72141

== ENCOUNTER 2025-08-13 17:22 | Emergency (ER) | payer BC, SELFPAY ==
--- OUTSIDE RECORDS SUMMARY | 2025-07-18 03:00 | XMS_ITS | Continuity of Care Document ---
Author Organization [facility] Address [address] [facility] [address] [place] [address] Phone Care Team Providers Care Programmer Name Role Phone [place] Pool OT Unavailable Unavailable Procedures Procedure Date Identified as not an unhealthy alcohol u ser Not identified as unhealthy alcohol via screening OT Re-Evaluation Therapeutic Activities Neuromuscular Re-Ed Therapeutic Exercise Manual Therapy Hot or Cold Pack Therapeutic Activities Neuromuscular Re-Ed Therapeutic Exercise Manual Therapy Hot or Cold Pack Cancel or No Show Charge Therapeutic Activities Neuromuscular Re-Ed Therapeutic Exercise [...] Diagnoses Date Provider Providers Copied on Encounter [facility] [facility], [id number], tel:[phone] [place] No Information Sep-0 5- 5 Pool [place]. . Referring Provider: Jennifer Gomes [address] [place] [address], [address]. tel:[phone] [facility] [address] [facility] [address], [place], [id number], tel:[phone] [place] No Information Sep-0 - 5 Pool [place]. . Referring Provider: [facility] [address] [place] [address], [address]. tel:[phone] [facility] [facility] [place] [facility] [address], [place], [id number], tel:[phone] [place] No Information Sep-0 2-202 5 Pool [place]. . Referring Provider: Physician Helga. [facility], [address], [place], [place], [id number], [place] tel:[phone] [place] No Information 5 Pool [place]. . Referring Provider: Jennifer Gomes [address] [place] [address] [address], [place], [address]. tel:[phone] [facility] [address], [place], [place], [id number], [place] tel:[phone] [place] No Information 5 Pool [place]. . Referring Provider: Jennifer Gomes [address] [place] [address] [address], [place], [address]. tel:[phone] [facility] [address], [place], [place], [id number], [place] tel:[phone] [place] No Information 5 Pool [place]. . Referring Provider: Jennifer Gomes [address] [place] [address] [address], [place], [address]. tel:[phone] [facility] [address], [place], [place], [id number], [place] tel:[phone] [place] No Information 5 Pool [place]. . Referring Provider: Jennifer Gomes [address] [place] [address] [address], [place], [address]. tel:[phone] [facility] [address], [place], [place], [id number], [place] tel:[phone] [place] No Information 5 Pool [place]. . Referring Provider: Jennifer Gomes [address] [place] [address] [address], [place], [address]. tel:[phone] [facility] [address], [place], [id number], [place] tel:[phone] [place] No Information 5 Pool [place]. . Referring Provider: Jennifer Gomes [address] [place] [address] [address], [place], [address]. tel:[phone] [facility], [place], [place], [id number], [place] tel:[phone] [place] No Information 2 2- 5 Pool [place]. . Referring Provider: Physician Helga. [facility], [address], [place], [place], [address], [place] tel:[phone] [place] No Information 0- 5 Pool [place]. . Referring Provider: Jennifer Gomes [address] [place] [address] [address], [place], [address]. tel:[phone] [facility] [address], [place], [place], [address], [place] tel:[phone] [place] No Information 0 8- 5 Marlo Argueta. . Referring Provider: Jennifer Gomes [address] [place] [address] [address], [place], [address]. tel:[phone] [facility] [address], [place], [id number], [place] tel:[phone] [place] No Information 0 3- 5 Marlo Argueta. . Referring Provider: Jennifer Gomes Andrzej Edna [address], [place], [address]. tel:[phone] [facility] [address], [place], [address], [place] tel:[phone] [place] No Information 5 Pool [place]. . Referring Provider: Jennifer Gomes [address] [place] [address] [address], [place], [address]. tel:[phone] [facility] [address], [place], [address], [place] tel:[phone] [place] No Information 5 Pool [place]. . Referring Provider: Jennifer Gomes Andrzej Edna [address], [place], [address]. tel:[phone] [facility], [address], [place], [place], [address], [place] tel:[phone] [place] No Information 5 Velazco Caryn. . Referring Provider: Jennifer Gomes Andrzej Ulises [address], [place], [address]. tel:[phone] [place] [address], [place], [address], [place] tel:[phone] [place] No Information 5 Pool [place]. . Referring Provider: Jennifer Gomes Andrzej Edna [address], [place], [address]. tel:[phone] [facility] [address], [place], [address], [place] tel:[phone] [place] No Information 5 Pool [place]. . Referring Provider: Jennifer Gomes Andrzej Edna [address], [place], [address]. tel:[phone] [facility] [address], [place], [place], [address], [place] tel:[phone] [facility] No Information 5 Mrac Tato. . Referring Provider: Jennifer Gomes Andrzej Edna [address], [place], [address]. tel:[phone] [facility] [address], [place], [id number], [place] tel:[phone] [facility] No Information 5 Marc Tato. . Referring Provider: Jennifer Gomes Andrzej Edna [address], [place], [address]. tel:[phone] [facility], [place], [place], [address], [place] tel:[phone] [place] No Information March- 9- 5 Marc Tato. . Referring Provider: Jennifer Gomes, [facility], [place], [address]. tel:[phone] [facility] [address], [place], [place], [id number], [place] tel:[phone] [place] No Information March-1 2-202 5 Marc Tato. . Referring Provider: Jennifer Gomes, [address] [place] [address] [address], [place], [address]. tel:[phone] [facility], [place], [place], [address], tel:[phone] [place] No Information May-0 8- 5 Marc Tato. . Referring Provider: Jennifer Gomes, [facility], [place], [address]. tel:[phone] [facility] [address], [place], [place], [id number], [place] tel:[phone] [place] No Information March-0 1- 5 Marc Tato. . Referring Provider: Jennifer Gomes, [facility]2 [address], [place], [address]. tel:[phone] [facility], [place], [place], [address], [place] tel:[phone] [place] No Information 0 3-202 4 Marc Tato. . Referring Provider: [facility] [employer]. [facility], [place], [place], [id number], [place] tel:[phone] [place] No Information 0 1-202 4 Marc Tato. . Referring Provider: [employer]. [facility], [place], [place], [id number], [place] tel:[phone] [place] No Information 4 Marc Tato. . Referring Provider: [facility]. [facility] [address], [id number], tel:[phone] [place] No Information 4 Marc Tato. . Referring Provider: [facility]. [facility] [address], [id number], tel:[phone] [place] No Information 4 Marc Tato. . Referring Provider: [facility]. [facility] [address], [id number], tel:[phone] [place] No Information 4 Marc Tato. . Referring Provider: [facility]. [facility] [address], [id number], tel:[phone] [place] No Information 4 Marc Tato. . Referring Provider: [facility]. [facility] [address], [id number], tel:[phone] [place] No Information 4 Marc Tato. . Referring Provider: [facility]. [facility] [address], [id number], tel:[phone] [place] No Information 4 Marc Tato. . Referring Provider: Physician Screen. Family History Family Member Type Diagnosis Age At Onset No Information Payers Payer name Insurance type Covered republican ID Eugene iyer(s) [facility] [id number] Social History Type Description Quantity Date Captured Comments Alcohol Use Details Unknown Caffeine Use Details Unknown Tobacco Use Status Current non-smoker Smoking Status Never smoker Non-Smoking Tobacco Use Details : No Details Available : No Details Available Sex Male Chief Complaint And Reason For Visit No [...]
--- NOTE | ~2025-08-13 | XR_ITS ---
EXAMINATION: XR chest 2V DATE: 08/13/2025 18:22 INDICATION: Crackles, cough and congestion TECHNIQUE: PA and lateral views of the chest were obtained. COMPARISON: Chest radiograph dated 03/02/2025 FINDINGS: The lungs are clear with no focal airspace opacities, pulmonary edema, pleural effusion or pneumothorax. The cardiomediastinal silhouette is normal. Mild thoracic spondylosis. Chronic mild anterior wedging of a couple vertebral bodies at the thoracolumbar junction. IMPRESSION: 1. No acute cardiopulmonary disease. Reviewed, dictated and finalized at location A.
--- OUTSIDE RECORDS SUMMARY | 2025-08-13 17:26 | XMS_ITS | Clinical Summary ---
Author Organization [facility] Address [address] [place] [address] Care Team Providers Care Survey Engineer Name Role Phone Jennifer Gomes Primary Care Provider [phone] Allergies No known active allergies Medications DULoxetine [...] mL (4 mg total) as needed Active dilTIAZem (CARDIZEM) 30 mg tablet Take 1 tablet (30 mg total) by mouth 3 (three) times a day as needed (As needed for elevated heart rates) 90 tablet 2 07/31/2025 10/29/20 25 Active Active Problems Problem Noted Date Diagnosed Date Syncope and collapse 07/17/2025 Palpitations 07/17/2025 Ectopic beats 07/17/2025 Encounters Date Type Department Care Team Description 07/23/2025 Telephone [facility] Medicine Cardiology [address] [facility] 8th [place] [address] [place] [address] Mark Aguilar MD 05/21/2025 Results Follow-Up 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 Gender Identity Not on file Sexual Orientation [...] 3-dose SCDM series) 2009 Covid-19 Vaccine ( - season) 2025 02/04/2021, 01/07/2021 Influenza Vaccine (#1) 2025 01/02/2025, 2022 DTaP/Tdap/Td Vaccine (6 - Td or Tdap) 09/24/2034 09/24/2024, 07/30/1987, 1982, Additional history exists Pneumococcal vaccine <65 Aged Out No longer eligible based on patient's age to complete this topic Insurance JOSE [employer] ACCESS [employer] ACCESS Care Teams Survey Engineer Relationship Specialty Start Date End Date Jennifer Gomes PA [address] [place] [address] PCP - General Physician Household Refrigerator Mechanic 03/26/25
--- OUTSIDE RECORDS SUMMARY | 2025-08-13 17:26 | XMS_ITS | Clinical Summary ---
Author Organization [facility] Address [address] [place] [address] Care Team Providers Care Verification Lead Name Role Phone None, Provider MD Primary [...] Encounters Date Type Department Care Team Description 08/01/2025 8:55 AM CDT - 08/01/2025 11:59 PM CDT Hospital Encounter [facility] [address] [place] [address] Mark Marshall MD Discharge Disposition: Home or Self Care (Routine Discharge) 08/01/2025 Travel from Last 3 Months Immunizations Immunization Administration Dates Next Due Influenza [...] Comments Blood Pressure 120/80 10/30/2024 10:08 AM WEB DATABASE DEVELOPER Pulse 64 10/30/2024 10:08 AM WEB DATABASE DEVELOPER Temperature 36.6 C (97.9 F) 10/08/2024 12:00 PM WEB DATABASE DEVELOPER Respiratory Rate 13 10/08/2024 12:00 PM WEB DATABASE DEVELOPER Oxygen Saturation 100% 10/08/2024 12:00 PM WEB DATABASE DEVELOPER Inhaled Oxygen Concentration - - Weight 118.8 kg (262 lb) 10/30/2024 10:08 AM WEB DATABASE DEVELOPER Height 185.4 cm (6' 1) 10/30/2024 10:08 AM WEB DATABASE DEVELOPER Body Mass Index 34.57 10/30/2024 10:08 AM WEB DATABASE DEVELOPER Plan of Treatment Upcoming Encounters Date Type Department Care Team (Late st Contact Info) Description 09/03/2025 1:45 PM CDT Office Visit [facility], [facility] [address] [place], [place] [id number] Mark Marshall MD [facility]. [facility] [address] [place], [place] [id number] Health Maintenance Due Date Last Done Comments Annual Physical 1985 Hepatitis C 2000 Hepatitis B Vaccines (1 of 3 - 19+ 3-dose series) 2001 HPV Vaccines (1 - 3-dose SCD M series) 2009 COVID-19 Vaccine (2024-2 6 season) 2025 02/04/2021, 01/07/2021 Influenza Adult (#1) 2025 08/24/2023 DTaP, Tdap and Td Vaccines ( 2 - Td or Tdap) 09/24/2034 09/24/2024 Meningococcal B Vaccine Aged Out No l [...] Procedure Name Priority Date/Time Associated Diagnosis Comments CT CHEST WWO CON Routine 08/01/2025 9:13 AM CDT Dilation of descending aorta Symptoms involving cardiovascular system from Last 3 Months Results * CT CHEST WWO CON (08/01/2025 9:13 AM CDT) Anatomical Region Laterality Modality Chest Computed Tomogra phy 08/12/2025 7:52 AM CDT Impressions 08/12/2025 8:04 AM CDT IMPRESSION: 1. Mild short segment dilatation of the distal aortic arch/proximal descending thoracic aorta appears unchanged. 2. Remaining thoracic aorta appears normal in caliber. 3. No acute inflammatory abnormality in the chest. Referred By: MARK MARSHALL Interpreted By: Alexa Curiel MD, 08/12/2025 7:52 AM Narrative 08/12/2025 8:04 AM CDT [place] [id number] EXAMINATION: CT Chest with and without contrast 08/01/2025 8:56 AM CLINICAL HISTORY: Dilatation of the distal aortic arch seen on prior exam, follow-up. COMPARISON: CTA chest 06/27/2024, calcium scoring CT 09/14/2023 TECHNIQUE: Computed tomography of the chest was obtained before and after administration of intravenous contrast, 100 mL of Isovue-370, without immediate complication according to routine protocol. A dose lowering technique was used for this procedure, which may include, but is not limited to, dose reduction technique, automated exposure control, the use of iterative reconstruction, and ALARA (As Low As Reasonably Achievable) / Image Gently techniques. FINDINGS: VASCULAR FINDINGS: Thoracic aorta: No evidence of dissection, rupture, or intramural hematoma. No significant atherosclerotic calcification. Measurements: Aortic root at Sinuses of Valsalva: 34 mm Sinotubular junction: 26 mm Mid ascending thoracic aorta: 30 mm Transverse Aortic arch: Measures up to 24 mm at the level of the left subclavian artery origin. Distal aortic arch/proximal descending thoracic aorta: 35 mm slightly beyond the left subclavian artery takeoff, unchanged Mid descending thoracic aorta: 25 mm Distal descending thoracic aorta: 23 mm NONVASCULAR FINDINGS: No focal pulmonary consolidation, effusion, or pneumothorax. No suspicious pulmonary mass. Mild dependent atelectasis. No axillary, hilar, or mediastinal lymphadenopathy. Tiny amount of hypodensity in the anterior mediastinum just anterior to the main pulmonary artery appears unchanged from 2022 favoring a benign etiology. Heart size is normal. Main pulmonary artery is normal in caliber. No acute fracture or destructive osseous lesion. Procedure Note Alexa Curiel MD - 08/12/2025 [facility] [address] [place] [address] EXAMINATION: CT Chest with and without contrast 08/01/2025 8:56 AM CLINICAL HISTORY: Dilatation of the distal aortic arch seen on prior exam,follow-up. COMPARISON: CTA chest 06/27/2024, calcium scoring CT 09/14/2023 TECHNIQUE: Computed tomography of the chest was obtained before and afteradministration of intravenous contrast, 100 mL of Isovue-370, withoutimmediate complication according to routine protocol. A dose loweringtechnique was used for this procedure, which may include, but is notlimited to, dose reduction technique, automated exposure control, the useof iterative reconstruction, and ALARA (As Low As Reasonably Achievable) /Image Gently techniques. FINDINGS: VASCULAR FINDINGS: Thoracic aorta: No evidence of dissection, rupture, or intramuralhematoma. No significant atherosclerotic calcification. Measurements: Aortic root at Sinuses of Valsalva: 34 mm Sinotubular junction: 26 mm Mid ascending thoracic aorta: 30 mm Transverse Aortic arch: Measures up to 24 mm at the level of the leftsubclavian artery origin. Distal aortic arch/proximal descending thoracic aorta: 35 mm slightlybeyond the left subclavian artery takeoff, unchanged Mid descending thoracic aorta: 25 mm Distal descending thoracic aorta: 23 mm NONVASCULAR FINDINGS: No focal pulmonary consolidation, effusion, or pneumothorax. Nosuspicious pulmonary mass. Mild dependent atelectasis. No axillary,hilar, or mediastinal lymphadenopathy. Tiny amount of hypodensity in theanterior mediastinum just anterior to the main pulmonary artery appearsunchanged from 2022 favoring a benign etiology. Heart size is normal.Main pulmonary artery is normal in caliber. No acute fracture ordestructive osseous lesion. IMPRESSION: 1. Mild short segment dilatation of the distal aortic arch/proximaldescending thoracic aorta appears unchanged. 2. Remaining thoracic aorta appears normal in caliber. 3. No acute inflammatory abnormality in the chest. Referred By: MARK MARSHALL Interpreted By: Alexa Curiel MD, 08/12/2025 7:52 AM us Mark Marshall MD CT Final Result from Last [address] Care Teams Verification Lead Relationship Specialty Start Date End Date None, Provider, PCP - General UNKNOWN PHYSICIAN SPECIALTY 09/14/23
--- OUTSIDE RECORDS SUMMARY | 2025-08-13 17:27 | XMS_ITS | Encounter Summary ---
Author Organization [facility] Address [address] [place] [address] Care Team Providers Care Health Education Coordinator Name Role Phone Nik Mullen DO Unavailable Jennifer Gomes PA-C Primary Care Provider [phone] Encounter Details Date Type Department Care Team (Late st Contact Info) Description 04/04/2025 Telephone [facility] - Neurology [address] [facility], [place] [id number] Macario Espinosa MD [address] [place] [address] Social History Tobacco Use Types Packs/Day Years [...] Recorded Patient Health Questionnaire-2 Score 0 02/17/2025 [facility] of Occupat ional Health - Occupational Stress [...] any time in the past 12 m [facility], were you homeless or living in a assisted (including now)? No 03/02/2025 Sex and Gender [...] call him back. Patient Call Back Number: [phone] documented in this encounter Plan of Treatment Upcoming Encounters Date Type Department Care Team (Late st Contact Info) Description 12/15/2025 3:40 PM RETAIL CUSTODIAL ASSOCIATE Office [facility] - Rheumatology [address], [address] [place] [address] Nik Mullen DO [address] [place] [address] documented as of this encounter Visit Diagnoses Not on filedocumented in this encounter Care Teams Health Education Coordinator Relationship Specialty Start Date End Date Jennifer Gomes PA-C [address] [place] [address] PCP - General Physician Mobile Manager 09/26/24 Nik Mullen DO [address] [place] [address] Parking Lot Manager Rheumatology 08/23/24 documented as of this encounter
--- OUTSIDE RECORDS SUMMARY | 2025-08-13 17:27 | XMS_ITS | Encounter Summary ---
Author Organization [facility] Address [address] [place] [address] Care Team Providers Care Shuttle Veneering Supervisor Name Role Phone Cory Leavitt MD Primary Care Provider Unavailable None, Provider Primary Care Provider Unavaila ble Encounter Details Date Type Department Care Team (Late st Contact Info) Description 09/16/2017 [place] [address] Cory Leavitt MD Social History Tobacco Use [...] Description 09/03/2025 1:45 PM CDT Office Visit [facility] [address] [place], [place] [id number] Mark Gallegos MD [facility]. [facility] [address] [place] [address] documented as of this encounter Visit Diagnoses Not on filedocumented in this encounter Additional Health Concerns Infection Onset Date Last Indicated Resolved Time COVID-19 Rule Out 06/27/2024 06/27/2024 06/27/2024 5:40 PM CDT documented as of this encounter Care Teams Shuttle Veneering Supervisor Relationship Specialty Start Date End Date Cory Laevitt MD PCP - General 05/24/15 01/22/18 None, ProviderMD PCP - General UNKNOWN PHYSICIAN SPECIALTY 09/14/23 documented as of this encounter
--- OUTSIDE RECORDS SUMMARY | 2025-08-13 17:27 | XMS_ITS | Clinical Summary ---
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 Gender Identity Not on file Sexual Orientation [...] Immunization (1 - 3-dose SCDM series) 2009 Influenza Immunization (#1) 2025 08/24/2023 SARS-COV-2 Immunization (2024- season) 2025 02/04/2021, 01/07/2021 Respiratory Syncytial Virus (RSV) Immunization [...] this topic Medical Devices Implanted Type Area Bobbin Washer Device Identifier Shelf Expiration Date Model / Serial / Lot Tube Ventilation Green 1.14mm 3.5mm Marcus Bevel Ear Fluoroplastic Grommet Tympanic Membrane - [id number] Implanted:Qty: 1 on 01/30/2024 by Corey River MD at [facility] IMPLANT Left: Ear [employer] 03/01/2028 [id number] / [id number] / [id number] [place] [address] [facility] Care Teams Biostatistician Relationship Specialty Start Date End Date Corey River MD [address] [place] [address] PCP - General Otolaryngology 01/30/24
--- OUTSIDE RECORDS SUMMARY | 2025-08-13 17:27 | XMS_ITS | Data Portability ---
Author Organization [facility], Main Office Address [address] [place] [address] Care Team Providers Care Integrative Medicine Physician Name Role Phone [facility] Primary Care Provider Assessment No assessment recorded. Plan of Treatment Reminders Order Date Submit Date Provider Last Modified By Organization Details Last Modified Time Details Appointments None recorded. Lab None recorded. Referral None recorded. Procedures eustachian tube balloon dilation (PROC) 2023 024 [email or web address] Not available 4 17:20:00 Surgeries myringotomy , with eustachian tube inflation (SURG) 2022 021 [email or web address] [id number] Not available 3 17:13:55 Imaging None recorded. Medication Orders clindamycin HCl 300 mg capsule 2023 [id number], [address], [place], [id number], 4 10:15:29 Medrol (Manoj) 4 mg tablets in a dose pack 2023 024 [facility]illo[facility] #[id number], [address], [place], [id number], 4 10:15:31 Patient TargetsNo targets recorded. Patient Instructions Encounter Date Encounter Id Patient Instructions Last Modified By Organization Details Last Modified Time 02/08/2024 [id number] he will return a s needed [email or web address] Not available 02/14/2024 16:56:09 Reason for Referral None Reported. Results Created Date Observation Date Name Description Value Unit Range Abnormal Flag Note LastModifiedBy Organization Detail LastModifiedTime 01/22/20 24 01/26/2024 LIZY ENRIQUE A potassium 3.6 mmol/ L 3.4-4. 8 normal Not Available [address], [address], 01/26/2024 11:20:40 01/22/20 24 01/26/2024 CBC (INCL UDES DIFF/ PLT) white blood cell count 6.3 thous and/u L 3.8-10 .8 normal Not Available [address], [address], 01/26/2024 11:20:40 01/22/20 24 01/26/2024 CBC (INCL UDES DIFF/ PLT) red blood cell count 5.64 estrella on/uL 4.20-5 .80 normal Not Available [address], [address], 01/26/2024 11:20:40 01/22/20 24 01/26/2024 CBC (INCL UDES DIFF/ PLT) hemoglobin 15.9 g/dL 13.2-1 7.1 normal Not Available [address], [address], 01/26/2024 11:20:40 01/22/20 24 01/26/2024 CBC (INCL UDES DIFF/ PLT) hematocrit 46.7 % 38.5-5 0.0 normal Not Available [address], [address], 01/26/2024 11:20:40 01/22/20 24 01/26/2024 CBC (INCL UDES DIFF/ PLT) MCV 82.8 fL 80.0-1 00.0 normal Not Available [address], [address], 01/26/2024 11:20:40 01/22/2003 0201/26/2024 CBC (INCL UDES DIFF/ PLT) MCH 28.2 pg 27.0-3 3.0 normal Not Available [address], [address], 01/26/2024 11:20:40 01/22/20 24 01/26/2024 CBC (INCL UDES DIFF/ PLT) MCHC 34.0 g/dL 32.0-3 6.0 normal Not Available [address], [address], 01/26/2024 11:20:40 01/22/20 24 01/26/2024 CBC (INCL UDES DIFF/ PLT) RDW 12.9 % 11.0-1 5.0 normal Not Available [address], [address], 01/26/2024 11:20:40 01/22/20 24 01/26/2024 CBC (INCL UDES DIFF/ PLT) platelet count 249 thous and/u L 140-40 0 normal Not Available [address], [address], 01/26/2024 11:20:40 01/22/20 24 01/26/2024 CBC (INCL UDES DIFF/ PLT) MPV 10.8 fL 7.5-12 .5 normal Not Available [address], [address], 01/26/2024 11:20:40 01/22/20 24 01/26/2024 CBC (INCL UDES DIFF/ PLT) absolute neutrophils 3515 cells /uL 1500-7 800 normal Not Available [address], [address], 01/26/2024 11:20:40 01/22/20 24 01/26/2024 CBC (INCL UDES DIFF/ PLT) absolute lymphocytes 2123 cells /uL 850-39 00 normal Not Available [facility] [address], [address], 01/26/2024 11:20:40 01/22/20 24 01/26/2024 CBC (INCL UDES DIFF/ PLT) absolute monocytes 403 cells /uL 200-95 0 normal Not Available [facility] [address], [address], 01/26/2024 11:20:40 01/22/20 24 01/26/2024 CBC (INCL UDES DIFF/ PLT) absolute eosinophils 221 cells /uL 15-500 normal Not Available [facility] [address], [address], 01/26/2024 11:20:40 01/22/20 24 01/26/2024 CBC (INCL UDES DIFF/ PLT) absolute basophils 38 cells /uL 0-200 normal Not Available [facility] [address], [address], 01/26/2024 11:20:40 01/22/20 24 01/26/2024 CBC (INCL UDES DIFF/ PLT) neutrophils 55.8 % normal Not Available [facility] [address], [address], 01/26/2024 11:20:40 01/22/20 24 01/26/2024 CBC (INCL UDES DIFF/ PLT) lymphocytes 33.7 % normal Not Available [facility] [address], [address], 01/26/2024 11:20:40 01/22/20 24 01/26/2024 CBC (INCL UDES DIFF/ PLT) monocytes 6.4 % normal Not Available [facility] [address], [address], 01/26/2024 11:20:40 01/22/20 24 01/26/2024 CBC (INCL UDES DIFF/ PLT) eosinophils 3.5 % normal Not Available [facility] [address] [place], [address], 01/26/2024 11:20:40 01/22/20 24 01/26/2024 CBC (INCL UDES DIFF/ PLT) basophils 0.6 % normal Not Available [facility] [address], [place], [address], 01/26/2024 11:20:40 07/20/20 21 07/20/2021 audio gram + tympa nogra m No observ ation record ed. [id number] [facility] (Audiology) [address], [place], [address], 01/11/2023 17:13:56 Result Notes None recorded. Problems Name Problem SNOMED Code Status Onset Date Resolution Date Notes Provider Name and Address Organization Details Recorded Time Finding of bacteria by serology 938001730 Active Not Available [facility] 3 17:13:06 Dysfunctio n of left eustachian tube 1212409904424 106 Active 2023 Corey River MD [address] [address], [place], [address] , [employer] 4 17:14:52 Problem Notes None recorded. Procedures Surgical History Date Name Laterality Status Provider Name and Address Organization Details Recorded Time 08/23/20 21 MYRINGOTOMY, WITH EUSTACHIAN TUBE INFLATION (SURG) completed Not Available [facility] 01/11/2023 17:13:55 inflation of Eustachian tube using balloon completed Fanny Elizabeth RN [facility] 02/07/2024 10:16:03 myringotomy and insertion of tympanic ventilation tube completed Fanny Elizabeth RN [facility] 02/07/2024 10:15:59 Imaging Results None recorded. Procedure Notes None recorded. Medical Equipment None Reported. Allergies Allergen ID Allergen Name Allergen Category Reaction Reaction Severity Criticality Documentation Date Start Date Code Code System Note Provider Name and Address Organization Details Recorded Time 14221 Penicilli n Not available Not available Not available Not available 01/11/2023 88057 RxNorm Not Available [facility] 3 17:13:54 Medications Name Sig Start [...] Xhance 93 mcg/actuati on breath activated aerosol [place] 2 sprays twice a day by intranasa l route. 10/25 completed Not Available Not Available Not Available ID NOW COVID-19 Test Kit TEST DIRECTED. 12/14 completed Not Available Not Available Not Available Vitals Date Recorded Body weight Body mass index (BMI) Body height Body temperature Provider Name and Address Organization Details Last Updated DateTime 12/14/2023 605312.97 g 35.3 kg/m2 186.69 cm 97.8 [degF] Fanny Elizabeth RN [place] [email or web address] [facility] 12/14/2023 17:05:09 Date Recorded Body mass index (BMI) Body height Body temperature Body weight Provider Name and Address Organization Details Last Updated DateTime 08/05/2021 31.1 kg/m2 187.96 cm 97.7 [degF] 130006.3 5 g Not Available [facility] 01/11/2023 17:12:57 Date Recorded Body mass index (BMI) Body height Body temperature Body weight Provider Name and Address Organization Details Last Updated DateTime 08/13/2021 31.1 kg/m2 187.96 cm 97.6 [degF] 745986.3 5 g Not Available [facility] 01/11/2023 17:12:57 Date Recorded Body mass index (BMI) Body height Body temperature Body weight Provider Name and Address Organization Details Last Updated DateTime 10/26/2021 31.1 kg/m2 187.96 cm 97.5 [degF] 368493.3 5 g Not Available [facility] 01/11/2023 17:12:57 Social History Question Answer Notes LastModified by [employer] [place] Details LastModified Time Tobacco Smoking Status Never Smoker Not Available [facility] 01/11/2023 17:12:28 In The 14 Days Before Symptom Onset, Have You Had Close Contact With A Laboratory-confirm ed COVID-19 While That Case Was Ill? No [id number] Information not available 01/11/2023 In The 14 Days Before Symptom Onset, Have You Had Close Contact With A Person Who Is Under Investigation For COVID-19 While That Person Was Ill? No [id number] Information not available 01/11/2023 Have You Recently Traveled Abroad? No [id number] Information not available 01/11/2023 Sex: Unknown Functional Status Question Answer Note LastModified by [employer] Details LastModified Time What is your level of alcohol consumption? Occasional [id number] 26 Information not available 01/11/2023 Mental Status None recorded. Family History Relationship Description Onset Age of this Age Resolved Age Notes LastModified by Organization Details LastModified Time Father No current problems or disability [id number].[email or web address] [id number] Not available 01/11/2023 17:12:29 Mother No current problems or disability [email or web address].[email or web address] [id number] Not available 01/11/2023 17:12:29 Medical History Condition Response MRSA N SLEEP APNEA N ALLERGIES/HAYFEVER N LUNG DISEASE/DISORDER N INSOMNIA N HISTORY OF DRUG ABUSE N RADIATION / CHEMOTHERAPY N COPD N HIGH CHOLESTEROL / HYPERLIPIDEMIA N HYPERTHYROIDISM N BLOOD DISEASES N EAR OR HEARING PROBLEMS N HYPOTHYROIDISM N SHINGLES N DEPRESSION (INCLUDING POST ) N HAVE YOU BEEN HOSPITALIZED OR SEEN IN [facility] ER IN THE PAST YEAR [...] Diagnosis SNOMED-CT Code Diagnosis ICD10 Code Diagnosis IMO Codes Diagnosis Note [id number] [facility] [place] [address] [place] [address] 07/01/2021 00:00:00 07/01/2021 09:38:52 [id number] MD FRANNY R[facility]conS[facility] [place] [address] [place] [address] 08/05/2021 00:00:00 08/05/2021 14:48:12 [id number] [facility] _ATHENA_M IGRATION_ DEFAULT_1 _1 , 08/13/2021 00:00:00 08/13/2021 10:32:22 [id number] MD COLE [facility]con[facility] [place] [address] [place] [address] 10/26/2021 00:00:00 10/26/2021 11:00:57 [id number] MD COLE [facility]con[facility] [place] [address] [place] [address] 12/14/2023 16:34:44 12/18/2023 16:01:18 Dysfunction of left eustachian tube 9899272309 236077 H69.92 [id number] MD FRANNY [facility] [place] [address] [place] [address] 02/09/2024 11:22:10 02/15/2024 09:37:20 Dysfunction of left eustachian tube 4523265124 337994 H69.92 Health Concerns Section Related Observation LastModified by Organization Detai ls LastModified Time None Recorded Concern Status LastModified by Organization Details LastModified Time None Recorded Advance Directives Directive None Recorded Payers Insurance Date Sequence Insurance Name Policy Number Policy Robins Covered Member ID Robins Member ID Guarantor Name 05/05/2025 1 [place] [id number] 1 Mauri Smith [id number] Mauir Smith 12/11/2023 1 [facility] [id number] Mauri Tai Smith [id number] Mauri Tai Smith Notes Date Note Type Note Provider Name and Address Organization Details Recorded Time 12/14/2023 text/html Had right ETBD 2 years ago and had a flight 2 weeks ago. Now the left closed off and he believes there is fluid. Corey River MD [address], [place], [address], [employer] [facility] 12/14/2023 17:16:01 02/08/2024 text/html he is doing very well following Eustachian tube balloon on the left. He reports that his hearing has recovered Corey River MD [address], [place], [address], [employer] 02/14/2024 16:56:26
--- OUTSIDE RECORDS SUMMARY | 2025-08-13 17:27 | XMS_ITS | Clinical Summary ---
Author Organization [facility] Address [address] [place] [address] Care Team Providers Care Improvement Manager Name Role Phone Nik Mullen DO Unavailable Jennifer Gomes PA-C Primary Care Provider [phone] Source Comments [facility],non-owned Affiliates and Associated Physician Practices is amultiple site organization consisting of ambulatory clinics and hospital sitesin [place], [place], [place] and [place]. This disclosure is being madepursuant to the Care Everywhere program and may not contain all information available regarding this patient. 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 No 03/02/2025 Sex and Gender [...] st Contact Info) Description 12/15/2025 3:40 PM CHECK PILOT Office Visit [facility] - Rheumatology [address], [address] [place] [address] Nik Mullen DO [address] [facility] [address] [place] [address] Health Maintenance Due Date Last Done Comments HIV SCREENING 1997 HEPATITIS C SCREENING 03/10/2000 DTAP/TDAP/TD VACCINES (1 - Tdap) 2001 HEPATITIS B VACCINE (1 of 3 - 19+ 3-dose series) 2001 HPV VACCINE (1 - 3-dose SCDM series) 2009 COVID-19 VACCINE (3 - 2024- season) 2025 02/04/2021, 01/07/2021 INFLUENZA VACCINE (#1) 2025 01/02/2025, [...] 7 - 26 mg/dL 03/03/2025 4:03 AM [facility] Creatinine 0.94 0.71 - 1.16 mg/dL 03/03/2025 4:03 AM [facility] Sodium 142 136 - 145 mmol/L 03/03/2025 4:03 AM [facility] Potassium 4.0 3.5 - 4.5 mmol/L 03/03/2025 4:03 AM [facility] Chloride 109(H) 98 - 107 mmol/L 03/03/2025 4:03 AM [facility] CO2 22 22 - 29 mmol/L 03/03/2025 4:03 AM [facility] Glucose 92 70 - 99 mg/dL 03/03/2025 4:03 AM [facility] Calcium 8.0(L) 8.4 - 10.2 mg/dL 03/03/2025 4:03 AM [facility] Anion Gap 11 6 - 16 03/03/2025 4:03 AM [facility] BUN/Creatinine Ratio 18 7 - 23 03/03/2025 4:03 AM [facility] Osmolality Calculated 295 275 - 295 mOsm/kg 03/03/2025 4:03 AM [facility] eGFR by CKD-EPI >90 >=90 mL/min/1.7 3 m2 03/03/2025 4:03 AM [facility] Blood BLOOD SPECIMEN / Unknown Venipuncture / Unknown 03/03/2025 3:27 AM CDT 03/03/2025 3:34 AM CDT Sameer Neal MD LAB - CHEMISTRY ORDERABLES Final Result [address] [address], [place] [phone] * LIPID PROFILE (03/03/2025 3:27 AM CDT) [facility] Cholesterol Total 136 <200 mg/dL 03/03/2025 4:03 AM [facility] HDL 41 >40 mg/dL 03/03/2025 4:03 AM [facility] Comment: ATP III Classification of HDL Cholesterol: <40 mg/dL: Considered a major risk factor. >60 mg/dL: Considered a negative risk factor. LDL Calculated 73 <100 mg/dL 03/03/2025 4:03 AM [facility] Comment: ATP III Classification of LDL Cholesterol: <100 mg/dL: Optimal 100 - 129 mg/dL: Near Optimal/Above Optimal 130 - 159 mg/dL: Borderline High 160 - 189 mg/dL: High >190 mg/dL: Very High Triglycerides 111 <150 mg/dL 03/03/2025 4:03 AM [facility] Comment: ATP III Classification of Triglycerides: <150 mg/dL: Normal 150 - 199 mg/dL: Borderline High 200 - 400 mg/dL: High >500 mg/dL: Very High Blood BLOOD SPECIMEN / Unknown Venipuncture / Unknown 03/03/2025 3:27 AM CDT 03/03/2025 3:34 AM CDT us Sameer Neal MD LAB - CHEMISTRY ORDERABLES Final Result [address] [address], [place] [phone] from Last 3 Months or Most Recently Relevant to Health Maintenance Insurance ANTHEM Member Subscriber Plan / Payer (Ef fective 2023-Present) Name:Mauri Smith Relation to Subscriber:Self Name:Mauri Smith Payer ID:[id number] (NAIC) Type:PPO Address: [address] [place] [phone] ANTHEM Advance Directives * Full Code (Latest Code Status on File) Date Activated Date Inactivated Comments 03/02/2025 1:25 PM 03/03/2025 3:55 PM Care Teams Improvement Manager Relationship Specialty Start Date End Date Jennifer Gomes PA-C [address] [place] [id number] PCP - General Physician [employer] 09/26/24 Nik Mullen DO [address] [address] [employer] Member Rheumatology 08/23/24
[2025-08-13 17:34] VITALS: BP 122/77; PULSE 76; RESP 18; TEMP 36.6; O2SAT 99
[2025-08-13 18:07] LABS: EDCOVIDSCREEN Negative (Negative); EDINFLUASCREEN Negative (Negative); EDINFLUBSCREEN Negative (Negative)
--- NOTE | 2025-08-13 18:18 | ED.NAVMDI ---
HPI - Nausea/Vomiting/Diarrhea General Chief complaint: Nausea/Vomiting/Diarrhea Stated complaint: N/V/D Time Seen by Provider: 08/13/25 18:00 Source: patient and RN notes reviewed Mode of arrival: ambulatory Limitations: no limitations History of Present Illness HPI Narrative: 45-year-old male presents Express Care complaining of fevers, nausea, diarrhea my cough, congestion for approximally 2 days. Patient denies any body aches, chills, vomiting, chest pain, difficulty breathing, shortness of breath, leg swelling or runny nose, earache, or any other symptoms. Patient has been taking Tylenol to help with pain fevers. Patient reports a history of POTS, SVT, stroke, left-sided weakness, and chronic urine infections. Related Data Home Medications ?Medication ?Instructions ?Recorded ?Confirmed ?Last Taken ?Type duloxetine 60 mg capsule,delayed 60 mg PO DAILY 05/13/25 07/31/25 Unknown History release Allergies Allergy/AdvReac Type Severity Reaction Status Date / Time Penicillins Allergy Unknown Unknown Verified 08/13/25 17:32 Review of Systems Review of Systems: CONSTITUTIONAL: Positive for fevers. Negative for body aches, Chills, or sweats. EYES: Denies visual changes, redness, or discharge. ENT: Positive for congestion, sore throat. Negative for rhinorrhea or otalgia. CARDIOVASCULAR: Denies chest pain, palpitations, or edema. RESPIRATORY: Positive for cough. Negative for wheezing or dyspnea. GASTROINTESTINAL: Denies abdominal pain, nausea, bloody stools, vomiting blood, or vomiting. Positive for diarrhea. GENITOURINARY: Denies dysuria or hematuria. SKIN: Denies rash or itching. MUSCULOSKELETAL: Denies back pain, joint pain, or myalgia. NEUROLOGIC: Denies headache, numbness, or weakness. PSYCHIATRIC: Denies anxiety or depression. All other systems reviewed are negative, except as documented in HPI. [facility] Past Medical History Medical History Left hemiplegia (~02/2025) Left-sided weakness TIA (transient ischemic attack) Eustachian tube dysfunction S/p Eustachian tube dilatation by Dr. 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 Father Heart disease Renal failure Hypertension Malignant neoplasm of prostate Social History Social History Smoking status: Never smoker Alcohol intake: never Alcohol use details: rarely Substance use: never Substance use type: does not use Other substance usage details: Denies IVDU Do You Feel Safe in your Home?: Yes Lack of Transportation: No Lack of Food: Never True Current Housing: I Have Housing Concerned About Future Housing: No Difficulty Paying Gas/Electric Bills: No Difficulty Paying for Meds: No Currently Unemployed: No Education: Associate Degree Difficulty w/ Childcare or Family Care: No Living arrangements: with family Occupation/Education: occupation Gender identity (if verbalized by the patient): Male Spiritual care concerns: No Comments At the time of my signature, I reviewed and agree with the nursing past medical, surgical, social, and family history. There is no relevant family history pertinent to the patient complaint. Exam Narrative: GENERAL: This is a well-nourished, well-developed adult, in no apparent distress. They are non ill-appearing, nontoxic appearing. HEAD: normocephalic, atraumatic. EYES: Sclera clear/white. Conjunctiva normal. Vision is grossly intact. Extraocular movements intact EARS: External ears normal, auditory canals clear and without drainage, TMs normal without perforation. Left ear tube present. Hearing grossly intact. NOSE: External nose normal with no obvious nasal discharge, nasal turbinates erythematous, no rhinorrhea. THROAT: Mucous membranes moist, posterior pharynx erythema without swelling. Uvula midline. NECK: Neck supple, non-tender without lymphadenopathy, masses or thyromegaly. CARDIOVASCULAR: Regular rate and rhythm without murmurs, gallops, or rubs. RESPIRATORY: Crackles to bilateral bases otherwise clear throughout. Breath sounds equal bilaterally. No wheezes, or rhonchi. GASTROINTESTINAL: Abdomen soft, non-tender, nondistended. Bowel sounds are active. No hepato-splenomegaly, or palpable masses. No guarding. SKIN: warm, Dry, intact with no suspicious lesions or rash, good texture and turgor. NEURO: awake, alert, and oriented to person, place and time. There were no obvious focal neurologic abnormalities. EXTREMITIES: No joint tenderness, effusion, or edema noted. BACK: Nontender without deformity. No CVA tenderness. Course Course Emergency Course: Portions of this record may have been created with voice recognition software Level of Care: Express Care Visit Vital Signs Vital signs: Vital Signs Temperature 97.9 F 08/13/25 17:34 Pulse Rate 76 08/13/25 17:34 Respiratory Rate 18 08/13/25 17:34 Blood Pressure 122/77 08/13/25 17:34 Pulse Oximetry 99 08/13/25 17:34 Oxygen Delivery Room Air 08/13/25 17:34 Temperature 97.9 F 08/13/25 17:34 Pulse Rate 76 08/13/25 17:34 Respiratory Rate 18 08/13/25 17:34 Blood Pressure 122/77 08/13/25 17:34 Pulse Oximetry 99 08/13/25 17:34 Oxygen Delivery Room Air 08/13/25 17:34 Reviewed MDM - Nausea/Vomiting/Diarrhea MDM Narrative Medical decision making narrative: Rapid COVID and flu were negative. Crackles present to bilateral lower lobes. Patient says he has a history dependent atelectasis. Given his current acute symptoms will obtain chest x-ray. Official chest x-ray is pending. Will contact patient with results of chest x-ray. Review of imaging myself appears probable infiltrates in the bilateral lobes, no obvious atelectasis present. No other acute cardiopulmonary findings. Pressure decision making with patient discussed option of waiting treatment for possible pneumonia with antibiotics until chest x-ray result her go ahead and treat for pneumonia clinically. As he symptoms may be will so viral etiology. Patient like to it and start treatment. Will go ahead and treat with azithromycin. Discussed physical exam findings. Advised supportive measures and signs/symptoms to go to the ER. Pt is appropriate for outpt treatment and f/u. Differential Diagnosis Differential diagnosis: Likely other (Pneumonia, viral infection, gastroenteritis) Lab Data Attestation: I reviewed the patient's lab results. Labs: Lab Results 08/13/25 Range/Units 18:05 POC Influenza A Ag Negative (Negative) POC Influenza B Ag Negative (Negative) POC SARS CoV-2 Ag Negative (Negative) Imaging Data Attestation: I personally reviewed and interpreted this imaging study as follows: My impression: Possible infiltrates to the lower lobes. Otherwise no acute cardiopulmonary findings. Radiologist's impression: ITS Impressions Chest X-Ray 08/13/25 20:00 IMPRESSION: 1. No acute cardiopulmonary disease. Critical Care Time Critical Care Time Critical Care Time: No Discharge Plan Discharge Clinical Impression: Pneumonia Patient Disposition: Home Condition: Stable Instructions: Antibiotic Form, Community Acquired Pneumonia (ED) Additional Instructions: You will be notified on the official report of your chest x-ray. Take antibiotics as directed until complete. eat small frequent meals. Get lots of rest and drink fluids. Alternate Tylenol and ibuprofen for pain/fever, follow instructions on the bottle. Call your Primary Care Doctor and make a follow-up appointment in 3 days. Go to the ER for worsening symptoms, nausea, vomiting, chest chest pain, difficulty breathing, shortness of breath, weakness, or any serious concerns. Patient Language: Turkish Prescriptions: New azithromycin 250 mg tablet See Rx Instructions .ROUTE .COMPLEX Qty: 6 0RF Rx Instructions: For 250 mg dose pack: take 500 mg today (day 1), then 250 mg for 4 days (days 2-5) No Action Feli Autoinjector 80 mg/mL auto-injector 80 mg subcut ONCE Qty: 1 0RF Patient Comments: Monthly amitriptyline 25 mg tablet 25 mg PO QHS Qty: 1 0RF Rx Instructions: prescribed by shravan duloxetine 60 mg capsule,delayed release(DR/EC) 60 mg PO DAILY lidocaine 4 % adhesive patch,medicated 1 patch topical DAILY PRN (Reason: pain) Qty: 10 0RF acetaminophen 500 mg capsule 1,000 mg PO Q6H PRN (Reason: pain) Qty: 30 0RF ondansetron 4 mg tablet,disintegrating 4 mg PO Q6H PRN (Reason: nausea and vomiting) Qty: 12 1RF mecobalamin (vitamin B12) 1,000 mcg tablet,chewable 1,000 mcg PO DAILY Qty: 90 0RF Rx Instructions: OTC ubrogepant 100 mg tablet 100 mg PO ONCE Qty: 14 0RF Rx Instructions: as a single dose; may repeat once in >=2 hours after first dose if needed - DOSE INCREASE 06/04/25 Follow-up/Referrals: Jennifer Gomes PA-C [Primary Care Provider, [facility]] Time of Disposition: 19:20
== END 2025-08-13 19:26 | disposition home or self-care (01) ==
PROVIDERS: PCP Physician Assistant Medical
DX: J18.9 Pneumonia, unspecified organism (principal); Z20.822 Contact with and (suspected) exposure to COVID-19; I71.9 Aortic aneurysm of unspecified site, without rupture; M79.7 Fibromyalgia; E53.8 Deficiency of other specified B group vitamins; G81.94 Hemiplegia, unspecified affecting left nondominant side; Z86.73 Personal history of transient ischemic attack (TIA), and cerebral infarction without residual deficits
CPT/HCPCS: 71046; 87426; 87804; 99213; G0463

== ENCOUNTER 2025-09-17 09:09 | Outpatient (CLI) | payer BC, SELFPAY ==
--- NOTE | ~2025-09-17 | XR_ITS ---
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 Findings: No acute fracture or malalignment. No significant degenerative changes. Soft tissues unremarkable. Impression: No acute fracture or malalignment. Reviewed, dictated and finalized at location P. IFIED ADAPTED PHYSICAL EDUCATOR Impression: No acute fracture or malalignment.
== END 2025-09-17 09:10 | disposition home or self-care (01) ==
LOC: MICIMG 09:10
PROVIDERS: PCP Physician Assistant Medical; Visit Provider Physician Assistant Medical
DX: M25.551 Pain in right hip (principal)
CPT/HCPCS: 73502

== ENCOUNTER 2025-10-11 16:54 | Emergency (ER) | payer BC, SELFPAY ==
--- NOTE | 2025-10-11 16:59 | ED.NECK ---
HPI - Neck Pain/Injury General Chief Complaint: Neck Pain/Injury Stated Complaint: JAW/NECK PAIN Time Seen by Provider: 10/11/25 16:55 Source: patient Mode of arrival: ambulatory Limitations: no limitations History of Present Illness HPI Narrative: patient is a 45-year-old male who presents with right jaw pain since yesterday. Patient states symptoms worsen with eating. Denies any pain radiating down neck, arm or to chest. Has been taking Tylenol ibuprofen without relief. Patient has history of chronic neck pain and has been seen by pain management, last visit 10 days ago. Patient reports going to the dentist roughly 1 month ago and everything was fine at that time. Denies any fever, chills, nausea, vomiting, diarrhea. Related Data Home Medications ?Medication ?Instructions ?Recorded ?Confirmed ?Last Taken ?Type duloxetine 60 mg capsule,delayed 60 mg PO DAILY 05/13/25 10/11/25 Unknown History release diltiazem HCl 30 mg tablet 30 mg PO TID PRN Unknown 08/20/25 10/11/25 Unknown History Allergies Allergy/AdvReac Type Severity Reaction Status Date / Time Penicillins Allergy Unknown Unknown Verified 10/11/25 17:05 Review of Systems Review of Systems: All systems reviewed & are unremarkable except as noted in HPI and below Constitutional: Constitutional: Denies body ache(s), Denies chills, Denies fatigue, Denies fever(s), Denies headache(s), Denies malaise and Denies weakness Eyes: Eyes: Denies blurry vision, Denies irritation and Denies loss of vision ENT: Denies otalgia, Reports facial pain, Denies headache(s), Reports mouth pain, Denies nasal discharge, Denies sinus pain and Denies sore throat Cardiovascular: Cardiovascular: Denies chest pain, Denies irregular heart rhythm and Denies dyspnea Respiratory: Respiratory: Denies dyspnea Gastrointestinal: Gastrointestinal: Denies abdominal pain, Denies melena, Denies hematochezia, Denies diarrhea, Denies nausea and Denies vomiting Musculoskeletal: Musculoskeletal: Denies back pain, Denies myalgias and Denies arthralgias Integumentary/Breasts: Skin/Breast: Denies pruritus and Denies rash Neurologic: Denies headache(s), Denies loss of vision and Denies weakness Psychiatric: Psychiatric: Reports no additional psychiatric complaints Endocrine: Endocrine: Denies fatigue PMFSH Past Medical History Medical History Left hemiplegia (~02/2025) Left-sided weakness TIA (transient ischemic attack) Eustachian tube dysfunction S/p Eustachian tube dilatation by Dr. 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 Father Heart disease Renal failure Hypertension Malignant neoplasm of prostate Social History Social History Smoking status: Never smoker Alcohol intake: never Alcohol use details: rarely Substance use: never Substance use type: does not use Other substance usage details: Denies IVDU Lack of Transportation: No Lack of Food: Never True Current Housing: I Have Housing Concerned About Future Housing: No Difficulty Paying Gas/Electric Bills: No Difficulty Paying for Meds: No Currently Unemployed: No Education: Associate Degree Difficulty w/ Childcare or Family Care: No Living arrangements: with family Occupation/Education: occupation Gender identity (if verbalized by the patient): Male Spiritual care concerns: No Comments At time of signature, agree with nursing past medical, surgical, social and family history. There is no relevant family history pertinent to the presenting complaint. Exam Const: General: cooperative, healthy appearing, comfortable, no acute distress and well nourished Nutritional Appearance: well nourished Orientation/consciousness: patient oriented x3 Limitations: no limitations HENMT: Head: normal to inspection, normocephalic and atraumatic Ears: hearing grossly normal bilaterally and external ears normal Face/Nose/Sinus: Normal external nose present, normal facial exam and face symmetric Face and sinus: normal facial exam, face symmetric, no erythema and Facial tenderness on exam of face and sinuses (with mild swelling) on the right mandible and angle of jaw Mouth: Yes Normal oral and palatal mucosa present, Yes lip normal, Yes tongue normal, Yes Normal salivary glands and ducts present, Yes oropharynx normal and Yes moist mucous membranes Teeth and gingiva: dentition normal Throat: posterior oropharynx normal, tonsils normal and uvula midline Eyes: General: appearance normal, both eyes and all related structures Alignment and Position: alignment normal and position normal Periorbital: periorbital findings normal Eyelids: eyelids normal Pupils: Equal, round and reactive pupils present EOM: EOMs intact bilaterally Neck: Neck: normal visual inspection, full ROM and supple Chest: Chest palpation & inspection: normal inspection of the chest Resp: Effort & Inspection: normal respiratory effort and able to speak in complete sentences Auscultation: clear to auscultation bilaterally Cardio: Rate: regular rate Rhythm: regular rhythm Heart sounds: S1 normal heart sound present and S2 normal heart sound present GI: Inspection: normal to inspection Skin: General skin exam: normal color and no rashes or lesions noted Neuro: General: patient oriented x3 and moves all extremities Cranial nerves: Yes Equal, round and reactive pupils present Speech: normal speech Gait exam (Neuro): Normal gait present Extrem: General: normal to inspection, full ROM and no edema Psych: Appearance: grossly normal and well kempt Mental Status: mental status grossly normal Speech and movement: Normal speech and movement present Affect: normal affect Attitude: cooperative Thought process: Normal thought process present Course Course Emergency Course: Patient is aware of diagnosis, understands and agrees to treatment plan. Anticipatory guidance given. Patient agrees to follow-up as directed and is aware of reasons to seek care at the emergency department. Portions of this record may have been created with voice recognition software Level of Care: Express Care Visit Vital Signs Vital signs: Reviewed MDM - Neck Pain/Injury MDM Narrative Medical decision making narrative: Based on symptoms likely salivary stone or sialadenitis. Will treat with antibiotics and give steroids to help with inflammation. Discussed the importance of maintain increased salivation. Pt well hydrated appearing, in no respiratory distress, hemodynamically stable. Recommend supportive care. The patient is stable at time of discharge the clinical impression was discussed and the patient was given the opportunity to ask questions, which were addressed as completely as possible given the information available at present. Anticipatory guidance and return to care precautions were discussed and the importance of primary care follow-up was stressed and encouraged. The patient voiced understanding of the plan, indications to return, and the need for follow-up. Exam findings show no acute concerns or changes Patient is appropriate for outpatient treatment and follow-up. Differential Diagnosis Differential diagnosis: Likely cervical radiculopathy and other ( Salivary stone, parotitis, sialadenitis, dental infection. Less likely cardiac in nature) Medical Records Attestation: I reviewed the patient's medical records. Discharge Plan Discharge Clinical Impression: Acute sialoadenitis Patient Disposition: Home Condition: Stable Instructions: Sialoadenitis (ED) Additional Instructions: Take antibiotic until it's gone. You may massage face gently. Suck on hard sour candies or lemon drops. You may apply ice to the face to reduce pain/swelling. For pain, you may take: Tylenol 650-1000mg by mouth every 4-6 hours. Do not exceed 4000mg in 24 hours. Advil (Ibuprofen) 600 mg by mouth every 6 hours. Do not exceed 2400mg in 24 hours. 8 AM: Tylenol 11 AM: Ibuprofen 2 PM: Tylenol 5 PM: Ibuprofen 8 PM: Tylenol 11 PM: Ibuprofen 2 AM: Tylenol 5 AM: Ibuprofen If you have any worsening swelling, redness or difficulty swallowing go to the emergency department. Patient Language: [place] Verdean Prescriptions: New clindamycin HCl 300 mg capsule 300 mg PO Q8H 10 Days Qty: 30 0RF prednisone 20 mg tablet See Rx Instructions .ROUTE .COMPLEX Qty: 9 0RF Rx Instructions: 40 mg daily x3 days, 20 mg daily x3 days No Action diltiazem HCl 30 mg tablet 30 mg PO TID PRN (Reason: Unknown) Rx Instructions: CARDIO ubrogepant 100 mg tablet 100 mg PO ONCE Qty: 14 2RF Rx Instructions: as a single dose; may repeat once in >=2 hours after first dose if needed - DOSE INCREASE 06/04/25 [place]z Autoinjector 80 mg/mL auto-injector 80 mg subcut ONCE Qty: 1 0RF Patient Comments: Monthly amitriptyline 25 mg tablet 25 mg PO QHS Qty: 1 0RF Rx Instructions: prescribed by shravan duloxetine 60 mg capsule,delayed release(DR/EC) 60 mg PO DAILY lidocaine 4 % adhesive patch,medicated 1 patch topical DAILY PRN (Reason: pain) Qty: 10 0RF acetaminophen 500 mg capsule 1,000 mg PO Q6H PRN (Reason: pain) Qty: 30 0RF mecobalamin (vitamin B12) 1,000 mcg tablet,chewable 1,000 mcg PO DAILY Qty: 90 0RF Rx Instructions: OTC ondansetron 4 mg tablet,disintegrating 4 mg PO Q6H PRN (Reason: nausea and vomiting) Qty: 12 1RF Follow-up/Referrals: Jennifer Gomes PA-C [Primary Care Provider, Family Practice] - 3 Days Time of Disposition: 17:14
[2025-10-11 17:04] VITALS: BP 114/86; PULSE 84; RESP 16; TEMP 35.8; O2SAT 95
== END 2025-10-11 17:15 | disposition home or self-care (01) ==
PROVIDERS: Emergency Provider Nurse Practitioner Family; PCP Physician Assistant Medical
DX: K11.21 Acute sialoadenitis (principal); M79.7 Fibromyalgia; E53.8 Deficiency of other specified B group vitamins; L40.9 Psoriasis, unspecified; Z86.73 Personal history of transient ischemic attack (TIA), and cerebral infarction without residual deficits
CPT/HCPCS: 99213; G0463